=== PATIENT | male | born 1970 | race Caucasian/White ===

== ENCOUNTER 2016-06-14 13:56 | Inpatient (IN) | payer OTHER ==
[~2016-06-14] VITALS: Ht 177.8 cm; Wt 104.3 kg
[~2016-06-14 13:56] MED LIST: ALBUTEROL SULF0.5 ML INH/SOL; ALBUTEROL0.09 MG/A1 INH; ALBUTEROL1.25 MG/3 INH/SOL; ALBUTEROL2.5 MG/0.5 INH/SOL; ALBUTEROL2.5 MG/3 M INH/SOL; BACLOFEN10 M1 PO; CALCIUM CARBON200 MG PO; DOCUSATE SODIU100 M3 PO; GABAPENTIN300 M2 PO; GUAIFENESI100 MG/5 M PO; GUAIFENESIN ER600 MG PO; HYDROXYZINE PAM50 M1 PO; IPRAT-ALBUT 0.5-3 ML INH; MEDROL DOSEPAK1 PAC PO; MEDROL4 M2 PO; MELATONIN5 M7 PO; MIRALAX119 GM PO; ONE DAILY MULT1 EAC2 PO; OXYGEN; PRAZOSIN HYDROCH2 MG; PREDNICOT20 MG PO; PREDNISONE 10MG10 M1 PO; PREDNISONE 20MG20 MG PO; PREDNISONE10 M2 PO; PREDNISONE10 MG PO; PREDNISONE20 M1 PO; PROAIR HFA0.09 MG/Ac INH; PROAIR HFA8.5 GM INH; PROTONIX40 M3 PO; PROVENTIL0.09 MG/A1 INH; SENNA-TIME S T1 EACH PO; SPIRIVA 18 MCG18 MCG INH; SPIRIVA18 MCG INH; SYMBICORT 16010.2 GM INH; VENTOLIN1 PUF INH; WELLBUTRIN XL300 M2 PO; ZITHROMAX Z-PA250 M1 PO; ZITHROMAX Z-PA250 MG PO; [UNRECOGNIZED DRUG - OTHER]
--- NOTE | 2016-06-14 13:59 | NUR ---
PT STATES HE IS HAVING A ASTHMA ATTACK. PT REPORTS HAVING DIFFICULTY BREATHING FOR THE PAST 2 DAYS. PT HAS BEEN USING HIS NEBULIZER AND INHALERS WITHOUT RELIEF. INS/EXT WHEEZING HEARD IN TRIAGE.
--- NOTE | 2016-06-14 14:04 | NUR ---
PT BROUGHT RIGHT BACK TO ROOM 4 RESPITORY PAGED
--- NOTE | 2016-06-14 14:07 | ED DYSPNEA/ASTHMA COMPLAINT ---
History of Present Illness General Chief Complaint: Wheezing/Asthma Stated Complaint: ASTHMA Source: patient Exam Limitations: no limitations Vital Signs & Intake/Output Vital Signs & Intake/Output Vital Signs Date Time Temp Pulse Resp B/P Pulse O2 O2 Flow FiO2 Ox Delivery Rate 06/15 0711 97.9 96 16 132/74 94 BIPAP 30% 06/15 0636 107 94 06/15 0515 99 96 06/15 0237 92 Nasal 7.0L Cannula 06/15 0233 92 Nasal 7.0L Cannula 06/15 0204 97.7 100 22 136/70 87 Nasal 5.0L Cannula 06/14 2301 97.1 111 26 160/70 93 Nasal 5.0L Cannula 06/14 2300 93 Nasal 5.0L Cannula 06/14 2021 98.3 108 22 118/73 93 Nasal 5.0L Cannula 06/14 1916 97.8 106 20 116/67 98 Aerosol Mask 06/14 1907 91 Nasal 4.0L Cannula 06/14 1750 94 Nasal 4.0L Cannula 06/14 1655 97.3 100 20 137/80 92 Nasal 5.0L Cannula 06/14 1621 97 Nasal 5.0L Cannula 06/14 1514 97 Nasal 5.0L Cannula 06/14 1456 101 24 126/73 99 Aerosol Mask 06/14 1359 96.8 115 20 150/98 83 ED Intake and Output 06/15 0000 06/14 1200 Intake Total Output Total 350 Balance -350 Output, Urine 350 Patient 230 lb Weight Allergies Coded Allergies: oak (ALLERGY TESTED POSITIVE 03/15/16) Uncoded Allergies: SPRUCE (ALLERGY TESTED POSITIVE 03/15/16) Triage Note: PT STATES HE IS HAVING A ASTHMA ATTACK. PT REPORTS HAVING DIFFICULTY BREATHING FOR THE PAST 2 DAYS. PT HAS BEEN USING HIS NEBULIZER AND INHALERS WITHOUT RELIEF. INS/EXT WHEEZING HEARD IN TRIAGE. Triage Nurses Notes Reviewed? yes Onset: Abrupt Duration: day(s): (2), constant, continues in ED Timing: recent history Severity: moderate, severe HPI: 45-year-old male brought into the emergency room by for shortness of breath. Patient has a history of asthma. Increased shortness of breath for the past 2 days. Patient has been admitted to the ICU before here. Previous smoker. History of COPD as well. Patient unable to provide a lot of information due to respiratory distress. Patient not able to talk in full sentences. Respiratory called immediately. Denies chest pain. Patient's oxygen saturation 83% on room air. (ADELSO SHAW) Reconcile Medications Albuterol Sulfate (Albuterol Sulfate Nebulizer Soln) 0.5 ML NEB 1 Vial INH/KAREN Q4P PRN COPD (Reported) Albuterol Sulfate (Proair Hfa) 0.09 MG/Actuation YANE 2 PUFF INH PRN COPD ( Reported) Aripiprazole 5 MG TABLET 1 TAB PO DAILY MENTAL HEALTH (Reported) Budesonide/Formoterol Fumara (Symbicort 160-4.5 Mcg Inhaler) 160 MCG/4.5 MCG PUF 1 PUFF INH BID COPD (Reported) Gabapentin (Unknown Strength) CAPSULE 300 PO BID ANXIETY (Reported) Ipratropium/Albuterol Sulfate (Iprat-Albut 0.5-3(2.5) MG/3 Ml) 0.5 MG-3 MG (2.5 MG BASE)/3 ML AMPUL.NEB 1 VIAL INH Q4 PRN sob Methadone HCl 10 MG/5 ML SOLUTION 75 MG PO DAILY MENTAL HEALTH (Reported) Pantoprazole Sodium (Protonix) 40 MG TAB 40 MG PO DAILY ACID REFLUX (Reported ) Prazosin HCl 1 MG CAPSULE 1 CAP PO QPM MENTAL HEALTH (Reported) (HITESH BANKS,LISANDRO) Past History Travel History Traveled to [place] past 21 day No Medical History Any Pertinent Medical History? 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 No (ADELSO SHAW) Review of Systems Review of Systems Constitutional: Reports: no symptoms. EENTM: Reports: no symptoms. Respiratory: Reports: see HPI. Cardiovascular: Reports: no symptoms. GI: Reports: no symptoms. Genitourinary: Reports: no symptoms. Musculoskeletal: Reports: no symptoms. Skin: Reports: no symptoms. Neurological/Psychological: Reports: no symptoms. Hematologic/Endocrine: Reports: no symptoms. Immunologic/Allergic: Reports: no symptoms. All Other Systems: Reviewed and Negative (ADELSO SHAW) Physical Exam Physical Exam General Appearance: well developed/nourished, moderate distress Head: atraumatic Eyes: Bilateral: normal appearance, EOMI. Ears, Nose, Throat: normal ENT inspection, hearing grossly normal Neck: normal inspection Respiratory: decreased breath sounds, rhonchi, wheezing, respiratory distress ( moderate) Cardiovascular: regular rate/rhythm Extremities: normal inspection Neurologic/Psych: awake, alert, oriented x 3 Skin: intact, normal color Core Measures ACS in differential dx? No Severe Sepsis Present: No Septic Shock Present: No (ADELSO SHAW) Progress Differential Diagnosis: asthma, AMI, bronchitis, costochondritis, CHF, COPD, musculoskeletal pain, pericarditis, pulmonary embolism, pneumonia, pneumothorax, rib fracture, unstable angina Plan of Care: Orders Procedure Date/time Status Regular Diet 06/15 B Active Change service to 06/15 0819 Active ARTERIAL BLOOD GAS (GEN) 06/15 0700 Active CBC WITHOUT DIFFERENTIAL 06/15 0600 Complete BASIC ELECTROLYTES PLUS BUN&CR 06/15 0600 Complete HEPATIC FUNCTION PANEL 06/15 0530 Complete BIPAP 06/15 0520 Complete RAPID VIRAL INFLUENZA A 06/15 0440 Complete THERAPIST ORDERS 06/15 0235 Complete BIPAP 06/15 UNK Complete Lab Add-on Test 06/15 UNK Active Vital Signs 06/14 2255 Complete Teach/Educate 06/14 225 Active Nutritional Intake, Monitor 06/14 225 Active Isolation 06/14 225 Active Intake & Output 06/14 225 Complete Patient Care Conference 06/14 2255 Active Activity/Ambulation 06/14 225 Complete TRC EVALUATION (GEN) 06/14 2231 Active OXYGEN SETUP (GEN) 06/14 2231 Complete Saline Lock 06/14 223 Active Pathway - chart 06/14 2231 Active House Staff 06/14 2231 Active Code Status 06/14 2231 Active Saline Lock 06/14 2133 Active Misc Message 06/14 2133 Active ED Holding Orders 06/14 2133 Active Vital Signs 06/14 2133 Complete Activity/Ambulation 06/14 2133 Active Code Status 06/14 2133 Complete Patient Data 06/14 2112 Active Patient Data 06/14 2110 Active Admit to inpatient 06/14 1944 Active Intake & Output 06/14 1655 Active Telemetry/Director Medical Affairs 06/14 1407 Complete TROPONIN LEVEL 06/14 1407 Complete COMPREHENSIVE METABOLIC PANEL 06/14 1407 Complete CBC WITHOUT DIFFERENTIAL 06/14 1407 Complete EKG 06/14 1407 Active VTE Mechanical Prophylaxis 06/14 UNK Active Vital Signs 06/14 UNK Active Intake & Output 06/14 UNK Complete Current Medications Sig/Nettie Start time Last Medication Dose Stop Time Status Admin Prazosin HCl 1 MG QPM 06/15 2200 AC (Minipress 1 MG) Aripiprazole 5 MG DAILY 06/15 1000 AC (Abilify) Budesonide/ 2 PUF BID 06/15 1000 AC Formoterol Fumarate (Symbicort) Enoxaparin Sodium 40 MG DAILY 06/15 1000 AC (Lovenox) Gabapentin 300 MG BID 06/15 1000 AC (Neurontin) Nicotine 14 MG DAILY 06/15 1000 AC (Nicotine Cq) Albuterol Sulfate 2 PUF Q4P PRN 06/15 0230 AC (Ventolin) Melatonin 5 MG AT BEDTIME 06/15 0115 AC (Melatonin) Ipratropium [place] 2.5 ML Q4 HRS NEEDED PRN 06/14 2345 AC (Atrovent) Acetaminophen 650 MG Q6P PRN 06/14 2245 AC (Tylenol) Ipratropium [place] 2.5 ML ONCE ONE 06/14 1415 CAN (Atrovent) 06/14 1416 Laboratory Tests 06/15/16 0600: Total Bilirubin Cancelled, Direct Bilirubin Cancelled, AST Cancelled, ALT Cancelled, Alkaline Phosphatase Cancelled, Total Protein Cancelled, Albumin Cancelled 06/15/16 0530: Anion Gap 10, Estimated GFR > 60, BUN/Creatinine Ratio 13.8, Total Bilirubin 0.5 , Direct Bilirubin 0.4, AST 53, ALT 97 H, Alkaline Phosphatase 85, Total Protein 6.8, Albumin 3.8, CBC w Diff NO MAN DIFF REQ, RBC 4.04 L, MCV 93.1, MCH 31.1 H, RDW 13.5, MPV 8.2, Gran % 92.3 H, Lymphocytes % 6.2 L, Monocytes % 1.5 L, Eosinophils % 0, Basophils % 0 L, Absolute Granulocytes 9.3 H, Absolute Lymphocytes 0.6 L, Absolute Monocytes 0.2, Absolute Eosinophils 0, Absolute Basophils 0, PUBS MCHC 33.5 06/14/16 1500: pH 7.33 L, pCO2 54 H, pO2 105 H, HCO3 28, ABG O2 Sat (Measured) 96.0, Carboxyhemoglobin 0.7 L, O2 Concentration % 8L, O2 Delivery Method NEB RX, Phlebotomy Draw Site RIGHT BRACHIAL 06/14/16 1413: Anion Gap 8, Estimated GFR > 60, BUN/Creatinine Ratio 10.0, Glucose 174 H, Calcium 9.6, Total Bilirubin 0.6, AST 80 H, ALT 126 H, Alkaline Phosphatase 98 , Troponin I < 0.01, Total Protein 7.6, Albumin 4.3, Globulin 3.3, Albumin/ Globulin Ratio 1.3, CBC w Diff NO MAN DIFF REQ, RBC 4.49 L, MCV 92.7, MCH 31.3 H, RDW 13.4, MPV 8.0, Gran % 64.1, Lymphocytes % 19.2 L, Monocytes % 9.5 H, Eosinophils % 6.7 H, Basophils % 0.5, Absolute Granulocytes 4.4, Absolute Lymphocytes 1.3, Absolute Monocytes 0.7 H, Absolute Eosinophils 0.5, Absolute Basophils 0, PUBS MCHC 33.8 Diagnostic Imaging: Viewed by Me: Radiology Read. Discussed w/RAD: Radiology Read. Radiology Impression: SERVICE DATE: 06/14/16 EXAM TYPE: RAD - XRY- PORTABLE CHEST XRAY EXAMINATION: XR PORTABLE CHEST CLINICAL INFORMATION: Shortness of breath. COMPARISON: 04/05/2016 TECHNIQUE: Portable view of the chest was obtained. FINDINGS: Stable cardiac and mediastinal silhouette. Stable hazy opacity in the lung bases, likely secondary to overlapping densities. No evidence of focal consolidation, effusion, edema or pneumothorax. IMPRESSION: No significant interval change. No evidence of acute process. DICTATED BY: DEBBIE MONSON MD DATE/TIME DICTATED:06/14/161446 DIRECTOR BUSINESS INTELLIGENCE:SHEEBA DATE/ TIME TRANSCRIBED:06/14/161446 Initial ED EKG: normal intervals, normal p-waves, normal sinus rhythm, rate (103 ) (ADELSO SHAW) Departure Departure Disposition: STILL A PATIENT Condition: Stable Clinical Impression Primary Impression: Asthma exacerbation Secondary Impressions: Hypoxia Referrals: ALLAN NEWTON DO (PCP/Family) Departure Forms: Customer Survey General Discharge Information Admission Note Spoke With: MONIQUE BARRETT MD Documentation of Exam: Documentation of any treatments & extenuating circumstances including Concerns Regarding Discharge (functional status, medication knowledge or non-compliance, living conditions, etc.) that warrant an admission rather than observation: Patient was in a moderate amount of rust or distress. Despite continuous nebs, magnesium, steroids patient is still persistently hypoxic into the mid to high 80s on room air. Patient is still tight on exam. Patient will require pulmonary consultation. Supplemental oxygen. High risk. (ADELSO SHAW) PA/BEAUTY SALES ADVISOR Co-Sign Statement Statement: ED Attending supervision documentation- [X] I saw and evaluated the patient. I have also reviewed all the pertinent lab results and diagnostic results. I agree with the findings and the plan of care as documented in the PA's/BEAUTY SALES ADVISOR's documentation. [X] I have reviewed the ED Record and agree with the PA's/BEAUTY SALES ADVISOR's documentation. [] Additions or exceptions (if any) to the PAs/BEAUTY SALES ADVISOR's note and plan are summarized below: [] (HITESH BANKS,LISANDRO) Critical Care Note Critical Care Note Critical Care Time: 30-74 min (ADELSO SHAW)
[2016-06-14 14:22] LABS: ABSOLUTE BASOPHIL COUNT 0 /CUMM (0.0-0.2); ABSOLUTE EOSINOPHIL COUNT 0.5 /CUMM (0.0-0.7); ABSOLUTE GRANULOCYTE CT 4.4 /CUMM (1.4-6.5); ABSOLUTE LYMPH COUNT 1.3 /CUMM (1.2-3.4); ABSOLUTE MONOCYTE COUNT 0.7 /CUMM (0.10-0.60); BASOPHIL % 0.5 % (0.0-2.0); EOSINOPHIL % 6.7 % (0-5); GRANULOCYTE % 64.1 % (42.2-75.2); HEMATOCRIT 41.6 % (42-52); MEAN CORPUSCULAR HGB 31.3 PG (27.0-31.0); MEAN CORPUSCULAR HGB CONC 33.8 G/DL (33.0-37.0); MEAN CORPUSCULAR VOLUME 92.7 FL (80.0-94.0); PLATELET COUNT 249 /CUMM (130-400); RBC DISTRIBUTION WIDTH 13.4 % (11.5-14.5); RED BLOOD CELL CT 4.49 /CUMM (4.70-6.10); WHITE BLOOD CELL COUNT 6.9 /CUMM (4.8-10.8)
--- NOTE | 2016-06-14 14:28 | NUR ---
PT TO ROOM 4 AND SEEN BY RAFAEL CROSS AND DR PROCTOR IMMEDIATLY, SATS 94 ON 5L NC, RT AT BEDSIDE AND CONT NEBS SETUP WITH SATS 98-99 ON NEB TX AND AUDIBLE WHEEZING. IV EST AND MEDICATED PER EMAR, BLOOD SENT (SST/LAV/BONNER). PT ALERT AND STATES FEELS SOME IMPROVEMENT ON NEB TX. PCXR DONE, EKG DONE, PT ON TELE MONITOR WITH 02 SATS AND CYCLING BPS.
--- NOTE | 2016-06-14 15:07 | RADIOLOGY REPORT ---
EXAMINATION: XR PORTABLE CHEST CLINICAL INFORMATION: Shortness of breath. COMPARISON: 04/05/2016 TECHNIQUE: Portable view of the chest was obtained. FINDINGS: Stable cardiac and mediastinal silhouette. Stable hazy opacity in the lung bases, likely secondary to overlapping densities. No evidence of focal consolidation, effusion, edema or pneumothorax. IMPRESSION: No significant interval change. No evidence of acute process.
[2016-06-14] MEDS ORDERED: PRAZOSIN HCL1 M1 PO (16:25)
[2016-06-14] MEDS ORDERED: PREDNISONE10 M2 PO (16:25)
[2016-06-14] MEDS ORDERED: GABAPENTIN400 M2 PO (16:26)
[2016-06-14] MEDS ORDERED: ARIPIPRAZOLE5 M1 PO (16:27)
--- NOTE | 2016-06-14 16:55 | NUR ---
PT APPEARS MORE COMFORTABLE THAN PRIOR, NOW ABLE TO SPEAK IN FULL PHRASES AND CONVERSING ON CELL PHONE. SATS 92-96 ON 5L MS.
--- NOTE | 2016-06-14 17:30 | NUR ---
RAFAEL [place] AT BEDSIDE DISCUSSING POC. PA SUGGESTING ADMISSION, PT STATING HE DOES NOT WANT TO STAY.
--- NOTE | 2016-06-14 17:44 | NUR ---
RT CALLED FOR REPEAT NEB. SATS 91-92 ON 3L NC, IMMED DROPS TO 88 ON RA. WILL RE-ATTEMPT AFTER TX.
--- NOTE | 2016-06-14 18:00 | NUR ---
02 SATS AFTER NEB TX 89 ON RA. PT BACK ON 3L AT THIS TIME, DOES NOT WANT TO STAY IN ED FOR OBS, ASKING TO SPEAK WITH DR PROCTOR ABOUT POC. DR PROCTOR AWARE.
--- NOTE | 2016-06-14 19:16 | NUR ---
RT AT BEDSIDE WITH NEB TX AGAIN.
--- NOTE | 2016-06-14 20:23 | NUR ---
PT MEDICATED WITH ATIVAN. PT CURRENTLY WILLING TO BE ADMITTED. NO COMPLAINTS AT THIS TIME.
--- NOTE | 2016-06-14 21:10 | History & Physical ---
SHIRLEY ARCHULETA MD 06/14/162109: General Information and HPI MD Statement: I have seen and personally examined ARIANNA HEREDIA and documented this H&P. The patient is a 45 year old M who presented with a patient stated chief complaint of [ASTHMA ATTACK]. Source of Information: patient Exam Limitations: no limitations History of Present Illness: 45-year-old male with PMH of asthma with ICU admission in Mar 2016 requiring bipap (no intubation) on 3.5 L nocturnal O2, PTSD, anxiety, presented to ED for asthma attack. He reported that he started having asthma attacks 2 nights ago, he woke up twice to give himself duoneb, and once in the morning. He was doing well throughout the day. Last night, he woke up every hour to give himself duoneb. He does get relief after the duoneb. He has dry cough, wheezing, shortness of breath, and panic. He followed up with Dr. Cuevas since discharge. He was given 30 pills of 10 mg prednisone, for which he took 50mg X 2 days and decrease by 10 mg every 2 days. His last dose was 2 days ago. He has an appointment to see Dr. Cuevas upcoming Tue. In 2015, he left AMA X 2 from ED when he was supposed to be admitted, and he finally agreed to be admitted in Mar 2016 to the ICU. He was put on bipap. When he arrived to the ED, he was wheezing, and was saturating at 83% on RA. He was given neb tx, and placed on 5L O2, saturating at 93% . He felt better after the neb treatment, currently reports feeling " raspy". He has stopped smoking since discharge. He currently uses nicotine patch. He lives with his girlfriend and daughter. His girlfriend smokes outside the house. 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 He has a dog and a cat. He had an allergy test in the past. He is not allergic to cat and dogs. He is allergic to oak tree. He felt anxious in the ED, but felt better after 2mg IV ativan and 1 mg PO ativan. He has an appointment with a psychiatrist on Jun 26, and does not feel the need the get psychiatry consult while inpatient. He follows up with [facility] in [place] for his methadone. He takes 75 mg methadone daily. Allergies/Medications Allergies: Coded Allergies: oak (ALLERGY TESTED POSITIVE 03/15/16) Uncoded Allergies: SPRUCE (ALLERGY TESTED POSITIVE 03/15/16) Home Med list Albuterol Sulfate (Albuterol Sulfate Nebulizer Soln) 0.5 ML NEB 1 Vial INH/KAREN Q4P PRN COPD (Reported) Albuterol Sulfate (Proair Hfa) 0.09 MG/Actuation YANE 2 PUFF INH PRN COPD ( Reported) Aripiprazole 5 MG TABLET 1 TAB PO DAILY MENTAL HEALTH (Reported) Budesonide/Formoterol [place] (Symbicort 160-4.5 Mcg Inhaler) 160 MCG/4.5 MCG PUF 1 PUFF INH BID COPD (Reported) Gabapentin (Unknown Strength) CAPSULE 300 PO BID ANXIETY (Reported) Ipratropium/Albuterol Sulfate (Iprat-Albut 0.5-3(2.5) MG/3 Ml) 0.5 MG-3 MG (2.5 MG BASE)/3 ML AMPUL.NEB 1 VIAL INH Q4 PRN sob Methadone HCl 10 MG/5 ML SOLUTION 75 MG PO DAILY MENTAL HEALTH (Reported) Pantoprazole Sodium (Protonix) 40 MG TAB 40 MG PO DAILY ACID REFLUX (Reported ) Prazosin HCl 1 MG CAPSULE 1 CAP PO QPM MENTAL HEALTH (Reported) Past History Travel History Traveled to [place] past 21 day No Medical History Neurological: NONE EENT: NONE Cardiovascular: NONE Respiratory: asthma Gastrointestinal: GERD Hepatic: NONE Renal: NONE Musculoskeletal: NONE Psychiatric: anxiety, depression, PTSD Endocrine: NONE Blood Disorders: NONE Cancer(s): NONE ROOMS DIRECTOR/Reproductive: NONE History of MRSA: No History of VRE: No History of CDIFF: No Surgical History Surgical History: L THUMB SURGERY Past Family/Social History Family History Relations & Conditions if any Relation not specified for: *No pertinent family history Psychosocial History Who Do You Live With? spouse, child Services at Home: None Primary Language: [place]er Smoking Status: Former Smoker ETOH Use: denies use Illicit Drug Use: denies illicit drug use Functional Ability ADLs Independent: dressing, eating, toileting, bathing. Ambulation: independent IADLs Independent: shopping, housework, finances, food prep, telephone, transportation , medication admin. Review of Systems Review of Systems Constitutional: Denies: chills, fever. EENTM: Denies: visual changes. Cardiovascular: Denies: chest pain, palpitations. Respiratory: Reports: cough, short of breath. Denies: sputum production. GI: Denies: abdominal pain, bloating, constipation, diarrhea, nausea, vomiting. Genitourinary: Denies: dysuria. Exam & Diagnostic Data Last 24 Hrs of Vital Signs/I&O Vital Signs Date Time Temp Pulse Resp B/P Pulse O2 O2 Flow FiO2 Ox Delivery Rate 06/14 2301 97.1 111 26 160/70 93 Nasal 5.0L Cannula 06/14 2020 98.3 108 22 118/73 93 Nasal 5.0L Cannula 06/14 1916 97.8 106 20 116/67 98 Aerosol Mask 06/14 1907 91 Nasal 4.0L Cannula 06/14 1750 94 Nasal 4.0L Cannula 06/14 1655 97.3 100 20 137/80 92 Nasal 5.0L Cannula 06/14 1621 97 Nasal 5.0L Cannula 06/14 1514 97 Nasal 5.0L Cannula 06/14 1456 101 24 126/73 99 Aerosol Mask 06/14 1359 96.8 115 20 150/98 83 Intake & Output 06/14 1600 06/14 0800 06/14 0000 Intake Total Output Total Balance Patient 104.326 kg Weight Physical Exam General Appearance Alert, Oriented X3, Cooperative, Mild Distress Skin No Significant Lesion HEENT Atraumatic, PERRLA, EOMI, Mucous Membr. moist/pink Neck Supple, +2 Carotid Pulse wo Bruit Lymphatic Axillary nl, Cervical nl Cardiovascular Regular Rate, Normal S1, Normal S2, No Murmurs, Gallops, Rubs Lungs inspiratory and expiratory wheezes, mild respiratory distress, noticable short of breath at the end of the sentence, able to complete his sentences Abdomen Normal Bowel Sounds, Soft, No Tenderness Neurological Normal Speech Extremities trace pedal edema Last 24 Hrs of Labs/Ashish: Laboratory Tests 06/14/16 1500: pH 7.33 L, pCO2 54 H, pO2 105 H, HCO3 28, ABG O2 Sat (Measured) 96.0, Carboxyhemoglobin 0.7 L, O2 Concentration % 8L, O2 Delivery Method NEB RX, Phlebotomy Draw Site RIGHT BRACHIAL 06/14/16 1413: Anion Gap 8, Estimated GFR > 60, BUN/Creatinine Ratio 10.0, Glucose 174 H, Calcium 9.6, Total Bilirubin 0.6, AST 80 H, ALT 126 H, Alkaline Phosphatase 98 , Troponin I < 0.01, Total Protein 7.6, Albumin 4.3, Globulin 3.3, Albumin/ Globulin Ratio 1.3, CBC w Diff NO MAN DIFF REQ, RBC 4.49 L, MCV 92.7, MCH 31.3 H, RDW 13.4, MPV 8.0, Gran % 64.1, Lymphocytes % 19.2 L, Monocytes % 9.5 H, Eosinophils % 6.7 H, Basophils % 0.5, Absolute Granulocytes 4.4, Absolute Lymphocytes 1.3, Absolute Monocytes 0.7 H, Absolute Eosinophils 0.5, Absolute Basophils 0, PUBS MCHC 33.8 Diagnostic Data EKG Results No EKG CXR Results No significant interval change. No evidence of acute process. Assessment/Plan Assessment: 45-year-old male with PMH of asthma with ICU admission in Mar 2016 requiring bipap (no intubation), on 3.5 L nocturnal O2, PTSD, anxiety, presented to ED for asthma attack. Pt admitted to with the following problems addressed: # Asthma exacerbation * TRC/neb * Consult Dr. Cuevas in am * Continue albuterol, ipratropium, symbicort * Methylpred 40 mg q6 * Goal O2 > 90% * Start bipap (as he was requiring up to 7L on ), recheck abg 2 hours after bipap (7am) * F/U rapid flu # Transaminitis * Consider hepatitis panel and RUQ US # Anxiety, PTSD - Given 2mg IV ativan and 1 mg PO ativan in ED * Consider inpatient psych consult, pt has OP appointment Jun 26 * Continue prazosin 1 mg QPM * Continue gabapentin 300 bid * Continue aripiprazole 5 mg daily * Melatonin for sleep # Methadone dependence * Confirm methadone dose with [facility], [place] tomorrow, pt claims to take 75mg daily # Nicotine dependence * Continue nicotine patch # GI * Continue protonix 40 mg daily Diet: regular diet DVT ppx: mech, pharm (lovenox) FULL CODE As Ranked By This Provider Problem List: 1. Asthma exacerbation Core Measures/Miscellaneous Acute Coronary Syndrome ACS Diagnosis: No Cerebrovascular Accident CVA/TIA Diagnosis: No Congestive Heart Failure CHF Diagnosis: No Venous Thromboembolism VTE Risk Factors: Acute medical illness, Age > 40, Obesity VTE Prophylaxis Ordered Inpt: Mech & Pharm No Mech VTE prophylaxis d/t: No contraindications No VTE Pharm Prophylaxis d/t: No contraindications VTE Diagnosis: No VTE Type: NONE VTE Confirmed by (Test): NONE Severe Sepsis Severe Sepsis Present: No Septic Shock Septic Shock Present: No Miscellaneous Documentation Attending Case Discussed With: BRIE BENITES MD Primary Care Physician: ALLAN NEWTON DO Patient sees these Specialists Dr Faith Dinh Level of Patient Care: General Medicine ROSELIA BROOKS 06/15/16 0223: Resident Review Statement Resident Statement: examined this patient, discussed with analytics intern, agreed with analytics intern, reviewed EMR data (avail), reviewed images, amended to note Other Findings: This is 45-year-old male with past medical history of asthma, COPD on 3.5 L nocturnal O2, PTSD, anxiety, GERD, depression, on methadone. Presented to emergency department for asthma attack. Patient stated that he started having asthma attacks 2 nights ago, he woke up twice to give himself duoneb, and once in the morning. The night after the patient stated that he cannot sleep due to the difficulty in breathing that is associated with expiratory wheezing and dry cough and that he was using his treatment every hour without successful relief of his symptoms. The patient stated that his wet primer powder blender Dr. Cuevas prescribed for him prednisone 30 pelvis on the beginning of May 2016 and the patient complete the total tapering course. Patient stated that since 2015 his asthmatic attack become more frequent and he visits the ED more frequent, patient was hospitalized in the ICU on March 2016 for status asthmaticus and he required BiPAP at that time. He stated that he quit smoking since then. Physical examination, lab and imaging as above. Problem list: -Asthma exacerbation -eosinophilia -Nicotine dependent Plan: -Admit patient to general medicine floor -Vitals every shift -Start the patient IV Solu-Medrol 40 mg every 6 -TRC nebs as needed continue home medication of ipratropium, Symbicort. -Start IV azithromycin antibiotic -Oxygen set up 3.5 L nocturnal, nicotine patch -Pulmonary consultation a.m. -Continue home medication -Repeat CBC and basic electrolytes in the morning -Please confirm methadone dose in a.m. -Pain pathway -Regular diet -DVT prophylaxis: Subcutaneous Lovenox -Full code DELMIS BANKS, [facility] 06/15/16 0455: Attending MD Review Statement Attending Statement Attending MD Statement: examined this patient, discuss w/resident/PA/FOOD PROCESSING CHEMIST, agreed w/resident/PA/FOOD PROCESSING CHEMIST Attending Assessment/Plan: 45 yo M with h/o asthma (follows Dr. Cuevas) on nocturnal 3.5 L O2, reflux disease, panic with agoraphobia, PTSD, chronic pain on MMT, last admitted for status asthmaticus (Mar 2016) to ICU requiring Bipap, is here with 2-day h/o worsening dyspnea, dry cough and wheezing, not relieved with inhalers. He was prescribed 30 tabs of prednisone (10 mg) by Dr. Cuevas on Jun 02 for use in case of an exacerbation, but the patient did a slow taper over 10 days and finished it. Never intubated. No sick contacts. He states he quit smoking in Mar 2016, and uses the nicotine patch. He also is exposed to second hand smoke from his girlfriend. PFT (November 2015): severe obstructive lung disease with reduction in diffusing capacity c/w emphysema and a significant bronchodilator response with oxygen desaturation. Vitals: afebrile, tachycardic, BP 116/67, sats 88% RA --> 94% on 4L --> 92% on 7L. Exam: short of breath at the end of completing his sentences, not using accessory muscles of respiration, expiratory wheeze++. Labs: eosinophils 6.7%, AST 80, ALT 126, trop neg, AB.33/54/105/28. CXR: no pneumonia. Echo (2015): EF 65%, LVH. 1. Acute hypoxic and hypercarbic respiratory failure, asthma exacerbation with significant eosinophilia. TRC nebs, check rapid flu, IV steroids, IV azithro, low threshold to intubate. Will initiate Bipap therapy. Pulm consult in AM. Please repeat ABG after 2 hours of Bipap. Continue nicotine patch. 2. Chronic pain. Confirm methadone dose (75 mg) from [place], [place]. 3. PTSD. Patient received 3 doses of ativan in ER. He is not on benzos for anxiety, previously noted to be buying benzos off-street. He has an appointment scheduled with Psych on Jun 26. Would have ideally checked a urine tox screen on ER arrival to see if he is using off street drugs, however, no point doing it now as he has received Benzos in ER. 4. Transaminitis of unclear etiology. Gentle hydration. Trend LFTs. If persistently high, would check hep panel and RUQ ultrasound. DVT ppx Lovenox. Full code.
--- NOTE | 2016-06-14 21:31 | NUR ---
PT EATING FOOD BROUGHT BY FAMILY, AWAITING HOUSE STAFF EVAL
--- NOTE | 2016-06-14 22:05 | NUR ---
PT ASSIGNED TO ROOM 230-1
--- NOTE | 2016-06-14 22:13 | NUR ---
HOUSE STAFF AT BEDSIDE
--- NOTE | 2016-06-14 22:27 | NUR ---
REPORT CALLED TO SARAH ON 2NA, BED IS READY AND TRANSPORT WILL BE CALLED WHEN HOUSE STAFF EVAL COMPLETED.
[2016-06-14] MEDS ORDERED: METHADONE10 MG/5 M2 PO (22:28)
--- NOTE | 2016-06-14 22:45 | NUR ---
NURSING NOTE: PT ARRIVED TO 2NA VIA WHEELCHAIR @ 2245. PT ON 5L NC, A&O X3, CALM AND COOPERATIVE. APPEARS TO GET SOB W SPEECH. TOE FORMER COUGH PRESENT. IV NOTED IN RAC. PT AMBULATES INDEPENDENTLY W STEADY GAIT, EXTENSION TUBING PROVIDED FOR NC. ADMISSION ASSESSMENT COMPLETED. RN WILL CONTINUE TO MONITOR.
[2016-06-14 23:01] VITALS: BP 160/70
[2016-06-15 02:04] VITALS: BP 136/70
--- NOTE | 2016-06-15 04:21 | Admission Certification ---
Admission Certification Certification Statement - As attending physician, I certify that at the time of - admission, based on clinical presentation, severity of - symptoms, need for further diagnostic testing and - therapeutic interventions, and risk of adverse outcomes - without in-hospital treatment, in my clinical assessment, - this patient requires an acute hospital stay for a minimum - of two nights or longer. I have also considered psychsocial - factors such as support system, advanced age, financial - issues, cognitive issues, and failed out-patient treatments, - past re-admission history, safety of patient, and lack of - compliance as applicable. Specific rationale supporting this admission is: Acute hypoxic and hypercarbic respiratory failure, asthma exacerbation.
[2016-06-15 05:51] LABS: ABSOLUTE BASOPHIL COUNT 0 /CUMM (0.0-0.2); ABSOLUTE EOSINOPHIL COUNT 0 /CUMM (0.0-0.7); ABSOLUTE GRANULOCYTE CT 9.3 /CUMM (1.4-6.5); ABSOLUTE LYMPH COUNT 0.6 /CUMM (1.2-3.4); ABSOLUTE MONOCYTE COUNT 0.2 /CUMM (0.10-0.60); BASOPHIL % 0 % (0.0-2.0); EOSINOPHIL % 0 % (0-5); HEMATOCRIT 37.6 % (42-52); MEAN CORPUSCULAR HGB 31.1 PG (27.0-31.0); MEAN CORPUSCULAR HGB CONC 33.5 G/DL (33.0-37.0); MEAN CORPUSCULAR VOLUME 93.1 FL (80.0-94.0); MEAN PLATELET VOLUME 8.2 FL (7.4-10.4); PLATELET COUNT 228 /CUMM (130-400); RBC DISTRIBUTION WIDTH 13.5 % (11.5-14.5); RED BLOOD CELL CT 4.04 /CUMM (4.70-6.10); WHITE BLOOD CELL COUNT 10.1 /CUMM (4.8-10.8)
[2016-06-15 06:06] LABS: GRANULOCYTE % 92.3 % (42.2-75.2)
[2016-06-15 07:11] VITALS: BP 132/74
--- NOTE | 2016-06-15 07:35 | PN- Housestaff ---
GISELE BANKS,SHANE 06/15/16 0735: Subjective Follow-up For: Asthma exacerbation Subjective: Patient seen and examined. He is seen lying upright in bed maintained on BiPAP resting comfortably. He appears to be in no acute distress. He reports feeling "much better" than when he came in. He has no new complaints. He is asking about his methadone medication for which he was told he will receive later this morning after his doses reconciled. Otherwise he denies any headache, fever, chills, chest pain, palpitations, increased shortness of breath, cough, nausea, vomiting, diarrhea. No overnight events reported. Review of Systems Constitutional: Reports: see HPI. Objective Last 24 Hrs of Vital Signs/I&O Vital Signs Date Time Temp Pulse Resp B/P Pulse O2 O2 Flow FiO2 Ox Delivery Rate 06/15 0938 Nasal 7.0L Cannula 06/15 0929 96 Nasal 7.0L Cannula 06/15 0800 94 Nasal 7.0L Cannula 06/15 0711 97.9 96 16 132/74 94 BIPAP 30% 06/15 0636 107 94 06/15 0515 99 96 06/15 0237 92 Nasal 7.0L Cannula 06/15 0233 92 Nasal 7.0L Cannula 06/15 0204 97.7 100 22 136/70 87 Nasal 5.0L Cannula 06/14 2301 97.1 111 26 160/70 93 Nasal 5.0L Cannula 06/14 2300 93 Nasal 5.0L Cannula 06/14 2021 98.3 108 22 118/73 93 Nasal 5.0L Cannula 06/14 1916 97.8 106 20 116/67 98 Aerosol Mask 06/14 1907 91 Nasal 4.0L Cannula 06/14 1750 94 Nasal 4.0L Cannula 06/14 1655 97.3 100 20 137/80 92 Nasal 5.0L Cannula 06/14 1621 97 Nasal 5.0L Cannula 06/14 1514 97 Nasal 5.0L Cannula 06/14 1456 101 24 126/73 99 Aerosol Mask 06/14 1359 96.8 115 20 150/98 83 Intake & Output 06/15 1600 06/15 0800 06/15 0000 Intake Total 900 Output Total 1200 350 Balance -300 -350 Intake, Oral 900 Output, Urine 1200 350 Patient 104.326 kg Weight Physical Exam General Appearance: Alert, Oriented X3, Cooperative, No Acute Distress Other Physical Findings: General -well-developed, well-nourished obese male in no acute distress HEENT - NCAT, PERRL, EOMI, anicteric sclera, on BiPAP Cardio - S1, S2 w/o murmurs/gallops/rubs Resp -diffuse wheezing with minimal rhonchi, no crackles GI - soft, nontender, nondistended, bowel sounds present Neuro - Awake and alert, CN II - XII grossly intact Extremities - no edema, pulses intact Current Medications: Current Medications Sig/Nettie Start time Last Medication Dose Route Stop Time Status Admin Acetaminophen 650 MG Q6P PRN 06/14 2245 AC PO Albuterol Sulfate 3 ML EVERY 4 HRS/AWAKE 06/15 1200 AC 06/15 INH 0909 Albuterol Sulfate 2 PUF Q4P PRN 06/15 0230 AC INH Albuterol Sulfate 3 ML ONCE ONE 06/15 0215 DC 06/15 INH 06/15 0216 0218 Albuterol Sulfate 3 ML ONCE ONE 06/14 1915 DC 06/14 INH 06/14 1916 1917 Albuterol Sulfate 3 ML ONCE ONE 06/14 1745 DC 06/14 INH 06/14 1746 1746 Albuterol Sulfate 3 ML ONCE ONE 06/14 1415 DC 06/14 INH 06/14 1416 1413 Albuterol Sulfate 3 ML ONCE ONE 06/14 1415 DC 06/14 INH 06/14 1416 1413 Albuterol Sulfate 3 ML ONCE ONE 06/14 1415 DC 06/14 INH 06/14 1416 1413 Albuterol Sulfate 3 ML ONCE ONE 06/14 1415 DC 06/14 INH 06/14 1416 1413 Albuterol Sulfate 3 ML ONCE ONE 06/14 1415 DC 06/14 INH 06/14 1416 1413 Albuterol Sulfate 3 ML ONCE ONE 06/14 1415 DC 06/14 INH 06/14 1416 1413 Aripiprazole 5 MG DAILY 06/15 1000 AC 06/15 PO 0944 Azithromycin 500 MG 0500 06/15 0500 AC 06/15 Dextrose/Water 250 ML IV 0535 Budesonide/ 2 PUF BID 06/15 1000 AC 06/15 Formoterol Fumarate INH 0945 Enoxaparin Sodium 40 MG DAILY 06/15 1000 AC 06/15 SC 0944 Gabapentin 300 MG BID 06/15 1000 AC 06/15 PO 0944 Ibuprofen 600 MG Q6P PRN 06/14 2245 DC PO Ipratropium [place] 2.5 ML EVERY 4 HRS/AWAKE 06/15 1200 AC 06/15 INH 0909 Ipratropium [place] 2.5 ML ONCE ONE 06/15 0215 DC 06/15 INH 06/15 0216 0218 Ipratropium [place] 2.5 ML Q4 HRS NEEDED PRN 06/14 2345 AC INH Ipratropium [place] 2.5 ML ONCE ONE 06/14 1915 DC 06/14 INH 06/14 1916 1917 Ipratropium [place] 2.5 ML ONCE ONE 06/14 1745 DC 06/14 INH 06/14 1746 1746 Ipratropium [place] 2.5 ML ONCE ONE 06/14 1415 CAN INH 06/14 1416 Lorazepam 0 .STK-MED ONE 06/14 2017 DC PO Lorazepam 0 .STK-MED ONE 06/14 2017 DC .ROUTE Lorazepam 1 MG ONCE ONE 06/14 1945 DC 06/14 IV 06/14 Lorazepam 1 MG ONE ONE 06/14 1945 DC 06/14 PO 06/14 Lorazepam 1 MG ONCE ONE 06/14 1815 DC 06/14 IV 06/14 181 1822 Magnesium Sulfate 1 GM Q2H 06/14 1415 DC 06/14 Dextrose/Water 100 ML IV 06/14 1814 1455 Melatonin 5 MG AT BEDTIME 06/15 0115 AC PO Methadone HCl 75 MG DAILY 06/15 1014 AC PO Methylprednisolone 40 MG Q6 06/14 2359 AC 06/15 IV 0534 Methylprednisolone 0 .STK-MED ONE 06/14 1416 DC .ROUTE Methylprednisolone 125 MG ONCE ONE 06/14 1415 DC 06/14 IV 06/14 1416 1428 Nicotine 14 MG DAILY 06/15 1000 AC 06/15 TOP 0945 Omeprazole 40 MG DAILY AC 06/15 0700 AC 06/15 PO 0535 Prazosin HCl 1 MG QPM 06/15 2200 AC PO Last 24 Hrs of Lab/Ashish Results Last 24 Hrs of Labs/Mics: Laboratory Tests 06/15/16 0600: Total Bilirubin Cancelled, Direct Bilirubin Cancelled, AST Cancelled, ALT Cancelled, Alkaline Phosphatase Cancelled, Total Protein Cancelled, Albumin Cancelled 06/15/16 0530: Anion Gap 10, Estimated GFR > 60, BUN/Creatinine Ratio 13.8, Total Bilirubin 0.5 , Direct Bilirubin 0.4, AST 53, ALT 97 H, Alkaline Phosphatase 85, Total Protein 6.8, Albumin 3.8, CBC w Diff NO MAN DIFF REQ, RBC 4.04 L, MCV 93.1, MCH 31.1 H, RDW 13.5, MPV 8.2, Gran % 92.3 H, Lymphocytes % 6.2 L, Monocytes % 1.5 L, Eosinophils % 0, Basophils % 0 L, Absolute Granulocytes 9.3 H, Absolute Lymphocytes 0.6 L, Absolute Monocytes 0.2, Absolute Eosinophils 0, Absolute Basophils 0, PUBS MCHC 33.5 06/14/16 1500: pH 7.33 L, pCO2 54 H, pO2 105 H, HCO3 28, ABG O2 Sat (Measured) 96.0, Carboxyhemoglobin 0.7 L, O2 Concentration % 8L, O2 Delivery Method NEB RX, Phlebotomy Draw Site RIGHT BRACHIAL 06/14/16 1413: Anion Gap 8, Estimated GFR > 60, BUN/Creatinine Ratio 10.0, Glucose 174 H, Calcium 9.6, Total Bilirubin 0.6, AST 80 H, ALT 126 H, Alkaline Phosphatase 98 , Troponin I < 0.01, Total Protein 7.6, Albumin 4.3, Globulin 3.3, Albumin/ Globulin Ratio 1.3, CBC w Diff NO MAN DIFF REQ, RBC 4.49 L, MCV 92.7, MCH 31.3 H, RDW 13.4, MPV 8.0, Gran % 64.1, Lymphocytes % 19.2 L, Monocytes % 9.5 H, Eosinophils % 6.7 H, Basophils % 0.5, Absolute Granulocytes 4.4, Absolute Lymphocytes 1.3, Absolute Monocytes 0.7 H, Absolute Eosinophils 0.5, Absolute Basophils 0, PUBS MCHC 33.8 Assessment/Plan Assessment: Patient tolerated the BiPAP well overnight and is requesting to go on supplemental oxygen via nasal cannula this morning. When interviewed some hours later he is seen maintained on nasal cannula resting comfortably at 7.0L 02. His methadone clinic ([facility] [phone]) was contacted in regards to his methadone dose and it was confirmed that he does intact take 75 mg daily which was continued. Rapid flu was found to be negative. Serum IgE levels are to be assessed with a send out lab which need to be followed up as an outpatient should the level not return before discharge. Pulmonology consult was placed with his physician Dr. Cuevas, recommendations pending. Echocardiogram will be obtained to assess for occult cardiogenic causes of shortness of breath and worsening pulmonary hypertension as previously commented on in previous echocardiograms. Acute on chronic asthma exacerbation: History of seasonal asthma with most recent exacerbation in March 2016 requiring ICU admission without intubation. Patient of Dr. Cuevas. -Supplemental O2 as needed -TRC Neb -Albuterol/Symbicort/Atrovent -Azithromycin 500mg IV Daily -Methyprednisone 40mg IV Q8H -Pulm consult -Echocardiogram to assess for cardiogenic cause of SOB or worsening pulmonary HTN PTSD/Anxiety - stable, continue Aripiprazole 5mg PO Daily, Prazosin 1mg PO QPM Opiate Dependence - stable, continue Methadone 75mg PO daily, dose confirmed History of Smoking - 1ppd smoking history, Nicotine 14mg TOP Daily GERD - stable, continue Omeprazole 40mg PO Daily Pain Plan: -Motrin 600mg PO Q6H PRN PAIN 1-3 Diet - Regular Diet DVT PPx - Lovenox Code Status - FULL CODE Problem List: 1. Asthma exacerbation Pain Ratin Pain Location: None Pain Goal: Pain 4 or less Pain Plan: As noted in plan Tomorrow's Labs & Rationales: CBC BEP FAHEEM GALARZA MD 06/15/16 1104: Attending MD Review Statement Attending Statement Attending MD Statement: examined this patient, discuss w/resident/PA/GANG DRILL PRESS OPERATOR, agreed w/resident/PA/GANG DRILL PRESS OPERATOR, reviewed EMR data (avail) Attending Assessment/Plan: 45M PMH asthma, former smoker, PTSD, anxiety, methadone admitted with asthma exacerbation and acute hypoxmic respiratory failure. Patient feels better than yesterday but still not back to baseline. Still wheezing on exam. Requiring 7L NC but saturating 97%. No chest pain or infectious symptoms. Bilateral lower extremity edema which is new for him. Plan - Continue on general medicine - Continue Solumedrol 40mg q6h - TRC/nebulizer treatments - Obtain echocardiogram - Follow pulmonary recommendations - Continue home medications - Confirm home methadone dose - DVT PPx
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
[2016-06-15 14:36] VITALS: BP 120/68
[2016-06-15 16:00] VITALS: BP 140/60
--- NOTE | 2016-06-15 19:34 | NUR ---
ALERT AND ORIENTED X 3. VITAL SIGNS STABLE. ON 5L VIA NASAL CANNULA. MEDICATION GIVEN FOR PAIN. PATIENT RESTING COMFORTABLY AT THIS TIME. WILL CONTINUE TO MONITOR
--- NOTE | 2016-06-16 01:04 | NUR ---
2200 PATIENT COMPLAINING OF CHEST TIGHTNESS. VITAL SIGNS STABLE. 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
[2016-06-16 06:31] VITALS: BP 110/80
[2016-06-16 08:13] LABS: ABSOLUTE BASOPHIL COUNT 0 /CUMM (0.0-0.2); ABSOLUTE EOSINOPHIL COUNT 0 /CUMM (0.0-0.7); ABSOLUTE MONOCYTE COUNT 0.9 /CUMM (0.10-0.60); RBC DISTRIBUTION WIDTH 14.1 % (11.5-14.5)
[2016-06-16 08:50] LABS: ABSOLUTE GRANULOCYTE CT 17.6 /CUMM (1.4-6.5); ABSOLUTE LYMPH COUNT 0.8 /CUMM (1.2-3.4); BASOPHIL % 0.1 % (0.0-2.0); EOSINOPHIL % 0.1 % (0-5); MEAN CORPUSCULAR HGB 31.4 PG (27.0-31.0); MEAN CORPUSCULAR HGB CONC 33.5 G/DL (33.0-37.0); MEAN CORPUSCULAR VOLUME 93.9 FL (80.0-94.0); MEAN PLATELET VOLUME 8.9 FL (7.4-10.4); PLATELET COUNT 242 /CUMM (130-400); RED BLOOD CELL CT 4.05 /CUMM (4.70-6.10)
[2016-06-16 08:57] LABS: WHITE BLOOD CELL COUNT 19.3 /CUMM (4.8-10.8)
[2016-06-16 09:03] LABS: GRANULOCYTE % 91.4 % (42.2-75.2)
--- NOTE | 2016-06-16 09:51 | PN- Housestaff ---
See Addendum Subjective Follow-up For: Asthma exacerbation Subjective: Patient seen and examined. He is seen lying flat in bed resting comfortably maintained on supplemental oxygen via nasal cannula. He appears to be in no acute distress. He reports sleeping well last night and reports no increased shortness of breath and denies any other complaints. He is requesting to go home. Additionally he denies any headache, fever, chills, chest pain, palpitations, productive cough, nausea, vomiting, diarrhea. No overnight events reported. Review of Systems Constitutional: Reports: see HPI. Objective Last 24 Hrs of Vital Signs/I&O Vital Signs Date Time Temp Pulse Resp B/P Pulse O2 O2 Flow FiO2 Ox Delivery Rate 06/16 1600 94 Nasal 4.0L Cannula 06/16 1427 98.0 100 20 132/98 94 Nasal 4.0L Cannula 06/16 0815 93 Nasal 5.0L Cannula 06/16 0800 93 Nasal 5.0L Cannula 06/16 0631 97.8 102 20 110/80 93 Nasal 6.0L Cannula 06/16 0000 92 Nasal 5.0L Cannula 06/15 2210 100 120/80 06/15 2054 92 Nasal 5.0L Cannula Intake & Output 06/16 1600 06/16 0800 06/16 0000 Intake Total 600 540 650 Output Total Balance 600 540 650 Intake, IV 300 Intake, Oral 600 240 650 Physical Exam General Appearance: Alert, Oriented X3, Cooperative, No Acute Distress Other Physical Findings: General -well-developed, well-nourished middle age male in no acute distress HEENT - NCAT, PERRL, EOMI, anicteric sclera, nasal cannula in place Cardio - S1, S2 w/o murmurs/gallops/rubs Resp -diffuse wheezing heard in all 4 lung pressley GI - soft, nontender, nondistended, bowel sounds present Neuro - Awake and alert, CN II - XII grossly intact Extremities - no edema, pulses intact Current Medications: Current Medications Sig/Nettie Start time Last Medication Dose Route Stop Time Status Admin Acetaminophen 650 MG .STK-MED ONE 06/16 0511 DC PO 06/16 0512 Acetaminophen 650 MG .STK-MED ONE 06/15 1628 DC PO 06/15 1629 Acetaminophen 650 MG Q6P PRN 06/14 2245 AC 06/16 PO 0514 Albuterol Sulfate 3 ML EVERY 4 HRS/AWAKE 06/15 1200 AC 06/16 INH 1553 Albuterol Sulfate 2 PUF Q4P PRN 06/15 0230 AC INH Aripiprazole 5 MG DAILY 06/15 1000 AC 06/16 PO 0935 Azithromycin 500 MG 0500 06/15 0500 AC 06/16 Dextrose/Water 250 ML IV 0401 Budesonide/ 2 PUF BID 06/15 1000 AC 06/16 Formoterol Fumarate INH 0936 Enoxaparin Sodium 40 MG DAILY 06/15 1000 AC 06/16 SC 0936 Gabapentin 300 MG BID 06/15 1000 AC 06/16 PO 0936 Ipratropium [place] 2.5 ML EVERY 4 HRS/AWAKE 06/16 1200 AC 06/16 INH 1553 Ipratropium [place] 2.5 ML Q4 06/15 1800 DC 06/16 INH 0759 Ipratropium [place] 2.5 ML Q4 HRS NEEDED PRN 06/14 2345 DC INH Melatonin 5 MG AT BEDTIME 06/15 0115 AC 06/15 PO 2210 Methadone HCl 75 MG DAILY 06/15 1014 AC 06/16 PO 0936 Methylprednisolone 40 MG 0600,1800 06/16 1800 AC IV Methylprednisolone 40 MG Q12 06/16 1000 DC IV Methylprednisolone 40 MG Q8 06/15 1400 DC 06/16 IV 0511 Nicotine 14 MG DAILY 06/15 1000 AC 06/16 TOP 0936 Omeprazole 40 MG DAILY AC 06/15 0700 AC 06/16 PO 0511 Patient Medication 1 ED .STK-MED ONE 06/16 1410 TN Teaching ED 06/16 1411 Prazosin HCl 1 MG QPM 06/15 2200 AC 06/15 PO 2210 Last 24 Hrs of Lab/Ashish Results Last 24 Hrs of Labs/Mics: Laboratory Tests 06/16/16 0700: Anion Gap 7, Estimated GFR > 60, BUN/Creatinine Ratio 20.0, CBC w Diff NO MAN DIFF REQ, RBC 4.05 L, MCV 93.9, MCH 31.4 H, RDW 14.1, MPV 8.9, Gran % 91.4 H, Lymphocytes % 4.0 L, Monocytes % 4.4, Eosinophils % 0.1, Basophils % 0.1, Absolute Granulocytes 17.6 H, Absolute Lymphocytes 0.8 L, Absolute Monocytes 0.9 H, Absolute Eosinophils 0, Absolute Basophils 0, PUBS MCHC 33.5, IgE Pending Assessment/Plan Assessment: Patient has been maintained on supplemental oxygen via nasal cannula overnight and tolerated it well. He is currently still requiring 5.0 L of oxygen which will be hopefully taper down today in hopes of an anticipated discharge tomorrow. Currently at home patient has oxygen to use at night and as needed during the day, however does not use it more often than not. Intravenous steroids are to be continued in addition to antibiotics and will be converted to oral formulations prior to discharge. Echocardiogram and IgE levels are still pending. Acute on chronic asthma exacerbation: History of seasonal asthma with most recent exacerbation in March 2016 requiring ICU admission without intubation. Patient of Dr. Cuevas. -Supplemental O2 as needed -TRC Neb -Albuterol/Symbicort/Atrovent -Azithromycin 500mg IV Daily -Methyprednisone 40mg IV Q12H -Pulm consult -Echocardiogram to assess for cardiogenic cause of SOB or worsening pulmonary HTN PTSD/Anxiety - stable, continue Aripiprazole 5mg PO Daily, Prazosin 1mg PO QPM Opiate Dependence - stable, continue Methadone 75mg PO daily, dose confirmed History of Smoking - 1ppd smoking history, Nicotine 14mg TOP Daily GERD - stable, continue Omeprazole 40mg PO Daily Pain Plan: -Motrin 600mg PO Q6H PRN PAIN 1-3 Diet - Regular Diet DVT PPx - Lovenox Code Status - FULL CODE Problem List: 1. Asthma exacerbation Pain Ratin Pain Location: None Pain Goal: Remain pain free Pain Plan: As noted in plan Tomorrow's Labs & Rationales: None
--- NOTE | 2016-06-16 10:07 | PN- Pulmonary ---
Subjective HPI/Critical Care Issues: Patient seen and examined. No chest pain, dyspnea improving and in 5 L nasal cannula. No nausea, vomiting, diarrhea or constipation. Afebrile and hemodynamically stable. Objective Current Medications: Current Medications Sig/Nettie Start time Last Medication Dose Route Stop Time Status Admin Acetaminophen 650 MG .STK-MED ONE 06/15 1628 DC PO 06/15 1629 Acetaminophen 650 MG Q6P PRN 06/14 2245 AC 06/16 PO 0514 Albuterol Sulfate 3 ML EVERY 4 HRS/AWAKE 06/15 1200 AC 06/16 INH 0759 Albuterol Sulfate 2 PUF Q4P PRN 06/15 0230 AC INH Aripiprazole 5 MG DAILY 06/15 1000 AC 06/16 PO 0935 Azithromycin 500 MG 0500 06/15 0500 AC 06/16 Dextrose/Water 250 ML IV 0401 Budesonide/ 2 PUF BID 06/15 1000 AC 06/16 Formoterol Fumarate INH 0936 Enoxaparin Sodium 40 MG DAILY 06/15 1000 AC 06/16 SC 0936 Gabapentin 300 MG BID 06/15 1000 AC 06/16 PO 0936 Ipratropium [place] 2.5 ML EVERY 4 HRS/AWAKE 06/16 1200 AC INH Ipratropium [place] 2.5 ML Q4 06/15 1800 DC 06/16 INH 0759 Ipratropium [place] 2.5 ML EVERY 4 HRS/AWAKE 06/15 1200 DC 06/15 INH 1313 Ipratropium [place] 2.5 ML Q4 HRS NEEDED PRN 06/14 2345 DC INH Melatonin 5 MG AT BEDTIME 06/15 0115 AC 06/15 PO 2210 Methadone HCl 5 MG .STK-MED ONE 06/15 1041 DC PO 06/15 1042 Methadone HCl 75 MG DAILY 06/15 1014 AC 06/16 PO 0936 Methylprednisolone 40 MG Q12 06/16 1000 AC IV Methylprednisolone 40 MG Q8 06/15 1400 DC 06/16 IV 0511 Methylprednisolone 40 MG Q6 06/14 2359 DC 06/15 IV 0534 Nicotine 14 MG DAILY 06/15 1000 AC 06/16 TOP 0936 Omeprazole 40 MG DAILY AC 06/15 0700 AC 06/16 PO 0511 Prazosin HCl 1 MG QPM 06/15 2200 AC 06/15 PO 2210 Vital Signs & I&O Last 24 Hrs of Vitals and I&O: Vital Signs Date Time Temp Pulse Resp B/P Pulse O2 O2 Flow FiO2 Ox Delivery Rate 06/16 0631 97.8 102 20 110/80 93 Nasal 6.0L Cannula 06/16 0000 92 Nasal 5.0L Cannula 06/15 2210 100 120/80 06/15 2054 92 Nasal 5.0L Cannula 06/15 1600 97.6 85 20 140/60 92 Nasal 5.0L Cannula 06/15 1600 92 Nasal 5.0L Cannula 06/15 1436 98.2 60 20 120/68 93 06/15 1405 94 Nasal 5.0L Cannula Intake & Output 06/16 1600 06/16 0800 06/16 0000 Intake Total 540 650 Output Total Balance 540 650 Intake, IV 300 Intake, Oral 240 650 Exam Other Physical Findings: General - Alert, awake and oriented HEENT - normocephalic, atraumatic Cardiovascular - S1, S2 Lungs - bilateral rhonchi/scattered wheezing Abdomen - soft, bowel sounds positive, no tenderness Extremities - 1+ edema Results Last 24 Hrs of Lab Results: Laboratory Tests 06/16/16 0700: Anion Gap 7, Estimated GFR > 60, BUN/Creatinine Ratio 20.0, CBC w Diff NO MAN DIFF REQ, RBC 4.05 L, MCV 93.9, MCH 31.4 H, RDW 14.1, MPV 8.9, Gran % 91.4 H, Lymphocytes % 4.0 L, Monocytes % 4.4, Eosinophils % 0.1, Basophils % 0.1, Absolute Granulocytes 17.6 H, Absolute Lymphocytes 0.8 L, Absolute Monocytes 0.9 H, Absolute Eosinophils 0, Absolute Basophils 0, PUBS MCHC 33.5, IgE Pending Impression/Plan Impression/Plan Impression/Plan: Impression 45-year-old man with asthma exacerbation, hypoxemic respiratory failure possibly secondary to viral bronchitis, leg edema returned, history of mild pulmonary hypertension. Leukocytosis likely reactive/steroid-induced Plan -Follow up echo -Reduce Solu-Medrol 40 mg IV every 12 -Nicotine patch -Symbicort -TRC nebs -Spiriva at home but can use ipratropium and patient -Sputum culture -DVT prophylaxis at all times -O2 sat go above 88%
[2016-06-16 14:27] VITALS: BP 132/98
[2016-06-16] MEDS ORDERED: PREDNISONE20 M1 PO (16:32)
[2016-06-16] MEDS ORDERED: AZITHROMYCIN250 M1 PO (16:32)
--- NOTE | 2016-06-16 16:33 | Patient Discharge Instructions ---
Discharge Instructions General Discharge Information Special Instructions: Take prednisone and azithromycin as directed. Follow up with your prison keeper after discharge. Follow up with your primary care provider after discharge. Acute Coronary Syndrome Inclusion Criteria At DC or during hospital stay patient has or had the following: ACS DIAGNOSIS No Discharge Core Measures Meds if any: Prescribed or Continued at Discharge Meds if any: NOT Prescribed or Continued at Discharge Congestive Heart Failure Inclusion Criteria At DC or during hospital stay patient has or had the following: CHF DIAGNOSIS No Discharge Core Measures Meds if any: Prescribed or Continued at Discharge Meds if any: NOT Prescribed or Continued at Discharge Cerebrovascular accident Inclusion Criteria At DC or during hospital stay patient has or had the following: CVA/TIA Diagnosis No Discharge Core Measures Meds if any: Prescribed or Continued at Discharge Meds if any: NOT Prescribed or Continued at Discharge Venous thromboembolism Inclusion Criteria VTE Diagnosis No VTE Type NONE VTE Confirmed by (Test) NONE Discharge Core Measures - Per Current guidelines, there needs to be overlap - treatment for the first 5 days of Warfarin therapy. - If discharged on Warfarin prior to 5 days of - overlap therapy, the patient will need to be - assessed for post discharge needs including - *Post discharge parental anticoagulation - *Warfarin and/or parental anticoagulation education - *Follow up date to check INR post discharge At least 5 days overlap therapy as Inpatient No Meds if any: Prescribed or Continued at Discharge Note: Overlap Therapy is Warfarin and Anticoagulant Meds if any: NOT Prescribed or Continued at Discharge
--- NOTE | 2016-06-16 17:27 | ECHOCARDIOGRAM REPORT ---
GIOVANNA SHRUTHIYASHIRA Age: 45 : 1970 Gender: M Exam Date: 06/15/2016 20:09 Exam Location: [address] Ht (in): 70 Wt (lb): 230 BSA: 2.30 BP: 140 / 60 Ordering Physician: SHANE JAQUEZ MD Referring Physician: SHANE JAQUEZ MD Technologist: Mala Lopez [facility] Room Number: 230-01 Indications: SHORTNESS OF BREATH Rhythm: Technical Quality: FINDINGS Left Ventricle Normal size left ventricle. Normal left ventricular wall thickness. Normal left ventricular ejection fraction visually estimated at >60 %. Normal left ventricular diastolic filling pattern for age. Mildly increased levt ventricular outflow tract velocity (1.87 m/s). Normal LV wall motion. Right Ventricle Normal size right ventricle. Mildly reduced right ventricular global systolic function. Right Atrium Normal right atrial size. Left Atrium Normal left atrial size. Mitral Valve Mitral valve thickened. Mild mitral regurgitation. Aortic Valve Diffuse thickening (sclerosis) of the aortic valve cusps without reduced excursion. No aortic stenosis. No aortic regurgitation. Tricuspid Valve Tricuspid valve not well visualized, grossly normal. RVSP could not be measured. Trace tricuspid regurgitation. Pulmonic Valve Pulmonic valve not well visualized, grossly normal. Pericardium No pericardial effusion. Great Vessels Normal size aortic root. CONCLUSIONS Normal left ventricular ejection fraction visually estimated at >60 Mildly increased levt ventricular outflow tract velocity (1.87 m/s). Mildly reduced right ventricular global systolic function. Mild mitral regurgitation. RVSP could not be measured. Trace tricuspid regurgitation. RVSP could not be measured. Compared to the prior study from 04/08/16 there is no significant change. Pravin Garcia M.D. (Electronically Signed) Final Date: 16 June 2016 17:26 MEASUREMENTS (Male / Female) Normal Values 2D ECHO LV Diastolic Diameter PLAX 4.4 cm 4.2 - 5.9 / 3.9 - 5.3 cm LV Systolic Diameter PLAX 2.9 cm 2.1 - 4.0 cm LV Fractional Shortening PLAX 34.1 % 25 - 46 % LV Ejection Fraction 2D Teich 63.3 % IVS Diastolic Thickness 0.9 cm LVPW Diastolic Thickness 1.0 cm LV Relative Wall Thickness 0.4 RV Internal Dim ED PLAX 2.7 cm 1.9 - 3.8 cm LVOT Diameter 1.9 cm Aortic Root Diameter 3.1 cm LA Systolic Diameter LX 3.2 cm 3.0 - 4.0 / 2.7 - 3.8 cm LA Volume 50.0 cm 18 - 58 / 22 - 52 cm Ascending Aorta Diameter 2.9 cm DOPPLER AV Peak Velocity 195.0 cm/s AV Peak Gradient 15.2 mmHg AV Mean Velocity 131.0 cm/s AV Mean Gradient 8.0 mmHg AV Velocity Time Integral 33.1 cm LVOT Peak Velocity 187.0 cm/s LVOT Peak Gradient 14.0 mmHg LVOT Mean Velocity 129.0 cm/s LVOT Mean Gradient 8.0 mmHg LVOT Velocity Time Integral 33.5 cm LVOT Stroke Volume 95.0 cm AV Area Cont Eq vti 2.9 cm AV Area Cont Eq pk 2.7 cm MV Peak Velocity 108.0 cm/s MV Peak Gradient 4.7 mmHg MV Mean Velocity 64.4 cm/s MV Mean Gradient 2.0 mmHg Mitral E Point Velocity 96.7 cm/s Mitral A Point Velocity 87.4 cm/s Mitral E to A Ratio 1.1 MV PHT Velocity 108.0 cm/s MV Deceleration Ashley 510.0 cm/s MV Pressure Half Time 63.5 ms MV Area PHT 3.5 cm MV Deceleration Time 166.0 ms LV E' Lateral Velocity 14.8 cm/s Mitral E to LV E' Lateral Ratio 6.5 LV E' Septal Velocity 10.6 cm/s Mitral E to LV E' Septal Ratio 9.1
[2016-06-16 22:26] VITALS: BP 148/80
[2016-06-17 06:42] VITALS: BP 160/100
--- NOTE | 2016-06-17 07:09 | PN- Housestaff ---
GISELE BANKS,SHANE 06/17/16 0708: Subjective Follow-up For: Asthma Exacerbation Subjective: Patient seen and examined. He is seen walking around in the halls visibly upset without any supplemental oxygen. He reports "not sleeping a wink" last night because his room mate was up talking all night. He otherwise admits that he feels comfortable breathing on room air and does feel that he "needs" supplemental oxygen at this time. He says that he wants to leave. Additionally he denies any headache, fever, chills, chest pain, palpitations, increased shortness of breath, nausea, vomiting, diarrhea. No overnight events reported other than above. Review of Systems Constitutional: Reports: see HPI. Objective Last 24 Hrs of Vital Signs/I&O Vital Signs Date Time Temp Pulse Resp B/P Pulse O2 O2 Flow FiO2 Ox Delivery Rate 06/17 0642 98.0 90 28 160/100 91 Nasal 4.0L Cannula 06/17 0532 91 Nasal 4.0L Cannula 06/17 0000 93 Nasal 4.0L Cannula 06/16 2226 98.0 84 20 148/80 93 Nasal Cannula 06/16 2124 84 140/80 06/16 1600 Nasal 4.0L Cannula 06/16 1600 94 Nasal 4.0L Cannula 06/16 1427 98.0 100 20 132/98 94 Nasal 4.0L Cannula Intake & Output 06/17 1600 06/17 0800 06/17 0000 Intake Total 350 600 Output Total Balance 350 600 Intake, Oral 350 600 Physical Exam General Appearance: Alert, Oriented X3, Cooperative, No Acute Distress Other Physical Findings: General - Well developed, well nourished middle aged man in no acute distress HEENT - NCAT, EOMI, PERRL, anicteric sclera CVS - S1, S2 w/o m/g/r Resp - Minimal wheezing heard in bibasilar lung pressley, no crackles, on room air GI - soft, nontender, nondistended, bowel sounds present Neuro - Awake and Alert, CN II - XII grossly intact, normal gait Extremities - distal pulses 2+, no lower extremity edema Current Medications: Current Medications Sig/Nettie Start time Last Medication Dose Route Stop Time Status Admin Acetaminophen 650 MG Q6P PRN 06/14 2245 AC 06/17 PO 0640 Albuterol Sulfate 3 ML EVERY 4 HRS/AWAKE 06/15 1200 AC 06/17 INH 0513 Albuterol Sulfate 2 PUF Q4P PRN 06/15 0230 AC INH Aripiprazole 5 MG DAILY 06/15 1000 AC 06/16 PO 0935 Azithromycin 250 MG ONCE ONE 06/17 0800 DC PO 06/17 0801 Azithromycin 500 MG 0500 06/15 0500 DC 06/16 Dextrose/Water 250 ML IV 0401 Budesonide/ 2 PUF BID 06/15 1000 AC 06/16 Formoterol Fumarate INH 2124 Enoxaparin Sodium 40 MG DAILY 06/15 1000 AC 06/16 SC 0936 Gabapentin 300 MG BID 06/15 1000 AC 06/16 PO 2124 Ipratropium [place] 2.5 ML EVERY 4 HRS/AWAKE 06/16 1200 AC 06/17 INH 0513 Melatonin 5 MG AT BEDTIME 06/15 0115 AC 06/16 PO 2124 Methadone HCl 5 MG .STK-MED ONE 06/16 0929 DC PO 06/16 0930 Methadone HCl 75 MG DAILY 06/15 1014 AC 06/16 PO 0936 Methylprednisolone 40 MG 0600,1800 06/16 1800 DC 06/16 IV 1708 Methylprednisolone 40 MG Q12 06/16 1000 DC IV Nicotine 14 MG DAILY 06/15 1000 AC 06/16 TOP 0936 Omeprazole 40 MG DAILY AC 06/15 0700 AC 06/17 PO 0637 Patient Medication 1 ED .STK-MED ONE 06/16 1410 DC Teaching ED 06/16 1411 Prazosin HCl 1 MG QPM 06/15 2200 AC 06/16 PO 2124 Prednisone 20 MG ONCE ONE 06/17 0800 DC PO 06/17 0801 Assessment/Plan Assessment: Patient reports sleeping poorly last night due to his room mate and have a "panic attack" because of it. Otherwise he reports no longer "needing" supplemental oxygen to feel comfortable and is requesting to go home. He is to be sent home with oral antibiotics and steroids with instruction to follow up with his primary care provider and pulmonolgist as an outpatient. IgE still pending, follow up as outpatient. Acute on chronic asthma exacerbation: History of seasonal asthma with most recent exacerbation in March 2016 requiring ICU admission without intubation. Patient of Dr. Cuevas. -Supplemental O2 as needed -TRC Neb -Albuterol/Symbicort/Atrovent -Azithromycin 500mg IV Daily -Methyprednisone 40mg IV Q12H -Pulm consult PTSD/Anxiety - stable, continue Aripiprazole 5mg PO Daily, Prazosin 1mg PO QPM Opiate Dependence - stable, continue Methadone 75mg PO daily, dose confirmed History of Smoking - 1ppd smoking history, Nicotine 14mg TOP Daily GERD - stable, continue Omeprazole 40mg PO Daily Pain Plan: -Motrin 600mg PO Q6H PRN PAIN 1-3 Diet - Regular Diet DVT PPx - Lovenox Code Status - FULL CODE Problem List: 1. Asthma exacerbation Pain Ratin Pain Location: None Pain Goal: Remain pain free Pain Plan: noted in plan Tomorrow's Labs & Rationales: None FAHEEM GALARZA MD 06/17/16 1157: Attending MD Review Statement Attending Statement Attending MD Statement: examined this patient, discuss w/resident/PA/SKIN FITTER, agreed w/resident/PA/SKIN FITTER, reviewed EMR data (avail) Attending Assessment/Plan: 45M PMH asthma, former smoker, PTSD, anxiety, methadone admitted with asthma exacerbation and acute hypoxmic respiratory failure. Patient is improved. He is walking around the floor on 4L NC comfortably and without dyspnea. Wheezing has nearly resolved. Plan - Stable for discharge home - Prednisone taper - Follow pulmonary recommendations - Continue home medications - DVT PPx
--- NOTE | 2016-06-17 10:35 | Discharge Summary ---
Visit Information Visit Dates Admission Date: 06/14/16 Discharge Date: 06/17/16 Hospital Course Course Attending Physician: FAHEEM GALARZA MD Primary Care Physician: ALLAN NEWTON DO Consulting Request: Consulting Specialty: Pulmonary Disease Hospital Course: 45-year-old male with a history of asthma recently admitted to [facility] in March 2016 for an exacerbation not requiring intubation admitted for evaluation of shortness of breath. Vital signs in the ED were tempt 96.8-98.3, HR 100-115, RR 20-26, 91-99% O2 on 5.0L via nasal cannula. Physical examination demonstrated an alert and oriented male in mild distress with inspiratory/ expiratory wheezing with an otherwise normal physical examination. WBC 6.9. ABG pH 7.33 / CO2 54, O2 105, HCO3 28. Patient was placed on Bipap and started on intravenous antibiotics and steroids and admitted to the general medicine floor for furhter evaluation. PMHx: Asthma on 3.5L noctural O2&PRN, ICU admission for asthma exacerbation 2015 not requiring intubation, PTSD, anxiety Asthma Exacerbation: History of asthma on 3.5L O2 at night & as needed and recent ICU admission for ashtma exacerbation on 04/14 not requiring intubation. Patient of Dr. Cuevas. Patient was admitted to the general medicine floor on bipap and treated with intravenous antibiotics and steroids in additiona to total respiratory care with albuterol/ipratropium/symbicort. Rapid Flu was negative. Pulm consult placed. CXR on admission did not demonstrate any acute process. Echocardiogram demonstrated EF > 60% with no obvious wall motion abnormalities or abnormal chamber pressures. Patient was discharged to home on his previous oxygen/ medicaiton regimen with a short course of antibiotics and steroids. PTSD/Anxiety: -Continue Aripiprazole 5mg PO Daily -Continue Prazosin 1mg PO QPM History of Opiate Dependce: -Methadone dose confirmed with [facility] -Continue Methadone 75mg PO Daily History of Smoking: - Quit 2015 - Continue Nicotine 14mg TOP Daily Allergies: Coded Allergies: oak (ALLERGY TESTED POSITIVE 03/15/16) Uncoded Allergies: SPRUCE (ALLERGY TESTED POSITIVE 03/15/16) Significant Procedures: SERVICE DATE: 06/14/16-1407 EXAM TYPE: RAD - XRY-PORTABLE CHEST XRAY IMPRESSION: No significant interval change. No evidence of acute process. SERVICE DATE: 06/15/16- EXAM TYPE: CARD - ECHOCARDIOGRAM CONCLUSIONS Normal left ventricular ejection fraction visually estimated at >60 Mildly increased levt ventricular outflow tract velocity (1.87 m/s). Mildly reduced right ventricular global systolic function. Mild mitral regurgitation. RVSP could not be measured. Trace tricuspid regurgitation. RVSP could not be measured. Compared to the prior study from 04/08/16 there is no significant change. Disposition Summary Disposition Principal Diagnosis: Acute asthma exacerbation Additional Diagnosis: Acute hypoxic respiratory failure Discharge Disposition: home or self care Discharge Instructions General Discharge Information Code Status: Full Code Patient's Diet: Regular Diet Patient's Activity: Return to full activity as tolerated Follow-Up Instructions/Appts: Take prednisone and azithromycin as directed. Follow up with your ekg/ecg technician after discharge. Follow up with your primary care provider after discharge. Medications at Discharge Discharge Medications: Continue taking these medications: Albuterol Sulfate (Albuterol Sulfate Nebulizer Soln) 0.5 ML NEB 1 Vial Inhale Solution EVERY 4 HOURS NEEDED as needed for COPD Comments: PER PT Budesonide/Formoterol [place] (Symbicort 160-4.5 Mcg Inhaler) 160 MCG/4.5 MCG PUF 1 PUFF Inhale through mouth TWICE DAILY Comments: PER PT Albuterol Sulfate (Proair Hfa) 0.09 MG/Actuation YANE 2 PUFF Inhale through mouth as needed for COPD Comments: PER PT Pantoprazole Sodium (Protonix) 40 MG TAB 40 Milligram ORAL DAILY Qty = 30 Comments: PER PT Ipratropium/Albuterol Sulfate (Iprat-Albut 0.5-3(2.5) MG/3 Ml) 0.5 MG-3 MG (2.5 MG BASE)/3 ML AMPUL.NEB 1 VIAL Inhale through mouth Every 4 hours as needed for sob Qty = 25 Prazosin HCl (Prazosin HCl) 1 MG CAPSULE 1 Capsule ORAL Every night Qty = 30 Comments: PER PT Gabapentin (Gabapentin) (Unknown Strength) CAPSULE 300 ORAL TWICE DAILY Qty = 180 Comments: PER PT Aripiprazole (Aripiprazole) 5 MG TABLET 1 Tablet ORAL DAILY Qty = 30 Comments: TAKEN 06/17 AT 1000 Methadone HCl (Methadone HCl) 10 MG/5 ML SOLUTION 75 Milligram ORAL DAILY Comments: CLINIC- NEW ERA TAKEN 06/17/16 AT 1000 Start taking the following new medications: Prednisone (Prednisone) 20 MG TABLET 40 Milligram ORAL DAILY Qty = 8 No Refills Instructions: TAKE 2 20MG TABLETS BY MOUTH DAILY FOR FOUR DAYS STARTING 06/18/16 Comments: TAKEN 06/17/16 AT 10AM Azithromycin (Azithromycin) 250 MG TABLET 1 Tablet ORAL DAILY Qty = 2 No Refills Instructions: TAKE ONE TABLET BY MOUTH STARTING TOMORROW 06/17/16 Comments: TAKEN 06/17/16 AT 10AM Ipratropium [place] (Ipratropium [place]) 0.2 MG/ML (0.02 %) SOLUTION 1 Vial Inhale Solution 4 TIMES A DAY Qty = 120 No Refills Copies To: ALLAN NEWTON DO; PJ BANKS,NELSON
--- NOTE | 2016-06-17 11:41 | PN- Pulmonary ---
Subjective HPI/Critical Care Issues: Patient seen and examined. No chest pain, returning to respiratory baseline. No nausea, vomiting, diarrhea or constipation. Afebrile and hemodynamically stable. Objective Current Medications: Current Medications Sig/Nettie Start time Last Medication Dose Route Stop Time Status Admin Acetaminophen 650 MG Q6P PRN 06/14 2245 AC 06/17 PO 0640 Albuterol Sulfate 3 ML EVERY 4 HRS/AWAKE 06/15 1200 AC 06/17 INH 0840 Albuterol Sulfate 2 PUF Q4P PRN 06/15 0230 AC INH Aripiprazole 5 MG DAILY 06/15 1000 AC 06/17 PO 0924 Azithromycin 250 MG ONCE ONE 06/17 0800 DC 06/17 PO 06/17 0801 0925 Azithromycin 500 MG 0500 06/15 0500 DC 06/16 Dextrose/Water 250 ML IV 0401 Budesonide/ 2 PUF BID 06/15 1000 AC 06/17 Formoterol Fumarate INH 0925 Enoxaparin Sodium 40 MG DAILY 06/15 1000 AC 06/17 SC 0925 Gabapentin 300 MG BID 06/15 1000 AC 06/17 PO 0924 Ipratropium [place] 2.5 ML EVERY 4 HRS/AWAKE 06/16 1200 AC 06/17 INH 0840 Melatonin 5 MG AT BEDTIME 06/15 0115 AC 06/16 PO 2124 Methadone HCl 75 MG DAILY 06/15 1014 AC 06/17 PO 0926 Methylprednisolone 40 MG 0600,1800 06/16 1800 DC 06/16 IV 1708 Nicotine 14 MG DAILY 06/15 1000 AC 06/17 TOP 0926 Omeprazole 40 MG DAILY AC 06/15 0700 AC 06/17 PO 0637 Patient Medication 1 ED .STK-MED ONE 06/16 1410 MN Teaching ED 06/16 1411 Prazosin HCl 1 MG QPM 06/15 2200 AC 06/16 PO 2124 Prednisone 20 MG ONCE ONE 06/17 0800 DC 06/17 PO 06/17 0801 0925 Vital Signs & I&O Last 24 Hrs of Vitals and I&O: Vital Signs Date Time Temp Pulse Resp B/P Pulse O2 O2 Flow FiO2 Ox Delivery Rate 06/17 0843 93 Nasal 4.0L Cannula 06/17 0642 98.0 90 28 160/100 91 Nasal 4.0L Cannula 06/17 0532 91 Nasal 4.0L Cannula 06/17 0000 93 Nasal 4.0L Cannula 06/16 2226 98.0 84 20 148/80 93 Nasal Cannula 06/16 2124 84 140/80 06/16 1600 Nasal 4.0L Cannula 06/16 1600 94 Nasal 4.0L Cannula 06/16 1427 98.0 100 20 132/98 94 Nasal 4.0L Cannula Intake & Output 06/17 1600 06/17 0800 06/17 0000 Intake Total 350 600 Output Total Balance 350 600 Intake, Oral 350 600 Exam Other Physical Findings: General - Alert, awake and oriented HEENT - normocephalic, atraumatic Cardiovascular - S1, S2 Lungs - bilateral rhonchi/scattered wheezing Abdomen - soft, bowel sounds positive, no tenderness Extremities - 1+ edema Impression/Plan Impression/Plan Impression/Plan: Impression 45-year-old man with asthma exacerbation, hypoxemic respiratory failure possibly secondary to viral bronchitis, leg edema returned, history of mild pulmonary hypertension. Leukocytosis likely reactive/steroid-induced Plan -Steroid taper with prednisone discussed with housestaff -Nicotine patch -Symbicort -TRC nebs -DVT prophylaxis at all times -O2 sat goal above 88%
[2016-06-17] MEDS ORDERED: IPRATROPIU0.2 MG/1 M INH/SOL (13:44)
== END 2016-06-17 13:44 | DRG 141 ==
LOC: ENRESERVDT → ENRESERVTM → ERH 13:56 → ENPENDDIS 19:44 → 2NA 19:44 → ERHI 19:44 → 2NA 22:42
PROVIDERS: Internal Medicine Hematology & Oncology; Internal Medicine Interventional Cardiology; Physician Assistant Medical; ADMIT Student in an Organized Health Care Education/Training Program
DX: J45.901 Unspecified asthma with (acute) exacerbation (principal); Z87.891 Personal history of nicotine dependence; J96.01 Acute respiratory failure with hypoxia; J20.8 Acute bronchitis due to other specified organisms; R74.0 Nonspecific elevation of levels of transaminase and lactic acid dehydrogenase [LDH]; I27.2 Other secondary pulmonary hypertension; J44.9 Chronic obstructive pulmonary disease, unspecified; F43.10 Post-traumatic stress disorder, unspecified
CPT/HCPCS: 2NASP; 36415; 82436; 87070; 87804; 87804-59; 93005; 93010; 93306; 94644; 96374; 96375; J0456; J1650; J2920; J2930; J3490; J7060

== ENCOUNTER 2016-08-22 18:32 | Emergency (ER) | payer OTHER ==
[~2016-08-22] VITALS: Ht 180.3 cm; Wt 106.6 kg
[~2016-08-22 18:32] MED LIST changes: +ARIPIPRAZOLE5 M1 PO; +AZITHROMYCIN250 M1 PO; +GABAPENTIN400 M2 PO; +IPRATROPIU0.2 MG/1 M INH/SOL; +METHADONE10 MG/5 M2 PO; +PRAZOSIN HCL1 M1 PO
[2016-08-22 19:09] LABS: ABSOLUTE BASOPHIL COUNT 0 /CUMM (0.0-0.2); ABSOLUTE EOSINOPHIL COUNT 0.4 /CUMM (0.0-0.7); ABSOLUTE MONOCYTE COUNT 0.8 /CUMM (0.10-0.60); BASOPHIL % 0.4 % (0.0-2.0); EOSINOPHIL % 4.1 % (0-5); GRANULOCYTE % 64.5 % (42.2-75.2); HEMATOCRIT 41.2 % (42-52); MEAN CORPUSCULAR HGB 30.9 PG (27.0-31.0); MEAN CORPUSCULAR HGB CONC 33.3 G/DL (33.0-37.0); MEAN CORPUSCULAR VOLUME 92.8 FL (80.0-94.0); MEAN PLATELET VOLUME 7.9 FL (7.4-10.4); PLATELET COUNT 238 /CUMM (130-400); RBC DISTRIBUTION WIDTH 14.1 % (11.5-14.5); RED BLOOD CELL CT 4.44 /CUMM (4.70-6.10); WHITE BLOOD CELL COUNT 9.3 /CUMM (4.8-10.8)
--- NOTE | 2016-08-22 19:28 | ED DYSPNEA/ASTHMA COMPLAINT ---
History of Present Illness General Chief Complaint: Wheezing/Asthma Stated Complaint: ASTHMA Source: patient, old records Exam Limitations: no limitations Allergies Coded Allergies: oak (ALLERGY TESTED POSITIVE 08/22/16) Uncoded Allergies: SPRUCE (ALLERGY TESTED POSITIVE 03/15/16) Reconcile Medications Albuterol Sulfate 2.5 MG/3 ML (0.083 %) VIAL.NEB 1 Vial INH/KAREN Q4P PRN COPD (Reported) Albuterol Sulfate (Proair Hfa) 90 MCG HFA.AER.AD 2 PUF INH PRN COPD (Reported ) Aripiprazole 5 MG TABLET 1 TAB PO DAILY MENTAL HEALTH (Reported) Aspirin (Ecotrin*) 81 MG TABLET.DR 1 TAB PO DAILY HEART/BLOOD (Reported) Azithromycin (Zithromax) 250 MG TABLET 1 TAB PO DAILY ASTHMA EXACERBATION Budesonide/Formoterol Fumarate (Symbicort 160-4.5 Mcg Inhaler) 160 MCG-4.5 MCG/ ACTUATION HFA.AER.AD 1 PUF INH BID COPD (Reported) Gabapentin (Unknown Strength) CAPSULE 300 CAP PO BID ANXIETY (Reported) Ipratropium/Albuterol Sulfate (Iprat-Albut 0.5-3(2.5) MG/3 Ml) 0.5 MG-3 MG (2.5 MG BASE)/3 ML AMPUL.NEB 1 VIAL INH Q4 PRN sob Methadone HCl 10 MG/5 ML SOLUTION 75 MG PO DAILY MENTAL HEALTH (Reported) Pantoprazole Sodium (Protonix) 40 MG TABLET.DR 1 TAB PO DAILY GI (Reported) Prazosin HCl 1 MG CAPSULE 1 CAP PO QPM MENTAL HEALTH (Reported) Prednisone 10 MG TABLET 1 TAB PO DAILY COPD (Reported) Prednisone 20 MG TABLET 1 TAB PO AD ASTHMA 3 TABS PO DAY 1-3 2 TABS PO DAY 4-6 1 TAB PO DAY 7-9 Tiotropium [place] (Spiriva) (Unknown Strength) CAP.W.DEV (Unknown Dose) UNKNOWN (Reported) Triage Note: TRIAGE: PT TO ER C/C DIFFICULTY BREATHING SINCE LAST NIGHT. HX OF ASTHMA, USING INHALERS AND NEBULIZERS WITH ONLY MINOR RELIEF STATING "I JUST KEEP TAKING THEM AND TAKING THEM". R/A SATS 89%, +AUDIBLE WHEEZING AND INCREASED WORK OF BREATHING. HR 130-140. DENIES ANY PAIN. PT REPORTS DIDN'T WANT TO COME TO HOSPITAL SOONER R/T HX PTSD. Triage Nurses Notes Reviewed? yes HPI: 45-year-old male with history of severe asthma, currently on 10 mg of prednisone a day as maintenance and 4 L nasal cannula at home as well as nebulizer treatments throughout the day, sees Dr. Oliva, here with complaints of worsening asthma exacerbation since this morning. He is acutely short of breath, increased work of breathing, tachypnea, mild nonproductive cough. This is his usual asthma exacerbation symptoms. He has had recent hospitalizations for his asthma and I reviewed his previous records, he has no previous intubations but has required BiPAP in the past. He states he smokes about 5-6 cigarettes a week socially. He denies any fever or flulike illness. His symptoms are severe (LELO HALL,AKHIL) Vital Signs & Intake/Output Vital Signs & Intake/Output Vital Signs Date Time Temp Pulse Resp B/P Pulse O2 O2 Flow FiO2 Ox Delivery Rate 08/22 2330 98.3 108 24 138/78 89 Nasal 4.0L Cannula 08/22 2304 89 Nasal 3.5L Cannula 08/22 2153 98.3 108 24 138/80 90 Nasal 4.0L Cannula 08/22 2035 93 Nasal 3.5L Cannula 08/22 1929 2.0L 08/22 1917 94 2.0L 08/22 1908 95 2.0L 08/22 1846 88 Nasal 2.0L Cannula 08/22 1834 98.2 139 30 133/88 89 Room Air ED Intake and Output 08/23 0000 08/22 1200 Intake Total 0 Output Total Balance 0 Intake, Oral 0 Patient 235 lb Weight Past History Travel History Traveled to [place] past 21 day No Medical History Any Pertinent Medical History? see below for history Neurological: NONE EENT: NONE Cardiovascular: NONE Respiratory: asthma Gastrointestinal: GERD Hepatic: NONE Renal: NONE Musculoskeletal: NONE Psychiatric: anxiety, depression, PTSD Endocrine: NONE Blood Disorders: NONE Cancer(s): NONE COMPLIANCE PARALEGAL/Reproductive: NONE History of MRSA: No History of VRE: No History of CDIFF: No Surgical History Surgical History: L THUMB SURGERY Psychosocial History Who do you live with Other (see notes) Services at Home None What is your primary language German Tobacco Use: Current Not Daily ETOH Use: denies use Illicit Drug Use: denies illicit drug use Family History Family History, If Any: Relation not specified for: *No pertinent family history Hx Contributory? No (AKHIL CASPER) Review of Systems Review of Systems Constitutional: Reports: see HPI. EENTM: Reports: no symptoms. Respiratory: Reports: see HPI. Cardiovascular: Reports: no symptoms. GI: Reports: no symptoms. Genitourinary: Reports: no symptoms. Musculoskeletal: Reports: no symptoms. Skin: Reports: no symptoms. Neurological/Psychological: Reports: no symptoms. Hematologic/Endocrine: Reports: no symptoms. Immunologic/Allergic: Reports: no symptoms. All Other Systems: Reviewed and Negative (AKHIL CASPER) Physical Exam Physical Exam Respiratory: MODERATE RESPIRATORY DISTRESS, INCREASED RESPIRATORY RATE AND EFFORT, ACCESSORY MUSCLE USE, SITTING UPRIGHT ON STRETCHER. bREATH SOUNDS DIMINISHED, PROLONGED EXPIRATORY PHASE AND MODERATE WHEEZING Cardiovascular: tachycardia Comments: Well-developed well-nourished HEENT: Atraumatic, extraocular motion intact Neck: Supple, no lymphadenopathy Back: Nontender Extremities: No edema, full range of motion Neuro: Alert and oriented x3 Psych: Mood affect normal, normal memory normal judgment. Skin: Warm and dry, no rash on exposed skin (AKHIL CASPER) Core Measures ACS in differential dx? No Severe Sepsis Present: No Septic Shock Present: No (BJORN ULLOA DO) Progress Diagnostic Imaging: Viewed by Me: Radiology Read. Discussed w/RAD: Radiology Read. CXR Impression: PATIENT: ARIANNA HEREDIA PRESENT AGE: 45 PATIENT ACCOUNT NO: [id number] : [id number] LOCATION: [facility] ORDERING PHYSICIAN: AKHIL HALL SERVICE DATE: 08/22/16 EXAM TYPE: RAD - XRY-PORTABLE CHEST XRAY EXAMINATION: XR PORTABLE CHEST CLINICAL INFORMATION: Asthma. COMPARISON: Multiple priors, most recent chest radiograph dated 06/14/2016. TECHNIQUE: Portable AP view of the chest was obtained. FINDINGS: No airspace consolidation. No pleural effusion or pneumothorax. No cardiac mediastinal silhouette enlargement. No osseous abnormality. IMPRESSION: No airspace consolidation. No significant interval change since the prior examination. DICTATED BY: TY CASTILLO MD DATE/TIME DICTATED:08/22/161940 TECHNOLOGY RECRUITER:SHEEBA DATE/TIME TRANSCRIBED:08/22/161940 Initial ED EKG: none Hand-Off Endorsed To: BJORN ULLOA DO Endorsed Time: 2099 Pending: other (RE EVAL FOR IMPROVEMENT) Comments: DuoNeb treatment given followed by continuous albuterol nebulizer treatment. He is also treated with 125 mg of Solu-Medrol IV and 2 g of magnesium IV. Nasal cannula at 4 L/m. Patient reevaluated and is feeling better. I took him off the oxygen and his saturation dropped to 89% and he is persistently tachycardic. We'll provide another DuoNeb treatment and reevaluate. (AKHIL CASPER) Differential Diagnosis: asthma Plan of Care: Orders Procedure Date/time Status Saline Lock 08/22 1848 Active Telemetry/Case Assistant 08/22 1848 Active COMPREHENSIVE METABOLIC PANEL 08/22 1848 Complete CBC WITHOUT DIFFERENTIAL 08/22 1848 Complete Laboratory Tests 08/22/16 1900: Anion Gap 9, Estimated GFR > 60, BUN/Creatinine Ratio 12.2, Glucose 163 H, Calcium 9.5, Total Bilirubin 0.5, AST 83 H, ALT 93 H, Alkaline Phosphatase 95, Total Protein 7.0, Albumin 4.0, Globulin 3.0, Albumin/Globulin Ratio 1.3, CBC w Diff NO MAN DIFF REQ, RBC 4.44 L, MCV 92.8, MCH 30.9, RDW 14.1, MPV 7.9, Gran % 64.5, Lymphocytes % 21.9, Monocytes % 9.1, Eosinophils % 4.1, Basophils % 0.4, Absolute Granulocytes 6.0, Absolute Lymphocytes 2.0, Absolute Monocytes 0.8 H, Absolute Eosinophils 0.4, Absolute Basophils 0, PUBS MCHC 33.3 Departure Departure Disposition: HOME OR SELF CARE Condition: Stable Clinical Impression Primary Impression: Asthma exacerbation Referrals: ALLNA NEWTON DO (PCP/Family) NELSON OLIVA MD Additional Instructions: Continue the prednisone starting tomorrow and Zithromax tomorrow. Continue your nebulizer treatments and your oxygen as needed. Follow-up with her primary care doctor or Dr. Oliva this week for reevaluation. Return to the ER with worsening shortness of breath, wheezing, flulike illness, fever or any further concerns Departure Forms: Customer Survey General Discharge Information Prescriptions: Current Visit Scripts Azithromycin (Zithromax) 1 TAB PO DAILY #4 Prednisone 1 TAB PO AD #18 TAB 3 TABS PO DAY 1-3 2 TABS PO DAY 4-6 1 TAB PO DAY 7-9 (AKHIL CASPER) Departure Comments 08/22/16 The patient was signed out to me by Akhil Pena at 9:30 PM 11:20 pm The patient continues to have scant rhonchi and his oxygen saturation is in the low 90s. He was advised to stay for further treatment and possible admission. The patient is refusing and signed out AGAINST MEDICAL ADVICE. Risk of respiratory depression, respiratory failure and were explained. The patient states he lives close by the hospital; he has nebulizer machine and oxygen at home and will return if worse. He is also on prednisone. He says he will follow-up with Dr. Oliva tomorrow. (BJORN ULLOA DO) Critical Care Note Critical Care Note Critical Care Time: 30-74 min (BJORN ULLOA DO)
--- NOTE | 2016-08-22 19:48 | RADIOLOGY REPORT ---
EXAMINATION: XR PORTABLE CHEST CLINICAL INFORMATION: Asthma. COMPARISON: Multiple priors, most recent chest radiograph dated 06/14/2016. TECHNIQUE: Portable AP view of the chest was obtained. FINDINGS: No airspace consolidation. No pleural effusion or pneumothorax. No cardiac mediastinal silhouette enlargement. No osseous abnormality. IMPRESSION: No airspace consolidation. No significant interval change since the prior examination.
[2016-08-22] MEDS ORDERED: PREDNISONE10 M2 PO (19:50)
[2016-08-22] MEDS ORDERED: SPIRIVA18 MCG (19:50)
[2016-08-22] MEDS ORDERED: ASPIRIN EC81 M1 PO (19:51)
[2016-08-22] MEDS ORDERED: PREDNISONE20 M1 PO (20:58)
[2016-08-22] MEDS ORDERED: ZITHROMAX250 M2 PO (20:58)
[2016-08-22 23:30] VITALS: BP 138/78
== END 2016-08-22 23:33 | disposition left against medical advice (07) ==
LOC: ERH 18:32
PROVIDERS: Physician Assistant Surgical
DX: J45.901 Unspecified asthma with (acute) exacerbation (principal); F17.210 Nicotine dependence, cigarettes, uncomplicated
CPT/HCPCS: 1263; 96374; 96375; J2930

== ENCOUNTER 2016-11-18 16:38 | Inpatient (IN) | payer OTHER ==
[~2016-11-18] VITALS: Ht 180.3 cm; Wt 111.1 kg
[~2016-11-18 16:38] MED LIST changes: +ASPIRIN EC81 M1 PO; +SPIRIVA18 MCG; +ZITHROMAX250 M2 PO
--- NOTE | 2016-11-18 16:40 | NUR ---
OXYGEN 92% ON RA AT [facility]
--- NOTE | 2016-11-18 16:54 | NUR ---
PT TO ER C/C SOB AND COUGH X 2 DAYS. HX OF ASTHMA, AUDIBLE WHEEZING NOTED. RA SAT 87-90%, PATIENT STATES LAST HOME BREATHING TREATMENT 1.5 HRS AGO. RESP THERAPY CALLED TO ROOM 6. + PROD COUGH WITH YELLOW SPUTUM, DENIES FEVERS
--- NOTE | 2016-11-18 17:01 | NUR ---
PT REPORTS ASTHMA ATTACK SINCE YESTERDAY, WORSENING TODAY. PRODUCTIVE COUGH WITH YELLOW THICK SPUTUM SINCE THIS MORNING. WHEEZY IN ALL ROSEN. DENIES FEVER/CHILLS, CP OR DIZZINESS. PT COUGHING DURING ASSESSMENT, HOOKED UP TO MONITOR IN ROOM FOR BP AND 02 SAT. 02 88% RA, UP TO 94% ON 4LNC. RT WAS CALLED IN TRIAGE FOR BREATHING TX. RAFAEL RAYMUNDO NOTIFIED OF PT STATUS.
--- NOTE | 2016-11-18 17:03 | ED DYSPNEA/ASTHMA COMPLAINT ---
History of Present Illness General Chief Complaint: Dyspnea (COPD, CHF, Other) Stated Complaint: WHEEZING,ASTHMA,SOB Source: patient, old records Exam Limitations: no limitations Vital Signs & Intake/Output Vital Signs & Intake/Output Vital Signs Date Time Temp Pulse Resp B/P B/P Pulse O2 O2 Flow FiO2 Mean Ox Delivery Rate 11/18 2210 97 20 119/60 94 Nasal 3.0L Cannula 11/189 94 Nasal 3.0L Cannula 11/18 2049 88 Room Air 11/19 2011 92 Nasal 3.0L Cannula 11/19 2007 98 25 138/81 92 Nasal 2.0L Cannula 11/18 194 92 22 94 Nasal 3.0L Cannula 11/18 194 90 25 86 Room Air 11/18 1828 98 22 94 Nasal 4.0L Cannula 11/18 1724 25 94 Nasal 4.0L Cannula 11/18 1715 32 88 Room Air 11/18 1704 93 Nasal 3.5L Cannula 11/18 1659 88 Room Air 11/18 1654 97.4 120 26 130/89 88 Room Air Allergies Coded Allergies: oak (ALLERGY TESTED POSITIVE 08/22/16) Uncoded Allergies: SPRUCE (ALLERGY TESTED POSITIVE 03/15/16) Reconcile Medications Albuterol Sulfate 2.5 MG/3 ML (0.083 %) VIAL.NEB 1 Vial INH/KAREN Q4P PRN COPD (Reported) Albuterol Sulfate (Proair Hfa) 90 MCG HFA.AER.AD 2 PUF INH PRN COPD (Reported ) Aripiprazole 5 MG TABLET 1 TAB PO DAILY MENTAL HEALTH (Reported) Aspirin (Ecotrin*) 81 MG TABLET.DR 1 TAB PO DAILY HEART/BLOOD (Reported) Budesonide/Formoterol Fumarate (Symbicort 160-4.5 Mcg Inhaler) 160 MCG-4.5 MCG/ ACTUATION HFA.AER.AD 1 PUF INH BID COPD (Reported) Gabapentin (Unknown Strength) CAPSULE 300 CAP PO BID ANXIETY (Reported) Ipratropium/Albuterol Sulfate (Iprat-Albut 0.5-3(2.5) MG/3 Ml) 0.5 MG-3 MG (2.5 MG BASE)/3 ML AMPUL.NEB 1 VIAL INH Q4 PRN sob Methadone HCl 10 MG/5 ML SOLUTION 75 MG PO DAILY MENTAL HEALTH (Reported) Pantoprazole Sodium (Protonix) 40 MG TABLET.DR 1 TAB PO DAILY GI (Reported) Prazosin HCl 1 MG CAPSULE 1 CAP PO QPM MENTAL HEALTH (Reported) Prednisone 10 MG TABLET 2 TAB PO DAILY COPD (Reported) Tiotropium Dum[place] (Spiriva) (Unknown Strength) CAP.W.DEV (Unknown Dose) UNKNOWN (Reported) Triage Note: PT TO ER C/C SOB AND COUGH X 2 DAYS. HX OF ASTHMA, AUDIBLE WHEEZING NOTED. RA SAT 87-90%, PATIENT STATES LAST HOME BREATHING TREATMENT 1.5 HRS AGO. RESP THERAPY CALLED TO ROOM 6. + PROD COUGH WITH YELLOW SPUTUM, DENIES FEVERS Triage Nurses Notes Reviewed? yes Onset: Abrupt Duration: day(s): (2), constant, continues in ED, getting worse Timing: single episode today Severity: moderate, severe Activities at Onset: none Prior Episodes/Possible Cause: frequent episodes Modifying Factors: Improves With: movement. Associated Symptoms: anxiety, cough, wheezing HPI: 46-year-old male history of asthma and COPD presents complaining of shortness of breath cough and wheezing for the past 2 days. Patient reports symptoms started 2 days ago and have gradually been worsening. He reports productive cough of yellow sputum that has been getting worse. Using DuoNeb at home with only minor improvement. He takes 20 mg of prednisone daily and is still reporting significant symptoms. Patient is on home O2 via nasal cannula at 2-3 L/m when needed. He is a current every day smoker. He denies any chest pain or fevers. He also reports associated sweats and chills. No chest pain, hemoptysis, fevers , abdominal pain, nausea, vomiting, diarrhea or back pain. (GWEN RAYMUNDO PA-C) Past History Travel History Traveled to [place] past 21 day No Medical History Any Pertinent Medical History? 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 Yes (BREANNE HAYS,GWEN) Review of Systems Review of Systems Constitutional: Reports: no symptoms. EENTM: Reports: no symptoms. Respiratory: Reports: see HPI, cough, short of breath, wheezing. Cardiovascular: Reports: no symptoms. GI: Reports: no symptoms. Genitourinary: Reports: no symptoms. Musculoskeletal: Reports: no symptoms. Skin: Reports: see HPI. Neurological/Psychological: Reports: no symptoms. Hematologic/Endocrine: Reports: no symptoms. Immunologic/Allergic: Reports: no symptoms. All Other Systems: Reviewed and Negative (BREANNE HAYS,GWEN) Physical Exam Physical Exam General Appearance: well developed/nourished, alert, awake, anxious, moderate distress Head: atraumatic, normal appearance Eyes: Bilateral: normal appearance, PERRL, EOMI. Ears, Nose, Throat: normal pharynx, normal ENT inspection, hearing grossly normal Neck: normal inspection, supple, full range of motion Respiratory: chest non-tender, wheezing (improved after neb), respiratory distress Cardiovascular: regular rate/rhythm, normal peripheral pulses Peripheral Pulses: 2+ tibialis posterior (R), 2+ tibialis posterior (L), 2+ dorsalis pedis (R), 2+ dorsalis pedis (L) Gastrointestinal: normal bowel sounds, soft, non-tender, no organomegaly Extremities: normal inspection, normal capillary refill, normal range of motion, no edema Neurologic/Psych: no motor/sensory deficits, awake, alert, oriented x 3, normal gait, normal mood/affect Skin: intact, normal color, warm/dry Lymphatic: no anterior cervical paul Core Measures ACS in differential dx? Yes Severe Sepsis Present: No Septic Shock Present: No (BREANNE HAYS,GWEN) Progress Differential Diagnosis: asthma, AMI, bronchitis, CHF, COPD, musculoskeletal pain , pericarditis, pulmonary embolism, pneumonia, pneumothorax, unstable angina Plan of Care: Orders Procedure Date/time Status Regular Diet 11/19 B Active OXYGEN SETUP (GEN) 11/18 2144 Active Saline Lock 11/18 2144 Active Admit to inpatient 11/18 2144 Active Vital Signs 11/18 2144 Active Activity/Ambulation 11/18 2144 Active Code Status 11/18 2144 Active Patient Data 11/18 2118 Active Telemetry/Od Grinder Operator 11/18 1704 Active TROPONIN LEVEL 11/18 1704 Complete D-DIMER 11/18 1704 Complete COMPREHENSIVE METABOLIC PANEL 11/18 1704 Complete CBC WITHOUT DIFFERENTIAL 11/18 1704 Complete EKG 11/18 1704 Active Intake & Output 11/18 165 Active Current Medications Sig/Nettie Start time Last Medication Dose Stop Time Status Admin Magnesium Sulfate 1 GM ONCE ONE 11/19 1999 AC 11/18 (Mag Sulfate in D5) 11/18 Dextrose/Water 100 ML (D5W) Laboratory Tests 11/18/161717: Anion Gap 10, Estimated GFR > 60, BUN/Creatinine Ratio 8.0, Glucose 108 H, Calcium 9.5, Total Bilirubin 0.4, AST 91 H, ALT 154 H, Alkaline Phosphatase 116, Troponin I < 0.01, Total Protein 7.2, Albumin 4.3, Globulin 2.9, Albumin/ Globulin Ratio 1.5, D-Dimer High Sensitivty < 200, CBC w Diff NO MAN DIFF REQ, RBC 4.40 L, MCV 91.5, MCH 31.1 H, RDW 13.9, MPV 8.5, Gran % 62.4, Lymphocytes % 24.8, Monocytes % 10.0 H, Eosinophils % 2.4, Basophils % 0.4, Absolute Granulocytes 5.7, Absolute Lymphocytes 2.2, Absolute Monocytes 0.9 H, Absolute Eosinophils 0.2, Absolute Basophils 0, PUBS MCHC 34.0 5:27 PM: Patient in significant respiratory distress at triage. Oxygen saturation 89-90. Patient was given 2 DuoNeb's with improvement in respiratory distress. He was also given 125 of IV Solu-Medrol. Chest x-ray ordered basic blood work drawn. We'll follow up on results and contiue to monitor patient. 5:59 PM: Patient is now resting comfortably after 2 DuoNeb's and IV Solu-Medrol. Chest x-ray is negative for any signs of pneumonia. Waiting on blood work results. Blood work is is within normal limits. Patient has remained stable since receiving 2 DuoNeb treatments. He is currently on 3 L nasal cannula. He reports usually at home he only uses the oxygen at night. Patient will continue to be monitored for another hour and that he'll be walked to see if he desaturates. 7:46 PM: Patient was put on room air after being on oxygen through nasal cannula 3L his oxygen saturation dipped down to 86. He was placed back on oxygen his saturation came back up to 93. Patient will be given a gram of magnesium in another DuoNeb and attempt to normalize his oxygen saturations on room air. (GWEN RAYMUDNO PA-C) Case was discussed and signed out to me at 1999 patient reports to not feeling any better after magnesium 91% on 2 L, given patient's frequent asthma exacerbations premature discharge or any medical harmful I stressed this with the patient he was initially hesitant and staying however is agreeing to stay case was discussed with Dr. benites will admit d/w dr mendoza agrees with plan (CHET BOWEN) Diagnostic Imaging: Viewed by Me: Radiology Read. Initial ED EKG: sinus tach, borerline prolonged qt interval Hand-Off Endorsed To: CHET BOWEN Endorsed Time: 2017 Pending: other (REEVAL AFTER MAG AND NEB) Comments: PATIENT: ARIANNA HEREDIA PRESENT AGE: 46 PATIENT ACCOUNT NO: [id number] : 68 LOCATION: [facility] ORDERING PHYSICIAN: GWEN RAYMUNDO PA-C SERVICE DATE: 11/18/16 EXAM TYPE: RAD - XRY-PORTABLE CHEST XRAY EXAMINATION: XR PORTABLE CHEST CLINICAL INFORMATION: Pneumonia wheezing cough shortness of breath COMPARISON: Prior chest July 2016 TECHNIQUE: Portable frontal view of the chest was obtained. FINDINGS: No significant abnormality is noted involving the heart, lungs, mediastinum, bony thorax or soft tissues. IMPRESSION: Unremarkable examination. DICTATED BY: AMBER WILDE MD DATE/TIME DICTATED:11/18/161737 STAFF DEVELOPMENT COORDINATOR:SHEEBA DATE/TIME TRANSCRIBED:11/18/161737 CONFIDENTIAL, DO NOT COPY WITHOUT APPROPRIATE AUTHORIZATION. <Electronically signed in Other Vendor System> SIGNED BY: AMBER WILDE MD 11/18 1 (GWEN RAYMUNDO PA-C) Departure Departure Disposition: STILL A PATIENT Condition: Stable Referrals: ALLAN NEWTON DO (PCP/Family) Departure Forms: Customer Survey General Discharge Information (GWEN RAYMUNDO PA-C) Departure Time of Disposition: 2107 Clinical Impression Primary Impression: Status asthmaticus Secondary Impressions: Respiratory distress, SOB (shortness of breath) Admission Note Spoke With: BRIE BENITES MD Documentation of Exam: Documentation of any treatments & extenuating circumstances including Concerns Regarding Discharge (functional status, medication knowledge or non-compliance, living conditions, etc.) that warrant an admission rather than observation: iv sterioids, resp tx prn, pulmonology consult. prmature discharge would be medically harmful (CHET BOWEN) PA/TEMPER MILL OPERATOR Co-Sign Statement Statement: ED Attending supervision documentation- x I saw and evaluated the patient. I have also reviewed all the pertinent lab results and diagnostic results. I agree with the findings and the plan of care as documented in the PA's/TEMPER MILL OPERATOR's documentation. [] I have reviewed the ED Record and agree with the PA's/TEMPER MILL OPERATOR's documentation. [] Additions or exceptions (if any) to the PAs/TEMPER MILL OPERATOR's note and plan are summarized below: [] (CRISTINA BANKS,ADDI) Critical Care Note Critical Care Note Critical Care Time: non-applicable (BREANNE HAYS,GWEN)
--- NOTE | 2016-11-18 17:04 | NUR ---
RT AT BEDSIDE AT THIS TIME. PT IN GOWN IN BED ON MONITORS.
--- NOTE | 2016-11-18 17:23 | NUR ---
RT GIVING SECOND BREATHING TX. IV STARTED, BLOOD WORK SENT TO LAB AND SOLUMEDROL GIVEN PER JUL. PT APPEARS IN LESS DISTRESS THAN WHEN HE PRESENTED. REMAINS ON MONITORS IN ROOM, WILL CONT TO MONITOR.
--- NOTE | 2016-11-18 17:26 | NUR ---
XR AT BEDSIDE DOING PORTABLE CXR
[2016-11-18 17:30] LABS: ABSOLUTE BASOPHIL COUNT 0 /CUMM (0.0-0.2); ABSOLUTE EOSINOPHIL COUNT 0.2 /CUMM (0.0-0.7); ABSOLUTE GRANULOCYTE CT 5.7 /CUMM (1.4-6.5); ABSOLUTE LYMPH COUNT 2.2 /CUMM (1.2-3.4); ABSOLUTE MONOCYTE COUNT 0.9 /CUMM (0.10-0.60); BASOPHIL % 0.4 % (0.0-2.0); EOSINOPHIL % 2.4 % (0-5); GRANULOCYTE % 62.4 % (42.2-75.2); HEMATOCRIT 40.2 % (42-52); MEAN CORPUSCULAR HGB 31.1 PG (27.0-31.0); MEAN CORPUSCULAR VOLUME 91.5 FL (80.0-94.0); MEAN PLATELET VOLUME 8.5 FL (7.4-10.4); PLATELET COUNT 270 /CUMM (130-400); RBC DISTRIBUTION WIDTH 13.9 % (11.5-14.5); WHITE BLOOD CELL COUNT 9.1 /CUMM (4.8-10.8)
--- NOTE | 2016-11-18 17:37 | NUR ---
PT REPORTING "SOME" RELIEF OF SYMPTOMS SINCE ARRIVAL AFTER SECOND DUONEB. REMAINS ON MONITORS, RESPIRATIONS LESS LABORED, EQUAL RISE AND FALL OF THE CHEST. WILL CONT TO MONITOR.
--- NOTE | 2016-11-18 17:42 | RADIOLOGY REPORT ---
EXAMINATION: XR PORTABLE CHEST CLINICAL INFORMATION: Pneumonia wheezing cough shortness of breath COMPARISON: Prior chest July 2016 TECHNIQUE: Portable frontal view of the chest was obtained. FINDINGS: No significant abnormality is noted involving the heart, lungs, mediastinum, bony thorax or soft tissues. IMPRESSION: Unremarkable examination.
--- NOTE | 2016-11-18 18:27 | NUR ---
PT REPORTS ALMOST COMPLETE RELIEF OF SYMPTOMS. STILL SOUNDS SLIGHTLY WHEEZY IN ALL LOBES, BUT IS NO LONGER IN ANY DISTRESS. VSS, WILL CONT TO MONITOR.
--- NOTE | 2016-11-18 19:47 | NUR ---
TRIED PT ON ROOM AIR AND SATS DROPPED TO 86%. PUT BACK ON NC 3L. PT REPORTS HIS 02 DURING THE DAY NORMALLY STAYS AROUND 90% OR 91% AND HE WEARS 3L NC AT NIGHT ONLY. GWEN HALL AWARE AND TALKING WITH PT ABOUT POC.
--- NOTE | 2016-11-18 20:02 | NUR ---
CALLED RT FOR ADDITIONAL BREATHING TX
--- NOTE | 2016-11-18 20:07 | NUR ---
GAVE MAGNESIUM PER ORDER, VSS AND UPDATED. PT FAMILY NOW AT BEDSIDE. DENIES SOB OR DISCOMFORT. NOTIFIED OF POC.
--- NOTE | 2016-11-18 20:09 | NUR ---
RT AT BEDSIDE
--- NOTE | 2016-11-18 21:15 | NUR ---
PT SITTING IN CHAIR AT BEDSIDE PER HIS REQUEST USING PHONE IN ROOM. DENIES SOB OR CP. A&OX4. IN NAD AT THIS TIME.
--- NOTE | 2016-11-18 22:00 | NUR ---
PT AMBULATES TO BATHROOM AT THIS TIME WITH STEADY GAIT. IN NAD.
--- NOTE | 2016-11-18 22:05 | NUR ---
BED 204-1
--- NOTE | 2016-11-18 22:13 | NUR ---
ATTEMPTED TO CALL REPORT AND WAS TOLD RN WOULD CALL BACK.
--- NOTE | 2016-11-18 22:29 | History & Physical ---
PHILIP BANKS,[facility] 11/18/16 2229: General Information and HPI MD Statement: I have seen and personally examined ARIANNA HEREDIA and documented this H&P. The patient is a 46 year old M who presented with a patient stated chief complaint of [shortness of breath]. Source of Information: patient, old records Exam Limitations: no limitations History of Present Illness: Mr. Heredia is a 46 year old male with past medical history significant for COPD/ asthma on 3 L oxygen nocturnal, and anxiety, opioid dependence for chronic pain, who presented to ED with chief complaint of shortness of breath and cough for 1 day. Patient reported that yesterday he started to have sudden onset of dry cough spells that got worse to be productive yellow sputum cough, denied blood, severe shortness of breath that didn't respond to oxygen supplementation, saturating 83 % on 4 L, had multiple rounds of dounib nebulizer without any improvement. Patient reported wheeze, palpitation, headaches, orthopnea and paroxysmal nocturnal dyspnea. Denied any chest pain, abdominal pain, nausea vomiting, fever or chills, diarrhea or constipation, dysuria, sick contact, history of travel. Patient was diagnosed with asthma since childhood, was hospitalized for first time for asthma last May 2016 to ICU, never intubated, was struggling with resipratory situation lately and was started on prednisone 20 mg daily a month ago by Dr. Cuevas. Patient is a daily smoker, denied alcohol consumption, illicit drugs. History of allergic to sprue trees and oak trees, no history of allergic to food or drugs, no history of environmental changes. 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 spouse, child Services at Home: None Primary Language: Azeri Functional Ability ADLs Independent: dressing, eating, toileting, bathing. Ambulation: independent IADLs Independent: shopping, housework, finances, food prep, telephone, transportation , medication admin. Review of Systems Review of Systems Constitutional: Reports: see HPI. Exam & Diagnostic Data Last 24 Hrs of Vital Signs/I&O Vital Signs Date Time Temp Pulse Resp B/P B/P Pulse O2 O2 Flow FiO2 Mean Ox Delivery Rate 11/19 0751 Nasal 3.0L Cannula 11/19 0749 90 Nasal 3.0L Cannula 11/19 0623 97.8 102 24 128/72 91 Nasal 3.0L Cannula 11/19 0000 91 Nasal 3.0L Cannula 11/18 2321 98.6 109 28 126/78 91 Nasal 3.0L Cannula 11/18 2259 91 Nasal 3.0L Cannula 11/18 2210 97 20 119/60 94 Nasal 3.0L Cannula 11/189 94 Nasal 3.0L Cannula 11/18 2049 88 Room Air 11/19 2011 92 Nasal 3.0L Cannula 11/19 2007 98 25 138/81 92 Nasal 2.0L Cannula 11/18 194 92 22 94 Nasal 3.0L Cannula 11/18 194 90 25 86 Room Air 11/18 1828 98 22 94 Nasal 4.0L Cannula 11/18 1724 25 94 Nasal 4.0L Cannula 11/18 1715 32 88 Room Air 11/18 1704 93 Nasal 3.5L Cannula 11/18 1659 88 Room Air 11/18 1654 97.4 120 26 130/89 88 Room Air Intake & Output 11/19 1600 11/19 0800 11/19 0000 Intake Total 350 Output Total Balance 350 Intake, IV 350 Patient 111.13 kg Weight Physical Exam General Appearance Alert, Oriented X3, Cooperative, No Acute Distress Skin No Rashes, No Breakdown, No Significant Lesion Skin Temp/Moisture Exam: Warm/Dry HEENT Atraumatic, PERRLA, EOMI, Mucous Membr. moist/pink Neck Supple Lymphatic no cervical lymphadenopathy Cardiovascular Regular Rate, Normal S1, Normal S2, No Murmurs Lungs Bilateral deminshed air entery, wheeze diffuse Abdomen Normal Bowel Sounds, Soft, No Tenderness, No Hepatospenomegaly, No Masses Neurological Normal Speech, Strength at 5/5 X4 Ext, Normal Tone, Sensation Intact, Cranial Nerves 3-12 NL, Reflexes 2+ Extremities No Clubbing, No Cyanosis, Normal Pulses, No Tenderness/Swelling, BL pedal edema +1 Last 24 Hrs of Labs/Ashish: Laboratory Tests 11/19/16 0614: Sodium Pending, Potassium Pending, Chloride Pending, Carbon Dioxide Pending, Anion Gap Pending, BUN Pending, Creatinine Pending, BUN/Creatinine Ratio Pending , Total Bilirubin Pending, Direct Bilirubin Pending, AST Pending, ALT Pending, Alkaline Phosphatase Pending, Total Protein Pending, Albumin Pending, CBC w Diff Pending, WBC Pending, RBC Pending, Hgb Pending, Hct Pending, MCV Pending, MCH Pending, RDW Pending, Plt Count Pending, MPV Pending, PUBS MCHC Pending 11/18/16 1718: Anion Gap 10, Estimated GFR > 60, BUN/Creatinine Ratio 8.0, Glucose 108 H, Calcium 9.5, Total Bilirubin 0.4, AST 91 H, ALT 154 H, Alkaline Phosphatase 116, Troponin I < 0.01, Total Protein 7.2, Albumin 4.3, Globulin 2.9, Albumin/ Globulin Ratio 1.5, D-Dimer High Sensitivty < 200, CBC w Diff NO MAN DIFF REQ, RBC 4.40 L, MCV 91.5, MCH 31.1 H, RDW 13.9, MPV 8.5, Gran % 62.4, Lymphocytes % 24.8, Monocytes % 10.0 H, Eosinophils % 2.4, Basophils % 0.4, Absolute Granulocytes 5.7, Absolute Lymphocytes 2.2, Absolute Monocytes 0.9 H, Absolute Eosinophils 0.2, Absolute Basophils 0, PUBS MCHC 34.0 Microbiology 11/19 06 LOWER RESP: Respiratory Culture - COLB 11/19 599 LOWER RESP: Gram Stain - COLB Assessment/Plan Assessment: Mr. Heredia is a 46 year old male with past medical history significant for COPD/ asthma on 3 L oxygen nocturnal, and anxiety, opioid dependence for chronic pain, who presented to ED with chief complaint of shortness of breath and cough for 1 day. Problem list #Acute hypoxic respiratory failure #Asthma/COPD exacerbation #Transaminitis #Opioid dependence Plan -Admit to general medical floor -IV Solu-Medrol 60 mg every 6 -Azithromycin IV for 5 days -Pulmonary consultation in a.m. Dr. Cuevas -Follow-up liver function test -Right upper quadrant ultrasound -TRC -Sputum culture -Streptococcus and legionella urine antigen -Please confirm methadone dose, patient reported 85 mg daily from [facility] -Urine toxicology -Hepatitis panel -Code full -Diet regular -DVT prophylaxis Lovenox As Ranked By This Provider Problem List: 1. Asthma exacerbation 2. Dyspepsia 3. SOB (shortness of breath) 4. COPD (chronic obstructive pulmonary disease) Core Measures/Miscellaneous Acute Coronary Syndrome ACS Diagnosis: No Cerebrovascular Accident CVA/TIA Diagnosis: Yes Congestive Heart Failure CHF Diagnosis: No VTE (View Protocol) VTE Risk Factors: Age > 40 No [facility] VTE prophylaxis d/t: No contraindications No VTE Pharm Prophylaxis d/t: No contraindications VTE Diagnosis: No VTE Type: NONE VTE Confirmed by (Test): NONE Sepsis (View Protocol) Severe Sepsis Present: No Septic Shock Septic Shock Present: No Miscellaneous Documentation Attending Case Discussed With: [facility]ES [facility] Primary Care Physician: ALLAN NEWTON DO Patient sees these Specialists Pulmonary Level of Patient Care: General Medicine DANY DOLL MD 11/18/16 2238: General Information and HPI Allergies/Medications Home Med list Albuterol Sulfate 2.5 MG/3 ML (0.083 %) VIAL.NEB 1 Vial INH/KAREN Q4P PRN COPD (Reported) Albuterol Sulfate (Proair Hfa) 90 MCG HFA.AER.AD 2 PUF INH PRN COPD (Reported ) Aripiprazole 5 MG TABLET 1 TAB PO DAILY MENTAL HEALTH (Reported) Aspirin (Ecotrin*) 81 MG TABLET.DR 1 TAB PO DAILY HEART/BLOOD (Reported) Budesonide/Formoterol Fumarate (Symbicort 160-4.5 Mcg Inhaler) 160 MCG-4.5 MCG/ ACTUATION HFA.AER.AD 1 PUF INH BID COPD (Reported) Gabapentin (Unknown Strength) CAPSULE 300 CAP PO BID ANXIETY (Reported) Ipratropium/Albuterol Sulfate (Iprat-Albut 0.5-3(2.5) MG/3 Ml) 0.5 MG-3 MG (2.5 MG BASE)/3 ML AMPUL.NEB 1 VIAL INH Q4 PRN sob Melatonin/Pyridoxine (Melatonin 5 MG Tablet) 5 MG-1 MG TABLET 1 TAB PO DAILY SLEEP HELP (Reported) Methadone HCl 10 MG/5 ML SOLUTION 75 MG PO DAILY MENTAL HEALTH (Reported) Pantoprazole Sodium (Protonix) 40 MG TABLET.DR 1 TAB PO DAILY GI (Reported) Prazosin HCl 1 MG CAPSULE 1 CAP PO QPM MENTAL HEALTH (Reported) Prednisone 10 MG TABLET 2 TAB PO DAILY COPD (Reported) Resident Review Statement Resident Statement: examined this patient, discussed with international tax manager, agreed with international tax manager Other Findings: 46-year-old male with a past medical history of COPD, asthma, anxiety depression , GERD, PTSD, opiate dependence and current smoker who presents with cough and wheezing and shortness of breath for about 2 days. Cough was initially dry but now is productive of yellowish sputum. Symptoms were not relieved by use of duonebs at home. He uses to 3 L of baseline O2 at home, but required up to 4 L last night due to symptoms. Oxygen saturation on home was 83% on 4 L He endorses positive night sweats and chills but denies fever, chest pain, congestion or sick contact. He had his first ever asthma exacerbation that required hospitalization May 2016, he was admitted to the ICU at time and since then he says he has not been back to his baseline respiratory guzman. He follows with Dr. Cuevas who placed him on 20 mg of by mouth prednisone daily since September due to persistent symptoms. He does not take vaccines; has not received flu or pneumonia shot. In the ER patient was saturating 88% on room air. Chest x-ray is negative for any active process, vitals stable otherwise. He received high-dose Solu-Medrol and 1 g of magnesium sulfate in the ER. Pertinent labs- AST 91, ALT 154, d-dimer negative Exam-obese patient, chest exam reveals wheezing throughout but no crackles Assessment 1. Acute on chronic hypoxic respiratory failure from possible status asthmaticus 2. Viral Bronchitis 3. 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 Transaminitis 5. GERD 6. Current smoker Plan -Admit to general med -IV Solu-Medrol 60 mg every 6 hours -Obtain sputum cultures -IV azithromycin daily -TR nebs -Oxygen supplementation as needed -Pulmonary consult in a.m.-Dr. Cuevas -Obtain a hepatitis panel and right upper quadrant ultrasound to evaluate cause of transaminitis -Patient says he takes methadone 85mg daily for opiate dependence, but EMR shows 75mg dialy; please confirm [facility]ad[facility] dose [facility] and restart. He toke a dose in the morning before coming to the hospital. -Check a urine toxicology -Restart his improtant home medications -Nicotine patch -Regular diet -DVT prophylaxis with subcutaneous Lovenox -Pain management pathway ordered -Full code DELMIS BANKS, [facility] 11/18/16 1629: Attending MD Review Statement Attending Statement Attending MD Statement: examined this patient, discuss w/resident/PA/LEAD SECTION SUPERVISOR, agreed w/resident/PA/LEAD SECTION SUPERVISOR Attending Assessment/Plan: 46 yo obese M with h/o asthma/COPD on nocturnal 3 L O2 and prednisone (20 mg), reflux disease, panic with agoraphobia, PTSD, chronic pain on methadone, last admitted for asthma exacerbation (May 2016), subsequently seen in ER in July 2016 for another exacerbation but left AMA from the ER, is here with 2-day h/o cough productive of yellow phlegm, dyspnea and wheezing. Tried using inhalers without relief, also increased O2 requirement from 3 to 4 L. He reports smoking, but states he has cut down to 5-6 cigarettes. Never intubated. No sick contacts. PFT (November 2015): severe obstructive lung disease with reduction in diffusing capacity c/w emphysema and a significant bronchodilator response with oxygen desaturation. Vitals: afebrile, tachycardic, BP 138/81, sats 88% RA --> 93% on 4L. After receiving nebs and steroids, sats were rechecked, sats dropped to 86% on RA. Exam: AAO, able to speak in full sentences, not using accessory muscles of respiration, Chest b/l reduced air entry and expiratory wheeze++. Labs: no leukocytosis, eosinophils 2.4%, D-dimer <200, glucose 108, AST 91, ALT 154, trop neg. CXR: no pneumonia. Echo (2015): EF 65%, LVH. EKG: Sinus tachycardia, Qtc 479. 1. Acute on chronic hypoxic respiratory failure, asthma-COPD exacerbation in the setting of acute bronchitis. I think it is more of a COPD exacerbation. Smoking cessation counseling done. GM admit, sputum culture, TRC nebs, IV steroids, IV azithro for 5 days. Pulm consult (Dr. Faith) in AM. 2. Chronic pain. Confirm methadone dose from [place], [place]. 3. Transaminitis of unclear etiology. Gentle hydration. Trend LFTs. Check hep panel and RUQ ultrasound. Check urine tox screen. DVT ppx Lovenox. Full code.
--- NOTE | 2016-11-18 22:29 | NUR ---
REPORT GIVEN TO GALDINO RN AND TRANSPORT REQUESTED.
--- NOTE | 2016-11-18 22:52 | Admission Certification ---
Admission Certification Certification Statement - As attending physician, I certify that at the time of - admission, based on clinical presentation, severity of - symptoms, need for further diagnostic testing and - therapeutic interventions, and risk of adverse outcomes - without in-hospital treatment, in my clinical assessment, - this patient requires an acute hospital stay for a minimum - of two nights or longer. I have also considered psychsocial - factors such as support system, advanced age, financial - issues, cognitive issues, and failed out-patient treatments, - past re-admission history, safety of patient, and lack of - compliance as applicable. Specific rationale supporting this admission is: Acute on chronic hypoxic respiratory failure, asthma-COPD exacerbation.
[2016-11-18 23:21] VITALS: BP 126/78
--- NOTE | 2016-11-18 23:24 | NUR ---
PT ADMITTED FROM HOME WITH ASTHMA EXCERBATION. HE NORMALY USES 3 LITERS NASAL CANNULA AT NIGHT. PT TOOK 1 DUONEB TREATMENT AT HOME AND RECIVED AN ADDITIONAL 3 ADDITIONAL IN THE EMERGENCY ROOM. HE ALSO RECIEVED 1 ALBUTEROL TREATMENT AND 1 GRAM MAG SULFATE WELL 125MG SOLUMEDROL IN THE EMERGENCY ROOM. PT IS REFUSING ALPS AT THIS TIME. HE IS ALERT AND ORIENTED X 3, AND AMBULTATES TO THE BATHROOM ON HIS OWN
[2016-11-18] MEDS ORDERED: MELATONIN 5 MG1 EACH PO (23:55)
[2016-11-19 06:23] VITALS: BP 128/72
--- NOTE | 2016-11-19 08:45 | PN- Housestaff ---
Subjective Follow-up For: Acute hypoxic respiratory failure, Asthma/COPD exacerbation Acute bronchitis Complaints: DYSPNEA Subjective: I followed up and examined the patient today. He is resting in his bed, is in mild respiratory distress, with tachypnea, but is able to speak in full sentences, is not using his accessory muscles, was not cyanotic. He has been requiring oxygen delivery via nasal cannula at 3 L/m, which is not his baseline. He uses oxygen only during nighttime at home. He does not endorse any chest pain, palpitation. Review of Systems Constitutional: Reports: see HPI. Objective Last 24 Hrs of Vital Signs/I&O Vital Signs Date Time Temp Pulse Resp B/P B/P Pulse O2 O2 Flow FiO2 Mean Ox Delivery Rate 11/19 1405 98.5 106 20 122/70 91 11/19 0800 93 Nasal 3.0L Cannula 11/19 0751 Nasal 3.0L Cannula 11/19 0749 90 Nasal 3.0L Cannula 11/19 0623 97.8 102 24 128/72 91 Nasal 3.0L Cannula 11/19 0000 91 Nasal 3.0L Cannula 11/18 2321 98.6 109 28 126/78 91 Nasal 3.0L Cannula 11/18 2259 91 Nasal 3.0L Cannula 11/18 2210 97 20 119/60 94 Nasal 3.0L Cannula 11/18 2048 94 Nasal 3.0L Cannula 11/18 204 88 Room Air 11/18 2012 92 Nasal 3.0L Cannula Intake & Output 11/19 1600 11/19 0800 11/19 0000 Intake Total 750 350 Output Total 800 Balance -50 350 Intake, IV 350 350 Intake, Oral 400 Number 0 Bowel Movements Output, Urine 800 Patient 111.13 kg Weight Physical Exam General Appearance: Alert, Oriented X3, Cooperative, Mild Distress Other Physical Findings: Skin No Rashes, No Breakdown, No Significant Lesion Skin Temp/Moisture Exam: Warm/Dry HEENT Atraumatic, PERRLA, EOMI, Mucous Membr. moist/pink Neck Supple Lymphatic no cervical lymphadenopathy Cardiovascular Regular Rate, Normal S1, Normal S2, No Murmurs heard Lungs Bilateral deminshed air entery, wheeze heard b/l on expiration, mild resp distress noted. Abdomen Normal Bowel Sounds, Soft, No Tenderness Neurological Normal Speech, rgossly intact Extremities No Clubbing, No Cyanosis, Normal Pulses, No Tenderness/Swelling, BL pedal edema +1 Current Medications: Current Medications (updated after the patient had left [facility]) Sig/Nettie Start time Last Medication Dose Route Stop Time Status Admin Acetaminophen 650 MG Q6P PRN 11/19 0345 DCD PO Albuterol Sulfate 3 ML EVERY 4 HRS/AWAKE 11/19 0800 DCD 11/19 INH 1227 Albuterol Sulfate 3 ML ONCE ONE 11/18 2014 DC 11/18 INH 11/18 2016 1740 Azithromycin 500 MG Q24H 11/20 0000 DCD Sodium Chloride 250 ML IV Azithromycin 500 MG ONCE ONE 11/18 2300 DC 11/19 Sodium Chloride 250 ML IV 11/18 2359 0010 Budesonide/ 2 PUF BID 11/19 1131 DCD 11/19 Formoterol Fumarate INH 1444 Budesonide/ 1 PUF BID 11/18 2351 DC 11/19 Formoterol Fumarate INH 1049 Enoxaparin Sodium 40 MG DAILY 11/19 1000 DCD 11/19 SC 1049 Ipratropium Turrell 2.5 ML EVERY 4 HRS/AWAKE 11/19 0800 DCD 11/19 INH 1227 Magnesium Sulfate 1 GM ONCE ONE 11/18 2000 DC 11/18 Dextrose/Water 100 ML IV 11/18 2359 2028 Melatonin 5 MG AT BEDTIME 11/18 2345 DCD 11/19 PO 0010 Methylprednisolone 60 MG Q8 11/19 1400 DCD 11/19 IV 1444 Methylprednisolone 40 MG .STK-MED ONE 11/19 0007 DC IM 11/19 0008 Methylprednisolone 60 MG Q6 11/18 2359 DC 11/19 IV 0538 Montelukast Sodium 10 MG AT BEDTIME 11/19 2200 DCD PO Nicotine 7 MG DAILY 11/19 1000 DCD 11/19 TOP 1049 Omeprazole 40 MG DAILY AC 11/19 0700 DCD PO Sodium Chloride 1,000 ML Q20H 11/19 0315 DCD 11/19 IV 0345 Last 24 Hrs of Lab/Ashish Results Last 24 Hrs of Labs/Mics: Laboratory Tests 11/19/16 0614: Anion Gap 6, Estimated GFR > 60, BUN/Creatinine Ratio 15.6, Total Bilirubin 0.5, Direct Bilirubin 0.2, AST 79 H, ALT 144 H, Alkaline Phosphatase 112, Total Protein 6.6, Albumin 4.2, CBC w Diff NO MAN DIFF REQ, RBC 4.21 L, MCV 93.1, MCH 31.4 H, RDW 13.8, MPV 8.9, Gran % 91.5 H, Lymphocytes % 7.3 L, Monocytes % 1.2 L, Eosinophils % 0, Basophils % 0 L, Absolute Granulocytes 9.0 H, Absolute Lymphocytes 0.7 L, Absolute Monocytes 0.1 L, Absolute Eosinophils 0, Absolute Basophils 0, PUBS MCHC 33.7 Microbiology 11/19 599 LOWER RESP: Respiratory Culture - COLB 11/19 599 LOWER RESP: Gram Stain - COLB Assessment/Plan Assessment: 46-year-old male with past medical history of COPD, smoking, asthma on 3 L/min oxygen nightly, anxiety, opiate dependence on methadone, who presented to the emergency department with chief complaints of shortness of breath and cough for 1 day. He is currently being managed in the general medical floor for the following issues: #Acute hypoxic respiratory failure, secondary to acute bronchitis/asthma/COPD exacerbation This morning, patient is still in mild respiratory distress, requiring additional oxygen, and the finding is after the morning dose of nebulization. * Continue IV azithromycin considering acute bronchitis causing respiratory distress * IV Solu-Medrol can be changed from 60 mg every 6 hours to every 8 hours as per painter shipyard Mercedes Bowman MD * Continued TRC/nebulization * Follow-up cultures and urinary Streptococcus and Legionella antigens #Opiate dependence Patient's methadone program in [place] was contacted and requested an immediate call back. Joanne Victor confirmed the dose of Methadone to be 85mg PO daily, which he takes from [facility] in [place], [place]. I was unable to prescribe methadone as I received a call from [place] after the patient had just left the hospital without knowledge of the staff. Code departure had been called. Please see event note from today. #Hepatic steatosis and mild hepatomegaly per [facility] done today. #Patient eloped from the hospital, possibly with IV cannula in his arm, and discontinuing his ongoing treatment. Please refer to event note from today for details. #Diet: Regular diet #DVT ppx: Lovenox #Code status: Full code Problem List: 1. Acute respiratory failure with hypoxia 2. Acute bronchitis 3. COPD exacerbation 4. Asthma exacerbation 5. Anxiety 6. Methadone dependence 7. Nicotine dependence Pain Ratin Pain Location: - Pain Goal: Pain 4 or less Pain Plan: prn Tomorrow's Labs & Rationales: Patient left the hospital. Not applicable.
[2016-11-19 08:47] LABS: ABSOLUTE BASOPHIL COUNT 0 /CUMM (0.0-0.2); ABSOLUTE EOSINOPHIL COUNT 0 /CUMM (0.0-0.7); ABSOLUTE LYMPH COUNT 0.7 /CUMM (1.2-3.4); ABSOLUTE MONOCYTE COUNT 0.1 /CUMM (0.10-0.60); BASOPHIL % 0 % (0.0-2.0); EOSINOPHIL % 0 % (0-5); GRANULOCYTE % 91.5 % (42.2-75.2); HEMATOCRIT 39.2 % (42-52); MEAN CORPUSCULAR HGB 31.4 PG (27.0-31.0); MEAN CORPUSCULAR HGB CONC 33.7 G/DL (33.0-37.0); MEAN CORPUSCULAR VOLUME 93.1 FL (80.0-94.0); MEAN PLATELET VOLUME 8.9 FL (7.4-10.4); PLATELET COUNT 249 /CUMM (130-400); RBC DISTRIBUTION WIDTH 13.8 % (11.5-14.5); RED BLOOD CELL CT 4.21 /CUMM (4.70-6.10)
[2016-11-19 09:54] LABS: WHITE BLOOD CELL COUNT 9.9 /CUMM (4.8-10.8)
--- NOTE | 2016-11-19 10:30 | ULTRASOUND REPORT ---
EXAMINATION: US ABDOMEN LIMITED CLINICAL INFORMATION: Transaminitis of unclear etiology. COMPARISON: CT abdomen and pelvis 01/04/2011. TECHNIQUE: Real-time imaging of the right upper quadrant abdominal viscera. Technically limited exam secondary to patient body habitus. FINDINGS: PANCREAS: The visualized pancreatic body is unremarkable, the remainder of the pancreas is obscured by bowel gas. LIVER: There is diffuse increased liver parenchymal echogenicity. The liver is enlarged measuring 20 cm in craniocaudal dimension. No biliary ductal dilatation. No focal hepatic lesions. GALLBLADDER: Normal. The gallbladder is physiologically distended without evidence of stones, sludge, polyps, wall thickening or pericholecystic fluid. COMMON BILE DUCT: Normal in caliber measuring 0.48 cm in diameter. RIGHT KIDNEY: Normal. No hydronephrosis. No renal calculi or focal parenchymal lesions. The kidney measures 10.5 cm in maximum dimension. FREE FLUID: None. IMPRESSION: Diffusely increased liver parenchymal echogenicity may represent hepatic steatosis. The liver is mildly enlarged measuring 20 cm in craniocaudal dimension. The pancreas is not well visualized.
--- NOTE | 2016-11-19 10:36 | Cons- Pulmonary ---
General Information and HPI Consulting Request Date of Consult: 11/19/16 Requested By: Dr. Farmer Reason for Consult: Asthma exacerbation Source of Information: patient, old records Exam Limitations: no limitations History of Present Illness: The patient is a 46-year-old male with a past medical history significant for asthma with recurrent bronchospasm. The patient is on supplemental oxygen at home, 3 L nocturnally. He also has a history of anxiety, and opioid dependence for chronic pain. The patient was admitted on 11/18/2016 with complaints of increased cough, productive of yellow sputum, and severe shortness of breath. He also reported increased wheezing. He has had no fever or chills. He has had no abdominal complaints. Initially, the patient was saturating 83% on 4 L nasal cannula. He did not improve following nebulizer treatments. The patient has been on oral steroids noting he was having difficulty with ongoing exacerbations. He has environmental allergies. Allergies/Medications Allergies: Coded Allergies: oak (ALLERGY TESTED POSITIVE 08/22/16) Uncoded Allergies: SPRUCE (ALLERGY TESTED POSITIVE 03/15/16) Home Med List: Albuterol Sulfate 2.5 MG/3 ML (0.083 %) VIAL.NEB 1 Vial INH/KAREN Q4P PRN COPD (Reported) Albuterol Sulfate (Proair Hfa) 90 MCG HFA.AER.AD 2 PUF INH PRN COPD (Reported ) Aripiprazole 5 MG TABLET 1 TAB PO DAILY MENTAL HEALTH (Reported) Aspirin (Ecotrin*) 81 MG TABLET.DR 1 TAB PO DAILY HEART/BLOOD (Reported) Budesonide/Formoterol Fumarate (Symbicort 160-4.5 Mcg Inhaler) 160 MCG-4.5 MCG/ ACTUATION HFA.AER.AD 1 PUF INH BID COPD (Reported) Gabapentin (Unknown Strength) CAPSULE 300 CAP PO BID ANXIETY (Reported) Ipratropium/Albuterol Sulfate (Iprat-Albut 0.5-3(2.5) MG/3 Ml) 0.5 MG-3 MG (2.5 MG BASE)/3 ML AMPUL.NEB 1 VIAL INH Q4 PRN sob Melatonin/Pyridoxine (Melatonin 5 MG Tablet) 5 MG-1 MG TABLET 1 TAB PO DAILY SLEEP HELP (Reported) Methadone HCl 10 MG/5 ML SOLUTION 75 MG PO DAILY MENTAL HEALTH (Reported) Pantoprazole Sodium (Protonix) 40 MG TABLET.DR 1 TAB PO DAILY GI (Reported) Prazosin HCl 1 MG CAPSULE 1 CAP PO QPM MENTAL HEALTH (Reported) Prednisone 10 MG TABLET 2 TAB PO DAILY COPD (Reported) Current Medications: Current Medications Sig/Nettie Start time Last Medication Dose Route Stop Time Status Admin Acetaminophen 650 MG Q6P PRN 11/19 0345 AC PO Albuterol Sulfate 3 ML EVERY 4 HRS/AWAKE 11/19 0800 AC 11/19 INH 0759 Albuterol Sulfate 3 ML ONCE ONE 11/18 2014 DC 11/18 INH 11/19 2015 1740 Albuterol Sulfate 3 ML ONCE ONE 11/19 1999 DC 11/18 INH 11/18 Albuterol Sulfate 3 ML ONCE ONE 11/18 1730 DC 11/18 INH 11/18 173 1715 Albuterol Sulfate 3 ML ONCE ONE 11/18 1715 DC 11/18 INH 11/18 1716 1700 Azithromycin 500 MG Q24H 11/20 0000 AC Sodium Chloride 250 ML IV Azithromycin 500 MG ONCE ONE 11/18 2300 DC 11/19 Sodium Chloride 250 ML IV 11/18 2359 0010 Budesonide/ 1 PUF BID 11/18 2351 AC Formoterol Fumarate INH Enoxaparin Sodium 40 MG DAILY 11/19 1000 AC SC Ipratropium [place] 2.5 ML EVERY 4 HRS/AWAKE 11/19 0800 AC 11/19 INH 0758 Ipratropium [place] 2.5 ML ONCE ONE 11/19 1999 DC 11/18 INH 11/18 Ipratropium [place] 2.5 ML ONCE ONE 11/18 1730 DC 11/18 INH 11/18 1731 1715 Ipratropium [place] 2.5 ML ONCE ONE 11/18 1715 DC 11/18 INH 11/18 1716 1700 Magnesium Sulfate 1 GM ONCE ONE 11/19 1999 DC 11/18 Dextrose/Water 100 ML IV 11/18 2359 2028 Melatonin 5 MG AT BEDTIME 11/18 2345 AC 11/19 PO 0010 Methylprednisolone 60 MG Q8 11/19 1400 AC IV Methylprednisolone 40 MG .STK-MED ONE 11/19 0007 DC IM 11/19 0008 Methylprednisolone 60 MG Q6 11/18 2359 DC 11/19 IV 0538 Methylprednisolone 125 MG ONCE ONE 11/18 1715 DC 11/18 IV 11/18 1716 1722 Methylprednisolone 0 .STK-MED ONE 11/18 1713 DC .ROUTE Nicotine 7 MG DAILY 11/19 1000 AC TOP Omeprazole 40 MG DAILY AC 11/19 0700 AC PO Sodium Chloride 1,000 ML Q20H 11/19 0315 AC 11/19 IV 0345 Review of Systems Review of Systems Constitutional: Denies: chills, diaphoresis, fever, malaise, weakness, unexplained weight loss. EENTM: Denies: no symptoms. Cardiovascular: Denies: no symptoms. Respiratory: Reports: cough, short of breath, sputum production, wheezing. Denies: hemoptysis, orthopnea, stridor. GI: Denies: no symptoms. Skin: Denies: no symptoms. All Other Systems: Reviewed and Negative Past History Travel History Traveled to [place] past 21 day No Medical History Blood Transfusion Hx: No Neurological: NONE EENT: NONE Cardiovascular: NONE Respiratory: asthma Gastrointestinal: GERD Hepatic: NONE Renal: NONE Musculoskeletal: NONE Psychiatric: anxiety, depression, PTSD Endocrine: NONE Blood Disorders: NONE Cancer(s): NONE INK BLENDER/Reproductive: NONE Surgical History Surgical History: L THUMB SURGERY Family History Relations & Conditions If Any: Relation not specified for: *No pertinent family history Psychosocial History Where Do You Live? Home Who Do You Live With? spouse, child Services at Home: None Primary Language: Italian Smoking Status: Current Some Day Smoker Functional Ability ADLs Independent: dressing, eating, toileting, bathing. Ambulation: independent IADLs Independent: shopping, housework, finances, food prep, telephone, transportation , medication admin. Exam & Diagnostic Data Last 24 Hrs of Vital Signs/I&O Vital Signs Date Time Temp Pulse Resp B/P B/P Pulse O2 O2 Flow FiO2 Mean Ox Delivery Rate 11/19 0751 Nasal 3.0L Cannula 11/19 0749 90 Nasal 3.0L Cannula 11/19 622 97.8 102 24 128/72 91 Nasal 3.0L Cannula 11/19 0000 91 Nasal 3.0L Cannula 11/181 98.6 109 28 126/78 91 Nasal 3.0L Cannula 11/189 91 Nasal 3.0L Cannula 11/18 2209 97 20 119/60 94 Nasal 3.0L Cannula 11/18 2048 94 Nasal 3.0L Cannula 11/18 2048 88 Room Air 11/19 2011 92 Nasal 3.0L Cannula 11/19 2007 98 25 138/81 92 Nasal 2.0L Cannula 11/18 1945 92 22 94 Nasal 3.0L Cannula 11/18 194 90 25 86 Room Air 11/18 1828 98 22 94 Nasal 4.0L Cannula 11/18 1724 25 94 Nasal 4.0L Cannula 11/18 1715 32 88 Room Air 11/18 1704 93 Nasal 3.5L Cannula 11/18 1659 88 Room Air 11/18 1654 97.4 120 26 130/89 88 Room Air Intake & Output 11/19 1600 11/19 0800 11/19 0000 Intake Total 350 Output Total Balance 350 Intake, IV 350 Patient 245 lb Weight Physical Exam General Appearance: no apparent distress, alert, awake, comfortable Head: atraumatic, normal appearance Neck: normal inspection, supple Respiratory: normal breath sounds, wheezing Cardiovascular: regular rate/rhythm Gastrointestinal: normal bowel sounds, soft, non-tender Extremities: no edema Skin: intact, normal color, warm/dry Last 48 Hrs of Labs/Ashish: Laboratory Tests 11/19/16 0614: Anion Gap 6, Estimated GFR > 60, BUN/Creatinine Ratio 15.6, Total Bilirubin 0.5, Direct Bilirubin 0.2, AST 79 H, ALT 144 H, Alkaline Phosphatase 112, Total Protein 6.6, Albumin 4.2, CBC w Diff NO MAN DIFF REQ, RBC 4.21 L, MCV 93.1, MCH 31.4 H, RDW 13.8, MPV 8.9, Gran % 91.5 H, Lymphocytes % 7.3 L, Monocytes % 1.2 L, Eosinophils % 0, Basophils % 0 L, Absolute Granulocytes 9.0 H, Absolute Lymphocytes 0.7 L, Absolute Monocytes 0.1 L, Absolute Eosinophils 0, Absolute Basophils 0, PUBS MCHC 33.7 11/18/16 1718: Anion Gap 10, Estimated GFR > 60, BUN/Creatinine Ratio 8.0, Glucose 108 H, Calcium 9.5, Total Bilirubin 0.4, AST 91 H, ALT 154 H, Alkaline Phosphatase 116, Troponin I < 0.01, Total Protein 7.2, Albumin 4.3, Globulin 2.9, Albumin/ Globulin Ratio 1.5, D-Dimer High Sensitivty < 200, CBC w Diff NO MAN DIFF REQ, RBC 4.40 L, MCV 91.5, MCH 31.1 H, RDW 13.9, MPV 8.5, Gran % 62.4, Lymphocytes % 24.8, Monocytes % 10.0 H, Eosinophils % 2.4, Basophils % 0.4, Absolute Granulocytes 5.7, Absolute Lymphocytes 2.2, Absolute Monocytes 0.9 H, Absolute Eosinophils 0.2, Absolute Basophils 0, PUBS MCHC 34.0 Diagnostic Data CXR Results Unremarkable examination. Assessment/Plan Impression/Plan: 1. Asthma exacerbation. Possible COPD in the setting of tobacco use. 2. Acute bronchitis. 3. Transaminitis. 4. Gerd. Recommendations: * Into supplemental oxygen for saturations greater than 92%. * Continue nebs/TRC. * Continue Azithromycin. * Continue IV solumedrol at the current dose. * Continue Symbicort 160/4.5, 2 puffs every 12 hours. * Add Spiriva 1 inhalation every day. * Add Singulair 10 mg daily. * Follow-up ultrasound results. * DT prophylaxis at all times. * Continue all supportive care. * Thank you for the consult, will follow along with you and provide further recommendations as necessary. Consult Acknowledgment - Thank you for your consult request.
--- NOTE | 2016-11-19 12:24 | PN- Att Addend ---
See Addendum Attending Addendum Attending Brief Note Patient seen and examined, not feeling that her. Still feeling short of breath and wheezing. Denies any abdominal pain. His LFTs are abnormal. Vital Signs Date Time Temp Pulse Resp B/P B/P Pulse O2 O2 Flow FiO2 Mean Ox Delivery Rate 11/19 0751 Nasal 3.0L Cannula 11/19 0749 90 Nasal 3.0L Cannula 11/19 0623 97.8 102 24 128/72 91 Nasal 3.0L Cannula 11/19 0000 91 Nasal 3.0L Cannula 11/18 2321 98.6 109 28 126/78 91 Nasal 3.0L Cannula 11/18 2259 91 Nasal 3.0L Cannula 11/18 2210 97 20 119/60 94 Nasal 3.0L Cannula 11/189 94 Nasal 3.0L Cannula 11/18 2049 88 Room Air 11/19 2011 92 Nasal 3.0L Cannula 11/19 2007 98 25 138/81 92 Nasal 2.0L Cannula 11/18 1946 92 22 94 Nasal 3.0L Cannula 11/18 194 90 25 86 Room Air 11/18 1828 98 22 94 Nasal 4.0L Cannula 11/18 1724 25 94 Nasal 4.0L Cannula 11/18 1715 32 88 Room Air 11/18 1704 93 Nasal 3.5L Cannula 11/18 1659 88 Room Air 11/18 1654 97.4 120 26 130/89 88 Room Air on exam; aox3, nad. cv; s1,s2, rrr resp; b/l diffuse wheeze. abd; soft, nt, bs+ ext; no edema. Laboratory Tests 11/19 11/18 0614 1718 Chemistry Sodium (137 - 145 mmol/L) 137 139 Potassium (3.5 - 5.1 mmol/L) 4.9 3.7 Chloride (98 - 107 mmol/L) 101 100 Carbon Dioxide (22 - 30 mmol/L) 29 29 Anion Gap (5 - 16) 6 10 BUN (9 - 20 mg/dL) 14 8 L Creatinine (0.7 - 1.2 mg/dL) 0.9 1.0 Estimated GFR (>60 ml/min) > 60 > 60 BUN/Creatinine Ratio (7 - 25 %) 15.6 8.0 Glucose (65 - 99 mg/dL) 108 H Calcium (8.4 - 10.2 mg/dL) 9.5 Total Bilirubin (0.2 - 1.3 mg/dL) 0.5 0.4 Direct Bilirubin (< 0.4 mg/dL) 0.2 AST (17 - 59 U/L) 79 H 91 H ALT (21 - 72 U/L) 144 H 154 H Alkaline Phosphatase (< 127 U/L) 112 116 Troponin I (<0.11 ng/ml) < 0.01 Total Protein (6.3 - 8.2 g/dL) 6.6 7.2 Albumin (3.5 - 5.0 g/dL) 4.2 4.3 Globulin (1.9 - 4.2 gm/dL) 2.9 Albumin/Globulin Ratio (1.1 - 2.2 %) 1.5 Coagulation D-Dimer High Sensitivty (0 - 243 ng/ml) < 200 Hematology CBC w Diff NO MAN DIFF REQ NO MAN DIFF REQ WBC (4.8 - 10.8 /CUMM) 9.9 9.1 RBC (4.70 - 6.10 /CUMM) 4.21 L 4.40 L Hgb (14.0 - 18.0 G/DL) 13.2 L 13.7 L Hct (42 - 52 %) 39.2 L 40.2 L MCV (80.0 - 94.0 FL) 93.1 91.5 MCH (27.0 - 31.0 PG) 31.4 H 31.1 H RDW (11.5 - 14.5 %) 13.8 13.9 Plt Count (130 - 400 /CUMM) 249 270 MPV (7.4 - 10.4 FL) 8.9 8.5 Gran % (42.2 - 75.2 %) 91.5 H 62.4 Lymphocytes % (20.5 - 51.1 %) 7.3 L 24.8 Monocytes % (1.7 - 9.3 %) 1.2 L 10.0 H Eosinophils % (0 - 5 %) 0 2.4 Basophils % (0.0 - 2.0 %) 0 L 0.4 Absolute Granulocytes (1.4 - 6.5 /CUMM) 9.0 H 5.7 Absolute Lymphocytes (1.2 - 3.4 /CUMM) 0.7 L 2.2 Absolute Monocytes (0.10 - 0.60 /CUMM) 0.1 L 0.9 H Absolute Eosinophils (0.0 - 0.7 /CUMM) 0 0.2 Absolute Basophils (0.0 - 0.2 /CUMM) 0 0 PUBS MCHC (33.0 - 37.0 G/DL) 33.7 34.0 A/P; 46 y/o M with pmh sig for ch resp failure, COPD/asthma on 3 L oxygen nocturnal, and anxiety, opioid dependence for chronic pain, admitted with acute on chronic resp failure 2/2 to acute bronchitis, asthma exacerbation. Currently patient getting treated with IV steroids (60 mg q8 hours), IV azithromycin, inhalers, nebulizers as well as oxygen. Appreciate neurology input. Patient also has abnormal LFTs and right upper quadrant ultrasound is consistent with hepatic steatosis. Singulair was added as per pulmonology recommendations. DVT prophylaxis: Lovenox.
[2016-11-19 14:05] VITALS: BP 122/70
--- NOTE | 2016-11-19 16:02 | Event Note ---
Event Note Event Note: CODE DEPARTURE: called at 1530 hrs approx: I heard the announcement of code departure and immediately went to the room. The patient was NOT present in the room. His hospital gown/clothes were on the bed, and his patient information bracelet was by the bedside. His personal belongings were not present either. Staff were already searching for him all over the hospital. I was notified by the nursing staff that the patient probably eloped, and they were calling his cellphone to get in touch with him. I immediately called his next of kin listed in the chart who was his friend who did not pharmacy picking technician the phone, so I left a voicemail stating the urgency of the situation and that the patient's condition might be at risk of deteriorating. I left my name, phone number of the hospital, and the name of my attending to be contacted immediately upon receiving the voicemail. I did not get a call back until I signed out to the on-call staff for the day. Yonathan Kalani from the psychiatric service, who was his outpatient provider at one period of time was also on the floor and tried contacting him over phone, and left a voicemail message with a callback number of the [facility] psychiatry and general medical floor of [facility]. He did not receive any phone/callback either. Code departure was canceled later, after nursing cash register operator confirmed with the staff that the patient responded to the phone call and mentioned that he is in his home and hung up on the staff. Nursing clay preparation supervisor later informed me that police with supervisor post wave staff were to be sent to his home address as he probably had IV canula in his arm when he left the hospital. He would be offered the coice to come back for treatment. I have not heard from anyone after that. My attending Dr. Duggan, resident Dr. Daniels were informed all along the code departure status. Dr Brad Karimi MD PGY1 Resident
--- NOTE | 2016-11-19 17:22 | NUR ---
ELOPEMENT PT ELOPED AT ROUGHLY 1500. PT LEFT ID BAND AND DISCONNECTED IV FLUIDS FROM HIS IV. PT JUST UP AND LEFT. TOOK BELONGINGS AND WENT. I CALLED A CODE DEPARTURE, THEN CALLED HIS CELLPHONE. HE TOLD ME HE HAS LEFT AND IS UPSET THEN HUNG UP. I TRIED TO RECALL, BUT WAS SENT TO VOICEMAIL. CODE DEPARTURE WAS CANCELLED AND SECURITY CALLED THE POLICE TO BRING PT BACK FOR IV REMOVAL. WE ARE CURRENTLY PENDING PT ARRIVAL.
--- NOTE | 2016-11-19 19:52 | NUR ---
PT LEFT HOSPITAL AMA AND WENT HOME. POLICE CALLED US FROM THE PATIENTS HOUSE AND I LET THEM KNOW TO HAVE THE AMBULANCE TAKE THE PTS IV OUT.
== END 2016-11-19 15:45 | disposition left against medical advice (07) | DRG 141 ==
LOC: ERH 16:38 → 2NB 21:45 → ERHI 21:45 → ENRESERV 22:03 → CANRESERV 22:03 → ENTRNSPT 22:29 → ENRESERV 22:32 → CMPTRNSPT 22:50 → 2NB 22:51
PROVIDERS: Physician Assistant Medical; Student in an Organized Health Care Education/Training Program; ADMIT Student in an Organized Health Care Education/Training Program
DX: J45.901 Unspecified asthma with (acute) exacerbation (principal); F41.9 Anxiety disorder, unspecified; F11.20 Opioid dependence, uncomplicated; R74.0 Nonspecific elevation of levels of transaminase and lactic acid dehydrogenase [LDH]; F43.10 Post-traumatic stress disorder, unspecified; J96.21 Acute and chronic respiratory failure with hypoxia; Z72.0 Tobacco use; J44.0 Chronic obstructive pulmonary disease with (acute) lower respiratory infection; J20.9 Acute bronchitis, unspecified; Z99.81 Dependence on supplemental oxygen; G89.29 Other chronic pain; K21.9 Gastro-esophageal reflux disease without esophagitis; R10.13 Epigastric pain
CPT/HCPCS: 2NBSP; 36415; 82436; 87070; 93005; 93010; 96365; 96375; 99291; J0456; J1650; J2920; J2930; J3490; J7040

== ENCOUNTER 2017-05-30 18:17 | Inpatient (IN) | payer OTHER ==
[~2017-05-30] VITALS: Ht 180.3 cm; Wt 113.4 kg
[~2017-05-30 18:17] MED LIST changes: +ALPRAZOLAM0.5 M4 PO; +GABAPENTIN100 M2 PO; +MELATONIN 5 MG1 EACH PO; +METFORMIN HCL500 M3 PO; +NICOTINE PATCH1 EAC2 TOP
--- NOTE | 2017-05-30 18:40 | ED DYSPNEA/ASTHMA COMPLAINT ---
History of Present Illness General Chief Complaint: Dyspnea (COPD, CHF, Other) Stated Complaint: DIFFICULTY BREATHING,TACHYCARDIA Source: patient, old records Exam Limitations: no limitations Vital Signs & Intake/Output Vital Signs & Intake/Output Vital Signs Date Time Temp Pulse Resp B/P B/P Pulse O2 O2 Flow FiO2 Mean Ox Delivery Rate 05/30 1846 98 Room Air 05/30 1823 97.7 128 24 147/104 95 Room Air Allergies Coded Allergies: oak (ALLERGY TESTED POSITIVE 08/22/16) Uncoded Allergies: SPRUCE (ALLERGY TESTED POSITIVE 03/15/16) Reconcile Medications Albuterol Sulfate 2.5 MG/3 ML (0.083 %) VIAL.NEB 1 Vial INH/KAREN Q4P PRN COPD (Reported) Albuterol Sulfate (Proair Hfa) 90 MCG HFA.AER.AD 2 PUF INH PRN COPD (Reported ) Alprazolam 0.5 MG TABLET 1 TAB PO BIDP PRN anxiety (Reported) Aripiprazole 5 MG TABLET 1 TAB PO DAILY MENTAL HEALTH (Reported) Aspirin (Ecotrin*) 81 MG TABLET.DR 1 TAB PO DAILY HEART/BLOOD (Reported) Budesonide/Formoterol Fumarate (Symbicort 160-4.5 Mcg Inhaler) 160 MCG-4.5 MCG/ ACTUATION HFA.AER.AD 1 PUF INH BID COPD (Reported) Ipratropium/Albuterol Sulfate (Iprat-Albut 0.5-3(2.5) MG/3 Ml) 0.5 MG-3 MG (2.5 MG BASE)/3 ML AMPUL.NEB 1 VIAL INH Q4 PRN sob Metformin HCl 500 MG TABLET 1 TAB PO BID hyperglycemia . Methadone HCl 10 MG/5 ML SOLUTION 32 MG PO DAILY MENTAL HEALTH (Reported) Pantoprazole Sodium (Protonix) 40 MG TABLET. 1 TAB PO DAILY GI (Reported) Prazosin HCl 1 MG CAPSULE 1 CAP PO QPM MENTAL HEALTH (Reported) Prednisone 10 MG TABLET 1 TAB PO AD COPD On Take 04/06-04/08 60 MG 04/09-04/11 50 MG 04/12-04/14 40 MG 04/15-04/17 30 MG From 04/18 20 MG Continue on this dose till you see Dr Cuevas Triage Note: PT TO TRIAGE WITH MULTIPLE COMPLAINTS, STATES THAT HE HAS COPD AND ASTHMA AND THAT HE STARTED TO FEEL SOB 3 DAYS AGO, O2 SAT 95 % ON RA , DENIES COUGH, PT NOTED WITH WHEEZING. 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 PT STATES THAT HE TAKES METHADONE DUE TO PAST ADDICTION WAS WEENED DOWN FROM 80 MG TO 4 MG IN 2 MONTHS AND THEY HAD TO INCREASE AGAIN TO 30 MG ON TUESDAY DUE TO WITHDRAWAL SYMPTOMS. COMPLAINS OF MID ABD PAIN, N/V THAT STARTED 2 DAYS AGO. DENIES CP. PT DID BREATHING TREATMENT 1 HOUR AGO WITH NO RELIEF Triage Nurses Notes Reviewed? yes Onset: Gradual Duration: day(s): Timing: recent history Severity: moderate HPI: 46yo male with hx of COPD on intermittent PRN home O2, current daily smoker, opiate abuse on methadone presents to ED complaining of worsening dyspnea and anxiety x 2 days. Patient reports recent change in methadone dosage from 80 mg to 4 mg over 2 months, patient was experiencing significant withdrawal symptoms and his dose was recently increased to 30 mg on 05/26/17. Patient still complaining of significant withdrawal symptoms despite daily use of methadone, he states that he is self-medicating with oxycodone now. Patient reports constipation since 05/26 despite use of magnesium citrate. Based on the symptoms patient believes he is having COPD exacerbation. He reports his withdrawal symptoms make him feel very anxious which exacerbates his COPD. Patient reports dry cough, fevers, chills, nausea, vomiting 2 days he is unsure if vomiting is related to withdrawal. Patient used a DuoNeb today prior to arrival without significant relief in his dyspnea. Patient denies chest pain, syncope, sick contact, diarrhea. (Scarlet HALL,uSe Cadena) Past History Travel History Traveled to [place] past 21 day No Medical History Any Pertinent Medical History? 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 No (Sue Rojas) Review of Systems Review of Systems Constitutional: Reports: see HPI. EENTM: Reports: no symptoms. Respiratory: Reports: see HPI. Cardiovascular: Reports: no symptoms. GI: Reports: see HPI. Genitourinary: Reports: no symptoms. Musculoskeletal: Reports: no symptoms. Skin: Reports: no symptoms. Neurological/Psychological: Reports: see HPI. Hematologic/Endocrine: Reports: no symptoms. Immunologic/Allergic: Reports: no symptoms. All Other Systems: Reviewed and Negative (Sue Rojas) Physical Exam Physical Exam General Appearance: well developed/nourished, no apparent distress, alert, awake Head: atraumatic, normal appearance Eyes: Bilateral: normal appearance. Ears, Nose, Throat: normal pharynx, hearing grossly normal Neck: normal inspection, supple, full range of motion Respiratory: tachypnea, diffuse inspiratory and expiratory wheezes throughout Cardiovascular: tachycardia Peripheral Pulses: 2+ radial (R), 2+ radial (L) Gastrointestinal: normal bowel sounds, soft, non-tender, no organomegaly Extremities: normal inspection, normal range of motion Neurologic/Psych: awake, alert, oriented x 3, anxious Skin: intact, normal color, warm/dry Core Measures ACS in differential dx? Yes CVA/TIA Diagnosis No Sepsis Present: No Sepsis Focused Exam Completed? No (Sue Rojas) Progress Differential Diagnosis: asthma, AMI, bronchitis, CHF, COPD, pericarditis, pulmonary embolism, pneumonia, pneumothorax, rib fracture, unstable angina Diagnostic Imaging: Viewed by Me: Radiology Read. Discussed w/RAD: Radiology Read. Radiology Impression: PATIENT: ARIANNA HEREDIA PRESENT AGE: 46 PATIENT ACCOUNT NO: [id number] : 68 LOCATION: [facility] ORDERING PHYSICIAN: Sue HALL SERVICE DATE: 05/30/17 EXAM TYPE: RAD - [id number] VIEWS EXAMINATION: XR ABDOMEN MULTIPLE VIEWS CLINICAL INDICATION: No bowel movements both 4 days. COMPARISON: None TECHNIQUE: 2 views of the abdomen. FINDINGS: The bowel gas pattern is nonspecific without any bowel distention or free air. There is no organomegaly. No air-fluid levels seen. No gross bony abnormality. IMPRESSION: Unremarkable abdomen exam. DICTATED BY: Daniel Stiles MD DATE/TIME DICTATED:05/30/172012 RADIOLOGIC TECHNOLOGY PROGRAM DIRECTOR:SHEEBA DATE/ TIME TRANSCRIBED:05/30/172012 CONFIDENTIAL, DO NOT COPY WITHOUT APPROPRIATE AUTHORIZATION. <Electronically signed in Other Vendor System> SIGNED BY: Daniel Stiles MD 05/30/172020 CXR Impression: PATIENT: ARIANNA HEREDIA PRESENT AGE: 46 PATIENT ACCOUNT NO: [id number] : 66 LOCATION: [facility] ORDERING PHYSICIAN: Sue HALL SERVICE DATE: 05/30/17 EXAM TYPE: RAD - XRY-CHEST XRAY, TWO VIEWS EXAMINATION: XR CHEST CLINICAL INFORMATION: COPD exacerbation, cough dyspnea COMPARISON: 04/04/2017, 02/06/2017 chest x-rays in 01/16/[address] scan TECHNIQUE: 2 views of the chest were obtained. FINDINGS: The cardiac size, mediastinal silhouette and pulmonary vascularity are normal. The lungs are clear. No pleural effusions. No pneumothorax. The visualized bones are unremarkable. IMPRESSION: No acute cardiopulmonary findings. DICTATED BY: Gali Jiang MD DATE/TIME DICTATED:05/30/171921 RADIOLOGIC TECHNOLOGY PROGRAM DIRECTOR:SHEEBA DATE/ TIME TRANSCRIBED:05/30/171921 CONFIDENTIAL, DO NOT COPY WITHOUT APPROPRIATE AUTHORIZATION. <Electronically signed in Other Vendor System> SIGNED BY: Gali Jiang MD 05/30/171929 Initial ED EKG: sinus rhythm @83bpm, nonspecific ST changes Prior EKG: changed (04/14/17) (Scarlet HALL,Sue Cadena) Plan of Care: Orders Procedure Date/time Status Regular Diet 05/31 B Active Misc Message 05/30 2233 Active ED Holding Orders 05/30 2233 Active Admit to inpatient 05/30 2233 Active Vital Signs 05/30 2233 Active Code Status 05/30 2233 Active URINE DRUG SCREEN FOR ER ONLY 05/30 1913 Complete RAPID VIRAL INFLUENZA A 05/30 191 Complete TROPONIN LEVEL 05/30 184 Complete MAGNESIUM 05/30 184 Complete COMPREHENSIVE METABOLIC PANEL 05/30 184 Complete CBC WITHOUT DIFFERENTIAL 05/30 1841 Complete EKG 05/30 1841 Active Laboratory Tests 05/30/171943: Urine Opiates Screen > 4000.00 H, Methadone Screen > 735 H, Barbiturate Screen < 60, Ur Phencyclidine Scrn 7.40, Amphetamines Screen < 100, U Benzodiazepines Scrn 184, Urine Cocaine Screen < 50, Urine Cannabis Screen 77.70 H 05/30/171844: Anion Gap 13, Estimated GFR > 60, BUN/Creatinine Ratio 7.5, Glucose 158 H, Calcium 9.8, Magnesium 2.0, Total Bilirubin 0.7, AST 50, ALT 78 H, Alkaline Phosphatase 117, Troponin I 0.02, Total Protein 7.6, Albumin 4.6, Globulin 3.0, Albumin/Globulin Ratio 1.5, CBC w Diff NO MAN DIFF REQ, RBC 5.04, MCV 92.8, MCH 31.4 H, RDW 13.5, MPV 8.9, Gran % 63.1, Lymphocytes % 23.1, Monocytes % 12.0 H , Eosinophils % 1.5, Basophils % 0.3, Absolute Granulocytes 6.7 H, Absolute Lymphocytes 2.5, Absolute Monocytes 1.3 H, Absolute Eosinophils 0.2, Absolute Basophils 0, PUBS MCHC 33.8 Microbiology 05/30 1944 NASOPHARYN: Influenza Virus A & B Rapid Smear - COMP Significant wheezing throughout on physical exam, patient medicated with DuoNeb and IV Solu-Medrol. Flu swab is negative. Labs are WNL. Urine drug screen shows elevated opiates. No acute ischmeic changes on EKG. CXR is within normal limits. Abdominal x-ray without signs of significant constipation or free air. Repeat exam following duoneb with improvement in wheezing. With ambulation patient's HR 120's, O2 sat remained around 95%. The patient does not feel comfortable going home at this time. Spoke with hospitalist and case management regarding this patient. Dr. Alfonso and Dr. Mclaughlin agree that this patient will be admitted to general medicine for COPD exacerbation. (Scarlet HALL,Sue Cadena) Comments: 05/30/2017 10:33:51 PM patient's case discussed with Dr. Marcial. (Lissette BANKS,Beck Brady) Departure Departure Disposition: STILL A PATIENT Condition: Stable Clinical Impression Primary Impression: COPD exacerbation Secondary Impressions: Anxiety Constipation Qualifiers: Constipation type: unspecified constipation type Qualified Code: K59.00 - Constipation, unspecified Dyspnea Qualifiers: Dyspnea type: dyspnea on exertion Qualified Code: R06.09 - Other forms of dyspnea Opiate abuse, continuous Referrals: Liang Sanchez MD (PCP/Family) Departure Forms: Customer Survey General Discharge Information Admission Note Spoke With: Jesse Marcial MD Documentation of Exam: Documentation of any treatments & extenuating circumstances including Concerns Regarding Discharge (functional status, medication knowledge or non-compliance, living conditions, etc.) that warrant an admission rather than observation: [ COPD exacerbation with abuse of opioids, persistent wheezing and dyspnea despite multiple nebulizer treatments, IV steroids. This patient requires observation, further respiratory therapy treatments, IV steroids, possible pulmonology consult. Given recent cold weather, discharge home at this time may further exacerbate patient's current symptoms] (Sue Rojas) PA/MECHANICAL ENGINEERING OFFICER Co-Sign Statement Statement: ED Attending supervision documentation- [x] I saw and evaluated the patient. I have also reviewed all the pertinent lab results and diagnostic results. I agree with the findings and the plan of care as documented in the PA's/MECHANICAL ENGINEERING OFFICER's documentation. Patient presents for combination of difficulty breathing and abdominal pain. Physical examination reveals end expiratory wheezing and mild abdominal distention. [] I have reviewed the ED Record and agree with the PA's/MECHANICAL ENGINEERING OFFICER's documentation. [] Additions or exceptions (if any) to the PAs/MECHANICAL ENGINEERING OFFICER's note and plan are summarized below: [] (Lissette BANKS,Beck Brady) Critical Care Note Critical Care Note Critical Care Time: non-applicable (Sue Rojas)
[2017-05-30 19:00] LABS: ABSOLUTE BASOPHIL COUNT 0 /CUMM (0.0-0.2); ABSOLUTE EOSINOPHIL COUNT 0.2 /CUMM (0.0-0.7); ABSOLUTE GRANULOCYTE CT 6.7 /CUMM (1.4-6.5); ABSOLUTE LYMPH COUNT 2.5 /CUMM (1.2-3.4); ABSOLUTE MONOCYTE COUNT 1.3 /CUMM (0.10-0.60); BASOPHIL % 0.3 % (0.0-2.0); EOSINOPHIL % 1.5 % (0-5); GRANULOCYTE % 63.1 % (42.2-75.2); HEMATOCRIT 46.7 % (42-52); MEAN CORPUSCULAR HGB 31.4 PG (27.0-31.0); MEAN CORPUSCULAR HGB CONC 33.8 G/DL (33.0-37.0); MEAN CORPUSCULAR VOLUME 92.8 FL (80.0-94.0); MEAN PLATELET VOLUME 8.9 FL (7.4-10.4); PLATELET COUNT 305 /CUMM (130-400); RBC DISTRIBUTION WIDTH 13.5 % (11.5-14.5); RED BLOOD CELL CT 5.04 /CUMM (4.70-6.10); WHITE BLOOD CELL COUNT 10.7 /CUMM (4.8-10.8)
--- NOTE | 2017-05-30 19:30 | RADIOLOGY REPORT ---
EXAMINATION: XR CHEST CLINICAL INFORMATION: COPD exacerbation, cough dyspnea COMPARISON: 04/04/2017, 02/06/2017 chest x-rays in 01/16/[address] scan TECHNIQUE: 2 views of the chest were obtained. FINDINGS: The cardiac size, mediastinal silhouette and pulmonary vascularity are normal. The lungs are clear. No pleural effusions. No pneumothorax. The visualized bones are unremarkable. IMPRESSION: No acute cardiopulmonary findings.
--- NOTE | 2017-05-30 20:21 | RADIOLOGY REPORT ---
EXAMINATION: XR ABDOMEN MULTIPLE VIEWS CLINICAL INDICATION: No bowel movements both 4 days. COMPARISON: None TECHNIQUE: 2 views of the abdomen. FINDINGS: The bowel gas pattern is nonspecific without any bowel distention or free air. There is no organomegaly. No air-fluid levels seen. No gross bony abnormality. IMPRESSION: Unremarkable abdomen exam.
--- NOTE | 2017-05-30 23:16 | History & Physical ---
Lian Alejandro MD 05/30/17 4915: General Information and HPI MD Statement: I have seen and personally examined ARIANNA HEREDIA and documented this H&P. The patient is a 46 year old M who presented with a patient stated chief complaint of [shortness of breath]. Source of Information: patient Exam Limitations: no limitations History of Present Illness: 46-year-old male with past medical history of COPD on nocturnal home oxygen 3 L, anxiety, depression, PTSD, panic disorder, opiate abuse on methadone tapering dose came to [facility] with complaints of constipation for 5 days, shortness of breath with home saturation at 85%. Patient was sent usual state of health until 5 days ago following which he developed constipation and tried over-the- counter medication and medication citrate With no improvement. Patient also tried oxycodone which she got from his vfnrdcu-sa-djp's friend to help with his abdominal discomfort. He endorses decreased sleep and by mouth intake for the past 5 days due to constipation. Apparently yesterday patient went out to do the trash on his way back he suddenly felt short of breath and recorded a saturation to be at 85%. Patient denies any chest pain, chest pressure panic attack, left arm pain, jaw pain, abdominal pain, weakness, loss of consciousness , altered sensation. Pt endorses tremulescence following tapering dose of methadone. Patient denie any recent illicit drug use. Patient returns the new year to rehabilitation center to get his methadone. Patient apparently doesn't see any psychiatrist/psychologist. Allergies/Medications Allergies: Coded Allergies: oak (ALLERGY TESTED POSITIVE 08/22/16) Uncoded Allergies: SPRUCE (ALLERGY TESTED POSITIVE 03/15/16) Home Med list Albuterol Sulfate 2.5 MG/3 ML (0.083 %) VIAL.NEB 1 Vial INH/KAREN Q4P PRN COPD (Reported) Albuterol Sulfate (Proair Hfa) 90 MCG HFA.AER.AD 2 PUF INH PRN COPD (Reported ) Alprazolam 0.5 MG TABLET 1 TAB PO BIDP PRN anxiety (Reported) Aripiprazole 5 MG TABLET 1 TAB PO DAILY MENTAL HEALTH (Reported) Aspirin (Ecotrin*) 81 MG TABLET.DR 1 TAB PO DAILY HEART/BLOOD (Reported) Budesonide/Formoterol Fumarate (Symbicort 160-4.5 Mcg Inhaler) 160 MCG-4.5 MCG/ ACTUATION HFA.AER.AD 1 PUF INH BID COPD (Reported) Ipratropium/Albuterol Sulfate (Iprat-Albut 0.5-3(2.5) MG/3 Ml) 0.5 MG-3 MG (2.5 MG BASE)/3 ML AMPUL.NEB 1 VIAL INH Q4 PRN sob Methadone HCl 10 MG/5 ML SOLUTION 30 MG PO DAILY MENTAL HEALTH (Reported) Pantoprazole Sodium (Protonix) 40 MG TABLET. 1 TAB PO DAILY GI (Reported) Prednisone 10 MG TABLET 1 TAB PO AD COPD On Take 04/06-04/08 60 MG 04/09-04/11 50 MG 04/12-04/14 40 MG 04/15-04/17 30 MG From 04/18 20 MG Continue on this dose till you see Dr Cuevas Tamsulosin HCl 0.4 MG CAP.ER.24H 1 CAP PO DAILY urinary difficulty (Reported) Compliance With Home Meds: GOOD Past History Travel History Traveled to [place] past 21 day No Medical History Neurological: NONE EENT: NONE Cardiovascular: NONE Respiratory: asthma, COPD Gastrointestinal: GERD Hepatic: NONE Renal: NONE Musculoskeletal: NONE Psychiatric: anxiety, depression, PTSD Endocrine: NONE Blood Disorders: NONE Cancer(s): NONE HAND HEEL SEAT FITTER/Reproductive: NONE History of MRSA: No History of VRE: No History of CDIFF: No Surgical History Surgical History: L THUMB SURGERY Past Family/Social History Family History Relations & Conditions if any Relation not specified for: *No pertinent family history Psychosocial History Where do you live? Home Who Do You Live With? spouse, child Services at Home: None Primary Language: German Smoking Status: Current Everyday Smoker ETOH Use: denies use Illicit Drug Use: denies illicit drug use Functional Ability ADLs Independent: dressing, eating, toileting, bathing. Ambulation: independent IADLs Independent: shopping, housework, finances, food prep, telephone, transportation , medication admin. Review of Systems Review of Systems Constitutional: Reports: diaphoresis, weakness. Cardiovascular: Reports: no symptoms. Respiratory: Reports: cough, short of breath. GI: Reports: no symptoms. Genitourinary: Reports: no symptoms. Musculoskeletal: Reports: no symptoms. Skin: Reports: no symptoms. Exam & Diagnostic Data Last 24 Hrs of Vital Signs/I&O Vital Signs Date Time Temp Pulse Resp B/P B/P Pulse O2 O2 Flow FiO2 Mean Ox Delivery Rate 05/31 0056 Nasal 3.0L Cannula 05/31 004 98.2 96 20 128/84 95 Nasal 3.0L Cannula 05/30 2341 97.3 93 20 145/86 93 Room Air 05/30 1846 98 Room Air 05/30 1823 97.7 128 24 147/104 95 Room Air Intake & Output 05/31 0800 05/31 0000 05/30 1600 Intake Total 0 Output Total Balance 0 Intake, Oral 0 Patient 250 lb 250 lb Weight Weight Reported by Patient Measurement Method Physical Exam General Appearance Alert, Oriented X3, Cooperative, Mild Distress Skin No Rashes HEENT PERRLA Cardiovascular Regular Rate, Normal S1, Normal S2, No Murmurs Lungs b/l wheeze Abdomen Normal Bowel Sounds, Soft, No Tenderness Neurological Normal Speech, Strength at 5/5 X4 Ext, Normal Tone, Sensation Intact Extremities No Edema Last 24 Hrs of Labs/Ashish: Laboratory Tests 05/30/171943: Urine Opiates Screen > 4000.00 H, Methadone Screen > 735 H, Barbiturate Screen < 60, Ur Phencyclidine Scrn 7.40, Amphetamines Screen < 100, U Benzodiazepines Scrn 184, Urine Cocaine Screen < 50, Urine Cannabis Screen 77.70 H 05/30/171844: Anion Gap 13, Estimated GFR > 60, BUN/Creatinine Ratio 7.5, Glucose 158 H, Calcium 9.8, Magnesium 2.0, Total Bilirubin 0.7, AST 50, ALT 78 H, Alkaline Phosphatase 117, Troponin I 0.02, Total Protein 7.6, Albumin 4.6, Globulin 3.0, Albumin/Globulin Ratio 1.5, CBC w Diff NO MAN DIFF REQ, RBC 5.04, MCV 92.8, MCH 31.4 H, RDW 13.5, MPV 8.9, Gran % 63.1, Lymphocytes % 23.1, Monocytes % 12.0 H , Eosinophils % 1.5, Basophils % 0.3, Absolute Granulocytes 6.7 H, Absolute Lymphocytes 2.5, Absolute Monocytes 1.3 H, Absolute Eosinophils 0.2, Absolute Basophils 0, PUBS MCHC 33.8, Serum Alcohol Pending Microbiology 05/30 2342 LOWER RESP: Respiratory Culture - ORD 05/30 2342 LOWER RESP: Gram Stain - ORD 05/30 1944 NASOPHARYN: Influenza Virus A & B Rapid Smear - COMP Diagnostic Data EKG Results Normal axis, sinus rhythm, QTC 433. CXR Results No acute cardiopulmonary findings. Other Results The bowel gas pattern is nonspecific without any bowel distention or free air. There is no organomegaly. No air-fluid levels seen. No gross bony abnormality. Assessment/Plan Assessment: 46-year-old male with past medical history of COPD on nocturnal home oxygen 3 L, anxiety, depression, PTSD, panic disorder, opiate abuse on methadone tapering dose came to [facility] with complaints of constipation for 5 days, shortness of breath with home saturation at 85% admitted to [facility] in view of COPD exacerbation Problem list 1. COPD exacerbation 2. Constipation secondary to . Abuse 3. Opiate abuse on methadone 4. Recent cannabis use 4. Anxiety& Depression 5. Nicotine dependence Assessment and plan 1. COPD exacerbation We will start him on TRC nebulization, continue nocturnal home oxygen 3 L, IV methylprednisone 40 mg every 8 taper as needed, albuterol, Symbicort, ipratropium nebulization. We will watch him off antibiotics. 2. Depression We will continue his Abilify 5 mg daily for his depression. 3. Anxiety We will continue Xanax 0.5 mg every 12 as needed for anxiety. 4. Nicotine dependence We'll start him on nicotine patch 14 mg daily 5. Constipation We will start him on senna, Colace, MiraLAX. 6. Opiate abuse on methadone We will continue his current dose 30 mg of methadone and we will confirm his dosage at [facility] in a.m. Code-full code DVT prophylaxis-Alps Diet-regular diet As Ranked By This Provider Problem List: 1. Constipation Qualifiers Constipation type: unspecified constipation type Qualified Code: K59.00 - Constipation, unspecified 2. Opiate abuse, continuous 3. Methadone dependence 4. COPD exacerbation Core Measures/Misc (02/13) Acute Coronary Syndrome ACS Diagnosis: No Congestive Heart Failure Congestive Heart Failure Diagnosis No Cerebrovascular Accident CVA/TIA Diagnosis: No VTE (View Protocol) VTE Risk Factors Age>40 No Mechanical VTE Prophylaxis d/t Other No VTE Pharm Prophylaxis d/t Other Sepsis (View protocol) Sepsis Present: No Florentino Hernández 05/31/17 0625: Resident Review Statement Resident Statement: examined this patient, discussed with college intern Other Findings: Your urine test was, Mr Heredia is a 46-year-old gentleman with a past history of COPD on 3 L nocturnal supplemental oxygen when necessary and chronic prednisone therapy, asthma, current daily smoker, opiate abuse on methadone, PTSD came in with a chief concern of an acute onset of exertional dyspnea and inability to have a bowel movement in the last 5 days. The history obtained from Mr. Heredia has been inconsistent. As per Mr. Heredia, he has been weaned off methadone in the last 2 and half months 80 mg-->4 mg and was restarted back on 30 mg, since he had symptoms of withdrawal. He has been using oxycodone prescribed to a friend, for the last 2 days. Claims to be using 1-2 tablets per day, when he had abdominal discomfort. He also reported inability to have a bowel movement that began approximately 5 days ago, which did not resolve despite using several ffbj-tyz-esjysol laxatives. He did not have any abdominal pain. Also reported exertional shortness of breath, and hypoxemia up to 85% measured on pulse ox at home after he went up to dispose of his garbage. He did not have any fever, chest pain, cough, orthopnea, palpitations at that time. At the time of [id number]-[id number]-zoffciunyrk 97.7, respiration 24, pulse rate 128 , blood pressure 147/104, pulse ox 95% on room air. On examination, he appeared comfortable and was sitting at the edge of the bed using his cell phone. He did not have any difficulty breathing, and was not on any supplemental oxygen. Lung examination revealed exertional wheezes, but did not have any rhonchi. Abdominal examination was benign. Etiology for his exertional shortness of breath, with hypoxemia and lung examination findings are likely from acute exacerbation of COPD, for which he would require intravenous steroids. He has a component of asthma, which makes his spirometry findings slightly complicated to interpret. Last spirometry was done recently, which revealed emphysematous changes also, for which he probably is on daily dose of steroids. Continues to smoke, and would benefit from quitting smoking. In regards to inability to defecate, etiology is likely from opiate use for which he needs to be treated with MiraLAX and senna. Plan: #1 acute exacerbation of COPD, hypoxemia- we don't have a documented hypoxemic episode while he was in the ED, but would treat him with steroids with a quick taper. No antibiotics are required at this time. Continue home dose of inhalers. He should be counseled to quit smoking, in view of his emphysema. #2 inability to defecate- treat with laxatives at this time. #3 opiate use- although he is on methadone program, he has been using oxycodone, which need to be discussed with him at length. Also, the dose of methadone needs to be confirmed from [facility]. Housekeeping: DVT PPx- Lovenox sc Pain pathway w/ non opiates. Full code. Aniket BANKS, [facility] 05/31/17 0637: Attending MD Review Statement Attending Statement Attending MD Statement: examined this patient, discuss w/resident/PA/RIVER CAPTAIN, agreed w/resident/PA/RIVER CAPTAIN, reviewed images, amended to note Attending Assessment/Plan: 46 yo M smoker with h/o severe persistent asthma/COPD on nocturnal 3 L O2 and prednisone, panic with agoraphobia, PTSD, chronic pain on methadone, last admitted to [facility] (Mar 2017) for exacerbation, is here for c/o constipation of 5 days and sudden onset exertional dyspnea with wheezing today. Patient reports feeling well up until 1 week ago, since he has not had a bowel movement. He tried taking OTC laxatives without any help. He started getting bloating sensation and abdominal discomfort so he took two 20 mg oxycodone for the past 2 days to help relieve the discomfort. He denies any other drug use. Today while he was moving his garbage can outside in the cold weather, he became acutely short of breath and wheezy, tried taking his nebs without relief, O2 sats were 86%, so he came to ER. He has a cough but is not bringing up any phlegm, no fever or chills. He continues to smoke 1/2 PPD. Patient reports he might have missed a few doses of prednisone but he is unsure. He also is worried about his methadone dosing. He was tapered from 90 mg to 4 mg over 2 months by the physician at [facility]. He went into withdrawal symptoms, so they asked him to increase dose upto 30 mg. He is currently on 30 mg and feels this is not appropriate. [facility] [place]. He feels the constipation and the withdrawal symptoms seem to exacerbate his asthma/COPD symptoms. Vitals stable. Exam: AAO, in mild distress due to dyspnea, able to speak in full sentences, Chest b/l reduced air entry with prolonged expiratory wheezes+++, Heart S1S2 regular. Labs unremarkable except for Urine tox screen positive for opiates > 4000, methadone and cannabis, alcohol <10. CXR: no acute finding. Abd Xray: no acute finding. Echo (2017): EF >60%, mild pulmonary hypertension. EKG: Sinus rhythm, no acute changes. PFT (November 2015): severe obstructive lung disease with reduction in diffusing capacity c/w emphysema and a significant bronchodilator response with oxygen desaturation. Assessment and plan: 1. Acute on chronic hypoxic respiratory failure 2. Asthma/ COPD overlap exacerbation 3. Non compliance with prednisone 4. Constipation 5. Opiate dependence on methadone 6. Anxiety, panic attack - Admit to general medicine - TRC nebs RTC - Sputum cultures if any - O2 supplementation to keep sats > 92% - IV solumedrol 40 Q8 - No need for antibiotics at this point - Pulm consult Dr. Cuevas - Treat constipation with senna, colace, miralax - Continue methadone 30 mg please call [facility] and confirm dose - Smoking cessation counseling, nicotine patch DVT ppx Lovenox. Full code.
[2017-05-31] MEDS ORDERED: TAMSULOSIN HCL0.4 M1 PO (00:22)
[2017-05-31 00:45] VITALS: BP 128/84
[2017-05-31 06:35] VITALS: BP 112/76
--- NOTE | 2017-05-31 06:38 | Admission Certification ---
Admission Certification Certification Statement - As attending physician, I certify that at the time of - admission, based on clinical presentation, severity of - symptoms, need for further diagnostic testing and - therapeutic interventions, and risk of adverse outcomes - without in-hospital treatment, in my clinical assessment, - this patient requires an acute hospital stay for a minimum - of two nights or longer. I have also considered psychsocial - factors such as support system, advanced age, financial - issues, cognitive issues, and failed out-patient treatments, - past re-admission history, safety of patient, and lack of - compliance as applicable. Specific rationale supporting this admission is: Asthma/ COPD overlap exacerbation, constipation.
--- NOTE | 2017-05-31 09:11 | PN- Housestaff ---
Kishan BANKS,[place] 05/31/17 0911: Subjective Follow-up For: 1. COPD exacerbation 2. Constipation secondary to . Abuse 3. Opiate abuse on methadone 4. Recent cannabis use 4. Anxiety& Depression 5. Nicotine dependence Subjective: Patient is seen and examined at bedside, he continues to complain of shortness of breath 93 on 3 L nasal cannula which is his baseline oxygen requirement, he also reports having bowel movement this morning. He denies chills, nausea, vomiting, chest pain Review of Systems Constitutional: Denies: no symptoms. Cardiovascular: Denies: no symptoms. Respiratory: Reports: cough, short of breath, wheezing. Gastrointestinal: Denies: no symptoms. Genitourinary: Denies: no symptoms. Objective Last 24 Hrs of Vital Signs/I&O Vital Signs Date Time Temp Pulse Resp B/P B/P Pulse O2 O2 Flow FiO2 Mean Ox Delivery Rate 05/31 1109 Nasal 3.0L Cannula 05/31 0815 93 Nasal 3.0L Cannula 05/31 0800 Nasal 3.0L Cannula 05/31 0635 98.7 70 20 112/76 93 Nasal 3.0L Cannula 05/31 0056 Nasal 3.0L Cannula 05/31 0045 98.2 96 20 128/84 95 Nasal 3.0L Cannula 05/30 2341 97.3 93 20 145/86 93 Room Air 05/30 1846 98 Room Air 05/30 1823 97.7 128 24 147/104 95 Room Air Intake & Output 05/31 1600 05/31 0800 05/31 0000 Intake Total 0 Output Total 975 Balance -975 0 Intake, Oral 0 Output, Urine 975 Patient 250 lb 250 lb Weight Weight Reported by Patient Measurement Method Physical Exam General Appearance: Alert, Oriented X3, Cooperative, No Acute Distress HEENT: Atraumatic, PERRLA, EOMI, Mucous Membr. moist/pink Neck: Supple, No JVD Cardiovascular: Regular Rate, Normal S1, Normal S2, No Murmurs Lungs: bilateral diminished air entery with wide spreas wheezes and rales Abdomen: Normal Bowel Sounds, Soft, No Tenderness Neurological: Normal Speech, Strength at 5/5 X4 Ext, Normal Tone Extremities: No Clubbing, No Cyanosis, No Edema Assessment/Plan Assessment: 46-year-old male with past medical history of asthma with recurrent bronchospasm , on supplemental ncturnal oxygen of 3 L, and anxiety, depression, PTSD, panic disorder opiate dependence on methadone tapering dose 30 mg. Patient is on maintenance oral steroids and he reports that he ran out recently and has not had it filled, he denies sick contacts or recent travel. 1COPD/asthma overlap exacerbation Most likely secondary to running out of prednisone TRC/NEBS continue Solu-Medrol 40 mg IV every 8, will taper tomorrow Continue Symbicort with rinsing of the mouth Singlulair at bed time 2. Depression Continue Abilify 5 mg daily 3. Anxiety continue Xanax 0.5 mg every 12 as needed 4. Nicotine dependence Continue nicotine patch 14 mg daily 5. Constipation Resolved Continue senna, Colace, MiraLAX. 6. Opiate abuse on methadone We will continue his current dose 30 mg of methadone . WE confirmed his dosage at [facility] Code-full code DVT prophylaxis Lovenox Diet-regular diet Problem List: 1. Constipation 2. Opiate abuse, continuous 3. Dyspnea 4. COPD exacerbation Pain Ratin Pain Location: n/a Pain Goal: Remain pain free Pain Plan: per pathway Tomorrow's Labs & Rationales: cbc bep DVT/Prophylaxis: mechanical, pharmacological Brianna Zhao MD 05/31/17 1455: Attending MD Review Statement Attending Statement Attending MD Statement: examined this patient, discuss w/resident/PA/REFRACTORY TILE HELPER, agreed w/resident/PA/REFRACTORY TILE HELPER, reviewed EMR data (avail) Attending Assessment/Plan: 46M PMH severe persistent asthma/COPD on nocturnal 3 L O2 and prednisone, panic with agoraphobia, PTSD, chronic pain on methadone, admitted with COPD exacerbation and hypoxia secondary to running out of his home Prednisone. Steadily improving, on 3L today, afebrile, labs unremarkable. 1. COPD Exacerabation 2. Acute on chronic hypoxemic respiratory failure 3. Severe persistent asthma Plan - Continue on general medicine - Continue Solumedrol, taper tomorrow - Nebulizer treatments - Pulmonary recommendations - Continue home medications - Titrate down oxygen as tolerated - DVT PPx
[2017-05-31 09:24] LABS: ABSOLUTE BASOPHIL COUNT 0 /CUMM (0.0-0.2); ABSOLUTE EOSINOPHIL COUNT 0 /CUMM (0.0-0.7); ABSOLUTE GRANULOCYTE CT 5.4 /CUMM (1.4-6.5); ABSOLUTE LYMPH COUNT 0.7 /CUMM (1.2-3.4); ABSOLUTE MONOCYTE COUNT 0.2 /CUMM (0.10-0.60); BASOPHIL % 0 % (0.0-2.0); EOSINOPHIL % 0 % (0-5); HEMATOCRIT 43.4 % (42-52); MEAN CORPUSCULAR HGB 31.9 PG (27.0-31.0); MEAN CORPUSCULAR HGB CONC 34.2 G/DL (33.0-37.0); MEAN CORPUSCULAR VOLUME 93.4 FL (80.0-94.0); MEAN PLATELET VOLUME 9.3 FL (7.4-10.4); PLATELET COUNT 266 /CUMM (130-400); RED BLOOD CELL CT 4.65 /CUMM (4.70-6.10); WHITE BLOOD CELL COUNT 6.3 /CUMM (4.8-10.8)
[2017-05-31 10:40] LABS: GRANULOCYTE % 85.8 % (42.2-75.2)
--- NOTE | 2017-05-31 11:04 | Cons- Pulmonary ---
General Information and HPI Consulting Request Date of Consult: 05/31/17 Requested By: Dr. Marcial Reason for Consult: dyspnea Source of Information: patient Exam Limitations: no limitations History of Present Illness: The patient is a 46-year-old male with a past medical history significant for asthma with recurrent bronchospasm. The patient is on supplemental oxygen at home, 3 L nocturnally. He also has a history of anxiety, and opioid dependence for chronic pain. On oral steroids, however ran out recently and has not had it filled. Also now with leg edema, eosinophilia. Feels better with steroids. No sick contacts, lives with daughter. Recent stress/anxiety, friend was murdered and went in the cold to the . Allergies/Medications Allergies: Coded Allergies: oak (ALLERGY TESTED POSITIVE 08/22/16) Uncoded Allergies: SPRUCE (ALLERGY TESTED POSITIVE 03/15/16) Home Med List: Albuterol Sulfate 2.5 MG/3 ML (0.083 %) VIAL.NEB 1 Vial INH/KAREN Q4P PRN COPD (Reported) Albuterol Sulfate (Proair Hfa) 90 MCG HFA.AER.AD 2 PUF INH PRN COPD (Reported ) Alprazolam 0.5 MG TABLET 1 TAB PO BIDP PRN anxiety (Reported) Aripiprazole 5 MG TABLET 1 TAB PO DAILY MENTAL HEALTH (Reported) Aspirin (Ecotrin*) 81 MG TABLET. 1 TAB PO DAILY HEART/BLOOD (Reported) Budesonide/Formoterol Fumarate (Symbicort 160-4.5 Mcg Inhaler) 160 MCG-4.5 MCG/ ACTUATION HFA.AER.AD 1 PUF INH BID COPD (Reported) Ipratropium/Albuterol Sulfate (Iprat-Albut 0.5-3(2.5) MG/3 Ml) 0.5 MG-3 MG (2.5 MG BASE)/3 ML AMPUL.NEB 1 VIAL INH Q4 PRN sob Methadone HCl 10 MG/5 ML SOLUTION 30 MG PO DAILY MENTAL HEALTH (Reported) Pantoprazole Sodium (Protonix) 40 MG TABLET.DR 1 TAB PO DAILY GI (Reported) Prednisone 10 MG TABLET 1 TAB PO AD COPD On Take 04/06-04/08 60 MG 04/09-04/11 50 MG 04/12-04/14 40 MG 04/15-04/17 30 MG From 11/20 20 MG Continue on this dose till you see Dr Cuevas Tamsulosin HCl 0.4 MG CAP.ER.24H 1 CAP PO DAILY urinary difficulty (Reported) Current Medications: Current Medications Sig/Nettie Start time Last Medication Dose Route Stop Time Status Admin Acetaminophen 650 MG Q8P PRN 05/30 2345 AC PO Albuterol Sulfate 3 ML BID PRN 05/31 0815 AC 05/31 INH 0812 Albuterol Sulfate 2 PUF Q4P PRN 05/31 0030 AC INH Albuterol Sulfate 3 ML ONCE ONE 05/30 2100 DC 05/30 INH 05/30 2100 2117 Alprazolam 0.5 MG Q12P PRN 05/31 0030 AC 05/31 PO 06/07 0029 0746 Alprazolam 0.5 MG ONCE ONE 05/30 2044 DC 05/30 PO 05/30 Alprazolam 0 .STK-MED ONE 05/30 2043 DC PO Aripiprazole 5 MG DAILY 05/31 1000 AC 05/31 PO 0944 Aspirin Buffered 81 MG DAILY 05/31 1000 AC 05/31 PO 0944 Azithromycin 500 MG 2100 05/31 2100 CAN Sodium Chloride 250 ML IV Budesonide/ 1 PUF BID 05/31 0017 AC 05/31 Formoterol Fumarate INH 0942 Docusate Sodium 100 MG BID 05/30 2345 AC 05/31 PO 0944 Enoxaparin Sodium 40 MG DAILY 05/31 1000 AC SC Hyoscyamine 0 .STK-MED ONE 05/30 2232 DC .ROUTE Hyoscyamine 0.125 MG ONCE ONE 05/30 2215 DC 05/30 PO 05/30 2216 2230 Ibuprofen 600 MG BID PRN 05/30 2345 AC PO Ipratropium [place] 2.5 ML BID PRN 05/31 0815 AC 05/31 INH 0812 Ipratropium [place] 2.5 ML Q4P PRN 05/31 0030 AC INH Methadone HCl 30 MG DAILY 05/31 1000 AC 05/31 PO 0943 Methylprednisolone 40 MG Q12 05/31 1000 DC IV 06/05 2201 Methylprednisolone 40 MG Q8 05/31 0600 AC 05/31 IV 06/03 2201 0620 Methylprednisolone 125 MG ONCE ONE 05/30 1845 DC 05/30 IV 05/30 1846 1845 Methylprednisolone 0 .STK-MED ONE 01/01 1843 DC .ROUTE Nicotine 14 MG DAILY 05/31 1000 AC 05/31 TOP 0747 Omeprazole 40 MG DAILY AC 05/31 0700 AC 05/31 PO 0620 Polyethylene Glycol 17 GM AT BEDTIME 05/30 2345 AC 05/31 PO 0037 Senna/Docusate Sodium 2 TAB AT BEDTIME 05/31 2200 DC PO Senna/Docusate Sodium 2 TAB DAILY 05/31 1000 AC 05/31 PO 0944 Tamsulosin HCl 0.4 MG DAILY 05/31 1000 AC 05/31 PO 0945 Review of Systems Comments 18 pt reviewed ros pertinent positives and negatives in chart otherwise negative Past History Travel History Traveled to [place] past 21 day No Medical History Blood Transfusion Hx: No Neurological: NONE EENT: NONE Cardiovascular: NONE Respiratory: asthma, COPD Gastrointestinal: GERD Hepatic: NONE Renal: NONE Musculoskeletal: NONE Psychiatric: anxiety, depression, PTSD Endocrine: NONE Blood Disorders: NONE Cancer(s): NONE LIGHT BULB TESTER/Reproductive: NONE Surgical History Surgical History: L THUMB SURGERY Family History Relations & Conditions If Any: Relation not specified for: *No pertinent family history Psychosocial History Where Do You Live? Home Who Do You Live With? spouse, child Services at Home: None Primary Language: Guyanese Smoking Status: Current Everyday Smoker ETOH Use: denies use Illicit Drug Use: denies illicit drug use Functional Ability ADLs Independent: dressing, eating, toileting, bathing. Ambulation: independent IADLs Independent: shopping, housework, finances, food prep, telephone, transportation , medication admin. Exam & Diagnostic Data Last 24 Hrs of Vital Signs/I&O Vital Signs Date Time Temp Pulse Resp B/P B/P Pulse O2 O2 Flow FiO2 Mean Ox Delivery Rate 05/31 08 93 Nasal 3.0L Cannula 05/31 0635 98.7 70 20 112/76 93 Nasal 3.0L Cannula 05/31 0056 Nasal 3.0L Cannula 05/31 0045 98.2 96 20 128/84 95 Nasal 3.0L Cannula 05/30 2341 97.3 93 20 145/86 93 Room Air 05/30 1846 98 Room Air 05/30 1823 97.7 128 24 147/104 95 Room Air Intake & Output 05/31 1600 05/31 0800 05/31 0000 Intake Total 0 Output Total 975 Balance -975 0 Intake, Oral 0 Output, Urine 975 Patient 250 lb 250 lb Weight Weight Reported by Patient Measurement Method Physical Exam Other Physical Findings: gen awake and alert heent ncat cvs s1, s2 lungs rare bibasilar rhonchi abd soft, bs+ ext trace edema Last 48 Hrs of Labs/Ashish: Laboratory Tests 05/31/17 0711: Anion Gap 11, Estimated GFR > 60, BUN/Creatinine Ratio 11.3, CBC w Diff NO MAN DIFF REQ, RBC 4.65 L, MCV 93.4, MCH 31.9 H, RDW 13.0, MPV 9.3, Gran % 85.8 H, Lymphocytes % 10.6 L, Monocytes % 3.6, Eosinophils % 0, Basophils % 0, Absolute Granulocytes 5.4, Absolute Lymphocytes 0.7 L, Absolute Monocytes 0.2, Absolute Eosinophils 0, Absolute Basophils 0, PUBS MCHC 34.2 05/30/171943: Urine Opiates Screen > 4000.00 H, Methadone Screen > 735 H, Barbiturate Screen < 60, Ur Phencyclidine Scrn 7.40, Amphetamines Screen < 100, U Benzodiazepines Scrn 184, Urine Cocaine Screen < 50, Urine Cannabis Screen 77.70 H 05/30/17 184: Anion Gap 13, Estimated GFR > 60, BUN/Creatinine Ratio 7.5, Glucose 158 H, Calcium 9.8, Magnesium 2.0, Total Bilirubin 0.7, AST 50, ALT 78 H, Alkaline Phosphatase 117, Troponin I 0.02, Total Protein 7.6, Albumin 4.6, Globulin 3.0, Albumin/Globulin Ratio 1.5, CBC w Diff NO MAN DIFF REQ, RBC 5.04, MCV 92.8, MCH 31.4 H, RDW 13.5, MPV 8.9, Gran % 63.1, Lymphocytes % 23.1, Monocytes % 12.0 H , Eosinophils % 1.5, Basophils % 0.3, Absolute Granulocytes 6.7 H, Absolute Lymphocytes 2.5, Absolute Monocytes 1.3 H, Absolute Eosinophils 0.2, Absolute Basophils 0, PUBS MCHC 33.8, Serum Alcohol < 10.0 Microbiology 05/30 1944 NASOPHARYN: Influenza Virus A & B Rapid Smear - COMP Assessment/Plan Impression/Plan: Impression The patient is a 46-year-old male with a past medical history significant for asthma with recurrent bronchospasm. The patient is on supplemental oxygen at home, 3 L nocturnally. He also has a history of anxiety, and opioid dependence for chronic pain. On oral steroids, however ran out recently and has not had it filled. Also now with leg edema, eosinophilia. Feels better with steroids. No sick contacts, lives with daughter. Recent stress/anxiety, friend was murdered and went in the cold to the . Impression 46 year old man * asthma/COPD overlap exacerbation secondary to running out of prednisone * GERD * leg edema * tobacco dependence (recently quit) Plan -trc/nebs -continue solumedrol 40mg iv q8h -symbicort with rinsing of the mouth -singulair -plan to reduce steroids tomorrow DVT prophylaxis at all times Consult Acknowledgment - Thank you for your consult request.
[2017-05-31 14:56] VITALS: BP 130/80
[2017-05-31 21:47] VITALS: BP 100/72
[2017-06-01 06:32] VITALS: BP 140/74
--- NOTE | 2017-06-01 07:16 | PN- Housestaff ---
See Addendum Subjective Follow-up For: 1. COPD exacerbation 2. Constipation secondary to . Abuse 3. Opiate abuse on methadone 4. Recent cannabis use 4. Anxiety& Depression 5. Nicotine dependence Subjective: Patient seen and examined at bedside, he reports improvement of his shortness of breath, patient requires to go home today because he had to take care of his daughter. I explained to him in details that he still needs 1 more day before the steroid taper but he insists on going home. I advised him to come back to the hospital or call 911 ,if he feels short of breath. Currently he is saturating well at 95 on 3 L nasal oxygen. Review of Systems Constitutional: Denies: no symptoms. Cardiovascular: Denies: no symptoms. Respiratory: Reports: cough, short of breath, sputum production, wheezing. Gastrointestinal: Denies: no symptoms. Genitourinary: Denies: no symptoms. Musculoskeletal: Denies: no symptoms. Objective Last 24 Hrs of Vital Signs/I&O Vital Signs Date Time Temp Pulse Resp B/P B/P Pulse O2 O2 Flow FiO2 Mean Ox Delivery Rate 06/01 0917 83 138/64 06/01 0834 91 Nasal 3.0L Cannula 06/01 0800 98 Nasal 3.0L Cannula 06/01 0632 98.2 100 18 140/74 97 06/01 0000 Nasal 3.0L Cannula 05/31 2147 98.1 93 19 100/72 95 Nasal 3.0L Cannula 05/31 1933 92 Nasal 3.0L Cannula 05/31 1456 98.5 90 20 130/80 94 Intake & Output 06/01 1600 06/01 0800 06/01 0000 Intake Total 480 480 Output Total Balance 480 480 Intake, Oral 480 480 Physical Exam General Appearance: Alert, Oriented X3, Cooperative, No Acute Distress Skin: No Rashes, No Breakdown, No Significant Lesion HEENT: Atraumatic, PERRLA, EOMI, Mucous Membr. moist/pink Neck: Supple, No JVD, No thryomegaly Cardiovascular: Regular Rate, Normal S1, Normal S2, No Murmurs Lungs: decreased air entry bilaterally, widespread wheezes and rales Abdomen: Normal Bowel Sounds, Soft, No Tenderness Neurological: Normal Speech Extremities: No Clubbing, No Cyanosis, No Edema Vascular: Normal Pulses Assessment/Plan Assessment: 46-year-old male with past medical history of asthma with recurrent bronchospasm , on supplemental ncturnal oxygen of 3 L, and anxiety, depression, PTSD, panic disorder opiate dependence on methadone tapering dose 30 mg. Patient is on maintenance oral steroids and he reports that he ran out recently and has not had it filled, he denies sick contacts or recent travel. 1COPD/asthma overlap exacerbation Most likely secondary to running out of prednisone TRC/NEBS continue Solu-Medrol 40 mg IV every 8, patient will be sent home on prednisone taper high-dose (60 mg to be tapered over 15 days, then to be maintained on 20 mg daily till he sees his housekeeper hospital Continue Symbicort with rinsing of the mouth Singlulair at bed time 2. Depression Continue Abilify 5 mg daily 3. Anxiety continue Xanax 0.5 mg every 12 as needed 4. Nicotine dependence Continue nicotine patch 14 mg daily 5. Constipation Resolved Continue senna, Colace, MiraLAX. 6. Opiate abuse on methadone We will continue his current dose 30 mg of methadone . Patient requested to be given methadone 30 mg for tomorrow but we explained that we cannot provide methadone here and he has to contact in rehabilitation program. Patient is agreeable to this plan. WE confirmed his dosage at [facility] Patient will be discharged home today on prednisone taper, he was advised to come back to the hospital or call 911 if he has shortness of breath Code-full code DVT prophylaxis Lovenox Diet-regular diet Problem List: 1. Constipation 2. Opiate abuse, continuous 3. COPD exacerbation Pain Ratin Pain Location: n/a Pain Goal: Remain pain free Pain Plan: n/a Tomorrow's Labs & Rationales: n/a DVT/Prophylaxis: mechanical, pharmacological
[2017-06-01 08:33] LABS: ABSOLUTE BASOPHIL COUNT 0 /CUMM (0.0-0.2); ABSOLUTE EOSINOPHIL COUNT 0 /CUMM (0.0-0.7); ABSOLUTE LYMPH COUNT 1.1 /CUMM (1.2-3.4); ABSOLUTE MONOCYTE COUNT 0.8 /CUMM (0.10-0.60); BASOPHIL % 0 % (0.0-2.0); EOSINOPHIL % 0 % (0-5); HEMATOCRIT 42.8 % (42-52); MEAN CORPUSCULAR HGB 31.6 PG (27.0-31.0); MEAN CORPUSCULAR HGB CONC 33.8 G/DL (33.0-37.0); MEAN CORPUSCULAR VOLUME 93.5 FL (80.0-94.0); MEAN PLATELET VOLUME 9.8 FL (7.4-10.4); RBC DISTRIBUTION WIDTH 13.4 % (11.5-14.5); RED BLOOD CELL CT 4.58 /CUMM (4.70-6.10)
[2017-06-01 09:07] LABS: WHITE BLOOD CELL COUNT 12.9 /CUMM (4.8-10.8)
[2017-06-01 09:08] LABS: PLATELET COUNT 253 /CUMM (130-400)
[2017-06-01 09:09] LABS: GRANULOCYTE % 85.5 % (42.2-75.2)
[2017-06-01 09:17] VITALS: BP 138/64
[2017-06-01] MEDS ORDERED: MONTELUKAST SOD10 M1 PO (09:28)
[2017-06-01] MEDS ORDERED: DOCUSATE SODIU100 M3 PO (09:28)
[2017-06-01] MEDS ORDERED: PREDNISONE10 M2 PO (10:56)
--- NOTE | 2017-06-01 11:33 | Patient Discharge Instructions ---
Discharge Instructions General Discharge Information You were seen/treated for: 1COPD exacerbation 2constipation Special Instructions: 1please follow up with her PCP in 1 week of discharge 2please follow up with her hospitalist program director in 1 week of discharge Diet Continue normal diet: Yes Activity Full Activity/No Limits: Yes Acute Coronary Syndrome Inclusion Criteria At DC or during hospital stay patient has or had the following: ACS DIAGNOSIS No Discharge Core Measures Meds if any: Prescribed or Continued at Discharge Meds if any: NOT Prescribed or Continued at Discharge Congestive Heart Failure Inclusion Criteria At DC or during hospital stay patient has or had the following: CHF DIAGNOSIS No Discharge Core Measures Meds if any: Prescribed or Continued at Discharge Meds if any: NOT Prescribed or Continued at Discharge Cerebrovascular accident Inclusion Criteria At DC or during hospital stay patient has or had the following: CVA/TIA Diagnosis No Discharge Core Measures Meds if any: Prescribed or Continued at Discharge Meds if any: NOT Prescribed or Continued at Discharge Venous thromboembolism Inclusion Criteria VTE Diagnosis No VTE Type NONE VTE Confirmed by (Test) NONE Discharge Core Measures - Per Current guidelines, there needs to be overlap - treatment for the first 5 days of Warfarin therapy. - If discharged on Warfarin prior to 5 days of - overlap therapy, the patient will need to be - assessed for post discharge needs including - *Post discharge parental anticoagulation - *Warfarin and/or parental anticoagulation education - *Follow up date to check INR post discharge At least 5 days overlap therapy as Inpatient No Meds if any: Prescribed or Continued at Discharge Note: Overlap Therapy is Warfarin and Anticoagulant Meds if any: NOT Prescribed or Continued at Discharge
--- NOTE | 2017-06-01 12:11 | PN- Pulmonary ---
Subjective HPI/Critical Care Issues: pt seen and examined ambulated without o2, saturating 95%, some tachycardia and dyspnea Objective Current Medications: Current Medications Sig/Nettie Start time Last Medication Dose Route Stop Time Status Admin Acetaminophen 650 MG Q8P PRN 05/30 2345 AC PO Albuterol Sulfate 3 ML Q4 06/01 1000 AC 06/01 INH 0833 Albuterol Sulfate 3 ML Q4P PRN 06/01 0830 DC 06/01 INH 0821 Albuterol Sulfate 3 ML BID 05/31 2200 AC 05/31 INH 1932 Albuterol Sulfate 3 ML BID PRN 05/31 0815 DC 05/31 INH 05/31 2159 1924 Albuterol Sulfate 2 PUF Q4P PRN 05/31 0030 AC INH Alprazolam 0.5 MG Q12P PRN 05/31 0030 AC 06/01 PO 06/07 0029 0924 Aripiprazole 5 MG DAILY 05/31 1000 AC 06/01 PO 0917 Aspirin Buffered 81 MG DAILY 05/31 1000 AC 06/01 PO 0917 Budesonide/ 1 PUF BID 05/31 0017 AC 06/01 Formoterol Fumarate INH 0914 Docusate Sodium 100 MG BID 05/30 2345 AC 06/01 PO 0917 Enoxaparin Sodium 40 MG DAILY 05/31 1000 AC 06/01 SC 0918 Ibuprofen 600 MG BID PRN 05/30 2345 AC PO Ipratropium [place] 2.5 ML Q4 06/01 1000 AC 06/01 INH 0833 Ipratropium [place] 2.5 ML Q4P PRN 06/01 0830 DC 06/01 INH 0821 Ipratropium [place] 2.5 ML BID 05/31 2200 DC 05/31 INH 1932 Ipratropium [place] 2.5 ML BID PRN 05/31 0815 DC 05/31 INH 05/31 2159 1924 Methadone HCl 30 MG DAILY 05/31 1000 AC 06/01 PO 0917 Methylprednisolone 40 MG Q8 05/31 0600 AC 06/01 IV 06/03 2201 0528 Montelukast Sodium 10 MG AT BEDTIME 05/31 2200 AC 05/31 PO 2111 Nicotine 14 MG DAILY 05/31 1000 AC 06/01 TOP 0918 Omeprazole 40 MG DAILY AC 05/31 0700 AC 06/01 PO 0528 Polyethylene Glycol 17 GM AT BEDTIME 05/30 2345 AC 05/31 PO 0037 Senna/Docusate Sodium 2 TAB DAILY 05/31 1000 AC 06/01 PO 0916 Tamsulosin HCl 0.4 MG DAILY 05/31 1000 AC 06/01 PO 0917 Vital Signs & I&O Last 24 Hrs of Vitals and I&O: Vital Signs Date Time Temp Pulse Resp B/P B/P Pulse O2 O2 Flow FiO2 Mean Ox Delivery Rate 06/01 916 83 138/64 06/01 0834 91 Nasal 3.0L Cannula 06/01 0800 98 Nasal 3.0L Cannula 06/01 0632 98.2 100 18 140/74 97 06/01 0000 Nasal 3.0L Cannula 05/31 2147 98.1 93 19 100/72 95 Nasal 3.0L Cannula 05/31 1933 92 Nasal 3.0L Cannula 05/31 1456 98.5 90 20 130/80 94 Intake & Output 06/01 1600 06/01 0800 06/01 0000 Intake Total 480 480 Output Total Balance 480 480 Intake, Oral 480 480 Exam Other Physical Findings: gen awake and alert heent ncat cvs s1, s2 lungs rare bibasilar rhonchi abd soft, bs+ ext trace edema Results Last 24 Hrs of Lab Results: Laboratory Tests 06/01/17 0650: Anion Gap 8, Estimated GFR > 60, BUN/Creatinine Ratio 18.8, CBC w Diff NO MAN DIFF REQ, RBC 4.58 L, MCV 93.5, MCH 31.6 H, RDW 13.4, MPV 9.8, Gran % 85.5 H, Lymphocytes % 8.3 L, Monocytes % 6.2, Eosinophils % 0, Basophils % 0, Absolute Granulocytes 11.0 H, Absolute Lymphocytes 1.1 L, Absolute Monocytes 0.8 H, Absolute Eosinophils 0, Absolute Basophils 0, PUBS MCHC 33.8 Impression/Plan Impression/Plan Impression/Plan: Impression 46 year old man * asthma/COPD overlap exacerbation secondary to running out of prednisone * GERD * tobacco dependence (recently quit) * methadone dependence Plan -trc/nebs -prednisone 60x3, 50x3, 40x3, 30x3, keep on 20mg -symbicort with rinsing of the mouth -singulair Pt knowing risks wants to be discharged to be with his daughter he knows to call 911 or to return if his symptoms are worsened and he does not improve. He declines to stay another day. DVT prophylaxis at all times
--- NOTE | 2017-06-01 14:08 | Discharge Summary ---
Visit Information Visit Dates Admission Date: 05/30/17 Discharge Date: 06/01/17 Hospital Course Course Attending Physician: Brianna Zhao MD Primary Care Physician: Laura BANKS,[facility] Course: Mr Wilson is a 46-year-old gentleman with a past history of COPD on 3 L nocturnal supplemental oxygen when necessary and chronic prednisone therapy, asthma, current daily smoker, opiate abuse on methadone, PTSD came in with a chief concern of an acute onset of exertional dyspnea and inability to have a bowel movement in the last 5 days. As per Mr. Wilson, he has been weaned off methadone in the last 2 and half months 80 mg-->4 mg and was restarted back on 30 mg, since he had symptoms of withdrawal. This dose has been confirmed from [facility] He has been using oxycodone prescribed to a friend, for the 2 days. At the time of [id number] 97.7, respiration 24, pulse rate 128 , blood pressure 147/104, pulse ox 95% on room air. Labs on admission: Urine Opiates Screen > 4000.00 H, Methadone Screen > 735 H, Barbiturate Screen < 60, Ur Phencyclidine Scrn 7.40, Amphetamines Screen < 100, U Benzodiazepines Scrn 184, Urine Cocaine Screen < 50, Urine Cannabis Screen 77.70 H Glucose 158 H, Calcium 9.8, Magnesium 2.0, Total Bilirubin 0.7, AST 50, ALT 78 H, Alkaline Phosphatase 117, Troponin I 0.02, normal CBC EKG Results Normal axis, sinus rhythm, QTC 433. CXR Results No acute cardiopulmonary findings. Other Results The bowel gas pattern is nonspecific without any bowel distention or free air. There is no organomegaly. No air-fluid levels seen. No gross bony abnormality. 1COPD/asthma overlap exacerbation Most likely secondary to running out of prednisone TRC/NEBS He was treated with IV Solu-Medrol which was later on switched to high-dose prednisone taper starting at 60 mg to be tapered every 3 days. The patient insisted on leaving before properly delivering the IV Solu-Medrol because he had to take care of his family. He was advised to come back to the ED or call 911 if he experiences shortness of breath. He was also treated with Symbicort with rinsing of the mouth Singlulair at bed time 2. Depression Was kept on home dose of Abilify 5 mg daily 3. Anxiety Was kept on home dose of Xanax 0.5 mg every 12 as needed 4. Nicotine dependence Was kept on nicotine patch 14 mg daily 5. Constipation Resolved on bowel revision Was treated with senna, Colace, MiraLAX. 6. Opiate abuse on methadone Was kept on current dose 30 mg of methadone . WE confirmed his dosage at [facility] 7. Hyperglycemia On admission the patient blood sugar was in the 150 range, on the following days his blood sugar was in the 200 range most likely due to the high dose Solu- Medrol he was kept on. His blood sugar need to be followed up by his primary care Code-full code DVT prophylaxis Lovenox Consistent carbohydrate diet Allergies: Coded Allergies: oak (ALLERGY TESTED POSITIVE 08/22/16) Uncoded Allergies: SPRUCE (ALLERGY TESTED POSITIVE 03/15/16) Disposition Summary Disposition Principal Diagnosis: COPD exacerbation Additional Diagnosis: Constipation secondary to opiate Abuse Opiate abuse on methadone Recent cannabis use Anxiety& Depression Nicotine dependence Hyperglycemia Discharge Disposition: home or self care Discharge Instructions General Discharge Information Code Status: Full Code Patient's Diet: Consistent carbohydrate Patient's Activity: As tolerated Follow-Up Instructions/Appts: 1please follow up with her PCP in 1 week of discharge 2please follow up with her assistant women's tennis coach in 1 week of discharge Medications at Discharge Discharge Medications: Stop taking the following medications: Prednisone (Prednisone) 10 MG TABLET ORAL As Directed Qty = 80 Continue taking these medications: Albuterol Sulfate (Albuterol Sulfate) 2.5 MG/3 ML (0.083 %) VIAL.NEB 1 Vial Inhale Solution EVERY 4 HOURS NEEDED as needed for COPD Comments: NOT GIVEN Budesonide/Formoterol Fumarate (Symbicort 160-4.5 Mcg Inhaler) 160 MCG-4.5 MCG/ ACTUATION HFA.AER.AD 1 Puff Inhale through mouth TWICE DAILY Comments: Last Taken: 06/01/17 Time: 9:14 AM Albuterol Sulfate (Proair Hfa) 90 MCG HFA.AER.AD 2 Puff Inhale through mouth as needed for COPD Comments: Last Taken:06/01/17 Time:8:33 AM Pantoprazole Sodium (Protonix) 40 MG TABLET.DR 1 Tablet ORAL DAILY Comments: NOT GIVEN Ipratropium/Albuterol Sulfate (Iprat-Albut 0.5-3(2.5) MG/3 Ml) 0.5 MG-3 MG (2.5 MG BASE)/3 ML AMPUL.NEB 1 VIAL Inhale through mouth Every 4 hours as needed for sob Qty = 25 Comments: Last Taken:05/31/17 Time:7:24PM Aripiprazole (Aripiprazole) 5 MG TABLET 1 Tablet ORAL DAILY Qty = 30 Comments: Last Taken: 06/01/17 Time: 9:17 AM Methadone HCl (Methadone HCl) 10 MG/5 ML SOLUTION 30 Milligram ORAL DAILY Comments: Last Taken:06/01/17 Time:9:17 AM Aspirin (Ecotrin*) 81 MG TABLET.DR 1 Tablet ORAL DAILY Comments: Last Taken: 06/01/17 Time: 9;17 AM Alprazolam (Alprazolam) 0.5 MG TABLET 1 Tablet ORAL 2 x Daily as needed as needed for anxiety Qty = 30 Comments: Last Taken: 06/01/17 Time: 9:24 AM Tamsulosin HCl (Tamsulosin HCl) 0.4 MG CAP.ER.24H 1 Capsule ORAL DAILY Qty = 30 Comments: Last Taken:06/01/17 Time:9:17 AM Start taking the following new medications: Montelukast Sodium (Montelukast Sodium) 10 MG TABLET 10 Milligram ORAL AT BEDTIME Qty = 30 No Refills Docusate Sodium (Docusate Sodium) 100 MG CAPSULE 100 Milligram ORAL TWICE DAILY as needed for constipation Qty = 60 No Refills Prednisone (Prednisone) 10 MG TABLET 1 Tablet ORAL SEE INSTRUCTIONS Qty = 200 No Refills Instructions: TAKE 6 TAB DAILY 06/02 06/03 AND 06/04 THEN TAKE 5 TAB DAILY 06/05 06/06 AND 06/07 THEN TAKE 4 TAB DAILY 06/08 06/09 AND 06/10 THEN TAKE 3 TAB DAILY 06/11 06/12 AND 06/13 THEN TAKE 2 TAB DAILY Copies To: Laura BANKS,Liang; Faith BANKS,Reilly
== END 2017-06-01 13:20 | DRG 140 ==
LOC: ERH 18:17 → ERHI 22:34 → 2NB 22:34 → ENRESERV 23:05 → 2NB 05-31 00:24 → ENPENDDIS 06-01 11:42 → 2NB 06-01 13:20
PROVIDERS: Internal Medicine Endocrinology, Diabetes & Metabolism; Physician Assistant; Student in an Organized Health Care Education/Training Program
DX: J44.1 Chronic obstructive pulmonary disease with (acute) exacerbation (principal); J45.901 Unspecified asthma with (acute) exacerbation; K59.00 Constipation, unspecified; F11.20 Opioid dependence, uncomplicated; Z91.14 Patient's other noncompliance with medication regimen; Z79.84 Long term (current) use of oral hypoglycemic drugs; F17.210 Nicotine dependence, cigarettes, uncomplicated; F32.9 Major depressive disorder, single episode, unspecified; Z99.81 Dependence on supplemental oxygen; K21.9 Gastro-esophageal reflux disease without esophagitis; G89.29 Other chronic pain; D72.1 Eosinophilia; F43.10 Post-traumatic stress disorder, unspecified; F41.0 Panic disorder [episodic paroxysmal anxiety]; Z79.52 Long term (current) use of systemic steroids; R73.9 Hyperglycemia, unspecified
CPT/HCPCS: 2NBSP; ERO; 36415; 71046; 74021; 80307; 82436; 87070; 87071; 87804; 87804-59; 93005; 93010; G0480; J1650; J2920; J2930; J3490

== ENCOUNTER 2017-08-29 18:05 | Inpatient (IN) | payer OTHER ==
[~2017-08-29] VITALS: Ht 180.3 cm; Wt 113.4 kg
[~2017-08-29 18:05] MED LIST changes: +MONTELUKAST SOD10 M1 PO; +PREDNISONE50 M1 PO; +TAMSULOSIN HCL0.4 M1 PO
--- NOTE | 2017-08-29 18:37 | ED DYSPNEA/ASTHMA COMPLAINT ---
History of Present Illness General Chief Complaint: Dyspnea (COPD, CHF, Other) Stated Complaint: SOB FROM COPD Source: patient, old records Exam Limitations: no limitations Vital Signs & Intake/Output Vital Signs & Intake/Output Vital Signs Date Time Temp Pulse Resp B/P B/P Pulse O2 O2 Flow FiO2 Mean Ox Delivery Rate 08/29 2232 Nasal 3.0L Cannula 08/30 2227 97.6 97 22 140/80 92 Nasal Cannula 08/30 2151 98.2 104 22 124/84 93 Nasal 3.0L Cannula 08/29 2104 92 Nasal 3.0L Cannula 08/29 Nasal 3.0L Cannula 08/29 1853 91 Nasal 2.0L Cannula 08/30 1827 97.1 124 26 148/100 88 Room Air 08/29 1825 88 Allergies Coded Allergies: oak (ALLERGY TESTED POSITIVE 08/22/16) Uncoded Allergies: SPRUCE (ALLERGY TESTED POSITIVE 03/15/16) Reconcile Medications Albuterol Sulfate 2.5 MG/3 ML (0.083 %) VIAL.NEB 1 Vial INH/KAREN Q4P PRN COPD (Reported) Albuterol Sulfate (Proair Hfa) 90 MCG HFA.AER.AD 2 PUF INH PRN COPD (Reported ) Alprazolam 0.5 MG TABLET 1 TAB PO BIDP PRN anxiety (Reported) Aripiprazole 5 MG TABLET 1 TAB PO DAILY MENTAL HEALTH (Reported) Aspirin (Ecotrin*) 81 MG TABLET.DR 1 TAB PO DAILY HEART/BLOOD (Reported) Azithromycin 250 MG TABLET 1 DP PO AD COPD 2 the first day followed by 1 for days 2-5 Budesonide/Formoterol Fumarate (Symbicort 160-4.5 Mcg Inhaler) 160 MCG-4.5 MCG/ ACTUATION HFA.AER.AD 1 PUF INH BID COPD (Reported) Docusate Sodium 100 MG CAPSULE 100 MG PO BID PRN constipation Ipratropium/Albuterol Sulfate (Iprat-Albut 0.5-3(2.5) MG/3 Ml) 0.5 MG-3 MG (2.5 MG BASE)/3 ML AMPUL.NEB 1 VIAL INH Q4 PRN sob Methadone HCl 10 MG/5 ML SOLUTION 30 MG PO DAILY MENTAL HEALTH (Reported) Montelukast Sodium 10 MG TABLET 10 MG PO AT BEDTIME COPD Pantoprazole Sodium (Protonix) 40 MG TABLET.DR 1 TAB PO DAILY GI (Reported) Prednisone 10 MG TABLET 1 TAB PO SEE ADMIN CRITERIA copd TAKE 6 TAB DAILY 06/02 06/03 AND 06/04 THEN TAKE 5 TAB DAILY 06/05 06/06 AND 06/07 THEN TAKE 4 TAB DAILY 06/08 06/09 AND 06/10 THEN TAKE 3 TAB DAILY 06/11 06/12 AND 06/13 THEN TAKE 2 TAB DAILY Prednisone 50 MG TABLET 1 TAB PO DAILY COPD Tamsulosin HCl 0.4 MG CAP.ER.24H 1 CAP PO DAILY urinary difficulty (Reported) Triage Nurses Notes Reviewed? yes Onset: Abrupt Duration: week(s): (1), constant Timing: recent history Severity: moderate Activities at Onset: activity Prior Episodes/Possible Cause: chronic episodes Associated Symptoms: cough, wheezing HPI: 46 Year old male with past history of COPD on 3 L nocturnal supplemental oxygen when necessary and chronic prednisone therapy, asthma, current daily smoker, opiate abuse on methadone, PTSD presents to the ER for evaluation complain progressively worsening shortness of breath wheezing cough. Patient is been seen numerous times in the past for similar symptoms and wheeze and a. He wears oxygen at night which she states she's been compliant with these 88% on room air. He's been using his nebulizer treatments without improvement. No fever chills chest pain hemoptysis. No recent surgery recent trauma or lower extremity edema. No fevers. (Darion Long) Past History Travel History Traveled to [place] past 21 day No Medical History Any Pertinent Medical History? see below for history Neurological: NONE EENT: NONE Cardiovascular: NONE Respiratory: asthma, COPD Gastrointestinal: GERD Hepatic: NONE Renal: NONE Musculoskeletal: NONE Psychiatric: anxiety, depression, PTSD Endocrine: NONE Blood Disorders: NONE Cancer(s): NONE RADIO PRESENTER/Reproductive: NONE History of MRSA: No History of VRE: No History of CDIFF: No Surgical History Surgical History: L THUMB SURGERY Psychosocial History Who do you live with Patient/Self Services at Home None What is your primary language Mexican Family History Family History, If Any: Relation not specified for: *No pertinent family history Hx Contributory? No (Darion Long) Review of Systems Review of Systems Constitutional: Reports: see HPI. Comments Review of systems: See HPI, All other systems negative. Constitutional, no chills no fever, no malaise HEENT: no sore throat no congestion Cardiovascular: No chest pain , no palpitation Skin: no rashes, no change in skin Respiratory: see hpi GI: No nausea no vomiting, no diarrhea, Muscle skeletal: No joint pain, no back pain Neurologic: , no headache Heme/endocrine: No bruising Immunology: No lymphadenopathy (Darion Long) Physical Exam Physical Exam General Appearance: well developed/nourished, alert, awake Respiratory: wheezing Comments: Well-developed well-nourished person in no acute distress HEENT: Normal EENT exam; PERRL, EOMI, HEAD is atraumatic. moist mucous membranes. Neck: Supple, normal range of motion Back: Full range of motion Cardiovascular: Regular rate and rhythms no murmurs rub Respiratory: moderate respiratory distress. Patient speaking in full complete sentences. Wheezing noted in all lung pressley no rhonchi no rales Abdomen: Soft, nontender nondistended Extremity: No edema, full range of motion of extremities Neuro: Alert oriented x3, motor sensory normal There were no obvious focal neurologic abnormalities. Skin: No appreciable rash on exposed skin, skin is warm and dry. Psych: Mood and affect is normal, memory and judgment is normal. Core Measures ACS in differential dx? Yes CVA/TIA Diagnosis No Sepsis Present: No Sepsis Focused Exam Completed? No (Darion Long) Progress Differential Diagnosis: AMI, bronchitis, COPD, musculoskeletal pain, pulmonary embolism, pneumonia, pneumothorax, unstable angina Plan of Care: Orders Procedure Date/time Status Regular Diet 08/30 B Active CBC WITHOUT DIFFERENTIAL 08/30 06 Active BASIC ELECTROLYTES PLUS BUN&CR 08/30 06 Active URINE DRUGS OF ABUSE 08/30 2251 Active Weight 08/30 2231 Active Vital Signs 08/30 2231 Active Teach/Educate 08/30 2231 Active Pain Treatment and Response 08/30 2231 Active Nutritional Intake, Monitor 08/30 2231 Active Isolation 08/30 2231 Active Intake & Output 08/30 2231 Active Patient Care Conference 08/30 2231 Active Activity/Ambulation 08/30 2231 Active OXYGEN SETUP (GEN) 08/29 2229 Complete Pathway - chart 08/29 2157 Active Patient Data 08/29 2118 Active ED Holding Orders 08/29 2113 Active Admit to inpatient 08/29 2113 Active Vital Signs 08/29 2113 Active Code Status 08/29 2113 Active ARTERIAL BLOOD GAS (GEN) 08/29 1957 Complete Intake & Output 08/29 184 Active TROPONIN LEVEL 08/30 1823 Complete COMPREHENSIVE METABOLIC PANEL 08/30 1823 Complete CBC WITHOUT DIFFERENTIAL 08/30 1823 Complete EKG 08/29 180 Active TRC EVALUATION (GEN) 08/29 UNK Active PEAK FLOW MEASUREMENT (GEN) 08/29 UNK Active OXYGEN SETUP (GEN) 08/29 UNK Complete House Staff 08/29 UNK Active VTE Mechanical Prophylaxis 08/29 UNK Active Vital Signs 08/29 UNK Complete FingerStick- Glucose 08/29 UNK Active Current Medications Sig/Nettie Start time Last Medication Dose Stop Time Status Admin Aripiprazole 5 MG DAILY 08/30 1000 AC (Abilify) Aspirin Buffered 81 MG DAILY 08/30 1000 AC (Ecotrin) Azithromycin 500 MG DAILY 08/30 1000 CANr (Zithromax) Dextrose/Water 250 ML (D5W) Enoxaparin Sodium 40 MG DAILY 08/30 1000 AC (Lovenox) Methadone HCl 30 MG DAILY 08/30 1000 AC (Dolophine) Nicotine 21 MG DAILY 08/30 1000 UNVr (Nicoderm) Methylprednisolone 40 MG Q8 08/30 0600 UNVr (Solumedrol) Alprazolam 0.5 MG BID PRN 08/29 2345 UNVr (Xanax) 09/05 2344 Docusate Sodium 100 MG BID PRN 08/29 2215 AC (Colace) Albuterol Sulfate 2.5 ML Q4P PRN 08/29 2200 AC (Proventil) Laboratory Tests 08/29/17 2105: pH 7.35, pCO2 45, pO2 57 L, HCO3 24, ABG O2 Sat (Measured) 86.0 L, Carboxyhemoglobin 2.2, O2 Concentration % 3L, O2 Delivery Method NC, Phlebotomy Draw Site RIGHT RADIAL 08/29/17 1830: Anion Gap 15, Estimated GFR > 60, BUN/Creatinine Ratio 7.5, Glucose 121 H, Calcium 9.6, Total Bilirubin 0.5, AST 33, ALT 53, Alkaline Phosphatase 95, Troponin I < 0.01, Total Protein 7.5, Albumin 4.3, Globulin 3.2, Albumin/ Globulin Ratio 1.3, CBC w Diff NO MAN DIFF REQ, RBC 4.91, MCV 93.6, MCH 30.3, MCHC 32.4 L, RDW 13.8, MPV 8.4, Gran % 47.2, Lymphocytes % 31.1, Monocytes % 12.1 H, Eosinophils % 9.4 H, Basophils % 0.2, Absolute Granulocytes 3.8, Absolute Lymphocytes 2.5, Absolute Monocytes 1.0 H, Absolute Eosinophils 0.8, Absolute Basophils 0 Labs ordered old records reviewed patient medicated with DuoNeb Solu-Medrol. Case discussed with Dr. Starkey. 1999-patient 89% on 2 L increased to 3-1/2 at which time his oxygen saturation was 92% noted wheezing in all lung pressley after much discussion the patient is now in agreement for second nebulizer treatment. Discussed with him the arms and risks of leaving as he has left AGAINST MEDICAL ADVICE several times in the past for similar presentations, he states at this time that he will stay to be treated and is in agreement for admission Case discussed with annie Rajan orddered Diagnostic Imaging: Viewed by Me: Radiology Read. Discussed w/RAD: Radiology Read. Radiology Impression: PATIENT: ARIANNA HEREDIA PRESENT AGE: 46 PATIENT ACCOUNT NO: [id number] : 68 LOCATION: [facility] ORDERING PHYSICIAN: Darion HALL SERVICE DATE: 08/29/17 EXAM TYPE: RAD - XRY- PORTABLE CHEST XRAY EXAMINATION: XR PORTABLE CHEST CLINICAL INFORMATION: Cough and dyspnea. COMPARISON: None TECHNIQUE: Portable frontal view of the chest was obtained. FINDINGS: The lungs are well-expanded and clear of acute process. The heart size and pulmonary vascularity is normal. No gross bony abnormality seen. IMPRESSION: Unremarkable chest exam. DICTATED BY: Daniel Stiles MD DATE/TIME DICTATED:08/29/171902 REHAB/PRE VOCATIONAL COUNSELOR:SHEEBA DATE/TIME TRANSCRIBED:1902 CONFIDENTIAL, DO NOT COPY WITHOUT APPROPRIATE AUTHORIZATION. < Electronically signed in Other Vendor System> SIGNED BY: Daniel Stiles MD 1908 Initial ED EKG: stachat 120, no acute st seg chagnes, normal axis Prior EKG: unchanged Rhythm Strip: sinus tachycardia (Jossy HALL,Darion) Departure Departure Time of Disposition: 2057 Disposition: STILL A PATIENT Condition: Stable Clinical Impression Primary Impression: COPD exacerbation Referrals: Koneswaran MD,[place] (PCP/Family) Departure Forms: Customer Survey General Discharge Information Admission Note Spoke With: Reno Argueta MD Documentation of Exam: Documentation of any treatments & extenuating circumstances including Concerns Regarding Discharge (functional status, medication knowledge or non-compliance, living conditions, etc.) that warrant an admission rather than observation: resp tx prn, pulm consult, iv steroids, trend labs, premature dischareg would be medically harmful (Darion Long) PA/SUPERVISOR CARDING Co-Sign Statement Statement: ED Attending supervision documentation- [X] I saw and evaluated the patient. I have also reviewed all the pertinent lab results and diagnostic results. I agree with the findings and the plan of care as documented in the PA's/SUPERVISOR CARDING's documentation. [X] I have reviewed the ED Record and agree with the PA's/SUPERVISOR CARDING's documentation. [] Additions or exceptions (if any) to the PAs/SUPERVISOR CARDING's note and plan are summarized below: [Patient to be admitted for COPD exacerbation, nebulizer treatments, IV steroids , IV antibiotics, pulmonary consultation] (Jaky BANKS,Carlos Alberto Segundo) Critical Care Note Critical Care Note Critical Care Time: non-applicable (Darion Long)
[2017-08-29 18:45] LABS: ABSOLUTE BASOPHIL COUNT 0 /CUMM (0.0-0.2); ABSOLUTE EOSINOPHIL COUNT 0.8 /CUMM (0.0-0.7); ABSOLUTE GRANULOCYTE CT 3.8 /CUMM (1.4-6.5); ABSOLUTE LYMPH COUNT 2.5 /CUMM (1.2-3.4); BASOPHIL % 0.2 % (0.0-2.0); EOSINOPHIL % 9.4 % (0-5); GRANULOCYTE % 47.2 % (42.2-75.2); MEAN CORPUSCULAR HGB 30.3 PG (27.0-31.0); MEAN CORPUSCULAR HGB CONC 32.4 G/DL (33.0-37.0); MEAN CORPUSCULAR VOLUME 93.6 FL (80.0-94.0); MEAN PLATELET VOLUME 8.4 FL (7.4-10.4); PLATELET COUNT 358 /CUMM (130-400); RBC DISTRIBUTION WIDTH 13.8 % (11.5-14.5); RED BLOOD CELL CT 4.91 /CUMM (4.70-6.10); WHITE BLOOD CELL COUNT 8.1 /CUMM (4.8-10.8)
--- NOTE | 2017-08-29 19:09 | RADIOLOGY REPORT ---
EXAMINATION: XR PORTABLE CHEST CLINICAL INFORMATION: Cough and dyspnea. COMPARISON: None TECHNIQUE: Portable frontal view of the chest was obtained. FINDINGS: The lungs are well-expanded and clear of acute process. The heart size and pulmonary vascularity is normal. No gross bony abnormality seen. IMPRESSION: Unremarkable chest exam.
--- NOTE | 2017-08-29 21:19 | History & Physical ---
Carlos Alberto Moraes MD 08/29/172117: General Information and HPI MD Statement: I have seen and personally examined ARIANNA HEREDIA and documented this H&P. The patient is a 46 year old M who presented with a patient stated chief complaint of [COPD exacerbation]. Source of Information: patient, family, old records Exam Limitations: no limitations History of Present Illness: Patient is a 46-year-old male with a PMH significant for asthma, COPD, opiate abuse on methadone, PTSD, anxiety, GERD who presents complaining of worsening dyspnea on exertion. Patient was seen in the [facility] ED on 08/21/17 and discharged home with a prednisone taper and azithromycin. He reports some improvement but over the last several days he has had worsening dyspnea on exertion and his chronic dry cough has become productive with brown sputum. At baseline he uses 3 L O2 nasal cannula nocturnally, he has been using it when necessary during the day time, and increased albuterol usage. He is a current every day smoker with over [id number] history. He follows with Dr. Cuevas. He denies any chest pain, lightheadedness, dizziness, leg swelling, orthopnea, nausea, vomiting, fever, chills, sick contacts. Rest of review of systems as below. Allergies/Medications Allergies: Coded Allergies: oak (ALLERGY TESTED POSITIVE 08/22/16) Uncoded Allergies: SPRUCE (ALLERGY TESTED POSITIVE 03/15/16) Home Med list Albuterol Sulfate 2.5 MG/3 ML (0.083 %) VIAL.NEB 1 Vial INH/KAREN Q4P PRN COPD (Reported) Albuterol Sulfate (Proair Hfa) 90 MCG HFA.AER.AD 2 PUF INH PRN COPD (Reported ) Alprazolam 0.5 MG TABLET 1 TAB PO BIDP PRN anxiety (Reported) Aripiprazole 5 MG TABLET 1 TAB PO DAILY MENTAL HEALTH (Reported) Aspirin (Ecotrin*) 81 MG TABLET.DR 1 TAB PO DAILY HEART/BLOOD (Reported) Azithromycin 250 MG TABLET 1 DP PO AD COPD 2 the first day followed by 1 for days 2-5 Budesonide/Formoterol Fumarate (Symbicort 160-4.5 Mcg Inhaler) 160 MCG-4.5 MCG/ ACTUATION HFA.AER.AD 1 PUF INH BID COPD (Reported) Docusate Sodium 100 MG CAPSULE 100 MG PO BID PRN constipation Ipratropium/Albuterol Sulfate (Iprat-Albut 0.5-3(2.5) MG/3 Ml) 0.5 MG-3 MG (2.5 MG BASE)/3 ML AMPUL.NEB 1 VIAL INH Q4 PRN sob Methadone HCl 10 MG/5 ML SOLUTION 30 MG PO DAILY MENTAL HEALTH (Reported) Montelukast Sodium 10 MG TABLET 10 MG PO AT BEDTIME COPD Pantoprazole Sodium (Protonix) 40 MG TABLET.DR 1 TAB PO DAILY GI (Reported) Prednisone 10 MG TABLET 1 TAB PO SEE ADMIN CRITERIA copd TAKE 6 TAB DAILY 06/02 06/03 AND 06/04 THEN TAKE 5 TAB DAILY 06/05 06/06 AND 06/07 THEN TAKE 4 TAB DAILY 06/08 06/09 AND 06/10 THEN TAKE 3 TAB DAILY 06/11 06/12 AND 06/13 THEN TAKE 2 TAB DAILY Prednisone 50 MG TABLET 1 TAB PO DAILY COPD Tamsulosin HCl 0.4 MG CAP.ER.24H 1 CAP PO DAILY urinary difficulty (Reported) Past History Travel History Traveled to [place] past 21 day No Medical History Neurological: NONE EENT: NONE Cardiovascular: NONE Respiratory: asthma, COPD Gastrointestinal: GERD Hepatic: NONE Renal: NONE Musculoskeletal: NONE Psychiatric: anxiety, depression, PTSD Endocrine: NONE Blood Disorders: NONE Cancer(s): NONE 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 Home Who Do You Live With? spouse, child Services at Home: None Primary Language: Bengali Smoking Status: Current Everyday Smoker (over 50 pack year hx) ETOH Use: denies use Illicit Drug Use: denies illicit drug use Functional Ability ADLs Independent: dressing, eating, toileting, bathing. Ambulation: independent IADLs Independent: shopping, housework, finances, food prep, telephone, transportation , medication admin. Review of Systems Review of Systems Constitutional: Denies: chills, fever, weakness. Cardiovascular: Denies: chest pain, edema, orthopena, palpitations. Respiratory: Reports: cough, sputum production (brown), wheezing. Denies: hemoptysis, orthopnea. GI: Reports: no symptoms. Genitourinary: Reports: no symptoms. Musculoskeletal: Reports: no symptoms. Skin: Reports: no symptoms. Neurological/Psychological: Reports: no symptoms. Exam & Diagnostic Data Last 24 Hrs of Vital Signs/I&O Vital Signs Date Time Temp Pulse Resp B/P B/P Pulse O2 O2 Flow FiO2 Mean Ox Delivery Rate 08/29 2232 Nasal 3.0L Cannula 08/30 2227 97.6 97 22 140/80 92 Nasal Cannula 08/30 2151 98.2 104 22 124/84 93 Nasal 3.0L Cannula 08/29 2104 92 Nasal 3.0L Cannula 08/29 Nasal 3.0L Cannula 08/29 1853 91 Nasal 2.0L Cannula 08/30 1827 97.1 124 26 148/100 88 Room Air 08/29 182 88 Physical Exam General Appearance Alert, Oriented X3, Cooperative, No Acute Distress Skin Temp/Moisture Exam: Warm/Dry Sepsis Skin Exam (color): Normal for Ethnicity Cardiovascular Normal S1, Normal S2, tachycardic to 110s Lungs diffuse expiratory wheezing Abdomen Normal Bowel Sounds, Soft, No Tenderness Neurological Normal Speech, Normal Tone, Sensation Intact Extremities No Clubbing, No Cyanosis, No Edema, Normal Pulses Last 24 Hrs of Labs/Ashish: Laboratory Tests 08/29/172104: pH 7.35, pCO2 45, pO2 57 L, HCO3 24, ABG O2 Sat (Measured) 86.0 L, Carboxyhemoglobin 2.2, O2 Concentration % 3L, O2 Delivery Method NC, Phlebotomy Draw Site RIGHT RADIAL 08/29/17 1830: Anion Gap 15, Estimated GFR > 60, BUN/Creatinine Ratio 7.5, Glucose 121 H, Calcium 9.6, Total Bilirubin 0.5, AST 33, ALT 53, Alkaline Phosphatase 95, Troponin I < 0.01, Total Protein 7.5, Albumin 4.3, Globulin 3.2, Albumin/ Globulin Ratio 1.3, CBC w Diff NO MAN DIFF REQ, RBC 4.91, MCV 93.6, MCH 30.3, MCHC 32.4 L, RDW 13.8, MPV 8.4, Gran % 47.2, Lymphocytes % 31.1, Monocytes % 12.1 H, Eosinophils % 9.4 H, Basophils % 0.2, Absolute Granulocytes 3.8, Absolute Lymphocytes 2.5, Absolute Monocytes 1.0 H, Absolute Eosinophils 0.8, Absolute Basophils 0 Diagnostic Data EKG Results sinus tachycardia with PACs, HR 126 CXR Results The lungs are well-expanded and clear of acute process. The heart size and pulmonary vascularity is normal. No gross bony abnormality seen. IMPRESSION: Unremarkable chest exam. Assessment/Plan Assessment: Patient is a 46-year-old male with a PMH significant for asthma, COPD, opiate abuse on methadone, PTSD, anxiety, GERD who presents complaining of worsening dyspnea on exertion. Chest x-ray shows no acute pathology, patient is afebrile without a white count with no sick contacts. Vital signs on admission: T 97.1, P124, RR 26, BP 148/100, pulse ox 88% on 2 L nasal cannula Significant Labs on admission: ABG: PH 7.35, CO2 45, O2 57, HCO3 24, O2 sat 86 Problem list #COPD exacerbation #Chronic medical problems Plan -Admit to general medicine floor -Pulmonology consult with Dr. Cuevas -[facility] -Continue supplemental O2, wean off as tolerated -Patient received IV Solu-Medrol 125 mg in ED continue with 40 mg every 8 hours -Confirm home medication list in a.m. including methadone dose with [facility] Diet: Regular diet DVT prophylaxis: Lovejyothix Alps CODE STATUS: Full code As Ranked By This Provider Problem List: 1. COPD exacerbation 2. Acute and chronic respiratory failure with hypoxia Core Measures/Misc (02/13) Acute Coronary Syndrome ACS Diagnosis: No Congestive Heart Failure Congestive Heart Failure Diagnosis No Cerebrovascular Accident CVA/TIA Diagnosis: No VTE (View Protocol) VTE Risk Factors Smoker No Mechanical VTE Prophylaxis d/t N/A MechProphylax Ordered No VTE Pharm Prophylaxis d/t NA PharmProphylax ordered Sepsis (View protocol) Sepsis Present: No Cedric Solorio 08/29/17 2311: Resident Review Statement Resident Statement: examined this patient, discussed with product management internship, agreed with product management internship, reviewed EMR data (avail), reviewed images Other Findings: 46-year-old gentleman, current daily smoker with 50pack year smoking history with a past history of COPD on 3 L nocturnal supplemental oxygen as needed, chronic prednisone therapy recently discontinued approx one month ago, asthma, opiate abuse on methadone, PTSD came to ED for evaluation of exertional dyspnea of about a week duration. His last admission to [facility] 05/30/17-06/01 for COPDE. Was seen at [facility] ED on seen in the [facility] ED on 08/21/17 and discharged home with a prednisone taper and azithromycin. Symptoms do not improve and reports having to use supplemental oxygen throughout the day as well as increasing the frequency of his nebulizations. Denies any history of intubation, chest pain, lightheadedness, dizziness, leg swelling, orthopnea, nausea, vomiting, fever, chills, sick contacts. Vitals on admission temperature 97.1, heart rate 124, 88 on room air which improved to 92 on 3 L nasal cannula, blood pressure 148/100. Examination patient seems anxious, not in respiratory distress RS bilateral equal air entry, with extensive scattered expiratory wheezing. Rest of examination unremarkable CBC/BEP within normal limits, glucose 121 ABG 7.35/45/57/24 EKG normal sinus rhythm left atrial enlargement, heart rate 122 no changes from previous EKG Chest x-ray unremarkable His last PFTs 12/11/15 Severe obstructive lung disease with a reduction in diffusing capacity consistent with emphysema and a significant bronchodilator response with oxygen desaturation. Problem list Acute on chronic hypoxic respiratory failure COPD stage D Assessment and plan: Acute on chronic hypoxic respiratory failure secondary to COPD-Asthma exacerbation in the setting of continued smoking. Admitted to general medicine floor, TRC/ nebulization continue IV methylprednisone 40 mg every 8 taper as needed, albuterol, Patient is not sure that he is taking Symbicort or Singulair. will bring in his medications tomorrow, please confirm. Pulmonary consult with Dr. Cuevas Hold off on azithromycin as he just recently completed a course f/up Peak flow measurement accu-checks while on steriods Depression Continue his Abilify 5 mg Anxiety Xanax 0.5 mg every 12 as needed for anxiety. Nicotine dependence We'll start him on nicotine patch 21 mg daily Opiate abuse on methadone continue his current dose 30 mg of methadone, follows up [facility] Follow-up U tox Code-full code DVT prophylaxis-sc lovenox Diet-regular diet Reno Argueta 08/30/17 0439: Attending MD Review Statement Attending Statement Attending MD Statement: examined this patient, discuss w/resident/PA/INSEAM TRIMMING MACHINE OPERATOR, agreed w/resident/PA/INSEAM TRIMMING MACHINE OPERATOR, reviewed EMR data (avail), reviewed images, amended to note Attending Assessment/Plan: CC: Worsening shortness of breath PMH: Asthma/COPD overlap, nocturnal 3 L oxygen, panic attacks, PTSD, chronic pain on methadone Patient came to ER for worsening shortness of breath, productive cough with brown colored sputum. Patient was seen in ER on 21 of August for similar complaints, was found to have COPD exacerbation, was discharged on 5 day course of prednisone and azithromycin. Patient completed the debridement and felt better for 1 or 2 days while on treatment but then symptoms recurred again, this time severe shortness of breath, productive cough, could not walk few steps, waking up middle of the night getting coughing spells. He denies any fever, chills, chest pain, chest tightness, pleuritic nature chest pain, nausea, vomiting. He has been using daytime oxygen intermittently and increased nebulization treatment without much relief. Vitals: Afebrile, pulse 124, RR 26, blood pressure 1 4800, saturating 88% on 2 L nasal cannula, improved to 91% on 3 L nasal cannula On exam: A O 3, cooperative, in moderate respiratory distress, accessory muscles in use, neck supple, JVD normal, no lymphadenopathy, mucosa moist, no focal neurological deficit, no dependent edema, no obvious skin rashes or inflammation CVS: S1-S2, RRR. RS: Prolonged expiration with diffuse bilateral wheezing, no crackles or Rales. Abdomen: Soft, NT, ND, bowel sounds present. CXR: No acute abnormality Assessment and plan 46-year-old male with past medical history significant for asthma and COPD overlap syndrome, currently smoker, trying to cut down (from 2 packs to 5 cigarettes per day) presented in ER for worsening shortness of breath, productive cough with brown colored sputum but no fever, chills, chest pain, nausea or vomiting. Patient has increased oxygen requirement at home. He usually uses nocturnal oxygen but now is requiring daytime oxygen, multiple times albuterol nebulization without much relief. He has moderate respiratory distress , accessory muscles in use, requiring 3 L nasal cannula to saturate at 91%. He was recently seen in ER for COPD exacerbation and treated with azithromycin and prednisone. Patient appears to have failed outpatient treatment and would benefit from hospitalization for IV methylprednisolone, nebulization treatment. Patient was on metformin in the past for hyperglycemia now discontinued. As patient completed azithromycin for 5 days, we will hold off antibiotics for now. + Acute respiratory failure secondary to COPD exacerbation + COPD asthma overlap syndrome exacerbation + History of PTSD, chronic pain - Admit to general medicine - Try to wean off oxygen - IV methylprednisolone 40 mg every 8 hours - TRC nebulization with albuterol and ipratropium scheduled and when necessary - Mucinex scheduled twice a day - Continue rest of the home medications - Adequate pain control - DVT prophylaxis - Patient may require LABA and ICS combo on discharge - Inform Dr. Cuevas about patient being here - Continue Accu-Cheks
[2017-08-29 22:28] VITALS: BP 140/80
--- NOTE | 2017-08-30 04:41 | Admission Certification ---
Admission Certification Certification Statement - As attending physician, I certify that at the time of - admission, based on clinical presentation, severity of - symptoms, need for further diagnostic testing and - therapeutic interventions, and risk of adverse outcomes - without in-hospital treatment, in my clinical assessment, - this patient requires an acute hospital stay for a minimum - of two nights or longer. I have also considered psychsocial - factors such as support system, advanced age, financial - issues, cognitive issues, and failed out-patient treatments, - past re-admission history, safety of patient, and lack of - compliance as applicable. Specific rationale supporting this admission is: COPD/asthma overlap syndrome with exacerbation
[2017-08-30 06:46] VITALS: BP 150/80
--- NOTE | 2017-08-30 07:13 | PN- Housestaff ---
Subjective Follow-up For: COPD exacerbation Complaints: no complaints Subjective: Patient seen and examined at bedside. He is on 3 L of nasal oxygen lying in his bed comfortably. He denies shortness of breath, nausea, vomiting, chest pain. Review of Systems Constitutional: Reports: no symptoms. Cardiovascular: Reports: no symptoms. Respiratory: Reports: no symptoms. Gastrointestinal: Reports: no symptoms. Genitourinary: Reports: no symptoms. Objective Last 24 Hrs of Vital Signs/I&O Vital Signs Date Time Temp Pulse Resp B/P B/P Pulse O2 O2 Flow FiO2 Mean Ox Delivery Rate 08/30 1422 97.8 92 22 110/80 90 08/30 1156 96 Nasal 5.0L Cannula 08/30 0802 92 Nasal 3.0L Cannula 08/30 0800 Nasal 3.0L Cannula 08/30 0800 Nasal 5.0L Cannula 08/30 0646 98.0 88 20 150/80 91 Nasal 3.0L Cannula 08/30 0000 95 Nasal 3.0L Cannula 08/29 2233 Nasal 3.0L Cannula 08/29 2228 97.6 97 22 140/80 92 Nasal Cannula 08/29 2152 98.2 104 22 124/84 93 Nasal 3.0L Cannula 08/29 2105 92 Nasal 3.0L Cannula 08/30 2011 92 Nasal 3.0L Cannula 08/29 1854 91 Nasal 2.0L Cannula 08/29 1828 97.1 124 26 148/100 88 Room Air 08/29 1825 88 Intake & Output 08/30 1600 / 0800 08/30 0000 Intake Total 490 50 Output Total 250 Balance 240 50 Intake, IV 30 50 Intake, Oral 460 Output, Urine 250 Patient 250 lb Weight Weight Reported by Patient Measurement Method Physical Exam General Appearance: Alert, Oriented X3, Cooperative, No Acute Distress Cardiovascular: Regular Rate, Normal S1, Normal S2, No Murmurs Lungs: bilateral wheezes heard all over the lung Abdomen: Soft, No Tenderness, No Hepatospenomegaly Current Medications: Current Medications Sig/Nettie Start time Last Medication Dose Route Stop Time Status Admin Albuterol Sulfate 3 ML EVERY 4 HRS/AWAKE 08/30 1200 DC INH Albuterol Sulfate 3 ML EVERY 4 HRS/AWAKE / 0800 AC 08/30 INH 1139 Albuterol Sulfate 2.5 ML Q4P PRN 08/29 2200 DC INH Albuterol Sulfate 3 ML ONCE ONE 08/30 1999 DC 08/29 INH 08/29 Albuterol Sulfate 3 ML ONCE ONE 08/30 1999 DC 08/29 INH 08/29 2000 210 Albuterol Sulfate 3 ML ONCE ONE 08/29 1830 DC 08/29 INH 08/29 1831 1820 Alprazolam 0.5 MG BID PRN 08/29 2345 AC 08/29 PO 09/05 2344 2351 Aripiprazole 5 MG DAILY 08/30 1000 AC 08/30 PO 0824 Aspirin Buffered 81 MG DAILY 08/30 1000 AC 04 PO 0824 Azithromycin 500 MG DAILY 08/30 1000 CAN Dextrose/Water 250 ML IV Docusate Sodium 100 MG BID PRN 08/29 2215 AC PO Enoxaparin Sodium 40 MG DAILY 08/30 1000 AC 08/30 SC 0824 Guaifenesin 600 MG Q12 08/30 1000 AC 08/30 PO 0824 Insulin Aspart 0 TIDAC 08/30 1215 AC 08/30 SC 1314 Insulin Aspart 0 TIDAC 08/30 1200 DC 08/30 SC 0937 Insulin Aspart 4 UNITS ONCE ONE 08/30 0945 DC 08/30 SC 04/ 0946 0937 Ipratropium [place] 2.5 ML EVERY 4 HRS/AWAKE 08/30 1200 DC INH Ipratropium [place] 2.5 ML EVERY 4 HRS/AWAKE / 0800 AC 08/30 INH 1139 Ipratropium [place] 2.5 ML ONCE ONE 08/30 1999 DC 08/29 INH 08/29 2000 2105 Ipratropium [place] 2.5 ML ONCE ONE 08/29 1830 DC 08/29 INH 08/29 1831 1820 Methadone HCl 60 MG DAILY 08/31 1000 AC PO Methadone HCl 30 MG ONCE ONE 08/30 1115 CAN PO 08/30 1116 Methadone HCl 30 MG ONCE ONE 08/30 1045 DC 04/ PO 08/30 1046 1041 Methadone HCl 30 MG DAILY 08/30 1000 DC / PO 0824 Methadone HCl 60 MG DAILY 08/30 1000 DC PO Methylprednisolone 40 MG Q8 08/30 1400 AC 04 IV 1314 Methylprednisolone 40 MG Q6 08/30 1200 DC IV Methylprednisolone 40 MG Q8 08/30 0600 DC 08/30 IV 0552 Methylprednisolone 0 .STK-MED ONE 08/29 1851 DC .ROUTE Methylprednisolone 125 MG ONCE ONE 08/29 1829 DC 08/29 IV 08/29 1831 1850 Nicotine 21 MG DAILY 08/30 1000 08/30 [facility] 08 Last 24 Hrs of Lab/Ashish Results Last 24 Hrs of Labs/Mics: Laboratory Tests 08/30/17 0740: Anion Gap 10, Estimated GFR > 60, BUN/Creatinine Ratio 14.3, CBC w Diff NO MAN DIFF REQ, RBC 4.81, MCV 93.6, MCH 30.8, MCHC 32.9 L, RDW 13.4, MPV 8.8, Gran % 91.3 H, Lymphocytes % 7.3 L, Monocytes % 1.4 L, Eosinophils % 0, Basophils % 0, Absolute Granulocytes 6.6 H, Absolute Lymphocytes 0.5 L, Absolute Monocytes 0.1, Absolute Eosinophils 0, Absolute Basophils 0 08/29/17 2252: Urine Opiates Screen > 4000.00 H, Methadone Screen > 735 H, Barbiturate Screen < 60, Ur Phencyclidine Scrn < 6.00, Amphetamines Screen < 100, U Benzodiazepines Scrn > 800 H, Urine Cocaine Screen < 50, Urine Cannabis Screen 44.30 08/29/17 2105: pH 7.35, pCO2 45, pO2 57 L, HCO3 24, ABG O2 Sat (Measured) 86.0 L, Carboxyhemoglobin 2.2, O2 Concentration % 3L, O2 Delivery Method NC, Phlebotomy Draw Site RIGHT RADIAL 08/29/171829: Anion Gap 15, Estimated GFR > 60, BUN/Creatinine Ratio 7.5, Glucose 121 H, Calcium 9.6, Total Bilirubin 0.5, AST 33, ALT 53, Alkaline Phosphatase 95, Troponin I < 0.01, Total Protein 7.5, Albumin 4.3, Globulin 3.2, Albumin/ Globulin Ratio 1.3, CBC w Diff NO MAN DIFF REQ, RBC 4.91, MCV 93.6, MCH 30.3, MCHC 32.4 L, RDW 13.8, MPV 8.4, Gran % 47.2, Lymphocytes % 31.1, Monocytes % 12.1 H, Eosinophils % 9.4 H, Basophils % 0.2, Absolute Granulocytes 3.8, Absolute Lymphocytes 2.5, Absolute Monocytes 1.0 H, Absolute Eosinophils 0.8, Absolute Basophils 0 Microbiology 08/30 1505 LOWER RESP: Respiratory Culture - ORD 08/30 1505 LOWER RESP: Gram Stain - ORD Assessment/Plan Assessment: Patient is a 46-year-old male with a PMH significant for asthma, COPD, opiate abuse on methadone, PTSD, anxiety, GERD who presents complaining of worsening dyspnea on exertion. Patient admitted for COPD exacerbation. Assessment and plan 1. COPD exacerbation 2. Opioid use disorder-on methadone * Patient is on IV Solu-Medrol every 8. We'll continue the current management and involve pulmonary Dr. Cuevas on board. * Patient is on 5 L oxygen. At home he is on 3 L nocturnal oxygen. Once the patient clinical condition improves we'll slowly wean off oxygen to bring to his baseline. * We will follow him off antibiotics. Of note patient was recently treated for COPD with azithromycin and tapering dose of prednisone in July 2017 at [facility] * TR nebulization. * Patient is on 60 mg of methadone, continue the same [patient goes to-[facility]] * Follow up with CBC and BP * Diet-regular diet * Code-4 code Problem List: 1. COPD exacerbation Pain Ratin Pain Location: none Pain Goal: Remain pain free Pain Plan: tylenol Tomorrow's Labs & Rationales: cbc,bep
[2017-08-30 08:41] LABS: ABSOLUTE BASOPHIL COUNT 0 /CUMM (0.0-0.2); ABSOLUTE EOSINOPHIL COUNT 0 /CUMM (0.0-0.7); ABSOLUTE GRANULOCYTE CT 6.6 /CUMM (1.4-6.5); ABSOLUTE LYMPH COUNT 0.5 /CUMM (1.2-3.4); ABSOLUTE MONOCYTE COUNT 0.1 /CUMM (0.10-0.60); BASOPHIL % 0 % (0.0-2.0); EOSINOPHIL % 0 % (0-5); MEAN CORPUSCULAR HGB 30.8 PG (27.0-31.0); MEAN CORPUSCULAR HGB CONC 32.9 G/DL (33.0-37.0); MEAN CORPUSCULAR VOLUME 93.6 FL (80.0-94.0); MEAN PLATELET VOLUME 8.8 FL (7.4-10.4); PLATELET COUNT 333 /CUMM (130-400); RBC DISTRIBUTION WIDTH 13.4 % (11.5-14.5); RED BLOOD CELL CT 4.81 /CUMM (4.70-6.10); WHITE BLOOD CELL COUNT 7.2 /CUMM (4.8-10.8)
[2017-08-30 09:19] LABS: GRANULOCYTE % 91.3 % (42.2-75.2)
--- NOTE | 2017-08-30 10:48 | Cons- Pulmonary ---
General Information and HPI Consulting Request Date of Consult: 08/30/17 Requested By: Dr. Farmer Reason for Consult: asthma exacerbation acute on chronic hypoxemic respiratory failure Source of Information: patient Exam Limitations: no limitations History of Present Illness: The patient is a 46-year-old man. Consultation for acute on chronic hypoxemic respiratory failure. Asthma exacerbation. PMH significant for asthma with recurrent bronchospasm. The patient is on supplemental oxygen at home, 3 L nocturnally. He also has a history of anxiety, and opioid dependence for chronic pain. On oral steroids, intermittent leg edema, eosinophilia. Feels better with steroids. No sick contacts, lives with daughter. Recent stress/anxiety. CXR without infilrates. No fevers, no leukocytosis. Allergies/Medications Allergies: Coded Allergies: oak (ALLERGY TESTED POSITIVE 08/22/16) Uncoded Allergies: SPRUCE (ALLERGY TESTED POSITIVE 03/15/16) Home Med List: Albuterol Sulfate 2.5 MG/3 ML (0.083 %) VIAL.NEB 1 Vial INH/KAREN Q4P PRN COPD (Reported) Albuterol Sulfate (Proair Hfa) 90 MCG HFA.AER.AD 2 PUF INH PRN COPD (Reported ) Alprazolam 0.5 MG TABLET 1 TAB PO BIDP PRN anxiety (Reported) Aripiprazole 5 MG TABLET 1 TAB PO DAILY MENTAL HEALTH (Reported) Aspirin (Ecotrin*) 81 MG TABLET.DR 1 TAB PO DAILY HEART/BLOOD (Reported) Azithromycin 250 MG TABLET 1 DP PO AD COPD 2 the first day followed by 1 for days 2-5 Budesonide/Formoterol Fumarate (Symbicort 160-4.5 Mcg Inhaler) 160 MCG-4.5 MCG/ ACTUATION HFA.AER.AD 1 PUF INH BID COPD (Reported) Docusate Sodium 100 MG CAPSULE 100 MG PO BID PRN constipation Ipratropium/Albuterol Sulfate (Iprat-Albut 0.5-3(2.5) MG/3 Ml) 0.5 MG-3 MG (2.5 MG BASE)/3 ML AMPUL.NEB 1 VIAL INH Q4 PRN sob Methadone HCl 10 MG/5 ML SOLUTION 30 MG PO DAILY MENTAL HEALTH (Reported) Montelukast Sodium 10 MG TABLET 10 MG PO AT BEDTIME COPD Pantoprazole Sodium (Protonix) 40 MG TABLET.DR 1 TAB PO DAILY GI (Reported) Prednisone 10 MG TABLET 1 TAB PO SEE ADMIN CRITERIA copd TAKE 6 TAB DAILY 06/02 06/03 AND 06/04 THEN TAKE 5 TAB DAILY 06/05 06/06 AND 06/07 THEN TAKE 4 TAB DAILY 06/08 06/09 AND 06/10 THEN TAKE 3 TAB DAILY 06/11 06/12 AND 06/13 THEN TAKE 2 TAB DAILY Prednisone 50 MG TABLET 1 TAB PO DAILY COPD Tamsulosin HCl 0.4 MG CAP.ER.24H 1 CAP PO DAILY urinary difficulty (Reported) Current Medications: Current Medications Sig/Nettie Start time Last Medication Dose Route Stop Time Status Admin Albuterol Sulfate 3 ML EVERY 4 HRS/AWAKE 08/30 1200 AC INH Albuterol Sulfate 3 ML EVERY 4 HRS/AWAKE 08/30 0800 AC 08/30 INH 0757 Albuterol Sulfate 2.5 ML Q4P PRN 08/29 2200 DC INH Albuterol Sulfate 3 ML ONCE ONE 08/30 1999 DC 08/29 INH 08/29 Albuterol Sulfate 3 ML ONCE ONE 08/30 1999 DC 08/29 INH 08/29 Albuterol Sulfate 3 ML ONCE ONE 08/29 1830 DC 08/29 INH 08/29 1831 1820 Alprazolam 0.5 MG BID PRN 08/29 2345 AC 08/29 PO 09/05 2344 2351 Aripiprazole 5 MG DAILY 08/30 1000 AC 08/30 PO 0824 Aspirin Buffered 81 MG DAILY 08/30 1000 AC 08/30 PO 0824 Azithromycin 500 MG DAILY 08/30 1000 CAN Dextrose/Water 250 ML IV Docusate Sodium 100 MG BID PRN 08/29 2215 AC PO Enoxaparin Sodium 40 MG DAILY 08/30 1000 AC 08/30 SC 0824 Guaifenesin 600 MG Q12 08/30 1000 AC 08/30 PO 0824 Insulin Aspart 0 TIDAC 08/30 1200 AC 08/30 SC 0937 Insulin Aspart 4 UNITS ONCE ONE 08/30 0945 DC 08/30 IL 08/30 0946 0937 Ipratropium [place] 2.5 ML EVERY 4 HRS/AWAKE 08/30 1200 AC INH Ipratropium [place] 2.5 ML EVERY 4 HRS/AWAKE 08/30 0800 AC 08/30 INH 0757 Ipratropium [place] 2.5 ML ONCE ONE 08/30 1999 DC 08/29 INH 08/29 Ipratropium [place] 2.5 ML ONCE ONE 08/29 1830 DC 08/29 INH 08/29 1831 1820 Methadone HCl 60 MG DAILY 08/31 1000 UNVr PO Methadone HCl 30 MG ONCE ONE 08/30 1045 UNVr 08/30 PO 08/30 1046 1041 Methadone HCl 30 MG DAILY 08/30 1000 DC 08/30 PO 0824 Methadone HCl 60 MG DAILY 08/30 1000 DC PO Methylprednisolone 40 MG Q6 08/30 1200 AC IV Methylprednisolone 40 MG Q8 08/30 0600 DC 08/30 IV 0552 Methylprednisolone 0 .STK-MED ONE 08/29 1851 DC .ROUTE Methylprednisolone 125 MG ONCE ONE 08/29 1830 DC 08/29 IV 08/29 1831 1850 Nicotine 21 MG DAILY 08/30 1000 AC 08/30 TOP 0823 Review of Systems Comments 18 pt reviewed ros pertinent positives and negatives in chart otherwise negative Past History Travel History Traveled to [place] past 21 day No Medical History Blood Transfusion Hx: No Neurological: NONE EENT: NONE Cardiovascular: NONE Respiratory: asthma, COPD Gastrointestinal: GERD Hepatic: NONE Renal: NONE Musculoskeletal: NONE Psychiatric: anxiety, depression, PTSD Endocrine: NONE Blood Disorders: NONE Cancer(s): NONE TAX ANALYST/Reproductive: NONE Other Medical Hx: opiate use disorder on methadone Surgical History Surgical History: L THUMB SURGERY Family History Relations & Conditions If Any: Relation not specified for: *No pertinent family history Psychosocial History Where Do You Live? Home Who Do You Live With? spouse, child Services at Home: None Primary Language: Serbian Smoking Status: Current Everyday Smoker (over 50 pack year hx) ETOH Use: denies use Illicit Drug Use: denies illicit drug use Functional Ability ADLs Independent: dressing, eating, toileting, bathing. Ambulation: independent IADLs Independent: shopping, housework, finances, food prep, telephone, transportation , medication admin. Exam & Diagnostic Data Last 24 Hrs of Vital Signs/I&O Vital Signs Date Time Temp Pulse Resp B/P B/P Pulse O2 O2 Flow FiO2 Mean Ox Delivery Rate 08/30 0802 92 Nasal 3.0L Cannula 08/30 0800 Nasal 3.0L Cannula 08/30 08 Nasal 5.0L Cannula 08/30 0646 98.0 88 20 150/80 91 Nasal 3.0L Cannula 08/30 0000 95 Nasal 3.0L Cannula 04/02 2233 Nasal 3.0L Cannula 08/30 2227 97.6 97 22 140/80 92 Nasal Cannula 08/29 2152 98.2 104 22 124/84 93 Nasal 3.0L Cannula 08/29 2104 92 Nasal 3.0L Cannula 08/29 Nasal 3.0L Cannula 08/29 1853 91 Nasal 2.0L Cannula 08/30 1827 97.1 124 26 148/100 88 Room Air 08/29 1825 88 Intake & Output 08/30 1600 08/30 0800 08/30 0000 Intake Total 490 50 Output Total 250 Balance 240 50 Intake, IV 30 50 Intake, Oral 460 Output, Urine 250 Patient 250 lb Weight Weight Reported by Patient Measurement Method Physical Exam Other Physical Findings: gen awake and alert heent ncat cvs s1, s2 lungs rare bibasilar rhonchi abd soft, bs+ ext no edema Last 48 Hrs of Labs/Ashish: Laboratory Tests 08/30/17 0740: Anion Gap 10, Estimated GFR > 60, BUN/Creatinine Ratio 14.3, CBC w Diff NO MAN DIFF REQ, RBC 4.81, MCV 93.6, MCH 30.8, MCHC 32.9 L, RDW 13.4, MPV 8.8, Gran % 91.3 H, Lymphocytes % 7.3 L, Monocytes % 1.4 L, Eosinophils % 0, Basophils % 0, Absolute Granulocytes 6.6 H, Absolute Lymphocytes 0.5 L, Absolute Monocytes 0.1, Absolute Eosinophils 0, Absolute Basophils 0 08/29/17 2252: Urine Opiates Screen > 4000.00 H, Methadone Screen > 735 H, Barbiturate Screen < 60, Ur Phencyclidine Scrn < 6.00, Amphetamines Screen < 100, U Benzodiazepines Scrn > 800 H, Urine Cocaine Screen < 50, Urine Cannabis Screen 44.30 08/29/175: pH 7.35, pCO2 45, pO2 57 L, HCO3 24, ABG O2 Sat (Measured) 86.0 L, Carboxyhemoglobin 2.2, O2 Concentration % 3L, O2 Delivery Method NC, Phlebotomy Draw Site RIGHT RADIAL 08/29/17 1830: Anion Gap 15, Estimated GFR > 60, BUN/Creatinine Ratio 7.5, Glucose 121 H, Calcium 9.6, Total Bilirubin 0.5, AST 33, ALT 53, Alkaline Phosphatase 95, Troponin I < 0.01, Total Protein 7.5, Albumin 4.3, Globulin 3.2, Albumin/ Globulin Ratio 1.3, CBC w Diff NO MAN DIFF REQ, RBC 4.91, MCV 93.6, MCH 30.3, MCHC 32.4 L, RDW 13.8, MPV 8.4, Gran % 47.2, Lymphocytes % 31.1, Monocytes % 12.1 H, Eosinophils % 9.4 H, Basophils % 0.2, Absolute Granulocytes 3.8, Absolute Lymphocytes 2.5, Absolute Monocytes 1.0 H, Absolute Eosinophils 0.8, Absolute Basophils 0 Assessment/Plan Impression/Plan: Impression 46 year old man * asthma/COPD overlap exacerbation secondary to running out of prednisone * GERD * tobacco dependence Plan -trc/nebs -REDUCE to solumedrol 40mg iv q8h -symbicort with rinsing of the mouth -singulair -smoking cessation counseling DVT prophylaxis at all times Consult Acknowledgment - Thank you for your consult request.
--- NOTE | 2017-08-30 12:00 | PN- Att Addend ---
Attending Addendum Attending Brief Note Patient seen and examined, not feeling well. Still complains of feeling short of breath. He is requiring 5 L of oxygen which has been increased from 3 L. Vital Signs Date Time Temp Pulse Resp B/P B/P Pulse O2 O2 Flow FiO2 Mean Ox Delivery Rate 08/30 0802 92 Nasal 3.0L Cannula 08/30 0800 Nasal 3.0L Cannula 08/30 0800 Nasal 5.0L Cannula 08/30 0646 98.0 88 20 150/80 91 Nasal 3.0L Cannula 08/30 0000 95 Nasal 3.0L Cannula 08/29 2233 Nasal 3.0L Cannula 08/29 2228 97.6 97 22 140/80 92 Nasal Cannula 08/29 2152 98.2 104 22 124/84 93 Nasal 3.0L Cannula 08/29 2105 92 Nasal 3.0L Cannula 08/29 Nasal 3.0L Cannula 08/29 1854 91 Nasal 2.0L Cannula 08/29 1828 97.1 124 26 148/100 88 Room Air 08/29 1825 88 on exam; aox3, nad cv; s1, s2, rrr resp; b/l exp wheeze abd; soft, nt, bs+ ext; no edema Laboratory Tests 08/30 08/29 0740 2252 Chemistry Sodium (137 - 145 mmol/L) 138 Potassium (3.5 - 5.1 mmol/L) 5.4 H Chloride (98 - 107 mmol/L) 98 Carbon Dioxide (22 - 30 mmol/L) 31 H Anion Gap (5 - 16) 10 BUN (9 - 20 mg/dL) 10 Creatinine (0.7 - 1.2 mg/dL) 0.7 Estimated GFR (>60 ml/min) > 60 BUN/Creatinine Ratio (7 - 25 %) 14.3 Hematology CBC w Diff NO MAN DIFF REQ WBC (4.8 - 10.8 /CUMM) 7.2 RBC (4.70 - 6.10 /CUMM) 4.81 Hgb (14.0 - 18.0 G/DL) 14.8 Hct (42 - 52 %) 45.0 MCV (80.0 - 94.0 FL) 93.6 MCH (27.0 - 31.0 PG) 30.8 MCHC (33.0 - 37.0 G/DL) 32.9 L RDW (11.5 - 14.5 %) 13.4 Plt Count (130 - 400 /CUMM) 333 MPV (7.4 - 10.4 FL) 8.8 Gran % (42.2 - 75.2 %) 91.3 H Lymphocytes % (20.5 - 51.1 %) 7.3 L Monocytes % (1.7 - 9.3 %) 1.4 L Eosinophils % (0 - 5 %) 0 Basophils % (0.0 - 2.0 %) 0 Absolute Granulocytes (1.4 - 6.5 /CUMM) 6.6 H Absolute Lymphocytes (1.2 - 3.4 /CUMM) 0.5 L Absolute Monocytes (0.10 - 0.60 /CUMM) 0.1 Absolute Eosinophils (0.0 - 0.7 /CUMM) 0 Absolute Basophils (0.0 - 0.2 /CUMM) 0 Toxicology Urine Opiates Screen (>2000 NG/ML) > 4000.00 H Methadone Screen (>300 NG/ML) > 735 H Barbiturate Screen (>200 NG/ML) < 60 Ur Phencyclidine Scrn (>25 NG/ML) < 6.00 Amphetamines Screen (>1000 NG/ML) < 100 U Benzodiazepines Scrn (>200 NG/ML) > 800 H Urine Cocaine Screen (>300 NG/ML) < 50 Urine Cannabis Screen (>50 NG/ML) 44.30 0402 04 2105 1830 Blood Gas pH (7.35 - 7.45 PH) 7.35 pCO2 (35 - 45 TORR) 45 pO2 (80 - 100 TORR) 57 L HCO3 (21 - 28 MEQ/L) 24 ABG O2 Sat (Measured) (>96.0 %) 86.0 L Carboxyhemoglobin (1.5 - 5.0 %) 2.2 O2 Concentration % 3L O2 Delivery Method NC Chemistry Sodium (137 - 145 mmol/L) 141 Potassium (3.5 - 5.1 mmol/L) 4.1 Chloride (98 - 107 mmol/L) 99 Carbon Dioxide (22 - 30 mmol/L) 28 Anion Gap (5 - 16) 15 BUN (9 - 20 mg/dL) 6 L Creatinine (0.7 - 1.2 mg/dL) 0.8 Estimated GFR (>60 ml/min) > 60 BUN/Creatinine Ratio (7 - 25 %) 7.5 Glucose (65 - 99 mg/dL) 121 H Calcium (8.4 - 10.2 mg/dL) 9.6 Total Bilirubin (0.2 - 1.3 mg/dL) 0.5 AST (17 - 59 U/L) 33 ALT (21 - 72 U/L) 53 Alkaline Phosphatase (< 127 U/L) 95 Troponin I (<0.11 ng/ml) < 0.01 Total Protein (6.3 - 8.2 g/dL) 7.5 Albumin (3.5 - 5.0 g/dL) 4.3 Globulin (1.9 - 4.2 gm/dL) 3.2 Albumin/Globulin Ratio (1.1 - 2.2 %) 1.3 Hematology CBC w Diff NO MAN DIFF REQ WBC (4.8 - 10.8 /CUMM) 8.1 RBC (4.70 - 6.10 /CUMM) 4.91 Hgb (14.0 - 18.0 G/DL) 14.9 Hct (42 - 52 %) 46.0 MCV (80.0 - 94.0 FL) 93.6 MCH (27.0 - 31.0 PG) 30.3 MCHC (33.0 - 37.0 G/DL) 32.4 L RDW (11.5 - 14.5 %) 13.8 Plt Count (130 - 400 /CUMM) 358 MPV (7.4 - 10.4 FL) 8.4 Gran % (42.2 - 75.2 %) 47.2 Lymphocytes % (20.5 - 51.1 %) 31.1 Monocytes % (1.7 - 9.3 %) 12.1 H Eosinophils % (0 - 5 %) 9.4 H Basophils % (0.0 - 2.0 %) 0.2 Absolute Granulocytes (1.4 - 6.5 /CUMM) 3.8 Absolute Lymphocytes (1.2 - 3.4 /CUMM) 2.5 Absolute Monocytes (0.10 - 0.60 /CUMM) 1.0 H Absolute Eosinophils (0.0 - 0.7 /CUMM) 0.8 Absolute Basophils (0.0 - 0.2 /CUMM) 0 Miscellaneous Phlebotomy Draw Site RIGHT RADIAL A/P; 46 y/o M with pmh sig for asthma, COPD, opiate abuse on methadone, PTSD, anxiety, GERD admitted with acute hypoxic resp failure, acute COPD/asthma exacerbation. Will continue IV steroids. Appreciate pulmonology input. Continue TRC nebs. Patient had recently finished a course of antibiotics. Will watch him off antibiotics. Please obtain sputum culture. Continue other current meds. DVT px: Lovenox.
[2017-08-30 14:22] VITALS: BP 110/80
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
[2017-08-30 21:44] VITALS: BP 100/60
[2017-08-31 06:30] VITALS: BP 108/60
--- NOTE | 2017-08-31 07:28 | PN- Housestaff ---
Subjective Follow-up For: COPD exacerbation Newly diagnosed type Subjective: Patient seen and examined at bedside. He feels better today. He is still on 5 L of oxygen. He denies shortness of breath, chest pain, nausea, vomiting. Review of Systems Constitutional: Reports: see HPI. Objective Last 24 Hrs of Vital Signs/I&O Vital Signs Date Time Temp Pulse Resp B/P B/P Pulse O2 O2 Flow FiO2 Mean Ox Delivery Rate 08/31 1322 97.4 106 20 110/76 90 Nasal 5.0L Cannula 08/31 1153 86 Nasal Cannula 08/31 0811 94 Nasal 5.0L Cannula 08/31 0800 Nasal 5.0L Cannula 08/31 0630 98.5 89 23 108/60 95 08/31 0000 94 Nasal 5.0L Cannula 08/30 2144 98.6 90 20 100/60 94 08/30 1649 95 Nasal 5.0L Cannula 08/30 1600 93 Nasal 5.0L Cannula 08/30 1422 97.8 92 22 110/80 90 Intake & Output 08/31 1600 08/31 0800 08/31 0000 Intake Total 290 310 Output Total Balance 290 310 Intake, IV 10 10 Intake, Oral 280 300 Number 0 0 Bowel Movements Physical Exam General Appearance: Alert, Oriented X3, Cooperative, No Acute Distress Cardiovascular: Regular Rate, Normal S1, Normal S2 Lungs: bilateral wheeze Abdomen: Soft, No Tenderness, No Hepatospenomegaly Neurological: Normal Speech, Strength at 5/5 X4 Ext, Normal Tone, Sensation Intact Extremities: No Cyanosis, No Edema Current Medications: Current Medications Sig/Nettie Start time Last Medication Dose Route Stop Time Status Admin Albuterol Sulfate 3 ML EVERY 4 HRS/AWAKE 08/30 0800 AC 08/31 INH 1155 Alprazolam 0.5 MG BID PRN 08/29 2345 AC 08/31 PO 09 2344 0900 Aripiprazole 5 MG DAILY 08/30 1000 AC 08/31 PO 0825 Aspirin Buffered 81 MG DAILY 08/30 1000 AC 08/31 PO 0825 Docusate Sodium 100 MG BID PRN 08/29 2215 AC PO Enoxaparin Sodium 40 MG DAILY 08/30 1000 AC 08/31 SC 0825 Guaifenesin 600 MG Q12 08/30 1000 AC 08/31 PO 0825 Insulin Aspart 0 TIDAC 08/30 1215 AC 08/31 SC 1313 Ipratropium [place] 2.5 ML EVERY 4 HRS/AWAKE 08/30 0800 AC 08/31 INH 1155 Methadone HCl 60 MG DAILY 08/31 1000 AC 08/31 PO 0826 Methylprednisolone 40 MG Q12 08/31 1000 AC 08/31 IV 0830 Methylprednisolone 40 MG Q8 08/30 1400 DC 08/31 IV 0543 Nicotine 21 MG DAILY 08/30 1000 AC 08/31 TOP 0825 Omeprazole 20 MG ONCE ONE 08/30 1800 DC 08/30 PO 08/30 1801 1856 Patient Medication 1 ED ONE ONE 08/31 1100 DC 08/31 Teaching ED 08/31 1101 1333 Last 24 Hrs of Lab/Ashish Results Last 24 Hrs of Labs/Mics: Laboratory Tests 08/31/17 0710: Anion Gap 9, Estimated GFR > 60, BUN/Creatinine Ratio 20.0, CBC w Diff NO MAN DIFF REQ, RBC 4.64 L, MCV 94.5 H, MCH 30.8, MCHC 32.5 L, RDW 13.8, MPV 9.0, Gran % 89.5 H, Lymphocytes % 4.5 L, Monocytes % 5.9, Eosinophils % 0, Basophils % 0.1, Absolute Granulocytes 14.8 H, Absolute Lymphocytes 0.8 L, Absolute Monocytes 1.0 H, Absolute Eosinophils 0, Absolute Basophils 0 08/31/17 0600: Hemoglobin A1c 9.0 H Microbiology 08/30 1505 LOWER RESP: Respiratory Culture - CAN Cancelled: SPECIMEN NOT RECEIVED IN LABORATORY 08/30 1505 LOWER RESP: Gram Stain - CAN Cancelled: SPECIMEN NOT RECEIVED IN LABORATORY Assessment/Plan Assessment: Patient is a 46-year-old male with a PMH significant for asthma, COPD, opiate abuse on methadone, PTSD, anxiety, GERD who presents complaining of worsening dyspnea on exertion. Patient admitted for COPD exacerbation. Assessment and plan 1. COPD exacerbation 2. Opioid use disorder-on methadone 3. Newly diagnosed type 2 diabetes * Patient was on IV Solu-Medrol every 8, patient clinically improved hence we'll change Solu-Medrol to every 12 hours. We'll continue the current management and involve pulmonary Dr. Cuevas on board. * Patient is on 5 L oxygen. We tried to wean him off oxygen but his saturation decreased to 84 on ambulation. Decided to continue 5 L of oxygen for now. At home he is on 3 L nocturnal oxygen. * Of note patient was recently treated for COPD with azithromycin and tapering dose of prednisone in July 2017 at [facility].We will follow him off antibiotics. * TRC nebulization. * Newly diagnosed type 2 diabetes-patient HbA1c 9. His previous HbA1c in January was 8. Patient will be started on metformin 500 twice a day. * Patient is on 60 mg of methadone, continue the same [patient goes to-[facility]] * Follow up with CBC and BP * Diet-regular diet * Code- full code 1 PM-update. Patient requested to be discharged due to personal reasons.Patient understands the risk of incomplete treatment for COPD exacerbation, that his respiratory status might get worsen and might need a readmission. After discussing with Dr. Cuevas at [facility] patient was decided to go home on 5 L of oxygen and tapering dose of prednisone. Prednisone tapering dose instruction in CMR. Problem List: 1. COPD exacerbation 2. Diabetes Pain Ratin Pain Location: None Pain Goal: Remain pain free Pain Plan: Tylenol Tomorrow's Labs & Rationales: None
[2017-08-31 08:10] LABS: ABSOLUTE BASOPHIL COUNT 0 /CUMM (0.0-0.2); ABSOLUTE EOSINOPHIL COUNT 0 /CUMM (0.0-0.7); EOSINOPHIL % 0 % (0-5)
--- NOTE | 2017-08-31 08:16 | PN- Student ---
Subjective Subjective: Patient says he is feeling better. He states that he is coughing less and is able to breathe better. His only complain was that he wasn't able to sleep well, he kept waking up during the night. He hasn't had headaches, profuse sweating, tachycardia, or confusion. He did mention that he still gets tremors and that sometimes he feels his head spinning. He states that he has polyphagia, polyuria and polydipsia. Objective Objective: Vital signs (6:30): - Temp: 98.5 F - HR: 89 bpm - RR: 23 bpm - BP: 108/60 mmHg - O2: 95% General appearance: Patient looks more alert than yesterday. He is more talkative and smiles a lot. Respiratory: Wheeze is less prominent (specially in his left lung). Lungs sound clearer. His coughing has subsided. Results Results: Laboratory Tests 08/31/17 0710: Sodium Pending, Potassium Pending, Chloride Pending, Carbon Dioxide Pending, Anion Gap Pending, BUN Pending, Creatinine Pending, BUN/Creatinine Ratio Pending , CBC w Diff Pending, WBC Pending, RBC Pending, Hgb Pending, Hct Pending, MCV Pending, MCH Pending, MCHC Pending, RDW Pending, Plt Count Pending, MPV Pending 08/30/17 0740: Anion Gap 10, Estimated GFR > 60, BUN/Creatinine Ratio 14.3, CBC w Diff NO MAN DIFF REQ, RBC 4.81, MCV 93.6, MCH 30.8, MCHC 32.9 L, RDW 13.4, MPV 8.8, Gran % 91.3 H, Lymphocytes % 7.3 L, Monocytes % 1.4 L, Eosinophils % 0, Basophils % 0, Absolute Granulocytes 6.6 H, Absolute Lymphocytes 0.5 L, Absolute Monocytes 0.1, Absolute Eosinophils 0, Absolute Basophils 0 08/29/17 2252: Urine Opiates Screen > 4000.00 H, Methadone Screen > 735 H, Barbiturate Screen < 60, Ur Phencyclidine Scrn < 6.00, Amphetamines Screen < 100, U Benzodiazepines Scrn > 800 H, Urine Cocaine Screen < 50, Urine Cannabis Screen 44.30 08/29/17 2105: pH 7.35, pCO2 45, pO2 57 L, HCO3 24, ABG O2 Sat (Measured) 86.0 L, Carboxyhemoglobin 2.2, O2 Concentration % 3L, O2 Delivery Method NC, Phlebotomy Draw Site RIGHT RADIAL 08/29/17 1830: Anion Gap 15, Estimated GFR > 60, BUN/Creatinine Ratio 7.5, Glucose 121 H, Calcium 9.6, Total Bilirubin 0.5, AST 33, ALT 53, Alkaline Phosphatase 95, Troponin I < 0.01, Total Protein 7.5, Albumin 4.3, Globulin 3.2, Albumin/ Globulin Ratio 1.3, CBC w Diff NO MAN DIFF REQ, RBC 4.91, MCV 93.6, MCH 30.3, MCHC 32.4 L, RDW 13.8, MPV 8.4, Gran % 47.2, Lymphocytes % 31.1, Monocytes % 12.1 H, Eosinophils % 9.4 H, Basophils % 0.2, Absolute Granulocytes 3.8, Absolute Lymphocytes 2.5, Absolute Monocytes 1.0 H, Absolute Eosinophils 0.8, Absolute Basophils 0 Microbiology 08/30 1505 LOWER RESP: Respiratory Culture - COLB 08/30 1505 LOWER RESP: Gram Stain - COLB Fingerstick reading (7:51): 190 Assessment/Plan Assessment: Chasidy Wilson is a 46y/o male that presents with dyspnea and cough productive of brown sputum. He has a past medical history of asthma, COPD, multiple substance abuse (opioids -on methadone, marijuana, benzodiazepines), PTSD, anxiety, agoraphobia & GERD. Problem list: 1. COPD exacerbation 2. Opioid abuse 3. Chronic smoker 4. Increased blood sugar levels 5. Psychological problems Plan: 1. Taper down the IV steroids. Plan on switching to oral steroids. Keep treatment with nebulizers. Take appropriate steps in order to expand his lungs ( walks, spirometer). Taper down O2 as low as he can handle. 2. Continue administering methadone 60mg. 3. [place] the patient about the benefits of smoking cessation. 4. Perform HbA1c test in order to assess his blood sugar levels and screen for possible diabetes. 5. Continue his psychiatric medications.
[2017-08-31 08:41] LABS: ABSOLUTE GRANULOCYTE CT 14.8 /CUMM (1.4-6.5); ABSOLUTE LYMPH COUNT 0.8 /CUMM (1.2-3.4); BASOPHIL % 0.1 % (0.0-2.0); GRANULOCYTE % 89.5 % (42.2-75.2); HEMATOCRIT 43.8 % (42-52); MEAN CORPUSCULAR HGB 30.8 PG (27.0-31.0); MEAN CORPUSCULAR HGB CONC 32.5 G/DL (33.0-37.0); MEAN CORPUSCULAR VOLUME 94.5 FL (80.0-94.0); PLATELET COUNT 322 /CUMM (130-400); RBC DISTRIBUTION WIDTH 13.8 % (11.5-14.5); RED BLOOD CELL CT 4.64 /CUMM (4.70-6.10)
[2017-08-31 09:16] LABS: WHITE BLOOD CELL COUNT 16.6 /CUMM (4.8-10.8)
--- NOTE | 2017-08-31 11:47 | PN- Att Addend ---
Attending Addendum Attending Brief Note Patient seen and examined, still requiring 5 lits of O2 but feels better than before. Less Sob and less wheezy. Vital Signs Date Time Temp Pulse Resp B/P B/P Pulse O2 O2 Flow FiO2 Mean Ox Delivery Rate 08/31 0811 94 Nasal 5.0L Cannula 08/31 0800 Nasal 5.0L Cannula 08/31 0630 98.5 89 23 108/60 95 08/31 0000 94 Nasal 5.0L Cannula 08/30 2144 98.6 90 20 100/60 94 08/30 1649 95 Nasal 5.0L Cannula 08/30 1600 93 Nasal 5.0L Cannula 08/30 1422 97.8 92 22 110/80 90 08/30 1156 96 Nasal 5.0L Cannula on exam; aox3, nad. cv; s1,s2, rrr resp; Decreased bs overall. abd; soft, nt, bs+ ext; no edema Laboratory Tests 08/31 08/31 0710 0600 Chemistry Sodium (137 - 145 mmol/L) 139 Potassium (3.5 - 5.1 mmol/L) 4.7 Chloride (98 - 107 mmol/L) 98 Carbon Dioxide (22 - 30 mmol/L) 32 H Anion Gap (5 - 16) 9 BUN (9 - 20 mg/dL) 16 Creatinine (0.7 - 1.2 mg/dL) 0.8 Estimated GFR (>60 ml/min) > 60 BUN/Creatinine Ratio (7 - 25 %) 20.0 Hemoglobin A1c (4.2 - 5.8 %) 9.0 H Hematology CBC w Diff NO MAN DIFF REQ WBC (4.8 - 10.8 /CUMM) 16.6 H RBC (4.70 - 6.10 /CUMM) 4.64 L Hgb (14.0 - 18.0 G/DL) 14.3 Hct (42 - 52 %) 43.8 MCV (80.0 - 94.0 FL) 94.5 H MCH (27.0 - 31.0 PG) 30.8 MCHC (33.0 - 37.0 G/DL) 32.5 L RDW (11.5 - 14.5 %) 13.8 Plt Count (130 - 400 /CUMM) 322 MPV (7.4 - 10.4 FL) 9.0 Gran % (42.2 - 75.2 %) 89.5 H Lymphocytes % (20.5 - 51.1 %) 4.5 L Monocytes % (1.7 - 9.3 %) 5.9 Eosinophils % (0 - 5 %) 0 Basophils % (0.0 - 2.0 %) 0.1 Absolute Granulocytes (1.4 - 6.5 /CUMM) 14.8 H Absolute Lymphocytes (1.2 - 3.4 /CUMM) 0.8 L Absolute Monocytes (0.10 - 0.60 /CUMM) 1.0 H Absolute Eosinophils (0.0 - 0.7 /CUMM) 0 Absolute Basophils (0.0 - 0.2 /CUMM) 0 A/P; 46 y/o M with pmh sig for asthma, COPD, opiate abuse on methadone, PTSD, anxiety, GERD admitted with acute hypoxic resp failure, acute COPD/asthma exacerbation. Hemoglobin A1c is high at 9. Patient has Diabertes. Will start Metformin 500 BID. Agree with decreasing the dose of Solumedrol to BID. Pt encouraged to ambulate, use IS. Will try to taper O2 as he can tolerate. Continue TRC nebs. Continue ISS for steroid induced hyperglycemia. Continue other current meds. Pt on Methadone. DVT px; Lovenox.
--- NOTE | 2017-08-31 11:50 | Patient Discharge Instructions ---
Discharge Instructions General Discharge Information You were seen/treated for: COPD exacerbation Newly diagnosed type 2 diabetes Watch for these problems: In case of shortness of breath, more chest pain, cough fever please go to the nearest emergency room Special Instructions: Please follow-up with your primary care provider and wastewater project manager within 1-2 weeks. Please follow-up with your home management supervisor Dr. collins for diabetes follow-up Diet Continue normal diet: No Recommended Diet: Diabetic Activity Full Activity/No Limits: No Activity Self Limited: Yes Acute Coronary Syndrome Inclusion Criteria At DC or during hospital stay patient has or had the following: ACS DIAGNOSIS No Discharge Core Measures Meds if any: Prescribed or Continued at Discharge Meds if any: NOT Prescribed or Continued at Discharge Congestive Heart Failure Inclusion Criteria At DC or during hospital stay patient has or had the following: CHF DIAGNOSIS No Discharge Core Measures Meds if any: Prescribed or Continued at Discharge Meds if any: NOT Prescribed or Continued at Discharge Cerebrovascular accident Inclusion Criteria At DC or during hospital stay patient has or had the following: CVA/TIA Diagnosis No Discharge Core Measures Meds if any: Prescribed or Continued at Discharge Meds if any: NOT Prescribed or Continued at Discharge Venous thromboembolism Inclusion Criteria VTE Diagnosis No VTE Type NONE VTE Confirmed by (Test) NONE Discharge Core Measures - Per Current guidelines, there needs to be overlap - treatment for the first 5 days of Warfarin therapy. - If discharged on Warfarin prior to 5 days of - overlap therapy, the patient will need to be - assessed for post discharge needs including - *Post discharge parental anticoagulation - *Warfarin and/or parental anticoagulation education - *Follow up date to check INR post discharge At least 5 days overlap therapy as Inpatient No Meds if any: Prescribed or Continued at Discharge Note: Overlap Therapy is Warfarin and Anticoagulant Meds if any: NOT Prescribed or Continued at Discharge
--- NOTE | 2017-08-31 12:37 | PN- Pulmonary ---
Subjective HPI/Critical Care Issues: pt seen and examined solumedrol reduced feeling somewhat better Objective Current Medications: Current Medications Sig/Nettie Start time Last Medication Dose Route Stop Time Status Admin Albuterol Sulfate 3 ML EVERY 4 HRS/AWAKE 08/30 0800 AC 04 INH 1155 Alprazolam 0.5 MG BID PRN 08/29 2345 AC 04 PO 04/09 2344 0900 Aripiprazole 5 MG DAILY 08/30 1000 AC 08/31 PO 0825 Aspirin Buffered 81 MG DAILY 08/30 1000 AC 08/31 PO 0825 Docusate Sodium 100 MG BID PRN 08/29 2215 AC PO Enoxaparin Sodium 40 MG DAILY 08/30 1000 AC 08/31 SC 0825 Guaifenesin 600 MG Q12 08/30 1000 AC 08/31 PO 0825 Insulin Aspart 0 TIDAC 08/30 1215 AC 08/31 SC 0825 Ipratropium [place] 2.5 ML EVERY 4 HRS/AWAKE 08/30 0800 AC 08/31 INH 1155 Methadone HCl 60 MG DAILY 08/31 1000 AC 08/31 PO 0826 Methylprednisolone 40 MG Q12 08/31 1000 AC 08/31 IV 0830 Methylprednisolone 40 MG Q8 08/30 1400 DC 08/31 IV 0543 Nicotine 21 MG DAILY 08/30 1000 AC 08/31 TOP 0825 Omeprazole 20 MG ONCE ONE 08/30 1800 DC 08/30 PO 08/30 1801 1856 Patient Medication 1 ED ONE ONE 08/31 1100 DC Teaching ED 08/31 1101 Vital Signs & I&O Last 24 Hrs of Vitals and I&O: Vital Signs Date Time Temp Pulse Resp B/P B/P Pulse O2 O2 Flow FiO2 Mean Ox Delivery Rate 08/31 1153 86 Nasal Cannula 08/31 0811 94 Nasal 5.0L Cannula 08/31 0800 Nasal 5.0L Cannula 08/31 0630 98.5 89 23 108/60 95 08/31 0000 94 Nasal 5.0L Cannula 08/30 2144 98.6 90 20 100/60 94 08/30 1649 95 Nasal 5.0L Cannula 08/30 1600 93 Nasal 5.0L Cannula 08/30 1422 97.8 92 22 110/80 90 Intake & Output 08/31 1600 04 0800 08/31 0000 Intake Total 290 310 Output Total Balance 290 310 Intake, IV 10 10 Intake, Oral 280 300 Number 0 0 Bowel Movements Exam Other Physical Findings: gen awake and alert heent ncat cvs s1, s2 lungs rare bibasilar rhonchi abd soft, bs+ ext no edema Results Last 24 Hrs of Lab Results: Laboratory Tests 08/31/17 0710: Anion Gap 9, Estimated GFR > 60, BUN/Creatinine Ratio 20.0, CBC w Diff NO MAN DIFF REQ, RBC 4.64 L, MCV 94.5 H, MCH 30.8, MCHC 32.5 L, RDW 13.8, MPV 9.0, Gran % 89.5 H, Lymphocytes % 4.5 L, Monocytes % 5.9, Eosinophils % 0, Basophils % 0.1, Absolute Granulocytes 14.8 H, Absolute Lymphocytes 0.8 L, Absolute Monocytes 1.0 H, Absolute Eosinophils 0, Absolute Basophils 0 08/31/17 0600: Hemoglobin A1c 9.0 H Impression/Plan Impression/Plan Impression/Plan: Impression 46 year old man * asthma/COPD overlap exacerbation secondary to running out of prednisone * GERD * tobacco dependence Plan -trc/nebs -dc solumedrol -begin prednisone 60mg x 3 days, 50x3, 40x3, 30x3, then stay on 20 until seen in office\ -o2 supplementation -symbicort with rinsing of the mouth -singulair -smoking cessation counseling DVT prophylaxis at all times
[2017-08-31] MEDS ORDERED: PREDNISONE10 M2 PO ×3 (13:11→13:39)
[2017-08-31] MEDS ORDERED: METFORMIN HCL500 M3 PO ×2 (13:17→13:39)
[2017-08-31 13:22] VITALS: BP 110/76
--- NOTE | 2017-08-31 13:25 | Discharge Summary ---
Visit Information Visit Dates Admission Date: 08/29/17 Discharge Date: 08/31/17 Hospital Course Course Attending Physician: Darian BANKS,Brielle Primary Care Physician: Laura BNAKS,[facility] Course: Patient is a 46-year-old male with a PMH significant for asthma, COPD, opiate abuse on methadone, PTSD, anxiety, GERD who presents complaining of worsening dyspnea on exertion. Patient was seen in the [facility] ED on 08/21/17 and discharged home with a prednisone taper and azithromycin. He reports some improvement but over the last several days he has had worsening dyspnea on exertion and his chronic dry cough has become productive with brown sputum. At baseline he uses 3 L O2 nasal cannula nocturnally, he has been using it when necessary during the day time, and increased albuterol usage. He is a current every day smoker with over [id number] history. He follows with Dr. Cuevas. He denies any chest pain, lightheadedness, dizziness, leg swelling, orthopnea, nausea, vomiting, fever, chills, sick contacts. Rest of review of systems as below. Hospital course Patient treated for COPD exacerbation with IV Solu-Medrol and TRC nebulization. Patient oxygen requirement increased from 3-5 liters upon admission. Patient sounded wheezy on the day of discharge. His Solu-Medrol every 8 was reduced to every 12. We try to taper his oxygen to his baseline 3 L but patient desaturated to 84% upon ambulation. Patient requested discharge due to personal recent and this was discussed with the attending Brielle Farmer MD and her Bronze Plater Dr. Cuevas. Both agree to send him home on 5 L of oxygen, tapering dose of prednisone and follow up with Dr. Cuevas within 2 weeks. Patient got an appointment with Dr. Cuevas on 09/07/2017. The same time patient was diagnosed with type 2 diabetes. He was started on metformin 500 twice a day and sent home with the same with follow-up with Dr. collins as outpatient. Patient educated about diabetic diet and use of glucometer.Patient is aware that he is partially responding to steroids for COPD and his condition might worsen and might need readmission in future. But he still wanted to leave.Pulmonolgist Dr. Cuevas had told us that he knows th epatient well and that the patient is not far from his baseline overall. Allergies: Coded Allergies: oak (ALLERGY TESTED POSITIVE 08/22/16) Uncoded Allergies: SPRUCE (ALLERGY TESTED POSITIVE 03/15/16) Pertinent Lab Results: chest xray Unremarkable chest exam. Disposition Summary Disposition Principal Diagnosis: COPD exacerbation Additional Diagnosis: Newly diagnosed type 2 diabetes Discharge Disposition: home or self care Discharge Instructions General Discharge Information Code Status: Full Code Patient's Diet: Diabetic diet Patient's Activity: As tolerated Follow-Up Instructions/Appts: Please follow-up with your primary care provider and layer up within 1-2 weeks of discharge. Medications at Discharge Discharge Medications: Stop taking the following medications: Prednisone (Prednisone) 10 MG TABLET ORAL SEE INSTRUCTIONS Qty = 200 Prednisone (Prednisone) 50 MG TABLET ORAL DAILY Qty = 5 Azithromycin (Azithromycin) 250 MG TABLET ORAL As Directed Qty = 6 Continue taking these medications: Albuterol Sulfate (Albuterol Sulfate) 2.5 MG/3 ML (0.083 %) VIAL.NEB 1 Vial Inhale Solution EVERY 4 HOURS NEEDED as needed for COPD Comments: Last Taken: 08/31/17 Time: 12:00 pm Budesonide/Formoterol Fumarate (Symbicort 160-4.5 Mcg Inhaler) 160 MCG-4.5 MCG/ ACTUATION HFA.AER.AD 1 Puff Inhale through mouth TWICE DAILY Comments: Last Taken: 08/31/17 Time: 9:00 am Albuterol Sulfate (Proair Hfa) 90 MCG HFA.AER.AD 2 Puff Inhale through mouth as needed for COPD Comments: Last Taken: 08/31/17 Time: 12:00 pm Pantoprazole Sodium (Protonix) 40 MG TABLET.DR 1 Tablet ORAL DAILY Comments: NOT GIVEN WHILE IN HOSPITAL Ipratropium/Albuterol Sulfate (Iprat-Albut 0.5-3(2.5) MG/3 Ml) 0.5 MG-3 MG (2.5 MG BASE)/3 ML AMPUL.NEB 1 VIAL Inhale through mouth Every 4 hours as needed for sob Qty = 25 Comments: Last Taken: 08/31/17 Time: 12:00 pm Aripiprazole (Aripiprazole) 5 MG TABLET 1 Tablet ORAL DAILY Qty = 30 Comments: Last Taken: 06/01/17 Time: 9:17 AM Methadone HCl (Methadone HCl) 10 MG/5 ML SOLUTION 60 Milligram ORAL DAILY Comments: Last Taken: 08/31/17 Time: 8:30 am Aspirin (Ecotrin*) 81 MG TABLET.DR 1 Tablet ORAL DAILY Comments: Last Taken: 08/31/17 Time: 8:00am Alprazolam (Alprazolam) 0.5 MG TABLET 1 Tablet ORAL 2 x Daily as needed as needed for anxiety Qty = 30 Comments: Last Taken: 08/31/17 Time: 9:00 am Tamsulosin HCl (Tamsulosin HCl) 0.4 MG CAP.ER.24H 1 Capsule ORAL DAILY Qty = 30 Comments: NOT GIVEN WHILE IN HOSPITAL Montelukast Sodium (Montelukast Sodium) 10 MG TABLET 10 Milligram ORAL AT BEDTIME Qty = 30 Comments: NOT GIVEN WHILE IN HOSPITAL Docusate Sodium (Docusate Sodium) 100 MG CAPSULE 100 Milligram ORAL TWICE DAILY as needed for constipation Qty = 60 Comments: NOT GIVEN WHILE IN HOSPITAL Start taking the following new medications: Metformin HCl (Metformin HCl) 500 MG TABLET 1 Tablet ORAL TWICE DAILY Qty = 60 No Refills Instructions: . Comments: INSULIN GIVEN IN HOSPITAL Prednisone (Prednisone) 10 MG TABLET 1 Tablet ORAL DAILY Qty = 82 No Refills Instructions: take 6 tablet 09/01-09/03 take 5 tablet 09/04-09/06 Take 4 tablet09/07-09/09 take 3 tablet 09/10-09/12 Take 2 tablet daily until you see M.D. . Comments: IV SOLUMEDROL GIVEN IN HOSPITAL Copies To: Laura BANKS,Reilly Bose MD
== END 2017-08-31 14:19 | DRG 140 ==
LOC: ERH 18:05 → 2NA 21:14 → ERHI 21:14 → ENRESERV 21:43 → ENTRNSPT 21:54 → EDTRNSPT 22:08 → EDTRNSPTSTS 22:08 → 2NA 22:16 → CMPTRNSPT 22:32 → 2NA 08-30 07:35 → ENPENDDIS 08-31 13:57 → ENTRNSPT 08-31 14:09 → EDTRNSPTSTS 08-31 14:14 → EDTRNSPT 08-31 14:14 → 2NA 08-31 14:19 → CMPTRNSPT 08-31 14:22
PROVIDERS: Internal Medicine; Physician Assistant Medical; Student in an Organized Health Care Education/Training Program
DX: J44.1 Chronic obstructive pulmonary disease with (acute) exacerbation (principal); J45.901 Unspecified asthma with (acute) exacerbation; J96.21 Acute and chronic respiratory failure with hypoxia; F11.10 Opioid abuse, uncomplicated; F43.10 Post-traumatic stress disorder, unspecified; F41.9 Anxiety disorder, unspecified; K21.9 Gastro-esophageal reflux disease without esophagitis; Z99.81 Dependence on supplemental oxygen; F17.210 Nicotine dependence, cigarettes, uncomplicated; Z79.82 Long term (current) use of aspirin; Z79.51 Long term (current) use of inhaled steroids; Z79.52 Long term (current) use of systemic steroids; F32.9 Major depressive disorder, single episode, unspecified; E11.65 Type 2 diabetes mellitus with hyperglycemia; F19.10 Other psychoactive substance abuse, uncomplicated
CPT/HCPCS: 2NAP; 36592; 71045; 80307; 82436; 87070; 93005; 93010; 96374; J1650; J2920; J2930

== ENCOUNTER 2017-09-29 16:50 | Observation (INO) | payer OTHER ==
[~2017-09-29] VITALS: Ht 180.3 cm; Wt 105.7 kg
[~2017-09-29 16:50] MED LIST changes: -ALPRAZOLAM0.5 M4 PO; +ALPRAZOLAM1 M2 PO
--- NOTE | 2017-09-29 16:58 | ED GENERAL ADULT ---
See Addendum History of Present Illness General Chief Complaint: Dyspnea (COPD, CHF, Other) Stated Complaint: SOB Source: patient Exam Limitations: poor historian Vital Signs & Intake/Output Vital Signs & Intake/Output Vital Signs Date Time Temp Pulse Resp B/P B/P Pulse O2 O2 Flow FiO2 Mean Ox Delivery Rate 09/30 2135 107 20 109/76 90 Nasal 3.0L Cannula 09/30 2023 86 Nasal 3.0L Cannula 09/29 2016 86 Nasal 3.0L Cannula 09/30 1919 123 20 142/81 92 Nasal 2.0L Cannula 09/29 1751 90 Nasal 2.0L Cannula 09/29 1701 22 90 Nasal 2.0L Cannula 09/29 1653 99.3 122 22 156/84 85 Room Air Allergies Coded Allergies: oak (ALLERGY TESTED POSITIVE 08/22/16) Uncoded Allergies: SPRUCE (ALLERGY TESTED POSITIVE 03/15/16) Triage Note: PT SENT TO ED FROM COPD CLINIC. RECENTLY MISSED 3 APPTS. +WHEEZING, 88% ROOM AIR. INCREASING SOB OVER PAST 3 DAYS Triage Nurses Notes Reviewed? yes Onset: Abrupt Duration: day(s): Timing: recent history HPI: 09/29/17 7 PM 47-year-old male presented to the emergency department with difficulty breathing. The patient states he has a history of COPD. He says he still smokes and he is on home oxygen. He says he is currently on 3 L nasal cannula. He denies chest pain or fever. He has missed his COPD clinic appointment. He denies active drug use but says he has used opiates in the past. (Beck Burns DO) Reconcile Medications Albuterol Sulfate 2.5 MG/3 ML (0.083 %) VIAL.NEB 1 Vial INH/KAREN Q4P PRN COPD (Reported) Albuterol Sulfate (Proair Hfa) 90 MCG HFA.AER.AD 2 PUF INH PRN COPD (Reported ) Alprazolam 0.5 MG TABLET 1 TAB PO BIDP PRN anxiety (Reported) Aripiprazole 5 MG TABLET 1 TAB PO DAILY MENTAL HEALTH (Reported) Aspirin (Ecotrin*) 81 MG TABLET.DR 1 TAB PO DAILY HEART/BLOOD (Reported) Budesonide/Formoterol Fumarate (Symbicort 160-4.5 Mcg Inhaler) 160 MCG-4.5 MCG/ ACTUATION HFA.AER.AD 1 PUF INH BID COPD (Reported) Docusate Sodium 100 MG CAPSULE 100 MG PO BID PRN constipation Ipratropium/Albuterol Sulfate (Iprat-Albut 0.5-3(2.5) MG/3 Ml) 0.5 MG-3 MG (2.5 MG BASE)/3 ML AMPUL.NEB 1 VIAL INH Q4 PRN sob Metformin HCl 500 MG TABLET 1 TAB PO BID diabetes . Methadone HCl 10 MG/5 ML SOLUTION 60 MG PO DAILY MENTAL HEALTH (Reported) Montelukast Sodium 10 MG TABLET 10 MG PO AT BEDTIME COPD Pantoprazole Sodium (Protonix) 40 MG TABLET.DR 1 TAB PO DAILY GI (Reported) Prednisone 10 MG TABLET 1 TAB PO DAILY copd exacerbation take 6 tablet 09/01-09/03 take 5 tablet 09/04-09/06 Take 4 tablet09/07-09/09 take 3 tablet 09/10-09/12 Take 2 tablet daily until you see M.Justin. . ([place] BANKS,Joao) Past History Travel History Traveled to [place] past 21 day No Medical History Any Pertinent Medical History? see below for history Neurological: NONE EENT: NONE Cardiovascular: NONE Respiratory: asthma, COPD Gastrointestinal: GERD Hepatic: NONE Renal: NONE Musculoskeletal: NONE Psychiatric: anxiety, depression, PTSD Endocrine: NONE Blood Disorders: NONE Cancer(s): NONE ECONOMIC ANALYST/Reproductive: NONE Other Medical Hx: opiate use disorder on methadone History of MRSA: No History of VRE: No History of CDIFF: No Influenza Vaccine: 01/28/17 Surgical History Surgical History: L THUMB SURGERY Psychosocial History Who do you live with Family Services at Home None What is your primary language Persian Tobacco Use: Current Daily Use Daily Tobacco Use Amount/Type: =< 4 Cigarettes daily Family History Family History, If Any: Relation not specified for: *No pertinent family history Hx Contributory? No (Beck Burns DO) Review of Systems Review of Systems Constitutional: Denies: fever. EENTM: Reports: no symptoms. Respiratory: Reports: cough, short of breath. Cardiovascular: Denies: chest pain. GI: Denies: abdominal pain. Genitourinary: Reports: no symptoms. Musculoskeletal: Reports: no symptoms. Skin: Reports: no symptoms. Hematologic/Endocrine: Reports: no symptoms. Immunologic/Allergic: Reports: no symptoms (Sil). (Beck Burns DO) Physical Exam Physical Exam General Appearance: well developed/nourished (COPD for a), awake, anxious, moderate distress Head: atraumatic Eyes: Bilateral: normal appearance, PERRL, EOMI. Ears, Nose, Throat: normal pharynx, normal ENT inspection Neck: normal inspection, supple Respiratory: chest non-tender, rhonchi, wheezing Cardiovascular: tachycardia Peripheral Pulses: 4+ radial (R), 4+ radial (L) Gastrointestinal: soft, non-tender Back: decreased range of motion Extremities: no edema Neurologic/Psych: no motor/sensory deficits, awake, alert, oriented x 3 Skin: intact, pallor Core Measures ACS in differential dx? No CVA/TIA Diagnosis: No Sepsis Present: No Sepsis Focused Exam Completed? No (Beck Burns DO) Progress Differential Diagnoses I considered the following diagnoses in my evaluation of the patient for COPD, asthma, pneumonia, pneumothorax, pulmonary embolism Plan of Care: Orders Procedure Date/time Status Regular Diet 09/30 B Active Pathway - chart 09/29 2249 Active House Staff 09/29 2249 Active Patient Data 09/29 225 Active Code Status 09/29 225 Active ARTERIAL BLOOD GAS (GEN) 09/29 224 Active Patient Data 09/29 211 Active OXYGEN SETUP (GEN) 09/29 2101 Active Saline Lock 09/[address] in observation 09/29 210 Active Vital Signs 09/29 2101 Active Activity/Ambulation 09/29 2101 Active Code Status 09/29 2101 Complete Add-on Test (ER Only) 09/29 1941 Active Intake & Output 09/29 1750 Active D-DIMER 09/29 171 Complete COMPREHENSIVE METABOLIC PANEL 09/29 171 Complete CBC WITHOUT DIFFERENTIAL 09/29 171 Complete EKG 09/29 1651 Active VTE Mechanical Prophylaxis 09/29 UNK Active Current Medications Sig/Nettie Start time Last Medication Dose Stop Time Status Admin Enoxaparin Sodium 40 MG DAILY 09/30 0900 UNVr (Lovenox) Acetaminophen 325 MG Q6 09/29 2359 UNVr (Tylenol) Albuterol Sulfate 2 PUF DAILY NEEDED PRN 09/29 2244 UNVr (Ventolin) Albuterol Sulfate 3 ML Q4P PRN 09/29 2244 UNVr (Proventil) Azithromycin 500 MG DAILY 09/29 2244 UNVr (Zithromax) Sodium Chloride 250 ML (Normal Saline 0.9%) Ceftriaxone Sodium 0 .STK-MED ONE 09/29 2238 CAN (Rocephin) Magnesium Sulfate 1 GM Q2H 09/29 2030 AC 09/29 (Mag Sulfate in D5) 09/30 0029 2120 Dextrose/Water 100 ML (D5W) Laboratory Tests 09/29/17 1716: Anion Gap 12, Estimated GFR > 60, BUN/Creatinine Ratio 8.0, Glucose 159 H, Calcium 9.2, Total Bilirubin 1.0, AST 19, ALT 26, Alkaline Phosphatase 91, Total Protein 6.6, Albumin 4.0, Globulin 2.6, Albumin/Globulin Ratio 1.5, D-Dimer High Sensitivty < 200, CBC w Diff NO MAN DIFF REQ, RBC 4.60 L, MCV 92.2, MCH 30.2, MCHC 32.8 L, RDW 13.8, MPV 8.4, Gran % 70.4, Lymphocytes % 15.1 L, Monocytes % 11.1 H, Eosinophils % 3.1, Basophils % 0.3, Absolute Granulocytes 7.6 H, Absolute Lymphocytes 1.6, Absolute Monocytes 1.2 H, Absolute Eosinophils 0.3, Absolute Basophils 0 Initial ED EKG: pending (Beck Burns DO) Departure Departure Disposition: STILL A PATIENT Condition: Stable Clinical Impression Primary Impression: COPD (chronic obstructive pulmonary disease) Secondary Impressions: Respiratory failure Referrals: Liang Sanchez MD (PCP/Family) Departure Forms: Customer Survey General Discharge Information Comments The patient was signed out to Dr. Mathew at 7 pm (Beck Burns DO) Observation Note Spoke With: Aniket BANKS,Jamarnadira Physician Advisor Notified: TONYA BANKS,KIMMY Seg[facility] Place Patient In: Non-ED OBS Care Area Rationale for Observation: My rational for observation is as follows supplemental oxygen serial beta agonist nebs IV steroids IV antibiotics pulmonary evaluation counseling for smoking cessation continuing care discharge planning. (Joao Mathew MD) Critical Care Note Critical Care Note Critical Care Time: 30-74 min (Beck Burns DO) Critical Care Note Critical Care Time: 30-74 min (35) (Joao Mathew MD)
[2017-09-29 17:38] LABS: ABSOLUTE BASOPHIL COUNT 0 /CUMM (0.0-0.2); ABSOLUTE EOSINOPHIL COUNT 0.3 /CUMM (0.0-0.7); ABSOLUTE GRANULOCYTE CT 7.6 /CUMM (1.4-6.5); ABSOLUTE LYMPH COUNT 1.6 /CUMM (1.2-3.4); ABSOLUTE MONOCYTE COUNT 1.2 /CUMM (0.10-0.60); BASOPHIL % 0.3 % (0.0-2.0); EOSINOPHIL % 3.1 % (0-5); GRANULOCYTE % 70.4 % (42.2-75.2); HEMATOCRIT 42.4 % (42-52); MEAN CORPUSCULAR HGB 30.2 PG (27.0-31.0); MEAN CORPUSCULAR HGB CONC 32.8 G/DL (33.0-37.0); MEAN CORPUSCULAR VOLUME 92.2 FL (80.0-94.0); MEAN PLATELET VOLUME 8.4 FL (7.4-10.4); PLATELET COUNT 293 /CUMM (130-400); RBC DISTRIBUTION WIDTH 13.8 % (11.5-14.5); WHITE BLOOD CELL COUNT 10.8 /CUMM (4.8-10.8)
--- NOTE | 2017-09-29 19:43 | RADIOLOGY REPORT ---
EXAMINATION: XR PORTABLE CHEST CLINICAL INFORMATION: Shortness of breath COMPARISON: 08/29/2017 TECHNIQUE: Portable frontal view of the chest was obtained. FINDINGS: Low lung volumes but no significant abnormality is noted involving the heart, lungs, mediastinum, bony thorax or soft tissues. IMPRESSION: No acute pulmonary disease.
--- NOTE | 2017-09-29 22:18 | History & Physical ---
Mei Rene 09/29/17 5343: General Information and HPI MD Statement: I have seen and personally examined ARIANNA HEREDIA and documented this H&P. The patient is a 47 year old M who presented with a patient stated chief complaint of [COPD]. Source of Information: patient Exam Limitations: no limitations History of Present Illness: Mr. Heredia is a 47yo M w/ PMH of COPD, GERD, history of opiate use disorder, anxiety/depression/PTSD, presented to ER cc of shortness of breath for 5 days. Patient was last admitted to [facility] within 08/2017 for COPD exacerbation, and was discharged home with 4L oxygen and a prednisone taper. Patient finished the taper however was still smoking 2-3 cigs per day. Patient started developing SOB especially during night time without relief from using of home meds including inhalers/nebs. He contacted Dr. Cuevas and was prescribed prednisone for his daily use of 10mg. However, he was taking 50mg of prednisone on 09/23 and did a 10mg/day taper by himself, despite significant relief of his symptoms. He then presented to ER for further evaluation. Patient had missed the last wellness clinic visit after last discharge from [facility]. During our clinical interaction, patient denied fever/night sweat/weight change/ cough/SOB/Chest Pain/Palpitation/exercise intolerance/Abdominal pain/bowel movement/urinary abnormality, or other skin/musculoskeletal/neurological disorders/mood change/insomnia/dietary/appetite change. Allergies/Medications Allergies: Coded Allergies: oak (ALLERGY TESTED POSITIVE 08/22/16) Uncoded Allergies: SPRUCE (ALLERGY TESTED POSITIVE 03/15/16) Home Med list Albuterol Sulfate 2.5 MG/3 ML (0.083 %) VIAL.NEB 1 Vial INH/KAREN Q4P PRN COPD (Reported) Albuterol Sulfate (Proair Hfa) 90 MCG HFA.AER.AD 2 PUF INH PRN COPD (Reported ) Alprazolam 0.5 MG TABLET 1 TAB PO BIDP PRN anxiety (Reported) Aripiprazole 5 MG TABLET 1 TAB PO DAILY MENTAL HEALTH (Reported) Aspirin (Ecotrin*) 81 MG TABLET.DR 1 TAB PO DAILY HEART/BLOOD (Reported) Budesonide/Formoterol Fumarate (Symbicort 160-4.5 Mcg Inhaler) 160 MCG-4.5 MCG/ ACTUATION HFA.AER.AD 1 PUF INH BID COPD (Reported) Docusate Sodium 100 MG CAPSULE 100 MG PO BID PRN constipation Ipratropium/Albuterol Sulfate (Iprat-Albut 0.5-3(2.5) MG/3 Ml) 0.5 MG-3 MG (2.5 MG BASE)/3 ML AMPUL.NEB 1 VIAL INH Q4 PRN sob Metformin HCl 500 MG TABLET 1 TAB PO BID diabetes . Methadone HCl 10 MG/5 ML SOLUTION 60 MG PO DAILY MENTAL HEALTH (Reported) Montelukast Sodium 10 MG TABLET 10 MG PO AT BEDTIME COPD Pantoprazole Sodium (Protonix) 40 MG TABLET.DR 1 TAB PO DAILY GI (Reported) Prednisone 10 MG TABLET 1 TAB PO DAILY copd exacerbation take 6 tablet 09/01-09/03 take 5 tablet 09/04-09/06 Take 4 tablet09/07-09/09 take 3 tablet 09/10-09/12 Take 2 tablet daily until you see M.D. . Past History Travel History Traveled to [place] past 21 day No Medical History Neurological: NONE EENT: NONE Cardiovascular: NONE Respiratory: asthma, COPD Gastrointestinal: GERD Hepatic: NONE Renal: NONE Musculoskeletal: NONE Psychiatric: anxiety, depression, PTSD Endocrine: NONE Blood Disorders: NONE Cancer(s): NONE CLIENT SUPPORT PROFESSIONAL/Reproductive: NONE Other Medical Hx: opiate use disorder on methadone History of MRSA: No History of VRE: No History of CDIFF: No Influenza Vaccine: 01/28/17 Surgical History Surgical History: L THUMB SURGERY Past Family/Social History Family History Relations & Conditions if any Relation not specified for: *No pertinent family history Psychosocial History Who Do You Live With? spouse, child Services at Home: None Primary Language: Urdu Smoking Status: Current Everyday Smoker Illicit Drug Use: denies illicit drug use, on methadone Functional Ability ADLs Independent: dressing, eating, toileting, bathing. Ambulation: independent IADLs Independent: shopping, housework, finances, food prep, telephone, transportation , medication admin. Review of Systems Review of Systems Constitutional: Reports: see HPI. Exam & Diagnostic Data Last 24 Hrs of Vital Signs/I&O Vital Signs Date Time Temp Pulse Resp B/P B/P Pulse O2 O2 Flow FiO2 Mean Ox Delivery Rate 09/29 2310 98.9 104 18 111/69 88 Nasal 4.0L Cannula 05/03 2136 107 20 109/76 90 Nasal 3.0L Cannula 09/30 2023 86 Nasal 3.0L Cannula 09/29 2016 86 Nasal 3.0L Cannula 09/29 1920 123 20 142/81 92 Nasal 2.0L Cannula 09/29 1751 90 Nasal 2.0L Cannula 09/29 1701 22 90 Nasal 2.0L Cannula 09/29 1653 99.3 122 22 156/84 85 Room Air Physical Exam General Appearance Alert, Oriented X3, Cooperative, Mild Distress Skin No Rashes, No Breakdown, No Significant Lesion Skin Temp/Moisture Exam: Warm/Dry Sepsis Skin Exam (color): Normal for Ethnicity HEENT Atraumatic Cardiovascular Regular Rate Lungs Normal Air Movement, bilateral wheezing Abdomen Soft, No Tenderness, No Hepatospenomegaly Neurological Normal Speech, Strength at 5/5 X4 Ext Extremities Normal Pulses, No Tenderness/Swelling, trace edema BLE Last 24 Hrs of Labs/Ashish: Laboratory Tests 09/29/171715: Anion Gap 12, Estimated GFR > 60, BUN/Creatinine Ratio 8.0, Glucose 159 H, Calcium 9.2, Total Bilirubin 1.0, AST 19, ALT 26, Alkaline Phosphatase 91, Total Protein 6.6, Albumin 4.0, Globulin 2.6, Albumin/Globulin Ratio 1.5, D-Dimer High Sensitivty < 200, CBC w Diff NO MAN DIFF REQ, RBC 4.60 L, MCV 92.2, MCH 30.2, MCHC 32.8 L, RDW 13.8, MPV 8.4, Gran % 70.4, Lymphocytes % 15.1 L, Monocytes % 11.1 H, Eosinophils % 3.1, Basophils % 0.3, Absolute Granulocytes 7.6 H, Absolute Lymphocytes 1.6, Absolute Monocytes 1.2 H, Absolute Eosinophils 0.3, Absolute Basophils 0 Microbiology 09/29 2336 LOWER RESP: Respiratory Culture - ORD 09/29 2336 LOWER RESP: Gram Stain - ORD 09/29 2336 BLOOD: Blood Culture - ORD 09/29 2336 BLOOD: Blood Culture - ORD Assessment/Plan Assessment: Problem list & Assessment: Patient presented with similar complaint from last admission, likely another episode of COPD exacerbation taking into account of his persistent smoking after last discharge, and negative findings of underlying infections in CXR/lab for now. Hypokalemia of unknown etiology, asymptomatic with negative EKG findings. #COPD exacerbation #Hypokalemia #Active Smoker #PMH of COPD, GERD, history of opiate use disorder, anxiety/depression/PTSD Hospital Course: - Place in observation on [facility] - Supplemental O2 to keep O2 sat >92% - TRC/Neb as needed - Will start IV solumedrol 40mg q8. - IV Azithromycin - Replete K orally - Pancultures - Continue home meds, including Metahdone 60mg qd (please confirm dose in AM) - Novolog SS DVT prophylaxis Lovenox + ALPS Diabetic Diet Full Code As Ranked By This Provider Problem List: 1. Asthma exacerbation 2. Acute and chronic respiratory failure with hypoxia Core Measures/Misc (02/13) Acute Coronary Syndrome ACS Diagnosis: No Congestive Heart Failure Congestive Heart Failure Diagnosis No Cerebrovascular Accident CVA/TIA Diagnosis: No VTE (View Protocol) VTE Risk Factors Age>40 No Mechanical VTE Prophylaxis d/t N/A MechProphylax Ordered No VTE Pharm Prophylaxis d/t NA PharmProphylax ordered Sepsis (View protocol) Sepsis Present: No Maryann Ferreira 09/29/17 2329: Resident Review Statement Resident Statement: examined this patient, discussed with geotechnical intern Other Findings: Patient is a 47-year-old male with past medical history of asthma, COPD( currently on 4 L home oxygen), current smoker, opiate abuse on methadone, PTSD, anxiety, GERD, recently discharged from [facility](08/31/2017) after being treated for COPD exacerbation presents to the ED again complaining of worsening shortness of breath and fatigue. Patient was discharged from [facility] on 08/31/2017 after being treated for COPD exacerbation with IV steroids and azithromycin. He was discharged on a steroid taper and advised to be on 10 mg of prednisone thereafter. However patient reports that he finished the taper but did not continue prednisone as he did not have enough pills. He started feeling short of breath about for 5 days ago with some cough and productive yellowish sputum. He denies any fever, chills, nausea , vomiting, chest pain, palpitation, urinary or bowel symptoms. He admits to having visited the COPD clinic over the past few months for IV Solu-Medrol, however the as per the documented notes, patient has actually missed his last 3 appointments. Due to worsening shortness of breath he called Dr. Cuevas on 09/20 and was prescribed another prednisone taper which he has been taking for the last 4-5 days. However his symptoms did not improve and he was supposed to come to the ED. Patient continues to smoke currently and is on 4 L of home oxygen. Today he was sent in from the COPD clinic to the ED for increased wheezing and saturations of 88% on room air. Vitals on admission temperature 99.3, pulse 122, respiration 22, blood pressure 156/84, saturating 85% on room air.(With improvement to 90% on 2 L nasal cannula ) Labs significant for hypokalemia, and hyperglycemia. D-dimer was less than 200. Chest x-ray was negative for any pulmonary disease Physical exam: General: Awake, alert, oriented 3, in moderate distress HEENT: PERRLA, EOMI, use of accessory muscles, able to speak in full sentences Chest: Bilateral expiratory wheezes and rhonchi CVS: S1 and S2 heard, no murmurs Abdomen: Bowel sounds positive, distended Extremities: Trace pitting edema bilateral extremities Assessment Acute on chronic hypoxic respiratory failure secondary to COPD exacerbation History of asthma Hypokalemia Current smoker Opiate abuse on methadone Anxiety Depression Plan * Patient is being placed in observation on [facility] * Maintain saturations more than 92% * TRC nebs [id number] * Received 125mg Solumedrol in the ED. Continue 40 IV Solu Medrol every 8 hours * IV azithromycin for anti-inflammatory effects * Pancultures. His blood / sputum cultures have been negative in the past. * Continue Symbicort, albuterol inhalers * Pulmonology consult with Dr. Cuevas in a.m. * Replete potassium and check BEP in a.m. * Continue Abilify, Xanax and start nicotine patch * Continue methadone 60 mg daily(please confirm dose with NEW ERA in a.m.) * Accu-Cheks 3 times a day * Hold metformin, NovoLog sliding scale * DVT prophylaxis subcutaneous Lovenox * Diabetic diet * Full Code Aniket BANKS, [facility] 09/30/17 0351: Attending MD Review Statement Attending Statement Attending MD Statement: examined this patient, discuss w/resident/PA/BOAT ENGINES INSTALLER, agreed w/resident/PA/BOAT ENGINES INSTALLER, reviewed images, amended to note Attending Assessment/Plan: 47 yo M smoker with h/o severe persistent asthma/COPD on nocturnal 4 L O2, panic with agoraphobia, PTSD, chronic pain on methadone, last admitted to [facility] ( 2017) for exacerbation, is here for c/o worsening dyspnea for the past 3 days. Associated with cough productive of yellow phlegm and chills. He statss, "I cannot catch my breath". He tried his inharlers without relief. Upon discharge last month, patient was supposed to continue prednisone after completing the taper. However he did not take it. He was seen at the Wellness clinic 2 weeks ago and received IV solumedrol. Dr. Cuevas placed him on prednisone which patient has been taking as taper for the past 5 days. He had an appointment with Dr. Cuevas today, but he went to the Wellness clinic and was asked to come to ER. Per ER report, he reportedly has missed his previous Wellness clinic appointments which the patient is not forthcoming about. Vitals: aferile, tachycardic to 110's, BP 109/76, sats 92% on 5L. Chest b/l reduced air entry with prolonged expiratory wheezes++. Labs: K 3.3, bicarb 32, glucose 159. AB.37/47/58/26. CXR: no acute finding. EKG: sinus tachycardia. Echo (2016): EF >60%, mild pulmonary hypertension. PFT (November 2015): severe obstructive lung disease with reduction in diffusing capacity c/w emphysema and a significant bronchodilator response with oxygen desaturation. Assessment and plan: 1. Acute on chronic hypoxemic respiratory failure 2. Asthma/ COPD overlap exacerbation 3. Non compliance with prednisone 4. Opiate dependence on methadone 5. Anxiety, panic attack 6. Smoker - 23 hour observation on general medicine - TRC nebs scheuled and PRN - Sputum cultures if any - O2 supplementation to keep sats > 92% - IV solumedrol 40 Q8 - IV azithromycin x 5 days - Please reinforce need to continue taking prednisone as prescribed by Dr. Cuevas - Pulm consult Dr. Cuevas - Continue methadone 60 mg please call [facility] and confirm dose - Smoking cessation counseling, nicotine patch - Replete electrolytes - Diabetes management - Check urine tox screen DVT ppx Lovenox. Full code. Observation Initial Note - I have personally examined ARIANNA HEREDIA on 09/30/17 at 0352. The disposition of ARIANNA HEREDIA is uncertain at this time and before a determination can be made, he requires a period of observation for the following reasons [Hypoxic respiratory failure, COPD exacerbation]
[2017-09-30 00:29] VITALS: BP 100/54
[2017-09-30 06:21] VITALS: BP 96/68
--- NOTE | 2017-09-30 07:13 | PN- Housestaff ---
Jeff Nair MD,[facility] 09/30/17 0712: Subjective Follow-up For: COPD exacerbation Subjective: Observation note: Patient visited today, was lying in bed in mild respiratory distress, was alert and oriented. No fever or chills, no chest pain, no other events. We will observe patient for another 24 hours. Review of Systems Constitutional: Reports: see HPI. Objective Last 24 Hrs of Vital Signs/I&O Vital Signs Date Time Temp Pulse Resp B/P B/P Pulse O2 O2 Flow FiO2 Mean Ox Delivery Rate 09/30 1403 96.7 83 16 98/60 91 Nasal 5.0L Cannula 09/30 0915 96.0 09/30 0829 Nasal 5.0L Cannula 09/30 0800 Nasal 5.0L Cannula 09/30 0621 97.2 91 20 96/68 94 Nasal 5.0L Cannula 09/30 0150 92 Nasal 5.0L Cannula 09/30 0029 98.3 80 20 100/54 90 Nasal 5.0L Cannula 09/30 0000 92 Nasal 5.0L Cannula 09/29 2310 98.9 104 18 111/69 88 Nasal 4.0L Cannula 09/29 2136 107 20 109/76 90 Nasal 3.0L Cannula 09/29 2024 86 Nasal 3.0L Cannula 09/29 2017 86 Nasal 3.0L Cannula 09/29 1920 123 20 142/81 92 Nasal 2.0L Cannula 09/29 1751 90 Nasal 2.0L Cannula 09/29 1701 22 90 Nasal 2.0L Cannula 09/29 1653 99.3 122 22 156/84 85 Room Air Intake & Output 09/30 1600 09/30 0800 09/30 0000 Intake Total 200 Output Total Balance 200 Intake, Oral 200 Number 0 Bowel Movements Patient 233 lb Weight Physical Exam General Appearance: Alert, Oriented X3, Cooperative, Mild Distress HEENT: Atraumatic, EOMI Neck: Supple Cardiovascular: Normal S1, Normal S2 Lungs: Bilateral wheezing Abdomen: Soft, No Tenderness Current Medications: Current Medications Sig/Nettie Start time Last Medication Dose Route Stop Time Status Admin Acetaminophen 325 MG Q6 09/29 2359 AC 09/30 PO 1230 Albuterol Sulfate 3 ML EVERY 4 HRS/AWAKE 09/30 0830 AC 09/30 INH 1123 Albuterol Sulfate 2 PUF DAILY NEEDED PRN 09/29 2245 AC INH Albuterol Sulfate 3 ML Q4P PRN 09/29 2245 AC INH Albuterol Sulfate 15 ML ONCE ONE 09/29 2029 DC 09/29 INH 09/29 Albuterol Sulfate 3 ML ONCE ONE 09/29 193 DC 09/29 INH 09/29 1930 2017 Alprazolam 0.5 MG BID PRN 09/29 2330 AC PO 10/06 2329 Aripiprazole 5 MG DAILY 09/30 09 AC 09/30 PO 0816 Aspirin Buffered 81 MG DAILY 09/30 09 AC 09/30 PO 0816 Azithromycin 500 MG DAILY 09/30 09 CAN Sodium Chloride 250 ML IV Azithromycin 500 MG Q24H 09/30 0000 AC 09/29 Sodium Chloride 250 ML IV 2311 Budesonide/ 2 PUF BID 09/30 09 AC 09/30 Formoterol Fumarate INH 08 Ceftriaxone Sodium 0 .STK-MED ONE 09/29 2238 CAN .ROUTE Ceftriaxone Sodium 1,000 MG ONCE ONE 09/29 2029 DC 09/29 IV 09/29 Enoxaparin Sodium 40 MG DAILY 09/30 09 AC 09/30 SC 0816 Insulin Aspart 0 TIDAC 09/30 08 AC 09/30 SC 1230 Ipratropium [place] 2.5 ML DAILY 09/30 09 DC INH Ipratropium [place] 2.5 ML EVERY 4 HRS/AWAKE 09/30 0830 AC 09/30 INH 1123 Ipratropium [place] 2.5 ML ONCE ONE 09/29 1929 DC 09/29 INH 09/29 Magnesium Sulfate 1 GM Q2H 09/29 2029 DC 09/29 Dextrose/Water 100 ML IV 09/30 0029 2120 Methadone HCl 60 MG DAILY 09/30 09 AC 09/30 PO 0816 Methylprednisolone 40 MG Q8 09/30 06 AC 09/30 IV 1230 Methylprednisolone 0 .STK-MED ONE 09/30 2039 DC .ROUTE Methylprednisolone 125 MG ONCE ONE 09/29 1929 DC 09/29 IV 09/29 Montelukast Sodium 10 MG AT BEDTIME 09/30 2100 AC PO Nicotine 14 MG DAILY 09/30 0900 AC 09/30 TOP 0816 Pantoprazole Sodium 40 MG DAILY 09/30 0900 AC 09/30 IV 0816 Potassium Chloride 40 MEQ .STK-MED ONE 09/30 0456 DC PO 09/30 0457 Potassium Chloride 40 MEQ ONCE ONE 09/29 2345 DC 09/30 PO 09/29 2346 0505 Last 24 Hrs of Lab/Ashish Results Last 24 Hrs of Labs/Mics: Laboratory Tests 09/30/17 1101: Anion Gap 11, Estimated GFR > 60, BUN/Creatinine Ratio 21.4 09/30/17 1000: Urine Opiates Screen > 4000.00 H, Methadone Screen > 735 H, Barbiturate Screen < 60, Ur Phencyclidine Scrn 6.10, Amphetamines Screen < 100, U Benzodiazepines Scrn > 800 H, Urine Cocaine Screen < 50, Urine Cannabis Screen 79.50 H, Urine Color YEL, Urine Clarity CLEAR, Urine pH 6.0, Ur Specific [place] 1.020, Urine Protein NEG, Urine Ketones TRACE H, Urine Nitrite NEG, Urine Bilirubin NEG, Urine Urobilinogen 0.2, Ur Leukocyte Esterase NEG, Ur Microscopic EXAM NOT REQUIRED, Urine Hemoglobin NEG, Urine Glucose >=1000 H 09/30/17 0655: Anion Gap 9, Estimated GFR > 60, BUN/Creatinine Ratio 17.1 09/29/17 2240: pH 7.37, pCO2 47 H, pO2 58 L, HCO3 26, ABG O2 Sat (Measured) 86.0 L, Carboxyhemoglobin 1.2 L, O2 Concentration % 3L, O2 Delivery Method NC, Phlebotomy Draw Site RIGHT RADIAL 09/29/17 1716: Anion Gap 12, Estimated GFR > 60, BUN/Creatinine Ratio 8.0, Glucose 159 H, Calcium 9.2, Total Bilirubin 1.0, AST 19, ALT 26, Alkaline Phosphatase 91, Total Protein 6.6, Albumin 4.0, Globulin 2.6, Albumin/Globulin Ratio 1.5, D-Dimer High Sensitivty < 200, CBC w Diff NO MAN DIFF REQ, RBC 4.60 L, MCV 92.2, MCH 30.2, MCHC 32.8 L, RDW 13.8, MPV 8.4, Gran % 70.4, Lymphocytes % 15.1 L, Monocytes % 11.1 H, Eosinophils % 3.1, Basophils % 0.3, Absolute Granulocytes 7.6 H, Absolute Lymphocytes 1.6, Absolute Monocytes 1.2 H, Absolute Eosinophils 0.3, Absolute Basophils 0 Microbiology 09/29 2337 LOWER RESP: Respiratory Culture - CAN Cancelled: SPECIMEN NOT RECEIVED IN LABORATORY 09/29 2336 LOWER RESP: Gram Stain - CAN Cancelled: SPECIMEN NOT RECEIVED IN LABORATORY 09/29 2336 BLOOD: Blood Culture - CAN Cancelled: SPECIMEN NOT RECEIVED IN LABORATORY 09/29 2336 BLOOD: Blood Culture - CAN Cancelled: SPECIMEN NOT RECEIVED IN LABORATORY Assessment/Plan Assessment: Patient is 47 Y M presented with SOB and cough and sputum Past medical history of COPD, GERD, opiate abuse on methadon, active smoker Patient was admitted to general medicine floor for management of following conditions #COPD exacerbation #Hypokalemia #Active Smoker #PMH of COPD, GERD, history of opiate use disorder, anxiety/depression/PTSD Plan: - Continue observation on [facility] - Supplemental O2 to keep O2 sat >92% - TRC/Neb as needed - Continue IV solumedrol 40mg q8. - Continue IV Azithromycin - K repleted, rechecked this morning (AM reading most likely psudohyperkalemia) - Follow Pancultures - Continue home meds, including Metahdone 60mg qd (please confirm dose in AM) - Novolog SS - If patient stable can be discharged on PO prednisolon taper to continue with lower dose DVT prophylaxis Lovenox + ALPS Diabetic Diet Full Code Problem List: 1. COPD exacerbation Pain Ratin Pain Location: None Pain Goal: Pain 4 or less Pain Plan: cONTINUE CURRENT PLAN Tomorrow's Labs & Rationales: cbc bep Angelo BANKS,[facility] 09/30/17 1221: Attending MD Review Statement Attending Statement Attending MD Statement: examined this patient, discuss w/resident/PA/ADMINISTRATIVE OFFICE SPECIALIST, agreed w/resident/PA/ADMINISTRATIVE OFFICE SPECIALIST, reviewed EMR data (avail), discussed with nursing, discussed with case mgmt, amended to note Attending Assessment/Plan: Patient seen and examined. Resting comfortably in the bed and not in any acute distress. Reports feeling better compared to presentation. Patient reports being very eager to be discharged home tomorrow. On examination he is not in any respiratory distress. Maintaining saturation on 5 L of oxygen. He has adequate entry bilaterally with diffuse rhonchi. No use of accessory muscles. Case was discussed with his business control manager today. The patient remains clinically stable he will be transitioned to oral steroids tomorrow and discharged home. We have clearly explained to the patient that he will need to be maintained on prednisone therapy long-term. He will be provided with the taper I will continue on prednisone 20 mg daily as maintenance therapy. This was explained to the patient. He is to follow-up with his business control manager upon discharge
--- NOTE | 2017-09-30 10:40 | Cons- Pulmonary ---
General Information and HPI Consulting Request Date of Consult: 09/30/17 Requested By: Dr. Stephens/patient Reason for Consult: Asthma/COPD exacerbation Source of Information: patient Exam Limitations: no limitations History of Present Illness: 47-year-old man. Consultation for acute on chronic hypoxemic respiratory failure. Asthma exacerbation with COPD overlap. PMH significant for asthma with recurrent bronchospasm. The patient is on supplemental oxygen at home, 3-4 Ly. Hx anxiety, and opioid dependence for chronic pain, in the methadone program. Smokes 2-3 cigarettes daily. Recent admission, recommended to take steroids at baseline then follow up with myself. He has not taken a baseline steroid dose and when seen at the wellness clinic he was found to be dyspneic, tachycardic and sent to the ER for further workup. D-dimer <200, cxr without acute issues. CO2 on abg 47. Intermittent leg edema, history of eosinophilia. Feels better with steroids. No sick contacts, lives with daughter. Continued stress/anxiety. No fevers, no leukocytosis. Allergies/Medications Allergies: Coded Allergies: oak (ALLERGY TESTED POSITIVE 08/22/16) Uncoded Allergies: SPRUCE (ALLERGY TESTED POSITIVE 03/15/16) Home Med List: Albuterol Sulfate 2.5 MG/3 ML (0.083 %) VIAL.NEB 1 Vial INH/KAREN Q4P PRN COPD (Reported) Albuterol Sulfate (Proair Hfa) 90 MCG HFA.AER.AD 2 PUF INH PRN COPD (Reported ) Alprazolam 0.5 MG TABLET 1 TAB PO BIDP PRN anxiety (Reported) Aripiprazole 5 MG TABLET 1 TAB PO DAILY MENTAL HEALTH (Reported) Aspirin (Ecotrin*) 81 MG TABLET.DR 1 TAB PO DAILY HEART/BLOOD (Reported) Budesonide/Formoterol Fumarate (Symbicort 160-4.5 Mcg Inhaler) 160 MCG-4.5 MCG/ ACTUATION HFA.AER.AD 1 PUF INH BID COPD (Reported) Docusate Sodium 100 MG CAPSULE 100 MG PO BID PRN constipation Ipratropium/Albuterol Sulfate (Iprat-Albut 0.5-3(2.5) MG/3 Ml) 0.5 MG-3 MG (2.5 MG BASE)/3 ML AMPUL.NEB 1 VIAL INH Q4 PRN sob Metformin HCl 500 MG TABLET 1 TAB PO BID diabetes . Methadone HCl 10 MG/5 ML SOLUTION 60 MG PO DAILY MENTAL HEALTH (Reported) Montelukast Sodium 10 MG TABLET 10 MG PO AT BEDTIME COPD Pantoprazole Sodium (Protonix) 40 MG TABLET.DR 1 TAB PO DAILY GI (Reported) Prednisone 10 MG TABLET 1 TAB PO DAILY copd exacerbation take 6 tablet 09/01-09/03 take 5 tablet 09/04-09/06 Take 4 tablet09/07-09/09 take 3 tablet 09/10-09/12 Take 2 tablet daily until you see M.D. . Current Medications: Current Medications Sig/Nettie Start time Last Medication Dose Route Stop Time Status Admin Acetaminophen 325 MG Q6 09/29 2359 AC 09/30 PO 0509 Albuterol Sulfate 3 ML EVERY 4 HRS/AWAKE 09/30 08 AC 09/30 INH 0829 Albuterol Sulfate 2 PUF DAILY NEEDED PRN 09/29 224 AC INH Albuterol Sulfate 3 ML Q4P PRN 09/29 224 AC INH Albuterol Sulfate 15 ML ONCE ONE 09/29 2029 DC 09/29 INH 09/29 Albuterol Sulfate 3 ML ONCE ONE 09/29 193 DC 09/29 INH 09/29 1932016 Alprazolam 0.5 MG BID PRN 09/29 2330 AC PO 10/06 2329 Aripiprazole 5 MG DAILY 09/30 899 AC 09/30 PO 0816 Aspirin Buffered 81 MG DAILY 09/30 09 AC 09/30 PO 0816 Azithromycin 500 MG DAILY 09/30 899 CAN Sodium Chloride 250 ML IV Azithromycin 500 MG Q24H 09/30 0000 AC 09/29 Sodium Chloride 250 ML IV 2311 Budesonide/ 2 PUF BID 09/30 899 AC 09/30 Formoterol Fumarate INH 0816 Ceftriaxone Sodium 0 .STK-MED ONE 09/29 2238 CAN .ROUTE Ceftriaxone Sodium 1,000 MG ONCE ONE 09/29 2029 DC 09/29 IV 09/29 Enoxaparin Sodium 40 MG DAILY 09/30 899 AC 09/30 SC 0816 Insulin Aspart 0 TIDAC 09/30 08 AC 09/30 SC 0828 Ipratropium [place] 2.5 ML DAILY 09/30 899 DC INH Ipratropium [place] 2.5 ML EVERY 4 HRS/AWAKE 09/30 08 AC 09/30 INH 0829 Ipratropium [place] 2.5 ML ONCE ONE 09/29 1929 DC 09/29 INH 09/29 1932016 Magnesium Sulfate 1 GM Q2H 09/29 2029 DC 09/29 Dextrose/Water 100 ML IV 09/30 0020 Methadone HCl 60 MG DAILY 09/30 899 AC 09/30 PO 0816 Methylprednisolone 40 MG Q8 09/30 06 AC 09/30 IV 0504 Methylprednisolone 0 .STK-MED ONE 09/30 2039 DC .ROUTE Methylprednisolone 125 MG ONCE ONE 09/29 1929 DC 09/29 IV 09/29 Montelukast Sodium 10 MG AT BEDTIME 09/30 2100 AC PO Nicotine 14 MG DAILY 09/30 09 AC 09/30 TOP 0816 Pantoprazole Sodium 40 MG DAILY 09/30 09 AC 09/30 IV 0816 Potassium Chloride 40 MEQ ONCE ONE 09/29 2345 DC 09/30 PO 09/29 2346 0505 Review of Systems Comments 18 pt reviewed ros pertinent positives and negatives in chart otherwise negative Past History Travel History Traveled to [place] past 21 day No Medical History Neurological: NONE EENT: NONE Cardiovascular: NONE Respiratory: asthma, COPD Gastrointestinal: GERD Hepatic: NONE Renal: NONE Musculoskeletal: NONE Psychiatric: anxiety, depression, PTSD Endocrine: NONE Blood Disorders: NONE Cancer(s): 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 spouse, child Services at Home: None Primary Language: Greenlandic Smoking Status: Current Everyday Smoker Illicit Drug Use: denies illicit drug use, on methadone Functional Ability ADLs Independent: dressing, eating, toileting, bathing. Ambulation: independent IADLs Independent: shopping, housework, finances, food prep, telephone, transportation , medication admin. Exam & Diagnostic Data Last 24 Hrs of Vital Signs/I&O Vital Signs Date Time Temp Pulse Resp B/P B/P Pulse O2 O2 Flow FiO2 Mean Ox Delivery Rate 09/30 914 96.0 09/30 828 Nasal 5.0L Cannula 09/30 620 97.2 91 20 96/68 94 Nasal 5.0L Cannula 09/30 0150 92 Nasal 5.0L Cannula 09/30 28 98.3 80 20 100/54 90 Nasal 5.0L Cannula 09/30 0000 92 Nasal 5.0L Cannula 09/29 2310 98.9 104 18 111/69 88 Nasal 4.0L Cannula 09/29 2136 107 20 109/76 90 Nasal 3.0L Cannula 09/30 2023 86 Nasal 3.0L Cannula 09/29 2017 86 Nasal 3.0L Cannula 09/29 1920 123 20 142/81 92 Nasal 2.0L Cannula 09/29 1751 90 Nasal 2.0L Cannula 09/29 1701 22 90 Nasal 2.0L Cannula 09/29 1653 99.3 122 22 156/84 85 Room Air Intake & Output 09/30 1600 09/30 0800 09/30 0000 Intake Total Output Total Balance Number 0 Bowel Movements Patient 233 lb Weight Physical Exam Other Physical Findings: gen awake and alert heent ncat cvs s1, s2 lungs inspiratory and expiratory wheezing abd soft, bs+ ext no edema Last 48 Hrs of Labs/Ashish: Laboratory Tests 09/30/17 0655: Anion Gap 9, Estimated GFR > 60, BUN/Creatinine Ratio 17.1 09/29/17 2240: pH 7.37, pCO2 47 H, pO2 58 L, HCO3 26, ABG O2 Sat (Measured) 86.0 L, Carboxyhemoglobin 1.2 L, O2 Concentration % 3L, O2 Delivery Method NC, Phlebotomy Draw Site RIGHT RADIAL 09/29/17 1716: Anion Gap 12, Estimated GFR > 60, BUN/Creatinine Ratio 8.0, Glucose 159 H, Calcium 9.2, Total Bilirubin 1.0, AST 19, ALT 26, Alkaline Phosphatase 91, Total Protein 6.6, Albumin 4.0, Globulin 2.6, Albumin/Globulin Ratio 1.5, D-Dimer High Sensitivty < 200, CBC w Diff NO MAN DIFF REQ, RBC 4.60 L, MCV 92.2, MCH 30.2, MCHC 32.8 L, RDW 13.8, MPV 8.4, Gran % 70.4, Lymphocytes % 15.1 L, Monocytes % 11.1 H, Eosinophils % 3.1, Basophils % 0.3, Absolute Granulocytes 7.6 H, Absolute Lymphocytes 1.6, Absolute Monocytes 1.2 H, Absolute Eosinophils 0.3, Absolute Basophils 0 Assessment/Plan Impression/Plan: Impression 46 year old man * asthma/COPD overlap exacerbation secondary to medication compliance issues and smoking * GERD * tobacco dependence Plan -trc/nebs -continue solumedrol 40mg iv q8h -if patient is stable tomorrow 10/01 he can be discharged if he wishes to home with a steroid taper as following - 60mg x 3 days, 50mg x 3 days, 40mg x 3 days, 30mg x 3 days, then remain on 20mg of prednisone without a taper until seen in the office -symbicort with rinsing of the mouth -singulair -smoking cessation counseling -spo2 goal >90% DVT prophylaxis at all times Consult Acknowledgment - Thank you for your consult request.
[2017-09-30 14:03] VITALS: BP 98/60
--- NOTE | 2017-09-30 15:02 | Patient Discharge Instructions ---
Discharge Instructions General Discharge Information You were seen/treated for: COPD exacerbation Special Instructions: 1.Please follow-up with your primary care physician within 1 week after discharge. 2. Please follow-up with Dr. Cuevas within 1 week after discharge. Diet Recommended Diet: Regular Activity Activity Self Limited: Yes Acute Coronary Syndrome Inclusion Criteria At DC or during hospital stay patient has or had the following: ACS DIAGNOSIS No Discharge Core Measures Meds if any: Prescribed or Continued at Discharge Meds if any: NOT Prescribed or Continued at Discharge Congestive Heart Failure Inclusion Criteria At DC or during hospital stay patient has or had the following: CHF DIAGNOSIS No Discharge Core Measures Meds if any: Prescribed or Continued at Discharge Meds if any: NOT Prescribed or Continued at Discharge Cerebrovascular accident Inclusion Criteria At DC or during hospital stay patient has or had the following: CVA/TIA Diagnosis No Discharge Core Measures Meds if any: Prescribed or Continued at Discharge Meds if any: NOT Prescribed or Continued at Discharge Venous thromboembolism Inclusion Criteria VTE Diagnosis No VTE Type NONE VTE Confirmed by (Test) NONE Discharge Core Measures - Per Current guidelines, there needs to be overlap - treatment for the first 5 days of Warfarin therapy. - If discharged on Warfarin prior to 5 days of - overlap therapy, the patient will need to be - assessed for post discharge needs including - *Post discharge parental anticoagulation - *Warfarin and/or parental anticoagulation education - *Follow up date to check INR post discharge At least 5 days overlap therapy as Inpatient No Meds if any: Prescribed or Continued at Discharge Note: Overlap Therapy is Warfarin and Anticoagulant Meds if any: NOT Prescribed or Continued at Discharge
[2017-09-30] MEDS ORDERED: PREDNISONE10 M2 PO (15:07)
[2017-09-30 22:40] VITALS: BP 100/60
[2017-10-01 06:34] VITALS: BP 110/78
--- NOTE | 2017-10-01 06:45 | PN- Housestaff ---
[facility] 10/01/17 0644: Subjective Follow-up For: COPD exacerbation Subjective: No overnight events. Patient remained afebrile while pacing examined this morning. He denied any chest pain, short of breath, nausea, vomiting, fever, abdominal pain and dysuria. He is using 4 L of oxygen that baseline right now he is on 5 L of oxygen. Maintaining saturation 91%. Patient wants to leave today although he is getting IV Solu-Medrol every 8 hourly. Review of Systems Constitutional: Denies: chills, fever. EENTM: Reports: no symptoms. Cardiovascular: Denies: chest pain, orthopena, palpitations. Respiratory: Denies: cough, orthopnea, short of breath, sputum production. Gastrointestinal: Reports: no symptoms. Genitourinary: Reports: no symptoms. Neurological/Psychological: Reports: no symptoms. Objective Last 24 Hrs of Vital Signs/I&O Vital Signs Date Time Temp Pulse Resp B/P B/P Pulse O2 O2 Flow FiO2 Mean Ox Delivery Rate 10/01 0734 91 Nasal 5.0L Cannula 10/01 0634 97.7 94 20 110/78 91 Nasal 5.0L Cannula 10/01 0000 Nasal 5.0L Cannula 09/30 2240 98.1 97 17 100/60 95 Nasal Cannula 09/30 2056 92 Nasal 5.0L Cannula 09/30 1648 Nasal 6.0L Cannula 09/30 1600 Nasal 5.0L Cannula 09/30 1403 96.7 83 16 98/60 91 Nasal 5.0L Cannula 09/30 0915 96.0 Intake & Output 10/01 1600 / 0800 05 0000 Intake Total 650 300 Output Total Balance 650 300 Intake, IV 250 20 Intake, Oral 400 280 Physical Exam General Appearance: Alert, Oriented X3, Cooperative Skin Temp/Moisture Exam: Warm/Dry Sepsis Skin Exam (color): Normal for Ethnicity HEENT: Atraumatic, PERRLA, EOMI Neck: Supple Cardiovascular: Normal S1, Normal S2 Lungs: expiratory wheezing b/l Abdomen: Soft, No Tenderness Neurological: Normal Speech, Strength at 5/5 X4 Ext, Normal Tone, Sensation Intact Extremities: No Edema Assessment/Plan Assessment: 47 Y M smoker with PMH of COPD on home oxygen 4 L, GERD, opiate abuse on methadon presented with cc of SOB and cough and sputum. We are following the patient for following problems: COPD exacerbation: -Continue supplemental oxygen to keep saturation above 92%. His baseline is 4 L of oxygen at home. -Is using 5 L of oxygen and maintaining saturation 91%. -Continue TRC nebulization -Continue Mucinex -Continue azithromycin. day 2 -Continue IV Solu-Medrol 40 mg every 8 hourly -Continue Symbicort and Ventolin Smoking cessation: -Smoker cessation counseling -Continue nicotine patch as needed History of GERD: -Continue Prilosec History of anxiety: -Continue Xanax 0.5 mg when necessary. History of opiate abuse: -Continue methadone 60 mg every day DVT prophylaxis: Mechanical and subcutaneous Lovenox CODE STATUS: Full code Problem List: 1. COPD exacerbation Pain Ratin Pain Location: NONE Pain Goal: Remain pain free Pain Plan: PAIN PATHWAY Tomorrow's Labs & Rationales: Reilly Olivarez MD 10/01/17 0908: Attending MD Review Statement Attending Statement Attending MD Statement: examined this patient, discuss w/resident/PA/PEDIATRIC GENETIC COUNSELOR, agreed w/resident/PA/PEDIATRIC GENETIC COUNSELOR, discussed with family, reviewed EMR data (avail), discussed with nursing, discussed with case mgmt, reviewed images, amended to note Attending Assessment/Plan: Impression 46 year old man * asthma/COPD overlap exacerbation secondary to medication compliance issues and smoking * GERD * tobacco dependence Plan -trc/nebs -dc solumedrol -discharge home per pt wishes with a steroid taper as following - 60mg x 3 days, 50mg x 3 days, 40mg x 3 days, 30mg x 3 days, then remain on 20mg of prednisone without a taper until seen in the office -symbicort with rinsing of the mouth -singulair -smoking cessation counseling -spo2 goal >90% DVT prophylaxis at all times
[2017-10-01 08:26] LABS: ABSOLUTE BASOPHIL COUNT 0 /CUMM (0.0-0.2); ABSOLUTE EOSINOPHIL COUNT 0 /CUMM (0.0-0.7); ABSOLUTE LYMPH COUNT 0.5 /CUMM (1.2-3.4); ABSOLUTE MONOCYTE COUNT 0.6 /CUMM (0.10-0.60); BASOPHIL % 0.1 % (0.0-2.0); EOSINOPHIL % 0 % (0-5); GRANULOCYTE % 92.2 % (42.2-75.2); HEMATOCRIT 38.5 % (42-52); MEAN CORPUSCULAR HGB 30.5 PG (27.0-31.0); MEAN CORPUSCULAR HGB CONC 32.7 G/DL (33.0-37.0); MEAN CORPUSCULAR VOLUME 93.1 FL (80.0-94.0); MEAN PLATELET VOLUME 8.8 FL (7.4-10.4); PLATELET COUNT 262 /CUMM (130-400); RBC DISTRIBUTION WIDTH 14.2 % (11.5-14.5); RED BLOOD CELL CT 4.13 /CUMM (4.70-6.10); WHITE BLOOD CELL COUNT 15.2 /CUMM (4.8-10.8)
[2017-10-01] MEDS ORDERED: PREDNISONE10 M2 PO ×2 (09:15→09:16)
== END 2017-10-01 09:40 ==
LOC: DELPENDDIS → ERH 16:50 → 2NA 21:02 → ERHI 21:02 → ENRESERV 21:47 → 2NA 09-30 → ENPENDDIS 09-30 08:37 → 2NA 10-01 09:40
PROVIDERS: Emergency Medicine; Radiology Vascular & Interventional Radiology
DX: J44.1 Chronic obstructive pulmonary disease with (acute) exacerbation (principal); E87.6 Hypokalemia; K21.9 Gastro-esophageal reflux disease without esophagitis; F11.20 Opioid dependence, uncomplicated; F41.9 Anxiety disorder, unspecified; F32.9 Major depressive disorder, single episode, unspecified; F43.10 Post-traumatic stress disorder, unspecified; F17.200 Nicotine dependence, unspecified, uncomplicated; Z79.82 Long term (current) use of aspirin; E11.9 Type 2 diabetes mellitus without complications; Z79.84 Long term (current) use of oral hypoglycemic drugs; J96.21 Acute and chronic respiratory failure with hypoxia
CPT/HCPCS: 1263; 1328; 1426; 1748; 6030; 36592; 71045; 80307; 81003; 82436; 87040; 87070; 93005; 93010; 94644; 96372; 96374; 96375; 99291; G0378; J0456; J0696; J1650; J2920; J2930; J3490; J7040

== ENCOUNTER 2017-10-14 16:36 | Emergency (ER) | payer OTHER ==
[~2017-10-14] VITALS: Ht 180.3 cm; Wt 106.6 kg
[~2017-10-14 16:36] MED LIST changes: +ALPRAZOLAM0.5 M4 PO; -ALPRAZOLAM1 M2 PO
--- NOTE | 2017-10-14 19:38 | ED GENERAL ADULT ---
History of Present Illness General Chief Complaint: General Adult Stated Complaint: BLURRED VISION,LOSS OF APPETITE X3 WKS,COPD Source: patient, old records (from [place] ed visit) Exam Limitations: clinical condition, poor historian Vital Signs & Intake/Output Vital Signs & Intake/Output Vital Signs Date Time Temp Pulse Resp B/P B/P Pulse O2 O2 Flow FiO2 Mean Ox Delivery Rate 10/15 0645 98.6 93 20 126/82 94 Room Air 10/15 0409 Nasal 2.0L Cannula 10/15 0400 98.6 98 18 126/90 85 Room Air 10/14 2302 96 Room Air 10/14 1704 99.2 88 18 147/90 94 Room Air Room Air ED Intake and Output 10/15 0000 10/14 1200 Intake Total 0 Output Total Balance 0 Intake, IV 0 Patient 235 lb Weight Weight Reported by Patient Measurement Method Allergies Coded Allergies: oak (ALLERGY TESTED POSITIVE 08/22/16) Uncoded Allergies: SPRUCE (ALLERGY TESTED POSITIVE 03/15/16) Reconcile Medications Albuterol Sulfate 2.5 MG/3 ML (0.083 %) VIAL.NEB 1 Vial INH/KAREN Q4P PRN COPD (Reported) Albuterol Sulfate (Proair Hfa) 90 MCG HFA.AER.AD 2 PUF INH PRN COPD (Reported ) Alprazolam 0.5 MG TABLET 1 TAB PO BIDP PRN anxiety (Reported) Aripiprazole 5 MG TABLET 1 TAB PO DAILY MENTAL HEALTH (Reported) Aspirin (Ecotrin*) 81 MG TABLET.DR 1 TAB PO DAILY HEART/BLOOD (Reported) Budesonide/Formoterol Fumarate (Symbicort 160-4.5 Mcg Inhaler) 160 MCG-4.5 MCG/ ACTUATION HFA.AER.AD 1 PUF INH BID COPD (Reported) Docusate Sodium 100 MG CAPSULE 100 MG PO BID PRN constipation Ipratropium/Albuterol Sulfate (Iprat-Albut 0.5-3(2.5) MG/3 Ml) 0.5 MG-3 MG (2.5 MG BASE)/3 ML AMPUL.NEB 1 VIAL INH Q4 PRN sob Metformin HCl 500 MG TABLET 1 TAB PO BID diabetes . Methadone HCl 10 MG/5 ML SOLUTION 60 MG PO DAILY MENTAL HEALTH (Reported) Montelukast Sodium 10 MG TABLET 10 MG PO AT BEDTIME COPD Pantoprazole Sodium (Protonix) 40 MG TABLET. 1 TAB PO DAILY GI (Reported) Prednisone 10 MG TABLET 1 TAB PO DAILY STEROID (Reported) Triage Note: PT TO ED WITH MULTIPLE COMPLAINTS, I HAVE PTSD, ANXIETY, SLEEP APNEA "I CAN'T SLEEP, I MISSED AN APPT, STRESSED OUT". Triage Nurses Notes Reviewed? yes HPI: pt presents for evaluation of blurred vision, racing heart,anxiety,sweating, poor appetite and shakes. pt states he was evaluated at the [facility] emergency department at about 6:00 this morning for a "diabetic seizure". He states he was treated and discharged. 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 At that point he drove to the emergency department. He denies a history of seizures. He denies alcohol use. He does admit to obtaining opiates off the street to "self- medicating" despite the fact he takes methadone for history of opiate addiction. Patient denies SI or HI. (Lissette BANKS,Beck Brady) Past History Travel History Traveled to [place] past 21 day No Medical History Any Pertinent Medical History? 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 No (Beck Mclaughlin MD) Review of Systems Review of Systems Constitutional: Reports: no symptoms. EENTM: Reports: no symptoms. Respiratory: Reports: no symptoms. Cardiovascular: Reports: see HPI. GI: Reports: no symptoms. Genitourinary: Reports: no symptoms. Musculoskeletal: Reports: no symptoms. Skin: Reports: no symptoms. Neurological/Psychological: Reports: see HPI. Hematologic/Endocrine: Reports: no symptoms. Immunologic/Allergic: Reports: no symptoms. All Other Systems: Reviewed and Negative (Lissette BANKS,Beck Brady) Physical Exam Physical Exam General Appearance: see below Comments: Gen.: Well-nourished, well-developed, no acute respiratory distress. Head: Normocephalic, atraumatic. Eyes: Normal inspection bilaterally Ears: Normal inspection bilaterally Nose: Normal inspection Throat/mouth : Moist mucosa Neck: Supple, full range of motion, no goiter Lungs: Quiet respirations Back: Normal range of motion Extremities: Normal range of motion grossly, no cyanosis clubbing or edema of the upper extremities Neurologic: Cranial nerves grossly intact, speech is clear Skin: warm and dry Psychiatric: Calm, cooperative, no apparent delusions or hallucinations Core Measures ACS in differential dx? No CVA/TIA Diagnosis: No Sepsis Present: No Sepsis Focused Exam Completed? No (Lissette BANKS,Beck Brady) Progress Differential Diagnoses I considered the following diagnoses in my evaluation of the patient: Anxiety, bipolar disorder, depression, hypoxia, hypoglycemia Plan of Care: Orders Procedure Date/time Status Regular Diet 10/15 B Active Add-on Test (ER Only) 10/14 2022 Active URINE DRUG SCREEN FOR ER ONLY 10/14 2022 Complete SERUM OSMOLALITY 10/15 1935 Complete ETHANOL 10/15 1935 Complete BASIC METABOLIC PANEL 10/15 1935 Complete ACETONE 10/15 1935 Complete ED CRISIS PSYCH CONSULT 10/15 1935 Active Laboratory Tests 10/15/17 0020: Urine Opiates Screen > 4000.00 H, Methadone Screen > 735 H, Barbiturate Screen < 60, Ur Phencyclidine Scrn < 6.00, Amphetamines Screen < 100, U Benzodiazepines Scrn > 800 H, Urine Cocaine Screen < 50, Urine Cannabis Screen 76.00 H 10/14/17 2020: Anion Gap 11, Estimated GFR > 60, BUN/Creatinine Ratio 6.3 L, Glucose 143 H, Serum Osmolality 285, Calcium 9.2, Serum Alcohol < 10.0, Acetone Level NEGATIVE Initial ED EKG: none Comments: 10/15/2017 4:20:20 AM I have updated her on on test results. He was just given a nebulizer treatment because of difficulty breathing and low oxygen saturations. Patient has a history of COPD and is currently taking 10 mg of prednisone daily as part of a prednisone taper. He is feeling better as a result of the nebulizer treatment. I will give him an extra 10 mg dose of prednisone. He is currently on 2 L nasal cannula and feels comfortable. He states he does wear oxygen 3 L via nasal cannula at night. 10/15/2017 6:56:45 AM patient signed out to Dr. 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 (Lissette BANKS,Beck Brady) Departure Departure Condition: Stable Clinical Impression Primary Impression: Anxiety Secondary Impressions: COPD exacerbation Referrals: Liang Sanchez MD (PCP/Family) Departure Forms: Customer Survey General Discharge Information (Lissette BANKS,Beck Brady) Departure Disposition: HOME OR SELF CARE Additional Instructions: RETURNIF SYMPTOMS WORSENOR FOR ANY CONCERNS (Jaky BANKS,Carlos Alberto Segundo) Critical Care Note Critical Care Note Critical Care Time: non-applicable (Lissette BANKS,Beck Brady)
[2017-10-14] MEDS ORDERED: PREDNISONE10 M2 PO (21:22)
[2017-10-15 06:45] VITALS: BP 126/82
== END 2017-10-15 08:02 ==
LOC: ERH 16:36
DX: J44.1 Chronic obstructive pulmonary disease with (acute) exacerbation (principal); F41.9 Anxiety disorder, unspecified
CPT/HCPCS: 1263; 80307; G0480; J7512

== ENCOUNTER 2017-12-04 14:15 | Emergency (ER) | payer OTHER ==
[~2017-12-04] VITALS: Ht 180.3 cm; Wt 106.1 kg
[2017-12-04 14:20] VITALS: BP 130/86
--- NOTE | 2017-12-04 15:07 | ED DYSPNEA/ASTHMA COMPLAINT ---
History of Present Illness General Chief Complaint: Dyspnea (COPD, CHF, Other) Stated Complaint: DIFF BREATHING X 2DAYS O2 SAT 84% Source: patient, old records Exam Limitations: no limitations Vital Signs & Intake/Output Vital Signs & Intake/Output Vital Signs Date Time Temp Pulse Resp B/P B/P Pulse O2 O2 Flow FiO2 Mean Ox Delivery Rate 12/04 1534 107 30 97 Nasal 3.0L Cannula 12/04 1446 92 Nasal 2.0L Cannula 12/04 1436 94 Nasal 3.0L Cannula 12/04 1420 97.6 115 24 130/86 86 Room Air Room Air 12/04 1420 97.7 112 24 130/86 86 Room Air Allergies Coded Allergies: oak (ALLERGY TESTED POSITIVE 08/22/16) Uncoded Allergies: SPRUCE (ALLERGY TESTED POSITIVE 03/15/16) Reconcile Medications Albuterol Sulfate 2.5 MG/3 ML (0.083 %) VIAL.NEB 1 Vial INH/KAREN Q4P PRN COPD (Reported) Albuterol Sulfate (Proair Hfa) 90 MCG HFA.AER.AD 2 PUF INH PRN COPD (Reported ) Alprazolam 0.5 MG TABLET 1 TAB PO BIDP PRN anxiety (Reported) Aripiprazole 5 MG TABLET 1 TAB PO DAILY MENTAL HEALTH (Reported) Aspirin (Ecotrin*) 81 MG TABLET.DR 1 TAB PO DAILY HEART/BLOOD (Reported) Azithromycin 250 MG TABLET 1 DP PO AD copd 2 the first day followed by 1 for days 2-5 Budesonide/Formoterol Fumarate (Symbicort 160-4.5 Mcg Inhaler) 160 MCG-4.5 MCG/ ACTUATION HFA.AER.AD 1 PUF INH BID COPD (Reported) Docusate Sodium 100 MG CAPSULE 100 MG PO BID PRN constipation Ipratropium/Albuterol Sulfate (Iprat-Albut 0.5-3(2.5) MG/3 Ml) 0.5 MG-3 MG (2.5 MG BASE)/3 ML AMPUL.NEB 1 VIAL INH Q4 PRN sob Metformin HCl 500 MG TABLET 1 TAB PO BID diabetes . Methadone HCl 10 MG/5 ML SOLUTION 60 MG PO DAILY MENTAL HEALTH (Reported) Montelukast Sodium 10 MG TABLET 10 MG PO AT BEDTIME COPD Pantoprazole Sodium (Protonix) 40 MG TABLET.DR 1 TAB PO DAILY GI (Reported) Prednisone 10 MG TABLET 1 TAB PO DAILY STEROID (Reported) Prednisone 10 MG TABLET 1 DOSE PO DAILY copd 6 tab day 1, 5 tab day 2 and 3, 4 tab day 4 and 5 3 tab day 6 and 7, 2 tab day 8 and 9, 1 tab day 10 Triage Note: TRIAGE: 47 Y/O MALE PRESENTS C/O SOB X2 DAYS. SPO2 86% ON ROOM AIR. Triage Nurses Notes Reviewed? yes Onset: Gradual Duration: day(s): Timing: recent history Severity: moderate HPI: 87-year-old male with history of COPD, daily tobacco smoker presents emergency department complaining of dyspnea 2 days. Ports associated wheezing. Patient uses supplemental oxygen only at night. He has been using his inhalers at home without relief of his symptoms. Is currently on prednisone 10 mg daily. He sees specialist Dr. Cuevas regarding his COPD. Symptoms are worse with ambulation. Patient denies hemoptysis, chest pain, abdominal pain, vomiting, fevers, chills. (Sue Rojas) Past History Travel History Traveled to [place] past 21 day No Medical History Any Pertinent Medical History? 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 No (Sue Rojas) Review of Systems Review of Systems Constitutional: Reports: no symptoms. EENTM: Reports: no symptoms. Respiratory: Reports: see HPI. Cardiovascular: Reports: no symptoms. GI: Reports: no symptoms. Genitourinary: Reports: no symptoms. Musculoskeletal: Reports: no symptoms. Skin: Reports: no symptoms. Neurological/Psychological: Reports: no symptoms. Hematologic/Endocrine: Reports: no symptoms. Immunologic/Allergic: Reports: no symptoms. All Other Systems: Reviewed and Negative (Sue Rojasle) Physical Exam Physical Exam General Appearance: well developed/nourished, no apparent distress, alert, awake Head: atraumatic, normal appearance Eyes: Bilateral: normal appearance. Ears, Nose, Throat: normal pharynx, hearing grossly normal Neck: normal inspection, supple, full range of motion Respiratory: no respiratory distress, diffuse inspiratory and expiratory wheezes throughout all lung pressley Cardiovascular: tachycardia Gastrointestinal: normal bowel sounds, soft, non-tender, no organomegaly Extremities: normal inspection, normal range of motion, mild pedal edema bilaterally Neurologic/Psych: awake, alert, oriented x 3 Skin: intact, normal color, warm/dry Core Measures ACS in differential dx? No CVA/TIA Diagnosis No Sepsis Present: No Sepsis Focused Exam Completed? No (Scarlet HALL,Sue Cadena) Progress Differential Diagnosis: asthma, AMI, CHF, COPD, pulmonary embolism, pneumonia, pneumothorax Plan of Care: Orders Procedure Date/time Status BLOOD CULTURE 12/04 1632 Active Add-on Test (ER Only) 12/04 1442 Active TROPONIN LEVEL 12/04 1429 Complete MAGNESIUM 12/04 1429 Complete COMPREHENSIVE METABOLIC PANEL 12/04 1429 Complete CBC WITHOUT DIFFERENTIAL 12/04 1429 Complete B-TYPE NATRIURETIC PEP (BNP) 12/04 1429 Complete EKG 12/04 1429 Active Laboratory Tests 12/04/17 1458: Anion Gap 10, Estimated GFR > 60, BUN/Creatinine Ratio 8.9, Glucose 112 H, Calcium 9.1, Magnesium 1.6, Total Bilirubin 0.4, AST 30, ALT 57, Alkaline Phosphatase 71, Troponin I < 0.01, Alo-O-Zookoqnsqfu Pept 311 H, Total Protein 6.8, Albumin 4.1, Globulin 2.7, Albumin/Globulin Ratio 1.5, CBC w Diff NO MAN DIFF REQ, RBC 4.33 L, MCV 91.0, MCH 30.4, MCHC 33.4, RDW 14.9 H, MPV 7.7, Gran % 56.0, Lymphocytes % 26.9, Monocytes % 10.3 H, Eosinophils % 6.5 H, Basophils % 0.3, Absolute Granulocytes 5.2, Absolute Lymphocytes 2.5, Absolute Monocytes 1.0 H, Absolute Eosinophils 0.6, Absolute Basophils 0 Microbiology 12/04 163 BLOOD: Blood Culture - ORD 07/08 1633 BLOOD: Blood Culture - ORD On arrival patient's O2 saturation was 86% on room air. His O2 improved to 92% on 3 L of oxygen. Patient has persistent wheezing following albuterol nebulizer. He was medicated with IV Solu-Medrol and 2 g of IV magnesium. Patient given continuous nebulizer. Patient's chest x-ray shows no acute abnormality, EKG shows sinus tachycardia without acute ischemic changes. Patient's labs show mildly elevated carbon dioxide, otherwise labs are stable. I recommended that the patient stay overnight given COPD exacerbation with hypoxia. Patient initially agreed however while waiting here in the emergency department states he felt better and wishes to go home. Patient's wheezing has improved following continuous albuterol nebulizer. The patient that it is dangerous for him to go home, given his current COPD exacerbation with hypoxia risks to leaving AGAINST MEDICAL ADVICE include respiratory distress, respiratory failure, . Patient understands the risks however still wishes to leave AGAINST MEDICAL ADVICE. He was given strict return precautions. Dr. Mathew aware of this patient's decision to leave AMA. Diagnostic Imaging: Viewed by Me: Radiology Read. Discussed w/RAD: Radiology Read. CXR Impression: PATIENT: ARIANNA HEREDIA PRESENT AGE: 47 PATIENT ACCOUNT NO: [id number] : 68 LOCATION: [facility] ORDERING PHYSICIAN: Sue HALL SERVICE DATE: 12/04/17 EXAM TYPE: RAD - XRY-CHEST XRAY, TWO VIEWS EXAMINATION: XR CHEST, 2 VIEWS CLINICAL INFORMATION: Dyspnea, hypoxia. Rule out pneumonia, COPD exacerbation, effusion COMPARISON: 09/29/2017 TECHNIQUE: AP and lateral views of the chest were obtained. FINDINGS: No consolidation, pneumothorax, or pleural effusion. Cardiac and mediastinal contours are normal. Pulmonary vasculature is unremarkable. Trachea is midline. Osseous structures are unremarkable. IMPRESSION: No acute pulmonary findings. DICTATED BY: Poli Thurston MD DATE/TIME DICTATED:12/04/171528 MEDICAL UNIT SECRETARY:SHEEBA DATE/TIME TRANSCRIBED:12/04/171528 CONFIDENTIAL, DO NOT COPY WITHOUT APPROPRIATE AUTHORIZATION. <Electronically signed in Other Vendor System> SIGNED BY: Poli Thurston MD 12/04/17 2126 Initial ED EKG: sinus tachycardia @105bpm, nonspecific ST changes Prior EKG: unchanged (09/30/17) (Sue Rojas) Departure Departure Disposition: LEFT AGAINST MEDICAL ADVICE Condition: Stable Clinical Impression Primary Impression: COPD exacerbation Referrals: Liang Sanchez MD (PCP/Family) Additional Instructions: You signing out AGAINST MEDICAL ADVICE. Take medications as prescribed. Please return if you have worsening symptoms or concerns. Please note that there might be incidental findings in your evaluation that are unrelated to the current emergency department visit. Please notify your primary care doctor about this emergency department visit in order to obtain and review all of the testing performed so that these incidental findings can be monitored as needed. If you had an x-ray performed, please understand that some fractures may not be seen on the initial set of x-rays. If your symptoms persist you might need a repeat set of x-rays to check for such a fracture. If you had a laceration evaluated, please understand that foreign bodies such as glass or wood may not be visible to the naked eye or on plain x-rays. If the wound becomes red, swollen, increasingly more painful or if there is any drainage from the wound, please have it reevaluated by a physician for the possibility of a retained foreign body. If you're unable to follow up as outlined in the discharge instructions please return to the emergency department. Thank you for choosing the [facility] Emergency Department for your care. It was a pleasure to serve you today. Departure Forms: Customer Survey General Discharge Information Prescriptions: Current Visit Scripts Prednisone 1 DOSE PO DAILY #35 TAB 6 tab day 1, 5 tab day 2 and 3, 4 tab day 4 and 5 3 tab day 6 and 7, 2 tab day 8 and 9, 1 tab day 10 Azithromycin 1 DP PO AD #6 TAB 2 the first day followed by 1 for days 2-5 (Sue Rojas) PA/RECORDS TECHNICIAN Co-Sign Statement Statement: ED Attending supervision documentation- x I saw and evaluated the patient. I have also reviewed all the pertinent lab results and diagnostic results. I agree with the findings and the plan of care as documented in the PA's/RECORDS TECHNICIAN's documentation. [] I have reviewed the ED Record and agree with the PA's/RECORDS TECHNICIAN's documentation. [] Additions or exceptions (if any) to the PAs/RECORDS TECHNICIAN's note and plan are summarized below: [] ([place] BANKS,Joao) Critical Care Note Critical Care Note Critical Care Time: 30-74 min (Scarlet HALL,Sue Cadena)
[2017-12-04 15:09] LABS: ABSOLUTE BASOPHIL COUNT 0 /CUMM (0.0-0.2); ABSOLUTE EOSINOPHIL COUNT 0.6 /CUMM (0.0-0.7); ABSOLUTE GRANULOCYTE CT 5.2 /CUMM (1.4-6.5); ABSOLUTE LYMPH COUNT 2.5 /CUMM (1.2-3.4); BASOPHIL % 0.3 % (0.0-2.0); EOSINOPHIL % 6.5 % (0-5); HEMATOCRIT 39.5 % (42-52); MEAN CORPUSCULAR HGB 30.4 PG (27.0-31.0); MEAN CORPUSCULAR HGB CONC 33.4 G/DL (33.0-37.0); MEAN PLATELET VOLUME 7.7 FL (7.4-10.4); PLATELET COUNT 333 /CUMM (130-400); RBC DISTRIBUTION WIDTH 14.9 % (11.5-14.5); RED BLOOD CELL CT 4.33 /CUMM (4.70-6.10); WHITE BLOOD CELL COUNT 9.2 /CUMM (4.8-10.8)
--- NOTE | 2017-12-04 15:36 | RADIOLOGY REPORT ---
EXAMINATION: XR CHEST, 2 VIEWS CLINICAL INFORMATION: Dyspnea, hypoxia. Rule out pneumonia, COPD exacerbation, effusion COMPARISON: 09/29/2017 TECHNIQUE: AP and lateral views of the chest were obtained. FINDINGS: No consolidation, pneumothorax, or pleural effusion. Cardiac and mediastinal contours are normal. Pulmonary vasculature is unremarkable. Trachea is midline. Osseous structures are unremarkable. IMPRESSION: No acute pulmonary findings.
[2017-12-04] MEDS ORDERED: AZITHROMYCIN250 M1 PO (18:04)
[2017-12-04] MEDS ORDERED: PREDNISONE10 M2 PO (18:04)
== END 2017-12-04 18:27 | disposition left against medical advice (07) ==
LOC: ERH 14:15
PROVIDERS: Physician Assistant
DX: J44.1 Chronic obstructive pulmonary disease with (acute) exacerbation (principal); F17.210 Nicotine dependence, cigarettes, uncomplicated
CPT/HCPCS: 1426; 71046; 87040; 93005; 93010; 94644; 96374; 96375; 99291; J2930

== ENCOUNTER 2017-12-24 19:57 | Emergency (ER) | payer OTHER ==
--- NOTE | 2017-12-24 20:15 | ED DYSPNEA/ASTHMA COMPLAINT ---
History of Present Illness General Chief Complaint: Wheezing/Asthma Stated Complaint: ASTHMA Source: patient, old records Exam Limitations: clinical condition Vital Signs & Intake/Output Vital Signs & Intake/Output Vital Signs Date Time Temp Pulse Resp B/P B/P Pulse O2 O2 Flow FiO2 Mean Ox Delivery Rate 12/24 2052 99 Non 100% ReBreather 12/24 2046 100 Part 100% ReBreather 12/24 2046 100.6 134 18 140/88 99 Part 100% ReBreather 12/24 2030 95 Non ReBreather 12/24 2016 95 Non 100% ReBreather 12/24 2008 93 Non 100% ReBreather 12/25 2007 100.6 144 28 121/80 74 Room Air Allergies Coded Allergies: oak (ALLERGY TESTED POSITIVE 08/22/16) Uncoded Allergies: SPRUCE (ALLERGY TESTED POSITIVE 03/15/16) Reconcile Medications Albuterol Sulfate 2.5 MG/3 ML (0.083 %) VIAL.NEB 1 Vial INH/KAREN Q4P PRN COPD (Reported) Albuterol Sulfate (Proair Hfa) 90 MCG HFA.AER.AD 2 PUF INH PRN COPD (Reported ) Alprazolam 0.5 MG TABLET 1 TAB PO BIDP PRN anxiety (Reported) Aripiprazole 5 MG TABLET 1 TAB PO DAILY MENTAL HEALTH (Reported) Aspirin (Ecotrin*) 81 MG TABLET.DR 1 TAB PO DAILY HEART/BLOOD (Reported) Azithromycin 250 MG TABLET 1 DP PO AD copd 2 the first day followed by 1 for days 2-5 Budesonide/Formoterol Fumarate (Symbicort 160-4.5 Mcg Inhaler) 160 MCG-4.5 MCG/ ACTUATION HFA.AER.AD 1 PUF INH BID COPD (Reported) Docusate Sodium 100 MG CAPSULE 100 MG PO BID PRN constipation Ipratropium/Albuterol Sulfate (Iprat-Albut 0.5-3(2.5) MG/3 Ml) 0.5 MG-3 MG (2.5 MG BASE)/3 ML AMPUL.NEB 1 VIAL INH Q4 PRN sob Metformin HCl 500 MG TABLET 1 TAB PO BID diabetes . Methadone HCl 10 MG/5 ML SOLUTION 60 MG PO DAILY MENTAL HEALTH (Reported) Montelukast Sodium 10 MG TABLET 10 MG PO AT BEDTIME COPD Pantoprazole Sodium (Protonix) 40 MG TABLET.DR 1 TAB PO DAILY GI (Reported) Prednisone 10 MG TABLET 1 TAB PO DAILY STEROID (Reported) Prednisone (Deltasone) 20 MG TABLET 3 TAB PO DAILY WHEEZING BEGIN TOMORROW Prednisone 10 MG TABLET 1 DOSE PO DAILY copd 6 tab day 1, 5 tab day 2 and 3, 4 tab day 4 and 5 3 tab day 6 and 7, 2 tab day 8 and 9, 1 tab day 10 Triage Note: PT TO TRIAGE FOR DIFFICULTY BREATHING X2 DAYS, HX ASTHMA. PT ARRIVES SATTING 74% ON RA, HR 142, ACCESSORY MUSCLE USE, AUDIBLE WHEEZING. PT DIRECTLY TO ROOM 2, PLACED ON NONREBREATHER WITH IMPROVEMENT TO 93%, RESP NOTIFIED FOR DUONEB. 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 Triage Nurses Notes Reviewed? yes Onset: Abrupt Duration: hour(s): Severity: moderate, severe Activities at Onset: rest Prior Episodes/Possible Cause: occasional episodes HPI: Patient presents for evaluation of severe shortness of breath secondary to asthma. He did a DuoNeb about an hour prior to arrival with little improvement. He states he is also currently on a 10 mg dose of prednisone daily. Past History Travel History Traveled to [place] past 21 day No Medical History Any Pertinent Medical History? 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 No Review of Systems Review of Systems Constitutional: Reports: no symptoms. EENTM: Reports: no symptoms. Respiratory: Reports: see HPI. Cardiovascular: Reports: no symptoms. GI: Reports: no symptoms. Genitourinary: Reports: no symptoms. Musculoskeletal: Reports: no symptoms. Skin: Reports: no symptoms. Neurological/Psychological: Reports: no symptoms. Hematologic/Endocrine: Reports: no symptoms. Immunologic/Allergic: Reports: no symptoms. All Other Systems: Reviewed and Negative Physical Exam Physical Exam Respiratory: see below Comments: Gen.: Well-nourished, well-developed, moderate respiratory distress. Breathless and speaking in partial sentences. Head: Normocephalic, atraumatic. Eyes: Normal inspection bilaterally Ears: Normal inspection bilaterally Nose: Normal inspection Throat/mouth : Moist mucosa Neck: Supple, full range of motion, no goiter Heart: Regular rate and rhythm, no murmurs rubs or gallops Lungs: Decreased air entry bilaterally with expiratory wheezing and "groans", no rales or rhonchi Chest: Nontender Back: Normal range of motion Abdomen: Soft, nontender, nondistended, normal bowel sounds Extremities: Normal range of motion grossly, equal radial pulses, no cyanosis clubbing or edema Neurologic: Cranial nerves grossly intact, speech is clear Skin: warm and dry Psychiatric: Calm, cooperative, no apparent delusions or hallucinations Core Measures ACS in differential dx? No CVA/TIA Diagnosis No Sepsis Present: No Sepsis Focused Exam Completed? No Progress Differential Diagnosis: asthma, bronchitis, CHF, COPD, pneumonia Plan of Care: Orders Procedure Date/time Status Regular Diet 12/25 B Active Misc Message 12/24 2125 Active Admit to inpatient 12/24 2125 Active Vital Signs 12/24 2125 Active Code Status 12/24 2125 Active TROPONIN LEVEL 12/24 2013 Complete MAGNESIUM 12/24 2013 Complete CBC WITHOUT DIFFERENTIAL 12/24 2013 Complete BASIC METABOLIC PANEL 12/24 2013 Complete EKG 12/24 1958 Active Laboratory Tests 12/24/17 2019: Anion Gap 11, Estimated GFR > 60, BUN/Creatinine Ratio 15.6, Glucose 107 H, Calcium 9.6, Magnesium 1.4 L, Troponin I < 0.01, CBC w Diff NO MAN DIFF REQ, RBC 4.44 L, MCV 92.0, MCH 30.8, MCHC 33.5, RDW 14.6 H, MPV 8.6, Gran % 56.0, Lymphocytes % 26.6, Monocytes % 9.8 H, Eosinophils % 7.4 H, Basophils % 0.2, Absolute Granulocytes 6.6 H, Absolute Lymphocytes 3.1, Absolute Monocytes 1.1 H, Absolute Eosinophils 0.9, Absolute Basophils 0 Initial ED EKG: sinus tachycardia with nonspecific ST segment changes Prior EKG: unchanged (sinus tachycardia on prior) Comments: 12/24/2017 9:35:52 PM although Jd has improved with treatments here in the emergency department he remains oxygen dependent. I have spoken to the hospitalist about admitting him but the patient has now refused the admission. He states he has oxygen at home he can use. I notified him that I thought that this was not a good idea and I suspect that he would do poorly at home. 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 He understands this and acknowledges the risk. I have asked for how long I could treat him in the emergency department and he stated "9:45 PM". He will sign out AGAINST MEDICAL ADVICE. I will provide an increased dose of prednisone for him. Departure Departure Disposition: LEFT AGAINST MEDICAL ADVICE Condition: Stable Clinical Impression Primary Impression: Asthma exacerbation Secondary Impressions: Hypoxia Referrals: Liang Sanchez MD (PCP/Family) Additional Instructions: You ARE leaving AGAINST MEDICAL ADVICE. I feel it is unsafe for you to return home given your current need for oxygen to maintain normal oxygen saturations and the blood. Urine high risk of worsening oxygen saturations, shortness of breath, chest pain, fainting or . Take your DuoNeb every 4 hours. Use your albuterol metered-dose inhaler in between if necessary. Discontinue your current prednisone dose and begin taking prednisone as prescribed. Once this increased dose of prednisone prescription has ended, return to your prior dose. Follow-up with your primary care physician or mobile application development lead on Tuesday for reevaluation. Return immediately if any concerns or sudden worsening. Departure Forms: Customer Survey General Discharge Information Prescriptions: Current Visit Scripts Prednisone (Deltasone) 3 TAB PO DAILY #12 TAB BEGIN TOMORROW Critical Care Note Critical Care Note Critical Care Time: non-applicable
[2017-12-24 20:26] LABS: ABSOLUTE BASOPHIL COUNT 0 /CUMM (0.0-0.2); ABSOLUTE EOSINOPHIL COUNT 0.9 /CUMM (0.0-0.7); ABSOLUTE GRANULOCYTE CT 6.6 /CUMM (1.4-6.5); ABSOLUTE LYMPH COUNT 3.1 /CUMM (1.2-3.4); ABSOLUTE MONOCYTE COUNT 1.1 /CUMM (0.10-0.60); BASOPHIL % 0.2 % (0.0-2.0); EOSINOPHIL % 7.4 % (0-5); HEMATOCRIT 40.8 % (42-52); MEAN CORPUSCULAR HGB 30.8 PG (27.0-31.0); MEAN CORPUSCULAR HGB CONC 33.5 G/DL (33.0-37.0); MEAN PLATELET VOLUME 8.6 FL (7.4-10.4); PLATELET COUNT 282 /CUMM (130-400); RBC DISTRIBUTION WIDTH 14.6 % (11.5-14.5); RED BLOOD CELL CT 4.44 /CUMM (4.70-6.10); WHITE BLOOD CELL COUNT 11.7 /CUMM (4.8-10.8)
[2017-12-24] MEDS ORDERED: DELTASONE20 MG PO (21:38)
[2017-12-24 22:05] VITALS: BP 134/81
== END 2017-12-24 22:07 | disposition left against medical advice (07) ==
LOC: ERH 19:57
PROVIDERS: Emergency Medicine
DX: J45.901 Unspecified asthma with (acute) exacerbation (principal); R09.02 Hypoxemia; F17.210 Nicotine dependence, cigarettes, uncomplicated
CPT/HCPCS: 1263; 93005; 93010; 96374; 99291; J2930

== ENCOUNTER 2018-01-04 03:52 | Inpatient (IN) | payer OTHER ==
[~2018-01-04] VITALS: Ht 177.8 cm; Wt 99.8 kg
[~2018-01-04 03:52] MED LIST changes: -ALPRAZOLAM0.5 M4 PO; +ALPRAZOLAM1 M2 PO; +DELTASONE20 MG PO
--- NOTE | 2018-01-04 04:09 | ED DYSPNEA/ASTHMA COMPLAINT ---
History of Present Illness General Chief Complaint: Dyspnea (COPD, CHF, Other) Stated Complaint: SOB DIFF BREATHING HX ASTHMA Source: patient Exam Limitations: clinical condition Allergies Coded Allergies: oak (ALLERGY TESTED POSITIVE 08/22/16) Uncoded Allergies: SPRUCE (ALLERGY TESTED POSITIVE 03/15/16) Reconcile Medications Albuterol Sulfate 2.5 MG/3 ML (0.083 %) VIAL.NEB 1 Vial INH/KAREN Q4P PRN COPD (Reported) Albuterol Sulfate (Proair Hfa) 90 MCG HFA.AER.AD 2 PUF INH PRN COPD (Reported ) Alprazolam 1 MG TABLET 1 TAB PO BIDP PRN ANXIETY (Reported) Aripiprazole 5 MG TABLET 1 TAB PO DAILY MENTAL HEALTH (Reported) Aspirin (Ecotrin*) 81 MG TABLET.DR 1 TAB PO DAILY HEART/BLOOD (Reported) Budesonide/Formoterol Fumarate (Symbicort 160-4.5 Mcg Inhaler) 160 MCG-4.5 MCG/ ACTUATION HFA.AER.AD 1 PUF INH BID COPD (Reported) Ipratropium/Albuterol Sulfate (Iprat-Albut 0.5-3(2.5) MG/3 Ml) 0.5 MG-3 MG (2.5 MG BASE)/3 ML AMPUL.NEB 1 VIAL INH Q4 PRN sob Losartan/Hydrochlorothiazide (Losartan-Hctz 50-12.5 MG Tab) 50 MG-12.5 MG TABLET 1 TAB PO DAILY HEART (Reported) Metformin HCl 500 MG TABLET 1 TAB PO 1200 DIABETES (Reported) Pantoprazole Sodium (Protonix) 40 MG TABLET.DR 1 TAB PO DAILY GI (Reported) Prednisone 10 MG TABLET 2 TAB PO DAILY COPD (Reported) Rosuvastatin Calcium (Crestor) 10 MG TABLET 1 TAB PO QPM CHOLESTEROL ( Reported) Sitagliptin Phos/Metformin HCl (Janumet 50-1,000 MG Tablet) 50 MG-1,000 MG TABLET 1 TAB PO BID DIABETES (Reported) Triage Nurses Notes Reviewed? yes HPI: Patient presents for evaluation of severe shortness of breath that began on Tuesday. Patient was evaluated in the [facility] emergency department and was apparently told that he should be hospitalized but declined. He has been using a home nebulizer frequently over the course of the past few days and in particular has taken roughly 4 DuoNeb since about 11:00 this evening. (Lissette BANKS,Beck Brady) Vital Signs & Intake/Output Vital Signs & Intake/Output Vital Signs Date Time Temp Pulse Resp B/P B/P Pulse O2 O2 Flow FiO2 Mean Ox Delivery Rate 01/04 1610 90 Nasal 5.0L Cannula 01/04 1435 98.9 111 18 116/72 90 Nasal 5.0L Cannula 01/04 1326 100 100/72 01/04 1205 Nasal 5.0L Cannula 01/04 1030 90 Nasal 5.0L Cannula 01/04 0942 97.1 104 26 110/69 92 Nasal 5.0L Cannula ED Intake and Output 01/05 0000 01/04 1200 Intake Total 400 0 Output Total Balance 400 0 Intake, Oral 400 0 Patient 220 lb Weight Weight Reported by Patient Measurement Method (Beck Burns DO) Past History Travel History Traveled to [place] past 21 day No Medical History Neurological: NONE EENT: NONE Cardiovascular: NONE Respiratory: asthma, COPD Gastrointestinal: GERD Hepatic: NONE Renal: NONE Musculoskeletal: NONE Psychiatric: anxiety, depression, PTSD Endocrine: NONE Blood Disorders: NONE Cancer(s): NONE 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 see below for history Family History Hx Contributory? No (Beck Burns DO) Review of Systems Review of Systems Constitutional: Denies: fever. (Beck Burns DO) Physical Exam Physical Exam Respiratory: see below Comments: Gen.: Well-nourished, well-developed, severe respiratory distress. Head: Normocephalic, atraumatic. Eyes: Normal inspection bilaterally Ears: Normal inspection bilaterally Nose: Normal inspection Throat/mouth : Moist mucosa Neck: Supple, full range of motion, no goiter Heart: Regular rate and rhythm, no murmurs rubs or gallops Lungs: Severely diminished breath sounds bilaterally with faint end expiratory wheezing Chest: Nontender Back: Normal range of motion Abdomen: Soft, nontender, nondistended, normal bowel sounds Extremities: Normal range of motion grossly, equal radial pulses, no cyanosis clubbing or edema Neurologic: Cranial nerves grossly intact, speech is clear Skin: warm and dry Psychiatric: Calm, cooperative, no apparent delusions or hallucinations (Lissette BANKS,Beck Brady) Core Measures ACS in differential dx? No CVA/TIA Diagnosis No Sepsis Present: No Sepsis Focused Exam Completed? No (Beck Burns DO) Progress Diagnostic Imaging: Discussed w/RAD: Radiology Read. CXR Impression: PATIENT: ARIANNA HEREDIA PRESENT AGE: 47 PATIENT ACCOUNT NO: [id number] : 68 LOCATION: [facility] ORDERING PHYSICIAN: Beck Mclaughlin MD SERVICE DATE: 01/04/18 EXAM TYPE: RAD - XRY-PORTABLE CHEST XRAY EXAMINATION: XR PORTABLE CHEST CLINICAL INFORMATION: Dyspnea. History of asthma. COMPARISON: 12/04/2017 TECHNIQUE: Portable frontal view of the chest was obtained. FINDINGS: Cardiac lead overlies the chest. The lungs are well expanded. There is no focal consolidation, edema, or effusion. No pneumothorax. The cardiomediastinal silhouette is within normal limits. No acute osseous abnormality. IMPRESSION: No acute pulmonary finding. DICTATED BY: Edwin Juares MD DATE/TIME DICTATED:01/04/18449 MEMORIAL DESIGNER:SHEEBA DATE/TIME TRANSCRIBED:01/04/18449 CONFIDENTIAL, DO NOT COPY WITHOUT APPROPRIATE AUTHORIZATION. <Electronically signed in Other Vendor System> SIGNED BY: Edwin Juares MD 01/04/185 Comments: 01/04/2018 4:25:38 AM patient appears somewhat more comfortable, with a nebulizer in progress. Oxygen saturation is 95%. 01/04/2018 7:24:42 AM patient is currently on 4 L nasal cannula O2 with an oxygen saturation of 92%. I do not feel he has improved enough to return home. Patient states he does have home oxygen therapy that he wears typically at night. He does still appear somewhat dyspneic and he is also tachycardic likely the result of his work of breathing and the nebulizers. (Lissette BANKS,Beck Brady) Differential Diagnosis: asthma, bronchitis, pulmonary embolism, pneumonia Plan of Care: Orders Procedure Date/time Status Consistent Carbohydrate 2 01/04 L Active RT: Evaluation 08/08 1205 Active Weight 01/04 1202 Active Vital Signs 01/04 1202 Active Teach/Educate 01/04 1202 Active Pain Treatment and Response 01/04 120 Active Nutritional Intake, Monitor 01/04 120 Active Isolation 01/04 1202 Active Intake & Output 01/04 1202 Active Patient Care Conference 01/04 120 Active Activity/Ambulation 01/04 120 Active SPECIMEN TO BE OBTAINED 01/04 1037 Active Pathway - chart 01/04 0959 Active FingerStick- Glucose 01/04 0942 Complete D-DIMER 01/04 0919 Complete GLYCOSYLATED HGB 01/04 0415 Complete Intake & Output 01/04 0413 Active TRC EVALUATION (GEN) 01/04 UNK Complete THERAPIST ORDERS 01/04 UNK Complete PEAK FLOW MEASUREMENT (GEN) 01/04 UNK Active OXYGEN SETUP (GEN) 01/04 UNK Complete House Staff 01/04 UNK Active Change service to 01/04 UNK Active Lab Add-on Test 01/04 UNK Active VTE Mechanical Prophylaxis 01/04 UNK Active Vital Signs 01/04 UNK Complete Intake & Output 01/04 UNK Complete FingerStick- Glucose 01/04 UNK Active Activity/Ambulation 01/04 UNK Active Laboratory Tests 01/04/18 0940: D-Dimer High Sensitivty < 200 Initial ED EKG: PENDING (Beck Burns DO) Departure Departure Disposition: STILL A PATIENT Condition: Stable Clinical Impression Primary Impression: Acute asthma exacerbation Qualifiers: Asthma severity: severe Asthma persistence: persistent Qualified Code: J45.51 - Severe persistent asthma with (acute) exacerbation Secondary Impressions: Hypoxia Referrals: Liang Sanchez MD (PCP/Family) Departure Forms: Customer Survey General Discharge Information Admission Note Documentation of Exam: Documentation of any treatments & extenuating circumstances including Concerns Regarding Discharge (functional status, medication knowledge or non-compliance, living conditions, etc.) that warrant an admission rather than observation: Observation Note Spoke With: Brianna Zhao MD Patient In: Non-ED OBS Care Area Rationale for Observation: My rational for observation is as follows: Patient has failed outpatient management with nebulized bronchodilators at home. He is currently oxygen dependent to maintain low normal oxygen saturations. He is persistently tachycardic as well. I do not feel he is a good candidate for outpatient management under the circumstances. I suspect he would return in worse clinical condition. I feel he requires hospitalization for close clinical monitoring, pulse oximetry determinations and continued nebulized bronchodilators along with IV steroids. Pulmonary consultation should be considered and patient's current medication regimen reviewed and optimized. Oxygen should be supplemented and weaned as tolerated. . (Lissette BANKS,Beck Brady) Admission Note Spoke With: Brianna Zhao MD Documentation of Exam: Documentation of any treatments & extenuating circumstances including Concerns Regarding Discharge (functional status, medication knowledge or non-compliance, living conditions, etc.) that warrant an admission rather than observation: [ The patient will require nebulizers every 4 hours, intravenous steroids and discharge is unlikely to occur within 48 hours he is therefore being admitted to the hospital for further care, Observation Note Rationale for Observation: My rational for observation is as follows . (Beck Burns DO) Critical Care Note Critical Care Note Critical Care Time: 30-74 min (Lissette BANKS,Beck Brady) Critical Care Note Comments: The patient was signed out to me by Dr. Mclaughlin for admission to the hospital for further care. He has bilateral expiratory wheezes. (Beck Burns DO)
[2018-01-04 04:28] LABS: ABSOLUTE BASOPHIL COUNT 0 /CUMM (0.0-0.2); ABSOLUTE EOSINOPHIL COUNT 0.7 /CUMM (0.0-0.7); ABSOLUTE GRANULOCYTE CT 6.5 /CUMM (1.4-6.5); ABSOLUTE LYMPH COUNT 2.5 /CUMM (1.2-3.4); ABSOLUTE MONOCYTE COUNT 1.2 /CUMM (0.10-0.60); BASOPHIL % 0.3 % (0.0-2.0); EOSINOPHIL % 6.7 % (0-5); HEMATOCRIT 43.3 % (42-52); MEAN CORPUSCULAR HGB 31.4 PG (27.0-31.0); MEAN CORPUSCULAR HGB CONC 33.6 G/DL (33.0-37.0); MEAN CORPUSCULAR VOLUME 93.3 FL (80.0-94.0); MEAN PLATELET VOLUME 8.4 FL (7.4-10.4); PLATELET COUNT 312 /CUMM (130-400); RED BLOOD CELL CT 4.64 /CUMM (4.70-6.10)
--- NOTE | 2018-01-04 04:55 | RADIOLOGY REPORT ---
EXAMINATION: XR PORTABLE CHEST CLINICAL INFORMATION: Dyspnea. History of asthma. COMPARISON: 12/04/2017 TECHNIQUE: Portable frontal view of the chest was obtained. FINDINGS: Cardiac lead overlies the chest. The lungs are well expanded. There is no focal consolidation, edema, or effusion. No pneumothorax. The cardiomediastinal silhouette is within normal limits. No acute osseous abnormality. IMPRESSION: No acute pulmonary finding.
[2018-01-04] MEDS ORDERED: METFORMIN HCL500 M3 PO (09:00)
[2018-01-04] MEDS ORDERED: JANUMET 50-1,01 EACH PO (09:01)
[2018-01-04] MEDS ORDERED: PREDNISONE10 M2 PO (09:02)
[2018-01-04] MEDS ORDERED: LOSARTAN-HCTZ1 EAC1 PO (09:02)
[2018-01-04] MEDS ORDERED: CRESTOR10 M1 PO (09:02)
--- NOTE | 2018-01-04 09:04 | History & Physical ---
Florentino Hernández 01/04/18 0903: General Information and HPI MD Statement: I have seen and personally examined ARIANNA HEREDIA and documented this H&P. The patient is a 47 year old M who presented with a patient stated chief complaint of []. Source of Information: patient, old records Exam Limitations: no limitations History of Present Illness: Mr Heredia is a 46-year-old gentleman with a past history of chronic hypoxemic respiratory failure, COPD on 3-4 L nocturnal supplemental oxygen daily and chronic prednisone 10mg therapy, history of eosinophilia, asthma with recurrent bronchospasm, current daily smoker, opiate abuse for chronic pain recently weaned off methadone, PTSD, multiple recent admissions to [facility] for the management of acute exacerbation of COPD in the last 1 year, last admission 09/29-10/01 2017 for the management of asthma exacerbation with COPD overlap, came in with a chief concern of an acute onset of dyspnea that started approximately 5 days ago. He was evaluated at [facility], and was advised to be admitted, but he refused. He reported to have been using increasing nebulizer therapy, and has used more than 4 treatments in the last few days prior to presentation. Also reported to have frequent episodes of hypoxemia upto 70% on ambulation, and seemed to have increased the oxygen use from 3L-->5L. Recent change in prednisone from 10mg daily to 20 mg daily with no relief of symptoms. Reported continued prductive cough w/ no fever, chest pain. No sick contacts, but reported allergies that have been exacerbating his symtpms. Also reported a few episodes of diarrhea, which he attributes it to dietary changes. No recent abx, or travel. No chest pain, palpitations, nausea or vomiting. No lightheadedness or dizziness. Sees Dr Cuevas regularly. Also, reported medication non compliance. 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 spouse, child Services at Home: None Primary Language: Bolivian ETOH Use: denies use Illicit Drug Use: denies illicit drug use Functional Ability ADLs Independent: dressing, eating, toileting, bathing. Ambulation: independent IADLs Independent: shopping, housework, finances, food prep, telephone, transportation , medication admin. Review of Systems Review of Systems Constitutional: Reports: see HPI. Denies: no symptoms, chills, fever. EENTM: Denies: blurred vision. Cardiovascular: Denies: chest pain, edema. Respiratory: Reports: cough, short of breath, sputum production, wheezing. Denies: orthopnea. GI: Reports: diarrhea. Genitourinary: Denies: frequency. Musculoskeletal: Denies: back pain. Skin: Denies: change in skin color, jaundice. Neurological/Psychological: Reports: anxiety. Denies: headache, numbness, paresthesia. Hematologic/Endocrine: Denies: bruising, bleeding. Exam & Diagnostic Data Last 24 Hrs of Vital Signs/I&O Vital Signs Date Time Temp Pulse Resp B/P B/P Pulse O2 O2 Flow FiO2 Mean Ox Delivery Rate 01/04 0942 97.1 104 26 110/69 92 Nasal 5.0L Cannula 01/04 0857 96 Nasal 5.0L Cannula 01/04 0715 97.1 110 30 102/58 92 Nasal 4.0L Cannula 01/04 0530 113 28 96 Nasal 5.0L Cannula 01/04 0414 95 Aerosol 8L Mask 01/04 0414 97 01/04 0403 97.9 128 36 118/90 80 Room Air Intake & Output 01/04 1600 01/04 0800 01/04 0000 Intake Total 0 Output Total Balance 0 Intake, Oral 0 Patient 220 lb Weight Weight Reported by Patient Measurement Method Physical Exam General Appearance Alert, Oriented X3, Cooperative, Mild Distress Skin No Rashes, No Breakdown, No Significant Lesion Skin Temp/Moisture Exam: Warm/Dry Sepsis Skin Exam (color): Normal for Ethnicity HEENT Atraumatic, PERRLA, EOMI, dry mucous membranes Neck Supple, No JVD, No thryomegaly, +2 Carotid Pulse wo Bruit, No LAD Lymphatic Axillary nl, Cervical nl Cardiovascular Regular Rate, Normal S1, Normal S2, No Murmurs, tachycardia Lungs decrease air entry bilaterally wheezes bilaterally Abdomen Normal Bowel Sounds, Soft, No Tenderness, No Hepatospenomegaly, No Masses Neurological Normal Speech, Strength at 5/5 X4 Ext, Normal Tone, Sensation Intact, Cranial Nerves 3-12 NL, Reflexes 2+ Extremities No Clubbing, No Cyanosis, No Edema, Normal Pulses, No Tenderness/ Swelling Vascular Pulses Symmetrical Assessment/Plan Assessment: Mr Heredia is a 46-year-old gentleman with a past history of chronic hypoxemic respiratory failure, COPD on 3-4 L nocturnal supplemental oxygen when necessary and chronic prednisone therapy, history of eosinophilia, asthma with recurrent bronchospasm, current daily smoker, opiate abuse for chronic pain on methadone, PTSD, multiple recent admissions to [facility] for the management of acute exacerbation of COPD in the last 1 year is being evaluated for acute onset of dyspnea that started approximately 5 days ago secondary to COPD/asthma exacerbation likely from his medication non compliance or allergies. At the time of admission, temp 97.9,. [place] 128-->110, RR 36-->30, Pulse ox O2 80 % 8L-->96% on 5L. Pertinent lab findings: WBC 11.0( likely steroids/reactive), hemoglobin 14.6, platelet count 312. Eos 6.7% Sodium 137, potassium 4.0, chloride 95, bicarbonate 33 (likely compensation). BUN 10, creatinine 0.9. Chest x-ray revealed no acute pulmonary finding. Last echocardiogram 17 January 2017 1. Normal EF of 60%. 2. Mild mitral regurgitation. 3. Mild tricuspid regurgitation. 4. Mild pulmonary hypertension. Last PFTs 12/08/15 Severe obstructive lung disease with a reduction in diffusing capacity consistent with emphysema and a significant bronchodilator response with oxygen desaturation. Etiology in this case for airflow obstruction is likely secondary to emphysema and asthma likely secondary to allergies. Frequent exacerbations are associated w/ greater mortality, faster decline in lung function. Etiology for acute exacerbation is likely viral infection or bacterial infection or is seasonal. Differential diagnosis considered at the time of admission- pneumonia but doesnt have fever, or has any radiological findings s/o pneumonia, worsening restrictive lung disease. Allergic broncho pulmonary aspergillosis is also considered in the differential. As per mMRC dyspnea scale, the patient falls and Gold criteria-D. Problem list: 1. COPD/Asthma exacerbation 2. Pulmonary HTN 3. h/o HTN 4. Acute on chronic hypoxemic respiratory failure 5. Leucocytosis 6. Eosinophilia 7. chronic opiate use, off methadone ( as per the pt ). Plan: -Advised the patient to general medicine service. -CBC to monitor for infection -Arterial blood gas, if indicated. At this time, would monitor clincially. -Check d-dimer given tachycardia, which could be due to anxiety+beta-agonist use. -Lower respiratory cultures -supplemental oxygen, as needed. -Maintain oxygen saturation in between 90 to 92% -Monitor for CO2 narcosis, monitor for AMS, clinical tiring. If indicated consider ventilator support by an NIPPV might be needed. -Bronchodilator therapy with albuterol and ipratropium -Start iv predniosne 40 Q8 -Consider starting antibiotics, if the pt has fever or increased sputum production or worsening dyspnea. At this time start azithromycin. -Smoking cessation counseling, avoid triggers -If he has more episodes of diarrhe, would check c diff. -For the mgt of type 2 DM, would dc oral hypoglycemics. Start levemir 5 units bid, and start insulin sliding scale. Please check BS regularly given his use of steroids. Code status- Full code Subcutaneous heparin for DVT PPx GI PPx-Protonix As Ranked By This Provider Problem List: 1. Diabetes 2. Acute and chronic respiratory failure with hypoxia 3. COPD exacerbation Core Measures/Misc (02/13) Acute Coronary Syndrome ACS Diagnosis: No Congestive Heart Failure Congestive Heart Failure Diagnosis No Cerebrovascular Accident CVA/TIA Diagnosis: No VTE (View Protocol) VTE Risk Factors Acute Medical Illness No Mechanical VTE Prophylaxis d/t N/A MechProphylax Ordered No VTE Pharm Prophylaxis d/t NA PharmProphylax ordered Sepsis (View protocol) Sepsis Present: No If YES complete Sepsis Event Note If YES complete Sepsis Event Note Trish Talavera 01/04/18 1006: General Information and HPI Allergies/Medications Home Med list Albuterol Sulfate 2.5 MG/3 ML (0.083 %) VIAL.NEB 1 Vial INH/KAERN Q4P PRN COPD (Reported) Albuterol Sulfate (Proair Hfa) 90 MCG HFA.AER.AD 2 PUF INH PRN COPD (Reported ) Alprazolam 1 MG TABLET 1 TAB PO BIDP PRN ANXIETY (Reported) Aripiprazole 5 MG TABLET 1 TAB PO DAILY MENTAL HEALTH (Reported) Aspirin (Ecotrin*) 81 MG TABLET.DR 1 TAB PO DAILY HEART/BLOOD (Reported) Budesonide/Formoterol Fumarate (Symbicort 160-4.5 Mcg Inhaler) 160 MCG-4.5 MCG/ ACTUATION HFA.AER.AD 1 PUF INH BID COPD (Reported) Ipratropium/Albuterol Sulfate (Iprat-Albut 0.5-3(2.5) MG/3 Ml) 0.5 MG-3 MG (2.5 MG BASE)/3 ML AMPUL.NEB 1 VIAL INH Q4 PRN sob Losartan/Hydrochlorothiazide (Losartan-Hctz 50-12.5 MG Tab) 50 MG-12.5 MG TABLET 1 TAB PO DAILY HEART (Reported) Metformin HCl 500 MG TABLET 1 TAB PO 1200 DIABETES (Reported) Pantoprazole Sodium (Protonix) 40 MG TABLET.DR 1 TAB PO DAILY GI (Reported) Prednisone 10 MG TABLET 2 TAB PO DAILY COPD (Reported) Rosuvastatin Calcium (Crestor) 10 MG TABLET 1 TAB PO QPM CHOLESTEROL ( Reported) Sitagliptin Phos/Metformin HCl (Janumet 50-1,000 MG Tablet) 50 MG-1,000 MG TABLET 1 TAB PO BID DIABETES (Reported) Core Measures/Misc (02/13) Sepsis (View protocol) If YES complete Sepsis Event Note If YES complete Sepsis Event Note Attending MD Review Statement Attending Statement Attending MD Statement: examined this patient, discuss w/resident/PA/BEAM BUILDER HELPER, agreed w/resident/PA/BEAM BUILDER HELPER, discussed with family, reviewed EMR data (avail), discussed with nursing, discussed with case mgmt, reviewed images, amended to note Attending Assessment/Plan: 47 yo M smoker with h/o severe persistent asthma/COPD on nocturnal 4 L O2, panic with agoraphobia, PTSD, chronic pain on methadone, last admitted to [facility] [place] (September 2017) for exacerbation, is here for c/o worsening dyspnea. Vitals: aferile, tachycardic to 104s, BP stable. sats 92% on 5L. Chest b/l reduced air entry with prolonged expiratory wheezes++. Labs noted. CXR: no acute finding. EKG: sinus tachycardia. non specific changes Echo (2017): EF >60%, mild pulmonary hypertension. PFT (November 2015): severe obstructive lung disease with reduction in diffusing capacity c/w emphysema and a significant bronchodilator response with oxygen desaturation. Assessment and plan: 1. Asthma/ COPD overlap exacerbation 2. Acute on chronic hypoxemic respiratory failure 3. h/o PTSD, anxiety 4. Opiate dependence on methadone now weaned off 5. Smoker 6. Diabetes mellitus controlled on metfomin 7. Hypertension controlled. - Admit to inpatient medical services. - O2 supplementation to keep sats > 92%, TRC nebs scheuled and PRN - Sputum cultures if any - IV solumedrol, IV azithromycin Pulmonary consult. - Continue dose of methadone. - Smoking cessation counseling, nicotine patch. - RISS and titrate insulin as needed - home meds for htn DVT ppx. Full code.
--- NOTE | 2018-01-04 11:32 | Cons- Pulmonary ---
General Information and HPI Consulting Request Date of Consult: 01/04/18 Requested By: Dr. Talavera Reason for Consult: asthma exacerbation Source of Information: patient Exam Limitations: no limitations History of Present Illness: 47-year-old man. Consultation for acute on chronic hypoxemic respiratory failure. Asthma exacerbation with COPD overlap. PMH significant for asthma with recurrent bronchospasm. The patient is on supplemental oxygen at home, 3-4 L via NC. Hx anxiety, and opioid dependence for chronic pain, in the methadone program. Smokes 3-4 cigarettes daily. Recent admission, recommended to take steroids at baseline then follow up with myself. He has not On prednisone 10mg at baseline. Recently (October 2017) had his teeth removed. He has lost a 35 lbs since then, he is awaiting denture replacement at this time. He has no evidence of any pulmonary infection. Intermittent leg edema, history of eosinophilia. Feels better with steroids. No sick contacts, lives with daughter. Continued stress/anxiety. No fevers. Allergies/Medications Allergies: Coded Allergies: oak (ALLERGY TESTED POSITIVE 08/22/16) Uncoded Allergies: SPRUCE (ALLERGY TESTED POSITIVE 03/15/16) Home Med List: Albuterol Sulfate 2.5 MG/3 ML (0.083 %) VIAL.NEB 1 Vial INH/KAREN Q4P PRN COPD (Reported) Albuterol Sulfate (Proair Hfa) 90 MCG HFA.AER.AD 2 PUF INH PRN COPD (Reported ) Alprazolam 1 MG TABLET 1 TAB PO BIDP PRN ANXIETY (Reported) Aripiprazole 5 MG TABLET 1 TAB PO DAILY MENTAL HEALTH (Reported) Aspirin (Ecotrin*) 81 MG TABLET.DR 1 TAB PO DAILY HEART/BLOOD (Reported) Budesonide/Formoterol Fumarate (Symbicort 160-4.5 Mcg Inhaler) 160 MCG-4.5 MCG/ ACTUATION HFA.AER.AD 1 PUF INH BID COPD (Reported) Ipratropium/Albuterol Sulfate (Iprat-Albut 0.5-3(2.5) MG/3 Ml) 0.5 MG-3 MG (2.5 MG BASE)/3 ML AMPUL.NEB 1 VIAL INH Q4 PRN sob Losartan/Hydrochlorothiazide (Losartan-Hctz 50-12.5 MG Tab) 50 MG-12.5 MG TABLET 1 TAB PO DAILY HEART (Reported) Metformin HCl 500 MG TABLET 1 TAB PO 1200 DIABETES (Reported) Pantoprazole Sodium (Protonix) 40 MG TABLET.DR 1 TAB PO DAILY GI (Reported) Prednisone 10 MG TABLET 2 TAB PO DAILY COPD (Reported) Rosuvastatin Calcium (Crestor) 10 MG TABLET 1 TAB PO QPM CHOLESTEROL ( Reported) Sitagliptin Phos/Metformin HCl (Janumet 50-1,000 MG Tablet) 50 MG-1,000 MG TABLET 1 TAB PO BID DIABETES (Reported) Current Medications: Current Medications Sig/Nettie Start time Last Medication Dose Route Stop Time Status Admin Acetaminophen 1,000 MG DAILY PRN 01/04 1100 AC IV Acetaminophen 650 MG Q8P PRN 01/04 1045 AC PO Acetaminophen 650 MG Q8P PRN 01/04 1000 AC PO Albuterol Sulfate 2 PUF Q4 HRS NEEDED PRN 01/04 1015 AC INH Albuterol Sulfate 3 ML ONCE ONE 01/04 0815 DC 01/04 INH 01/04 0816 0857 Albuterol Sulfate 3 ML ONCE ONE 01/04 0415 DC 01/04 INH 01/04 0416 0407 Alprazolam 1 MG BID PRN 01/04 1015 AC PO 01/11 1014 Aripiprazole 5 MG DAILY 01/04 1002 AC PO Aspirin Buffered 81 MG DAILY 01/04 1100 AC PO Atorvastatin Calcium 40 MG 1700 01/04 1700 AC PO Budesonide/ 2 PUF BID 01/04 2100 AC Formoterol Fumarate INH Heparin Sodium 5,000 UNIT Q8 01/04 1400 AC (Porcine) SC Hydrochlorothiazide 12.5 MG DAILY 01/05 0900 AC PO Insulin Aspart 0 TIDAC 01/04 1200 AC SC Insulin Detemir 5 UNITS BID 01/04 2100 AC SC Ipratropium [place] 2.5 ML ONCE ONE 01/04 0815 DC 01/04 INH 01/04 0816 0857 Ipratropium [place] 2.5 ML ONCE ONE 01/04 0415 DC 01/04 INH 01/04 0416 0407 Losartan Potassium 50 MG DAILY 01/04 1100 AC PO Methylprednisolone 40 MG Q8 01/04 2200 AC IV Methylprednisolone 125 MG ONCE ONE 01/04 0415 DC 01/04 IV 01/04 0416 0410 Methylprednisolone 0 .STK-MED ONE 01/04 0409 DC .ROUTE Omeprazole 40 MG DAILY AC 01/05 0700 AC PO Tramadol HCl 50 MG Q8P PRN 01/04 1045 AC PO Review of Systems Comments 18 pt reviewed ros pertinent positives and negatives in chart otherwise negative Past History Travel History Traveled to [place] past 21 day No Medical History Neurological: NONE EENT: NONE Cardiovascular: NONE Respiratory: asthma, COPD Gastrointestinal: GERD Hepatic: NONE Renal: NONE Musculoskeletal: NONE Psychiatric: anxiety, depression, PTSD Endocrine: NONE Blood Disorders: NONE 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 spouse, child Services at Home: None Primary Language: Maltese ETOH Use: denies use Illicit Drug Use: denies illicit drug use Functional Ability ADLs Independent: dressing, eating, toileting, bathing. Ambulation: independent IADLs Independent: shopping, housework, finances, food prep, telephone, transportation , medication admin. Exam & Diagnostic Data Last 24 Hrs of Vital Signs/I&O Vital Signs Date Time Temp Pulse Resp B/P B/P Pulse O2 O2 Flow FiO2 Mean Ox Delivery Rate 01/04 1205 Nasal 5.0L Cannula 01/04 0942 97.1 104 26 110/69 92 Nasal 5.0L Cannula 01/04 0857 96 Nasal 5.0L Cannula 01/04 0715 97.1 110 30 102/58 92 Nasal 4.0L Cannula 01/04 0530 113 28 96 Nasal 5.0L Cannula 01/04 0414 95 Aerosol 8L Mask 01/04 0414 97 01/04 0403 97.9 128 36 118/90 80 Room Air Intake & Output 01/04 1600 01/04 0800 01/04 0000 Intake Total 0 Output Total Balance 0 Intake, Oral 0 Patient 220 lb Weight Weight Reported by Patient Measurement Method Physical Exam Other Physical Findings: gen awake and alert heent ncat, adentulous cvs s1, s2 lungs rare rhonchi on end expiration abd soft, bs+ ext no edema Last 48 Hrs of Labs/Ashish: Laboratory Tests 01/04/18 0940: D-Dimer High Sensitivty < 200 01/04/18 0415: Anion Gap 8, Estimated GFR > 60, BUN/Creatinine Ratio 11.1, Glucose 127 H, Hemoglobin A1c 6.6 H, Calcium 9.5, Magnesium 1.6, CBC w Diff NO MAN DIFF REQ, RBC 4.64 L, MCV 93.3, MCH 31.4 H, MCHC 33.6, RDW 14.0, MPV 8.4, Gran % 59.0, Lymphocytes % 22.9, Monocytes % 11.1 H, Eosinophils % 6.7 H, Basophils % 0.3, Absolute Granulocytes 6.5, Absolute Lymphocytes 2.5, Absolute Monocytes 1.2 H, Absolute Eosinophils 0.7, Absolute Basophils 0 Assessment/Plan Impression/Plan: Impression 46 year old man * asthma/COPD overlap exacerbation secondary to medication compliance issues and smoking * acute on chronic hypoxemic respiratory failure * GERD * tobacco dependence Plan -trc/nebs -continue solumedrol 40mg iv q8h - will taper tomorrow to q12h if no events -symbicort with rinsing of the mouth -singulair -smoking cessation counseling -spo2 goal >90% DVT prophylaxis at all times Consult Acknowledgment - Thank you for your consult request.
[2018-01-04 14:35] VITALS: BP 116/72
--- NOTE | 2018-01-04 19:16 | Event Note ---
Event Note Event Note: 47 YO male with PMHx of COPD on 3-4 L of oxygen, GERD, and hx. anxiety/ depression/PTSD who presented today with a COPD/asthma exacerbation and this afternoon around 7:10 pm decided he wanted to leave the hospital against medical advice. Patient had gone to the bathroom and then suddenly decided he wanted to leave and walked out of his room and went to the front tender/clinic receptionist area. Patient was about to leave and was stopped by held up by security. Patient was met and explained the risks of leaving against medical advice. Patient understood he might have increased work of breathing and shortness of breath without the proper medical treatment. Patient understood the risks and insisted on leaving against medical advice. Patient was also called over the phone after leaving and we reached out to his friend/family and advised him to return to hospital if he experiences any symptoms of chest pain, palpitations, and shortness of breathing. Patient left the hospital by car. The attending Dr. Gauthier was informed of the situation.
--- NOTE | 2018-01-05 07:34 | Patient Discharge Instructions ---
Discharge Instructions General Discharge Information You were seen/treated for: copd/asthma exacerbation Special Instructions: 1. Please see your PCP, lung doctor(pulmologist-Dr. Cuevas) within a week 2. Please return to the ER, if symptoms worsen( discussed w/ the pt on the phone ) 3. Please take medications as prescribed. Acute Coronary Syndrome Inclusion Criteria At DC or during hospital stay patient has or had the following: ACS DIAGNOSIS No Discharge Core Measures Meds if any: Prescribed or Continued at Discharge Meds if any: NOT Prescribed or Continued at Discharge Congestive Heart Failure Inclusion Criteria At DC or during hospital stay patient has or had the following: CHF DIAGNOSIS No Discharge Core Measures Meds if any: Prescribed or Continued at Discharge Meds if any: NOT Prescribed or Continued at Discharge Cerebrovascular accident Inclusion Criteria At DC or during hospital stay patient has or had the following: CVA/TIA Diagnosis No Discharge Core Measures Meds if any: Prescribed or Continued at Discharge Meds if any: NOT Prescribed or Continued at Discharge Venous thromboembolism Inclusion Criteria VTE Diagnosis No VTE Type NONE VTE Confirmed by (Test) NONE Discharge Core Measures - Per Current guidelines, there needs to be overlap - treatment for the first 5 days of Warfarin therapy. - If discharged on Warfarin prior to 5 days of - overlap therapy, the patient will need to be - assessed for post discharge needs including - *Post discharge parental anticoagulation - *Warfarin and/or parental anticoagulation education - *Follow up date to check INR post discharge At least 5 days overlap therapy as Inpatient No Meds if any: Prescribed or Continued at Discharge Note: Overlap Therapy is Warfarin and Anticoagulant Meds if any: NOT Prescribed or Continued at Discharge
--- NOTE | 2018-01-06 08:56 | Discharge Summary ---
Visit Information Visit Dates Admission Date: 01/04/18 Discharge Date: 01/04/18 Hospital Course Course Attending Physician: Ilan BANKS,Trish Primary Care Physician: Laura BANKS,[facility] Hospital Course: Mr Wilson is a 46-year-old gentleman with a past history of chronic hypoxemic respiratory failure, COPD on 3-4 L nocturnal supplemental oxygen daily and chronic prednisone 10mg therapy, history of eosinophilia, asthma with recurrent bronchospasm, current daily smoker, opiate abuse for chronic pain recently weaned off methadone, PTSD, multiple recent admissions to [facility] for the management of acute exacerbation of COPD in the last 1 year, last admission 09/29-10/01 2017 for the management of asthma exacerbation with COPD overlap, came in with a chief concern of an acute onset of dyspnea of approximate 5 day duration. At the time of admission, temp 97.9,. GA 128-->110, RR 36-->30, Pulse ox O2 80 % 8L-->96% on 5L. Pertinent lab findings: WBC 11.0( likely steroids/reactive), hemoglobin 14.6, platelet count 312. Eos 6.7% Sodium 137, potassium 4.0, chloride 95, bicarbonate 33 (likely compensation). BUN 10, creatinine 0.9. Chest x-ray revealed no acute pulmonary finding. Last echocardiogram 17 January 2017 1. Normal EF of 60%. 2. Mild mitral regurgitation. 3. Mild tricuspid regurgitation. 4. Mild pulmonary hypertension. Last PFTs 12/08/15 Severe obstructive lung disease with a reduction in diffusing capacity consistent with emphysema and a significant bronchodilator response with oxygen desaturation. The patient was admitted to the [facility] floor albeit with some resistance from him. He was placed under TRC and nebs. We started him on Solumedrol 40mg iv q8 hours which was to be tapered to q12 if the patient improved. He was also prescribed Singular and Symbicort. However, later in the day, the patient was decided to leave the hospital against medical advice. He was stopped by the security and the component prep operator doctors met with him and explained the risks of leaving against medical advice to him. Patient understood he might have increased work of breathing and shortness of breath without the proper medical treatment. Patient understood the risks and insisted on leaving against medical advice. Patient was also called over the phone after leaving and we reached out to his friend/family and advised him to return to hospital if he experiences any symptoms of chest pain, palpitations, and shortness of breathing. Allergies: Coded Allergies: oak (ALLERGY TESTED POSITIVE 08/22/16) Uncoded Allergies: SPRUCE (ALLERGY TESTED POSITIVE 03/15/16) Disposition Summary Disposition Principal Diagnosis: Acute COPD exacerbation Additional Diagnosis: . Discharge Disposition: left against medical adv Discharge Instructions General Discharge Information Code Status: Full Code Patient's Diet: Regular diet Patient's Activity: As tolerated. He is on 3-4 L nocturnal supplemental oxygen. Follow-Up Instructions/Appts: The patient was requested to see his PCP within a week of his leaving the hospital. He was also advised to return to the ER in case his cough or SOB worsened. Medications at Discharge Discharge Medications: Continue taking these medications: Albuterol Sulfate (Albuterol Sulfate) 2.5 MG/3 ML (0.083 %) VIAL.NEB 1 Vial Inhale Solution EVERY 4 HOURS NEEDED as needed for COPD Comments: Last Taken: 10/01/17 Time: 730AM Budesonide/Formoterol Fumarate (Symbicort 160-4.5 Mcg Inhaler) 160 MCG-4.5 MCG/ ACTUATION HFA.AER.AD 1 Puff Inhale through mouth TWICE DAILY Comments: Last Taken: 10/01/17 Time: 830am Albuterol Sulfate (Proair Hfa) 90 MCG HFA.AER.AD 2 Puff Inhale through mouth as needed for COPD Comments: NOT GIVEN Pantoprazole Sodium (Protonix) 40 MG TABLET.DR 1 Tablet ORAL DAILY Comments: NOT GIVEN WHILE IN HOSPITAL Ipratropium/Albuterol Sulfate (Iprat-Albut 0.5-3(2.5) MG/3 Ml) 0.5 MG-3 MG (2.5 MG BASE)/3 ML AMPUL.NEB 1 VIAL Inhale through mouth Every 4 hours as needed for sob Qty = 25 Comments: Last Taken: 10/01/17 Time: 730Am Aripiprazole (Aripiprazole) 5 MG TABLET 1 Tablet ORAL DAILY Qty = 30 Comments: Last Taken: 10/01/17 Time: 830AM Aspirin (Ecotrin*) 81 MG TABLET.DR 1 Tablet ORAL DAILY Comments: Last Taken: 10/01/17 Time: 8:30AM Alprazolam (Alprazolam) 1 MG TABLET 1 Tablet ORAL 2 x Daily as needed as needed for ANXIETY Comments: NOT GIVEN Metformin HCl (Metformin HCl) 500 MG TABLET 1 Tablet ORAL 1200 Sitagliptin Phos/Metformin HCl (Janumet 50-1,000 MG Tablet) 50 MG-1,000 MG TABLET 1 Tablet ORAL TWICE DAILY Qty = 60 Prednisone (Prednisone) 10 MG TABLET 2 Tablet ORAL DAILY Losartan/Hydrochlorothiazide (Losartan-Hctz 50-12.5 MG Tab) 50 MG-12.5 MG TABLET 1 Tablet ORAL DAILY Qty = 30 Rosuvastatin Calcium (Crestor) 10 MG TABLET 1 Tablet ORAL Every night Qty = 30 Copies To: Laura BANKS,Liang
== END 2018-01-04 19:00 | disposition left against medical advice (07) | DRG 140 ==
LOC: ERH 03:52 → ERHI 08:15 → ENRESERV 09:11 → ENTRNSPT 10:01 → EDTRNSPTSTS 10:14 → 2NA 10:20 → CMPTRNSPT 10:33 → 2NA 19:00
PROVIDERS: Emergency Medicine
DX: J44.1 Chronic obstructive pulmonary disease with (acute) exacerbation (principal); J96.21 Acute and chronic respiratory failure with hypoxia; I27.20 Pulmonary hypertension, unspecified; Z99.81 Dependence on supplemental oxygen; F11.90 Opioid use, unspecified, uncomplicated; E11.9 Type 2 diabetes mellitus without complications; Z79.84 Long term (current) use of oral hypoglycemic drugs; K21.9 Gastro-esophageal reflux disease without esophagitis; I10 Essential (primary) hypertension; Z91.048 Other nonmedicinal substance allergy status; F17.200 Nicotine dependence, unspecified, uncomplicated
CPT/HCPCS: 2NASP; 71045; 93005; 93010; 94644; J0131; J1644; J2920; J2930; J3490